=== PATIENT | male | born 1985 | race Caucasian/White ===

== ENCOUNTER → 2017-10-03 10:00 | Outpatient (REF) | payer MEDICAID, SELFPAY ==
[2017-10-03 13:22] LABS: Basophils # 0.1 K/mm3 (0-0.2); Eosinophils # 0.3 K/mm3 (0.0-0.4); Eosinophils % 2.6 % (0.1-12.0); Hematocrit 53.8 % (42.0-52.0); Hemoglobin 17.5 g/dL (14.1-18.0); Mean Corpuscular HGB Conc 32.5 g/dL (31.8-35.4); Mean Corpuscular Hemoglobin 29.4 pg (27.0-31.2); Mean Corpuscular Volume 90.4 fl (80-94); Mean Platelet Volume 7.8 fl (7.4-10.4); Monocytes # 0.8 K/mm3 (0.1-1.0); Monocytes % 6.5 % (1.7-9.3); Neutrophils # 7.6 K/mm3 (1.8-7.8); Platelet Count 309 K/mm3 (142-424); Red Blood Count 5.95 M/mm3 (4.60-6.20); Red Cell Distribution Width 12.7 % (11.5-17.5); White Blood Count 12.9 K/mm3 (4.8-10.8)
[2017-10-03 14:08] LABS: Alanine Aminotransferase 34 U/L (12-78); Albumin/Globulin Ratio 1.4 (1.1-1.8); Alkaline Phosphatase 115 U/L (46-116); Anion Gap 15.6 mEq/L (5-15); Aspartate Amino Transferase 19 U/L (15-37); Bilirubin,Total 0.8 mg/dL (0.2-1.0); Blood Urea Nitrogen 13 mg/dL (7-18); Carbon Dioxide 25 mmol/L (21.0-32.0); Chloride 101 mmol/L (98-107); Chol/HDL Ratio 4.4 (1-3.5); Cholesterol 129 mg/dL (140-200); Creatinine,Serum 0.75 mg/dL (0.70-1.30); Estimated Glomerular Filt Rate 121 ml/min (>60); Free T4 (Free Thyroxine) 1.36 ng/dl (0.76-1.46); GFR (African American) 146 ML/MIN (>60); Globulin 2.9 gm/dl (1.3-3.2); Glucose 292 mg/dL (74-106); HDL Cholesterol 29 mg/dL (27-67); LDL Cholesterol 73 mg/dL (0-130); Potassium 4.6 mmoL/L (3.5-5.1); Sodium 137 mmol/L (136-145); Thyroid Stimulating Hormone 6.02 uIU/ml (0.358-3.740); Total Protein,Serum 6.9 gm/dL (6.4-8.2); Triglycerides 135 mg/dL (30-200); VLDL Cholesterol 27 mg/dL (0-40)
[2017-10-04 13:38] LABS: Vitamin D 25 Hydroxy 29.9 ng/mL (30.0-100.0)
== END ==
LOC: LAB 10:00
PROVIDERS: Visit Provider Nurse Practitioner Family
DX: R53.83 Other fatigue (principal); E11.9 Type 2 diabetes mellitus without complications; R79.9 Abnormal finding of blood chemistry, unspecified
CPT/HCPCS: 80053; 80061; 82652; 83036; 84439; 84443; 85025

== ENCOUNTER → 2018-05-29 15:03 | Outpatient (CLI) | payer MEDICAID, SELFPAY ==
[2018-05-29 15:47] LABS: Basophils # 0.2 K/mm3 (0-0.2); Basophils % 1.5 % (0.1-2.0); Eosinophils # 0.3 K/mm3 (0.0-0.4); Eosinophils % 2.9 % (0.1-12.0); Hematocrit 48.5 % (42.0-52.0); Hemoglobin 16.3 g/dL (14.1-18.0); Lymphocytes # 4.3 K/mm3 (0.7-4.5); Lymphocytes % 40.4 % (10-50); Mean Corpuscular HGB Conc 33.6 g/dL (31.8-35.4); Mean Corpuscular Volume 89.2 fl (80-94); Mean Platelet Volume 7.6 fl (7.4-10.4); Monocytes # 0.7 K/mm3 (0.1-1.0); Monocytes % 6.3 % (1.7-9.3); Neutrophils # 5.2 K/mm3 (1.8-7.8); Neutrophils % 48.9 % (37.0-80.0); Platelet Count 353 K/mm3 (142-424); Red Blood Count 5.44 M/mm3 (4.60-6.20); Red Cell Distribution Width 13.4 % (11.5-17.5); White Blood Count 10.6 K/mm3 (4.8-10.8)
[2018-05-29 17:18] LABS: Free T4 (Free Thyroxine) 1.31 ng/dl (0.76-1.46)
[2018-05-29 17:20] LABS: Alanine Aminotransferase 59 U/L (12-78); Albumin Level 4.1 gm/dL (3.4-5.0); Albumin/Globulin Ratio 1.3 (1.1-1.8); Alkaline Phosphatase 127 U/L (46-116); Anion Gap 19.1 mEq/L (5-15); Aspartate Amino Transferase 15 U/L (15-37); Bilirubin,Total 0.9 mg/dL (0.2-1.0); Blood Urea Nitrogen 14 mg/dL (7-18); Carbon Dioxide 22 mmol/L (21.0-32.0); Chloride 96 mmol/L (98-107); Chol/HDL Ratio 5.2 (1-3.5); Cholesterol 188 mg/dL (140-200); Creatinine,Serum 0.81 mg/dL (0.70-1.30); Estimated Glomerular Filt Rate 110 ml/min (>60); GFR (African American) 133 ML/MIN (>60); Globulin 3.1 gm/dl (1.3-3.2); HDL Cholesterol 36 mg/dL (27-67); LDL Cholesterol 126 mg/dL (0-130); Potassium 4.1 mmoL/L (3.5-5.1); Sodium 133 mmol/L (136-145); T4 (Thyroxine) 10.9 ug/dl (4.7-13.3); Thyroid Stimulating Hormone 10.51 uIU/ml (0.358-3.740); Total Protein,Serum 7.2 gm/dL (6.4-8.2); Triglycerides 130 mg/dL (30-200); VLDL Cholesterol 26 mg/dL (0-40)
[2018-05-29 18:02] LABS: Glucose 446 mg/dL (74-106)
[2018-05-29 20:10] LABS: Hemoglobin A1C 10.7 % (0.0-7.0)
== END ==
PROVIDERS: Nurse Practitioner Family; Visit Provider Nurse Practitioner Family
DX: E11.9 Type 2 diabetes mellitus without complications (principal); R53.83 Other fatigue
CPT/HCPCS: 80053; 80061; 83036; 84436; 84439; 84443; 85025

== ENCOUNTER → 2019-05-14 08:56 | Outpatient (CLI) | payer MEDICAID, SELFPAY ==
[2019-05-14 09:20] LABS: Basophils # 0.1 K/mm3 (0-0.2); Eosinophils # 0.2 K/mm3 (0.0-0.4); Eosinophils % 2.4 % (0.1-12.0); Hematocrit 48.9 % (42.0-52.0); Hemoglobin 16.7 g/dL (14.1-18.0); Lymphocytes # 2.8 K/mm3 (0.7-4.5); Lymphocytes % 35.3 % (10-50); Mean Corpuscular HGB Conc 34.1 g/dL (31.8-35.4); Mean Corpuscular Hemoglobin 31.6 pg (27.0-31.2); Mean Corpuscular Volume 92.6 fl (80-94); Mean Platelet Volume 7.3 fl (7.4-10.4); Monocytes # 0.5 K/mm3 (0.1-1.0); Monocytes % 6.6 % (1.7-9.3); Neutrophils # 4.4 K/mm3 (1.8-7.8); Neutrophils % 54.6 % (37.0-80.0); Platelet Count 278 K/mm3 (142-424); Red Blood Count 5.29 M/mm3 (4.60-6.20); Red Cell Distribution Width 12.9 % (11.5-17.5)
[2019-05-14 10:10] LABS: Alanine Aminotransferase 51 U/L (12-78); Albumin Level 3.9 gm/dL (3.4-5.0); Albumin/Globulin Ratio 1.3 (1.1-1.8); Alkaline Phosphatase 107 U/L (46-116); Anion Gap 18.3 mEq/L (5-15); Aspartate Amino Transferase 20 U/L (15-37); Bilirubin,Total 1.2 mg/dL (0.2-1.0); Blood Urea Nitrogen 11 mg/dL (7-18); Calcium 8.8 mg/dL (8.5-10.1); Carbon Dioxide 23 mmol/L (21.0-32.0); Chloride 101 mmol/L (98-107); Creatinine,Serum 0.82 mg/dL (0.70-1.30); Estimated Glomerular Filt Rate 108 ml/min (>60); GFR (African American) 130 ML/MIN (>60); Globulin 2.9 gm/dl (1.3-3.2); Glucose 398 mg/dL (74-106); Potassium 4.3 mmoL/L (3.5-5.1); Sodium 138 mmol/L (136-145); Thyroid Stimulating Hormone 10.05 uIU/ml (0.358-3.740); Total Protein,Serum 6.8 gm/dL (6.4-8.2)
[2019-05-14 10:36] LABS: Hemoglobin A1C 11.2 % (0.0-7.0)
== END ==
PROVIDERS: Visit Provider Nurse Practitioner Psychiatric/Mental Health
DX: Z00.00 Encounter for general adult medical examination without abnormal findings (principal); Z79.899 Other long term (current) drug therapy
CPT/HCPCS: 36415; 80053; 83036; 84443; 85025

== ENCOUNTER → 2019-05-28 16:33 | Outpatient (CLI) | payer MEDICAID, SELFPAY ==
[2019-05-30 12:24] LABS: Creatinine, Urine 58.5 mg/dL (Not Estab.); Microalbumin, Urine 8.5 ug/mL (Not Estab.)
== END ==
PROVIDERS: Visit Provider Nurse Practitioner Family
DX: E11.9 Type 2 diabetes mellitus without complications (principal); Z79.84 Long term (current) use of oral hypoglycemic drugs
CPT/HCPCS: 82043; 82570

== ENCOUNTER → 2019-06-01 11:53 | Outpatient (CLI) | payer MEDICAID, SELFPAY ==
[2019-06-01 13:03] LABS: Basophils # 0.1 K/mm3 (0-0.2); Basophils % 0.9 % (0.1-2.0); Eosinophils # 0.1 K/mm3 (0.0-0.4); Eosinophils % 1.1 % (0.1-12.0); Hematocrit 48.1 % (42.0-52.0); Hemoglobin 16.3 g/dL (14.1-18.0); Lymphocytes # 3.3 K/mm3 (0.7-4.5); Lymphocytes % 31.9 % (10-50); Mean Corpuscular HGB Conc 33.9 g/dL (31.8-35.4); Mean Corpuscular Hemoglobin 30.7 pg (27.0-31.2); Mean Corpuscular Volume 90.5 fl (80-94); Mean Platelet Volume 7.6 fl (7.4-10.4); Monocytes # 0.6 K/mm3 (0.1-1.0); Monocytes % 5.6 % (1.7-9.3); Neutrophils # 6.3 K/mm3 (1.8-7.8); Neutrophils % 60.6 % (37.0-80.0); Platelet Count 284 K/mm3 (142-424); Red Blood Count 5.31 M/mm3 (4.60-6.20); Red Cell Distribution Width 12.9 % (11.5-17.5); White Blood Count 10.4 K/mm3 (4.8-10.8)
[2019-06-01 15:35] LABS: Anion Gap 17.6 mEq/L (5-15); Blood Urea Nitrogen 12 mg/dL (7-18); Calcium 9.1 mg/dL (8.5-10.1); Carbon Dioxide 24 mmol/L (21.0-32.0); Chloride 99 mmol/L (98-107); Chol/HDL Ratio 5.5 (1-3.5); Cholesterol 165 mg/dL (140-200); Creatinine,Serum 0.92 mg/dL (0.70-1.30); Estimated Glomerular Filt Rate 94 ml/min (>60); GFR (African American) 114 ML/MIN (>60); HDL Cholesterol 30 mg/dL (27-67); LDL Cholesterol 95 mg/dL (0-130); Potassium 4.6 mmoL/L (3.5-5.1); Sodium 136 mmol/L (137-145); Triglycerides 202 mg/dL (30-200); VLDL Cholesterol 40 mg/dL (0-40)
[2019-06-01 15:39] LABS: C-Reactive Protein < 0.2 mg/dL (0.0-0.9)
[2019-06-01 15:43] LABS: Glucose 472 mg/dL (74-106)
[2019-06-01 17:16] LABS: Hemoglobin A1C 10.6 % (0.0-7.0)
== END ==
PROVIDERS: Visit Provider Family Medicine Addiction Medicine
DX: G45.3 Amaurosis fugax (principal); E11.9 Type 2 diabetes mellitus without complications; Z79.4 Long term (current) use of insulin
CPT/HCPCS: 36415; 80048; 80061; 83036; 85025; 86140

== ENCOUNTER → 2019-08-20 13:33 | Outpatient (CLI) | payer MEDICAID, SELFPAY ==
[2019-08-20 14:04] LABS: Alanine Aminotransferase 41 U/L (12-78); Albumin Level 4.3 g/dl (3.5-5.0); Albumin/Globulin Ratio 1.7 (1.1-1.8); Alkaline Phosphatase 109 U/L (38-126); Anion Gap 15.3 mEq/L (5-15); Aspartate Amino Transferase 29 U/L (17-59); Blood Urea Nitrogen 12 mg/dl (9-20); Calcium 9.5 mg/dl (8.4-10.2); Carbon Dioxide 22 mmol/L (22.0-30.0); Chloride 100 mmol/L (98-107); Chol/HDL Ratio 4.3 (1-3.5); Cholesterol 173 mg/dl (140-200); Estimated Glomerular Filt Rate 154 ml/min (>60); GFR (African American) 187 ML/MIN (>60); Globulin 2.6 g/dL (1.3-3.2); Glucose 372 mg/dl (74-100); HDL Cholesterol 40 mg/dl (40-60); Potassium 4.3 mmoL/L (3.5-5.1); Sodium 133 mmol/L (136-145); Total Protein,Serum 6.9 g/dl (6.3-8.2); Triglycerides 99 mg/dl (30-150); VLDL Cholesterol 20 mg/dL (0-40)
[2019-08-20 14:15] LABS: Basophils # 0.1 K/mm3 (0-0.2); Basophils % 1.1 % (0.1-2.0); Direct LDL Cholesterol 139.35 mg/dL (100-129); Eosinophils # 0.4 K/mm3 (0.0-0.4); Hematocrit 49.3 % (42.0-52.0); Hemoglobin 17.1 g/dL (14.1-18.0); Lymphocytes % 30.3 % (10-50); Mean Corpuscular HGB Conc 34.8 g/dL (31.8-35.4); Mean Corpuscular Hemoglobin 30.6 pg (27.0-31.2); Mean Corpuscular Volume 88.1 fl (80-94); Mean Platelet Volume 8.6 fl (7.4-10.4); Monocytes # 0.5 K/mm3 (0.1-1.0); Monocytes % 5.5 % (1.7-9.3); Neutrophils # 5.8 K/mm3 (1.8-7.8); Neutrophils % 59.1 % (37.0-80.0); Platelet Count 297 K/mm3 (142-424); Red Cell Distribution Width 12.1 % (11.5-17.5); White Blood Count 9.8 K/mm3 (4.8-10.8)
[2019-08-20 14:21] LABS: Hemoglobin A1C 11.7 % (4.0-6.0)
[2019-08-20 14:35] LABS: Thyroid Stimulating Hormone 8.64 uIU/mL (0.465-4.68)
[2019-08-21 09:29] LABS: Creatinine, Urine 92.3 mg/dL (Not Estab.); Microalbumin, Urine 3.8 ug/mL (Not Estab.)
== END ==
PROVIDERS: Visit Provider Nurse Practitioner Family
DX: E11.9 Type 2 diabetes mellitus without complications (principal); E03.9 Hypothyroidism, unspecified; K59.00 Constipation, unspecified; Z79.4 Long term (current) use of insulin
CPT/HCPCS: 80053; 80061; 82043; 82570; 83036; 84439; 84443; 85025

== ENCOUNTER → 2019-11-04 14:05 | Outpatient (CLI) | payer MEDICAID, SELFPAY ==
[2019-11-04 14:20] LABS: Basophils # 0.1 K/mm3 (0-0.2); Basophils % 1.2 % (0.1-2.0); Eosinophils # 0.4 K/mm3 (0.0-0.4); Eosinophils % 3.7 % (0.1-12.0); Hematocrit 48.4 % (42.0-52.0); Hemoglobin 17.1 g/dL (14.1-18.0); Lymphocytes # 3.4 K/mm3 (0.7-4.5); Lymphocytes % 35.5 % (10-50); Mean Corpuscular HGB Conc 35.3 g/dL (31.8-35.4); Mean Corpuscular Hemoglobin 31.6 pg (27.0-31.2); Mean Corpuscular Volume 89.7 fl (80-94); Mean Platelet Volume 7.9 fl (7.4-10.4); Monocytes # 0.6 K/mm3 (0.1-1.0); Monocytes % 5.9 % (1.7-9.3); Neutrophils # 5.1 K/mm3 (1.8-7.8); Neutrophils % 53.8 % (37.0-80.0); Platelet Count 281 K/mm3 (142-424); Red Blood Count 5.39 M/mm3 (4.60-6.20); Red Cell Distribution Width 13.1 % (11.5-17.5); White Blood Count 9.6 K/mm3 (4.8-10.8)
[2019-11-04 14:47] LABS: Hemoglobin A1C 10.4 % (4.0-6.0)
[2019-11-04 14:54] LABS: Chloride 102 mmol/L (98-107); Potassium 4.2 mmoL/L (3.5-5.1); Sodium 139 mmol/L (136-145)
[2019-11-04 14:57] LABS: Alanine Aminotransferase 25 U/L (12-78); Albumin Level 4.4 g/dl (3.5-5.0); Albumin/Globulin Ratio 1.6 (1.1-1.8); Alkaline Phosphatase 88 U/L (38-126); Anion Gap 17.2 mEq/L (5-15); Aspartate Amino Transferase 19 U/L (17-59); Bilirubin,Total 1.9 mg/dl (0.2-1.3); Blood Urea Nitrogen 13 mg/dl (9-20); Calcium 9.1 mg/dl (8.4-10.2); Carbon Dioxide 24 mmol/L (22.0-30.0); Cholesterol 146 mg/dl (140-200); Estimated Glomerular Filt Rate 154 ml/min (>60); GFR (African American) 187 ML/MIN (>60); Globulin 2.7 g/dL (1.3-3.2); Glucose 237 mg/dl (74-100); Total Protein,Serum 7.1 g/dl (6.3-8.2); Triglycerides 71 mg/dl (30-150); VLDL Cholesterol 14 mg/dL (0-40)
[2019-11-04 14:58] LABS: Chol/HDL Ratio 4.4 (1-3.5); HDL Cholesterol 33 mg/dl (40-60)
[2019-11-04 15:08] LABS: Direct LDL Cholesterol 109.64 mg/dL (100-129)
[2019-11-04 15:13] LABS: T4 (Thyroxine) 10.7 ug/dl (5.53-11.0)
== END ==
PROVIDERS: Visit Provider Nurse Practitioner Family
DX: E11.9 Type 2 diabetes mellitus without complications (principal); R53.83 Other fatigue; Z79.4 Long term (current) use of insulin
CPT/HCPCS: 80053; 80061; 83036; 84436; 84443; 85025

== ENCOUNTER → 2019-12-03 16:04 | Outpatient (CLI) | payer MEDICAID, SELFPAY ==
[2019-12-03 17:36] LABS: Erythrocyte Sedimentation Rate 6 mm/hr (0-15)
[2019-12-03 18:33] LABS: Thyroid Stimulating Hormone 4.29 uIU/mL (0.465-4.68)
[2019-12-05 13:06] LABS: Vitamin B12 459 pg/mL (232-1245)
[2019-12-05 17:17] LABS: CK-MB 0 % (0-3); CK-MM 100 % (97-100); Creatine Kinase,Total,Serum 30 U/L (49-439); Macro Type 1 0 % (Not Observed); Macro Type 2 0 % (Not Observed)
[2019-12-05 17:42] LABS: CK-BB 0 % (0)
[2019-12-08 02:54] LABS: Aldolase 4.4 U/L (3.3-10.3)
[2019-12-10 14:28] LABS: AChR Binding Abs 0.03 nmol/L (0.00-0.24); AChR Blocking Abs 17 % (0-25); AChR Modulating Ab <12 % (0-20); Anti-Striation (muscle) Abs Negative (Neg:<1:40)
== END ==
PROVIDERS: Visit Provider Nurse Practitioner Family
DX: E03.9 Hypothyroidism, unspecified (principal); M62.81 Muscle weakness (generalized); R63.4 Abnormal weight loss; G89.29 Other chronic pain; M54.5 Low back pain; N52.9 Male erectile dysfunction, unspecified; R20.0 Anesthesia of skin; R20.2 Paresthesia of skin; R29.2 Abnormal reflex; E10.69 Type 1 diabetes mellitus with other specified complication; I10 Essential (primary) hypertension; R05 Cough; F41.9 Anxiety disorder, unspecified
CPT/HCPCS: 36415; 82085; 82550; 82552; 82607; 84238; 84443; 85651; 86255

== ENCOUNTER → 2019-12-15 14:10 | Outpatient (CLI) | payer MEDICAID, SELFPAY ==
--- NOTE | 2019-12-15 14:10 | MR_ITS ---
PROCEDURE: MR LUMBAR SPINE WO CON CLINICAL INDICATION: rule out radiculopathy, compression, impingement,myleopathy Pt. C/o left sided lbp s/p falling onto buttox. Pt states he has tingling down left leg. COMPARISON: No exams were available for comparison TECHNIQUE: Standard multiplanar multiecho sequences are performed without contrast. 3-D MIP and myelographic images are also rendered and reviewed FINDINGS: There is normal alignment. The spinal cord ends at T12 level. T12-L1: Unremarkable. L1-L2: Unremarkable. L2-L3: Unremarkable. L3-L4: Unremarkable. L4-5: The disc space is unremarkable. There is a small lobular cystic area posterior to the posterior aspect of the facet joint on the right at L4-5. This measures 17 by 12 mm consistent with a synovial cyst. There are mild hypertrophic changes of the facets with mild bilateral foraminal narrowing. L5-S1: Mild facet hypertrophic changes with moderate right-sided foraminal narrowing. No extruded herniated disc. IMPRESSION: 1. L4-5: The disc space is unremarkable. There is a small lobular cystic area posterior to the posterior aspect of the facet joint on the right at L4-5. This measures 17 by 12 mm consistent with a synovial cyst. There are mild hypertrophic changes of the facets with mild bilateral foraminal narrowing. 2. L5-S1: Mild facet hypertrophic changes with moderate right-sided foraminal narrowing. 3. No extruded herniated disc or canal stenosis. Dictated by: Sohan Bernal MD 12/16/2019 12:39 Sohan Bernal MD in [place] 12/16/2019 12:39
== END ==
PROVIDERS: PCP Nurse Practitioner Family; Visit Provider Specialist
DX: M54.5 Low back pain (principal); G89.29 Other chronic pain; M62.81 Muscle weakness (generalized); E03.9 Hypothyroidism, unspecified; E10.69 Type 1 diabetes mellitus with other specified complication; N52.9 Male erectile dysfunction, unspecified; R20.0 Anesthesia of skin; R20.2 Paresthesia of skin; R29.2 Abnormal reflex; R63.4 Abnormal weight loss
CPT/HCPCS: 72148; 76376

== ENCOUNTER → 2019-12-23 16:18 | Outpatient (CLI) | payer MEDICAID, SELFPAY ==
--- NOTE | 2019-12-23 16:25 | XR_ITS ---
PROCEDURE: XR LUMBAR SPINE 2-3V CLINICAL INDICATION: back pain with numbness, tingling, weakness, ED COMPARISON: No exams were available for comparison FINDINGS: No fracture or dislocation. No lytic or blastic change. There is normal mineralization. The joint spaces are well-preserved. No significant degenerative/arthritic changes. No erosive changes evident. Other findings:There is minimal thoracolumbar curvature convex right. IMPRESSION: Minimal thoracolumbar curvature convex right otherwise negative with no acute finding Dictated by: Sohan Bernal MD 12/23/2019 17:41 Sohan Bernal MD in [place] 12/23/2019 17:41
--- NOTE | 2019-12-23 16:25 | XR_ITS ---
PROCEDURE: XR CHEST 2V CLINICAL HISTORY: chronic cough, unintentional weight loss, tobacco COMPARISON: No exams were available for comparison FINDINGS: The cardiomediastinal silhouette and pulmonary vascularity are within normal limits. The lungs are clear without infiltrates, suspicious nodules, or pleural effusions. There is an old midshaft clavicular fracture on the right. No acute bony findings. IMPRESSION: No acute findings. Dictated by: Sohan Bernal MD 12/23/2019 17:44 Sohan Bernal MD in [place] 12/23/2019 17:44
== END ==
PROVIDERS: PCP Nurse Practitioner Family; Visit Provider Nurse Practitioner Family
DX: M54.5 Low back pain (principal); G89.29 Other chronic pain; M62.81 Muscle weakness (generalized); N52.9 Male erectile dysfunction, unspecified; R29.2 Abnormal reflex; R63.4 Abnormal weight loss; R05 Cough; Z72.0 Tobacco use
CPT/HCPCS: 71046; 72100

== ENCOUNTER → 2020-03-02 18:28 | Outpatient (CLI) | payer MEDICAID, SELFPAY ==
[2020-03-02 20:20] LABS: Alanine Aminotransferase 34 U/L (12-78); Albumin Level 4.3 g/dl (3.5-5.0); Albumin/Globulin Ratio 1.5 (1.1-1.8); Alkaline Phosphatase 97 U/L (38-126); Anion Gap 14.2 mEq/L (5-15); Aspartate Amino Transferase 34 U/L (17-59); Bilirubin,Total 1.7 mg/dl (0.2-1.3); Blood Urea Nitrogen 12 mg/dl (9-20); Calcium 9.6 mg/dl (8.4-10.2); Carbon Dioxide 25 mmol/L (22.0-30.0); Chloride 103 mmol/L (98-107); Cholesterol 140 mg/dl (140-200); Estimated Glomerular Filt Rate 153 ml/min (>60); GFR (African American) 186 ML/MIN (>60); Globulin 2.9 g/dL (1.3-3.2); Glucose 225 mg/dl (74-100); HDL Cholesterol 35 mg/dl (40-60); Potassium 4.2 mmoL/L (3.5-5.1); Sodium 138 mmol/L (136-145); Total Protein,Serum 7.2 g/dl (6.3-8.2); Triglycerides 71 mg/dl (30-150); VLDL Cholesterol 14 mg/dL (0-40)
[2020-03-02 20:36] LABS: 25-OH Vitamin D, Total 32.8 ng/mL (30-100)
[2020-03-02 20:37] LABS: T4 (Thyroxine) 10.7 ug/dl (5.53-11.0)
[2020-03-02 20:51] LABS: Thyroid Stimulating Hormone 8.09 uIU/mL (0.465-4.68)
[2020-03-02 22:27] LABS: Basophils # 0.1 K/mm3 (0-0.2); Basophils % 1.2 % (0.1-2.0); Eosinophils # 0.3 K/mm3 (0.0-0.4); Eosinophils % 2.4 % (0.1-12.0); Hematocrit 49.5 % (42.0-52.0); Hemoglobin 16.4 g/dL (14.1-18.0); Lymphocytes # 3.4 K/mm3 (0.7-4.5); Lymphocytes % 32.7 % (10-50); Mean Corpuscular HGB Conc 33.1 g/dL (31.8-35.4); Mean Corpuscular Hemoglobin 31.1 pg (27.0-31.2); Mean Platelet Volume 8.7 fl (7.4-10.4); Monocytes # 0.7 K/mm3 (0.1-1.0); Monocytes % 6.9 % (1.7-9.3); Neutrophils # 5.9 K/mm3 (1.8-7.8); Neutrophils % 56.8 % (37.0-80.0); Platelet Count 249 K/mm3 (142-424); Red Blood Count 5.27 M/mm3 (4.60-6.20); Red Cell Distribution Width 12.7 % (11.5-17.5); White Blood Count 10.4 K/mm3 (4.8-10.8)
[2020-03-02 23:13] LABS: Hemoglobin A1C 8.2 % (4.0-6.0)
== END ==
PROVIDERS: Visit Provider Nurse Practitioner Family
DX: E10.69 Type 1 diabetes mellitus with other specified complication (principal); Z79.4 Long term (current) use of insulin
CPT/HCPCS: 80053; 80061; 82306; 83036; 84436; 84443; 85025

== ENCOUNTER 2020-03-13 19:29 | Emergency (ER) | payer MEDICAID, SELFPAY ==
[2020-03-13 20:10] VITALS: BP 118/83; PULSE 78; RESP 20; TEMP 36.2; O2SAT 98; BMI 24.7
--- NOTE | 2020-03-13 20:23 | HMH.EDUTC ---
[facility] [place] Clinical Impression: Exposure to COVID-19 virus Disposition: Home, Self-Care Condition on Discharge: Good Instructions: Preventing the Spread of Coronavirus Discharge Instructions Additional Instructions: Drink plenty of fluids. Take tylenol for pain or fever. Return if you begin to have difficulty breathing. Follow up with your regular doctor. GO TO THE ER FOR ANY WORSENING SYMPTOMS Referrals: Shun Traylor APRN [Primary Care Provider] - Time of Disposition: 20:23 Medical Decision Making - Medical Records Medical records reviewed: No: I reviewed the patient's medical records. - Burton Inquiry Pt receiving controlled substance: No Vital Signs: 03/13/20 20:10 Temperature 97.2 F L Temperature Source Temporal Artery Scan Pulse Rate [Left Brachial] 78 Respiratory Rate 20 Blood Pressure [Left Arm] 118/83 Blood Pressure Mean [Left Arm] 94 Blood Pressure Source [Left Arm] Automatic Cuff Blood Pressure Position [Left Arm] Sitting 02 Sat by Pulse Oximetry 98 Oxygen Delivery Method Room Air Orders (Tests/Meds): ORDERS Category Date Time Status Covid-19 Nasal PCR Sendout [facility] Routine Lab 03/13/20 19:55 Ordered [facility] [place] HPI - General Stated complaint: COVID Exposure Time Seen by Provider: 03/13/20 20:23 - History of Present Illness Provider Complaint: He states he has been exposed to covid and needs a test. - Related Data Previous Rx's Medication Instructions Recorded pen needle, diabetic 31 gauge x See Rx Instructions .ROUTE 06/12/19 5/16 .MEDSUPPLY #100 each aripiprazole 5 mg tablet 5 mg PO QHS #30 tab 12/29/19 insulin NPH-regular 70-30 U-100 12 unit SQ BID #15 ml 01/08/20 insulin 100 unit/mL subcutaneous pen aspirin 81 mg tablet,delayed 81 mg PO DAILY #30 tab 03/02/20 release blood sugar diagnostic See Rx Instructions .ROUTE 03/02/20 .MEDSUPPLY #10 each blood-glucose meter,continuous See Rx Instructions .ROUTE 03/02/20 .MEDSUPPLY #1 each blood-glucose sensor See Rx Instructions .ROUTE 03/02/20 .MEDSUPPLY #3 each blood-glucose transmitter See Rx Instructions .ROUTE 03/02/20 .MEDSUPPLY #1 each lisinopril 2.5 mg tablet 2.5 mg PO DAILY 30 Days #30 tab 03/02/20 simvastatin 5 mg tablet 5 mg PO DAILY 30 Days #30 tab 03/02/20 levothyroxine 25 mcg tablet 25 mcg PO DAILY #30 tab 03/03/20 Allergies Allergy/AdvReac Type Severity Reaction Status Date / Time Penicillins [PENICILLINS] Allergy Unknown Verified 03/02/20 14:33 [facility] History - Hepatitis A Screen Attestation statement:: This patient has been screened for Hepatitis A risk factors. I have reviewed the patient's past medical history: Yes Medical History: Reports:: Anxiety, Diabetes Mellitus Type 2, Hyperlipidemia, Hypertension Other Medical History: Reports: Thyroid Disease Other Surgeries: Yes: No Previous Surgery Amputation: No Fractures: No - Social History Smoking Status: Current every day smoker Tobacco Type: cigarettes # Packs/Day (cigarettes): 1 Alcohol Intake: never Alcohol Intake Frequency:: other Substance Use Type: denies use Occupational Status: employed Housing: house Household Members: children, spouse Comment: -he used to smoke cannabis. -nothing current. -when [age] years old; dabbled in cocaine and methamphetamines - Psychiatric History Pschychiatric History:: Reports:: Anxiety Family Hx:: Diabetes, Hypertension ROS Obtained: Yes All systems reviewed & no additional complaints - Constitutional Constitutional: Reports system reviewed and no additional complaints, except as docu - Eyes Eyes: Reports system reviewed and no additional complaints, except as docu - ENT Ears, Nose, Mouth, and Throat: Reports system reviewed and no additional complaints, except as docu - Cardiovascular Cardiovascular: Reports system reviewed and no additional complaints, except as docu - Respiratory Respiratory: Yes system reviewed and no additional complaints, e
[2020-03-13 20:35] VITALS: BP 118/83; PULSE 78; RESP 20; TEMP 36.2; O2SAT 98
[2020-03-15 13:35] LABS: Covid-19 Nasal PCR Sendout Lex Not Detected
== END 2020-03-13 20:40 | disposition home or self-care (01) ==
PROVIDERS: Emergency Provider Nurse Practitioner Family; PCP Nurse Practitioner Family
DX: Z20.828 Contact with and (suspected) exposure to other viral communicable diseases (principal); E11.9 Type 2 diabetes mellitus without complications; E78.5 Hyperlipidemia, unspecified; I10 Essential (primary) hypertension; E03.9 Hypothyroidism, unspecified; Z79.899 Other long term (current) drug therapy; Z88.0 Allergy status to penicillin; F17.210 Nicotine dependence, cigarettes, uncomplicated
CPT/HCPCS: 99201; U0004

== ENCOUNTER 2020-04-30 01:01 | Emergency (ER) | payer MEDICAID, SELFPAY ==
[2020-04-30 01:12] VITALS: BP 165/106; PULSE 98; RESP 16; TEMP 36.8; O2SAT 98; BMI 26.2
[2020-04-30 01:22] VITALS: BMI 26.5
--- NOTE | 2020-04-30 01:29 | HMH.EDWEAK ---
ED Disposition Clinical Impression: Diabetes Qualifiers: Diabetes mellitus type: type 1 Diabetes mellitus complication status: with other specified complication Qualified Code(s): E10.69 - Type 1 diabetes mellitus with other specified complication Disposition: Home, Self-Care Condition on Discharge: Good Instructions: DI for Diabetic Neuropathy Additional Instructions: call pcp for follow up Referrals: Shun Traylor APRN [Primary Care Provider] - - Critical Care Critical Care Time: No Attestation: On 04/30/20, the high probability of a clinically significant, sudden or life threatening deterioration of the following system(s) required my full and direct attention, intervention and personal management. The time I documented below is in addition to time spent performing reported procedures but includes the following listed in this critical care notation. Medical Decision Making - Medical Records Medical records reviewed: Yes: I reviewed the patient's medical records. - Burton Inquiry Pt receiving controlled substance: No Vital Signs: 04/30/20 01:12 Temperature 98.3 F Temperature Source Oral Pulse Rate [Right Brachial] 98 H Respiratory Rate 16 Blood Pressure [Right Arm] 165/106 H Blood Pressure Mean [Right Arm] 125 Blood Pressure Source [Right Arm] Automatic Cuff Blood Pressure Position [Right Arm] Sitting 02 Sat by Pulse Oximetry 98 Oxygen Delivery Method Room Air - Lab Data Lab results reviewed: Yes: I reviewed the patient's lab results. Lab Results 04/30/20 01:18: POC Glucose 367 H* Orders (Tests/Meds): ED MEDICATIONS Discontinued Medications Generic Name Dose Route Start Last Admin Trade Name Freq PRN Reason Stop Dose Admin Insulin Lispro Protam/Lispro Human 12 unit 04/30/20 01:23 Humalog Mix 75/25 3ml Flexpen SQ 04/30/20 01:24 ONCE ONE Medical Decision Narrative: will use insulin at home and call pcp for follow up Weakness HPI - General Chief complaint: Weakness Stated complaint: Diabetic neuropathy Time Seen by Provider: 04/30/20 01:15 Mode of Arrival: Ambulatory Source of Information: Patient, Medical Record Limitations: No Limitations Description of Symptoms (Recalled from ER Triage Doc. by RN): lighthead, weakness. Forgot to take Insulin earlier today before going to work. - History of Present Illness HPI Narrative: pt with episode of weakness and lower ext pain - he reports this occurs with his diabetes - he had not taken evening dose as he was late at work- he feels better now - MD Complaint: generalized weakness Onset (ago): hour(s) Duration: now resolved Location: E Migration: none Severity: similar to previous episodes Associated symptoms: denies other symptoms - Related Data Previous Rx's Medication Instructions Recorded pen needle, diabetic 31 gauge x See Rx Instructions .ROUTE 06/12/19/ .MEDSUPPLY #100 each insulin NPH-regular 70-30 U-100 12 unit SQ BID #15 ml 01/08/20 insulin 100 unit/mL subcutaneous pen aspirin 81 mg tablet,delayed 81 mg PO DAILY #30 tab 03/02/20 release blood sugar diagnostic See Rx Instructions .ROUTE 03/02/20 .MEDSUPPLY #10 each blood-glucose meter,continuous See Rx Instructions .ROUTE 03/02/20 .MEDSUPPLY #1 each blood-glucose sensor See Rx Instructions .ROUTE 03/02/20 .MEDSUPPLY #3 each blood-glucose transmitter See Rx Instructions .ROUTE 03/02/20 .MEDSUPPLY #1 each lisinopril 2.5 mg tablet 2.5 mg PO DAILY 30 Days #30 tab 03/02/20 simvastatin 5 mg tablet 5 mg PO DAILY 30 Days #30 tab 03/02/20 levothyroxine 25 mcg tablet 25 mcg PO DAILY #30 tab 03/03/20 aripiprazole 5 mg tablet 5 mg PO QHS #30 tab 03/21/20 Allergies Allergy/AdvReac Type Severity Reaction Status Date / Time Penicillins [PENICILLINS] Allergy Unknown Verified 03/02/20 14:33 [facility] History - Hepatitis A Screen Drug use history?: No High risk sexual behaviors?: No History of sexually transmitted infection?
[2020-04-30 01:37] LABS: POC Glucose,Bedside 367 (70-110)
--- NOTE | 2020-04-30 01:38 | PC.NURSE ---
Pt states the dose of insulin he missed is 70/30 12 units, we have no 70/30 available in house, pt states he is fine and has his insulin at home and will go home and take it, he was only in the E.D. because his work made him come here. Pt wishes to just go home and take own insulin, Dr Silva notified.
[2020-04-30 02:07] VITALS: BP 165/106; PULSE 90; RESP 16; TEMP 36.8
== END 2020-04-30 02:13 | disposition home or self-care (01) ==
PROVIDERS: Emergency Provider Emergency Medicine; PCP Nurse Practitioner Family
DX: E10.40 Type 1 diabetes mellitus with diabetic neuropathy, unspecified (principal); E10.65 Type 1 diabetes mellitus with hyperglycemia; Z79.4 Long term (current) use of insulin; I10 Essential (primary) hypertension; F41.9 Anxiety disorder, unspecified; E05.90 Thyrotoxicosis, unspecified without thyrotoxic crisis or storm; F17.210 Nicotine dependence, cigarettes, uncomplicated; E78.5 Hyperlipidemia, unspecified; Z79.899 Other long term (current) drug therapy
CPT/HCPCS: 82962; 99281

== ENCOUNTER 2020-12-24 12:31 | Emergency (ER) | payer MEDICAID, SELFPAY ==
[2020-12-24 14:00] VITALS: BP 145/81; PULSE 68; RESP 19; TEMP 36.7; O2SAT 98; BMI 27.2
--- NOTE | 2020-12-24 14:23 | HMH.EDUTC ---
[facility] [place] Disposition Clinical Impression: Exposure to COVID-19 virus Disposition: Home, Self-Care Condition on Discharge: Good Instructions: DI for COVID-19 (Suspected or Confirmed ), Preventing the Spread of Coronavirus Discharge Instructions Additional Instructions: *Monitor Temp, Over the counter Motrin or Tylenol as directed/as needed Tylenol every 4 hours and Motrin every 6 hours (as long as your family doctor has told you that you can take it) for fever or pain. and straight to ER if unable to lower temp less than 101.0 after medication given Follow up IMMEDIATELY for new or worsening symptoms or no Noticeable improvement over the next 48-72 hours. 911 for difficulty breathing or swallowing You were tested for today for COVID19 your test result should be back in the next 24-48 hours, You was given written instructions for [facility] portal you can see your results there when they come back you may check it often to see if they are done You was given a handout with instructions for Self Quarantine and Self isolation for while you wait on test results and what to do if they are positive If you are positive the Health Dept will be contacting you also Make sure to take your Vitamins Vit. C Vit D and Zinc if you can take them Referrals: Shun Traylor APRN [Primary Care Provider] - As needed Forms: Work/School Release Time of Disposition: 14:25 Medical Decision Making - Burton Inquiry Pt receiving controlled substance: No Burton was queried for this patient: No Vital Signs: 12/24/20 14:00 Temperature 98.1 F Temperature Source Oral Pulse Rate [Right Brachial] 68 Respiratory Rate 19 Blood Pressure [Right Arm] 145/81 H Blood Pressure Mean [Right Arm] 102 Blood Pressure Source [Right Arm] Automatic Cuff Blood Pressure Position [Right Arm] Sitting 02 Sat by Pulse Oximetry 98 Oxygen Delivery Method Room Air Orders (Tests/Meds): ORDERS Category Date Time Status Covid-19 Nasal PCR ([facility]) Routine Lab 12/24/20 14:02 Received [facility] [place] HPI - General Stated complaint: covid test, exposue Time Seen by Provider: 12/24/20 14:23 Mode of Arrival: Ambulatory Source of Information: Patient Limitations: No Limitations Description of Symptoms (Recalled from Triage Doc. by RN): COVID TEST D/T EXPOSURE. DENIES SYMPTOMS HEENT Symptoms (Recalled from RN notes): No Resp Symptoms (Recalled from RN notes): No Skin Symptoms (Recalled from RN notes): No MS Symptoms (Recalled from RN notes): No Functional Status (Recalled from RN notes): WNL - History of Present Illness Provider Complaint: Patient states that he had two of his children test positive for COVID yesterday States that he has had a little achy headache but has a history of headaches today but it is gone now so he wanted to get tested due to being around his kids - Related Data Previous Rx's Medication Instructions Recorded pen needle, diabetic 31 gauge x See Rx Instructions .ROUTE 06/12/1909/04 .MEDSUPPLY #100 each insulin NPH-regular 70-30 U-100 12 unit SQ BID #15 ml 01/08/20 insulin 100 unit/mL subcutaneous pen aspirin 81 mg tablet,delayed 81 mg PO DAILY #30 tab 03/02/20 release blood sugar diagnostic See Rx Instructions .ROUTE 03/02/20 .MEDSUPPLY #10 each blood-glucose meter,continuous See Rx Instructions .ROUTE 03/02/20 .MEDSUPPLY #1 each blood-glucose sensor See Rx Instructions .ROUTE 03/02/20 .MEDSUPPLY #3 each blood-glucose transmitter See Rx Instructions .ROUTE 03/02/20 .MEDSUPPLY #1 each lisinopril 2.5 mg tablet 2.5 mg PO DAILY 30 Days #30 tab 03/02/20 simvastatin 5 mg tablet 5 mg PO DAILY 30 Days #30 tab 03/02/20 levothyroxine 25 mcg tablet 25 mcg PO DAILY #30 tab 03/03/20 aripiprazole 5 mg tablet 5 mg PO QHS #30 tab 03/21/20 Allergies Allergy/AdvReac Type Severity Reaction Status Date / Time Penicillins [PENICILLINS] Allergy Unknown Verified 03/02/20 14:33 - Worker's Comp Is this a Worker's Comp case?: No [facility]
[2020-12-24 14:25] VITALS: BP 145/81; PULSE 68; RESP 19; TEMP 36.7; O2SAT 98
== END 2020-12-24 14:30 | disposition home or self-care (01) ==
PROVIDERS: Emergency Provider Nurse Practitioner; PCP Nurse Practitioner Family
DX: Z20.822 Contact with and (suspected) exposure to COVID-19 (principal); R51.9 Headache, unspecified; E11.9 Type 2 diabetes mellitus without complications; I10 Essential (primary) hypertension; E78.5 Hyperlipidemia, unspecified; E03.9 Hypothyroidism, unspecified; F17.210 Nicotine dependence, cigarettes, uncomplicated
CPT/HCPCS: 99202; G0463; U0003

== ENCOUNTER → 2021-05-04 10:24 | Outpatient (CLI) | payer MEDICAID, SELFPAY | PROVIDERS: PCP Emergency Medicine; Visit Provider Nurse Practitioner | DX: Z20.822 Contact with and (suspected) exposure to COVID-19 (principal) | CPT/HCPCS: C9803; U0003; U0005 ==

== ENCOUNTER → 2021-09-19 14:21 | Outpatient (CLI) | payer MEDICAID, SELFPAY ==
[2021-09-19 14:03] LABS: Alanine Aminotransferase 21 U/L (12-78); Albumin Level 4.2 g/dl (3.5-5.0); Albumin/Globulin Ratio 1.6 (1.1-1.8); Alkaline Phosphatase 99 U/L (38-126); Anion Gap 13.3 mEq/L (5-15); Aspartate Amino Transferase 23 U/L (17-59); Bilirubin,Total 0.8 mg/dl (0.2-1.3); Blood Urea Nitrogen 9 mg/dl (9-20); Calcium 9.2 mg/dl (8.4-10.2); Carbon Dioxide 26 mmol/L (22.0-30.0); Chloride 102 mmol/L (98-107); Chol/HDL Ratio 4.5 (1-3.5); Cholesterol 130 mg/dl (140-200); Estimated Glomerular Filt Rate 152 ml/min (>60); GFR (African American) 184 ML/MIN (>60); Globulin 2.6 g/dL (1.3-3.2); Glucose 292 mg/dl (74-100); HDL Cholesterol 29 mg/dl (40-60); Potassium 4.3 mmoL/L (3.5-5.1); Sodium 137 mmol/L (136-145); Total Protein,Serum 6.8 g/dl (6.3-8.2); Triglycerides 38 mg/dl (30-150); VLDL Cholesterol 8 mg/dL (0-40)
[2021-09-19 14:09] LABS: Basophils # 0.2 K/mm3 (0-0.2); Basophils % 2.3 % (0.1-2.0); Eosinophils # 0.4 K/mm3 (0.0-0.4); Eosinophils % 4.9 % (0.1-12.0); Hematocrit 48.7 % (42.0-52.0); Hemoglobin 16.7 g/dL (14.1-18.0); Mean Corpuscular HGB Conc 34.3 g/dL (31.8-35.4); Mean Corpuscular Hemoglobin 32.1 pg (27.0-31.2); Mean Corpuscular Volume 93.6 fl (80-94); Mean Platelet Volume 8.9 fl (7.4-10.4); Monocytes # 0.7 K/mm3 (0.1-1.0); Monocytes % 8.1 % (1.7-9.3); Neutrophils # 4.6 K/mm3 (1.8-7.8); Neutrophils % 51.7 % (37.0-80.0); Platelet Count 323 K/mm3 (142-424); Red Blood Count 5.21 M/mm3 (4.60-6.20); Red Cell Distribution Width 13.2 % (11.5-17.5)
[2021-09-19 14:21] LABS: Direct LDL Cholesterol 84.77 mg/dL (100-129)
[2021-09-19 14:31] LABS: Free T4 (Free Thyroxine) 1.37 ng/dl (0.78-2.19)
[2021-09-19 14:43] LABS: Thyroid Stimulating Hormone 5.72 uIU/mL (0.465-4.68)
[2021-09-19 14:59] LABS: Hemoglobin A1C 9.6 % (4.0-6.0)
== END ==
PROVIDERS: PCP Nurse Practitioner Family; Visit Provider Nurse Practitioner Family
DX: E03.9 Hypothyroidism, unspecified (principal); E11.9 Type 2 diabetes mellitus without complications; F41.9 Anxiety disorder, unspecified
CPT/HCPCS: 80053; 80061; 82306; 83036; 84439; 84443; 85025

== ENCOUNTER → 2022-02-22 09:20 | Outpatient (CLI) | payer MEDICAID, SELFPAY ==
[2022-02-22 14:57] LABS: Basophils # 0.2 K/mm3 (0-0.2); Basophils % 1.7 % (0.1-2.0); Eosinophils # 0.3 K/mm3 (0.0-0.4); Eosinophils % 3.2 % (0.1-12.0); Hematocrit 49.5 % (42.0-52.0); Hemoglobin 16.7 g/dL (14.1-18.0); Lymphocytes # 2.7 K/mm3 (0.7-4.5); Lymphocytes % 28.8 % (10-50); Mean Corpuscular HGB Conc 33.8 g/dL (31.8-35.4); Mean Corpuscular Hemoglobin 32.1 pg (27.0-31.2); Mean Corpuscular Volume 94.9 fl (80-94); Mean Platelet Volume 8.4 fl (7.4-10.4); Monocytes # 0.7 K/mm3 (0.1-1.0); Monocytes % 7.1 % (1.7-9.3); Neutrophils # 5.5 K/mm3 (1.8-7.8); Neutrophils % 59.3 % (37.0-80.0); Platelet Count 320 K/mm3 (142-424); Red Blood Count 5.22 M/mm3 (4.60-6.20); Red Cell Distribution Width 13.1 % (11.5-17.5); White Blood Count 9.3 K/mm3 (4.8-10.8)
[2022-02-22 15:07] LABS: Alanine Aminotransferase 70 U/L (12-78); Albumin Level 4.6 g/dl (3.5-5.0); Albumin/Globulin Ratio 1.8 (1.1-1.8); Alkaline Phosphatase 136 U/L (38-126); Anion Gap 17.6 mEq/L (5-15); Aspartate Amino Transferase 42 U/L (17-59); Bilirubin,Total 1.4 mg/dl (0.2-1.3); Blood Urea Nitrogen 12 mg/dl (9-20); Calcium 9.6 mg/dl (8.4-10.2); Carbon Dioxide 26 mmol/L (22.0-30.0); Chloride 97 mmol/L (98-107); Chol/HDL Ratio 3.7 (1-3.5); Cholesterol 134 mg/dl (140-200); Estimated Glomerular Filt Rate 152 ml/min (>60); GFR (African American) 183 ML/MIN (>60); Globulin 2.6 g/dL (1.3-3.2); Glucose 342 mg/dl (74-100); HDL Cholesterol 36 mg/dl (40-60); Potassium 4.6 mmoL/L (3.5-5.1); Sodium 136 mmol/L (136-145); Total Protein,Serum 7.2 g/dl (6.3-8.2); Triglycerides 66 mg/dl (30-150); VLDL Cholesterol 13 mg/dL (0-40)
[2022-02-22 15:19] LABS: Direct LDL Cholesterol 85.67 mg/dL (100-129); Hemoglobin A1C 10.2 % (4.0-6.0)
[2022-02-22 15:26] LABS: 25-OH Vitamin D, Total 30.3 ng/mL (30-100)
[2022-02-22 15:39] LABS: Thyroid Stimulating Hormone 5.63 uIU/mL (0.465-4.68)
== END ==
PROVIDERS: PCP Student in an Organized Health Care Education/Training Program; Visit Provider Student in an Organized Health Care Education/Training Program
DX: R53.83 Other fatigue (principal); E11.9 Type 2 diabetes mellitus without complications; Z79.4 Long term (current) use of insulin
CPT/HCPCS: 80053; 80061; 82306; 83036; 84443; 85025

== ENCOUNTER 2022-05-07 23:03 | Inpatient (IN) | payer MEDICAID, SELFPAY ==
[2022-05-07 23:05] VITALS: BP 167/110; PULSE 114; RESP 18; TEMP 36.6; O2SAT 98; BMI 25.7
[2022-05-07 23:38] LABS: Basophils # 0.1 K/mm3 (0-0.2); Basophils % 0.4 % (0.1-2.0); Eosinophils # 0.1 K/mm3 (0.0-0.4); Eosinophils % 0.2 % (0.1-12.0); Hematocrit 48.3 % (42.0-52.0); Hemoglobin 17.1 g/dL (14.1-18.0); Lymphocytes # 1.6 K/mm3 (0.7-4.5); Lymphocytes % 5.9 % (10-50); Mean Corpuscular HGB Conc 35.3 g/dL (31.8-35.4); Mean Corpuscular Hemoglobin 31.8 pg (27.0-31.2); Mean Corpuscular Volume 89.9 fl (80-94); Mean Platelet Volume 7.8 fl (7.4-10.4); Monocytes # 0.9 K/mm3 (0.1-1.0); Monocytes % 3.4 % (1.7-9.3); Neutrophils # 23.9 K/mm3 (1.8-7.8); Neutrophils % 90.2 % (37.0-80.0); Platelet Count 340 K/mm3 (142-424); Red Blood Count 5.37 M/mm3 (4.60-6.20); White Blood Count 26.6 K/mm3 (4.8-10.8)
[2022-05-07 23:40] LABS: Chloride 96 mmol/L (98-107); Potassium 4.4 mmoL/L (3.5-5.1); Sodium 137 mmol/L (136-145)
[2022-05-07 23:42] LABS: MANUAL DIFFERENTIAL MANUAL DIFFERENTIAL (MANUAL DIFF)
[2022-05-07 23:43] LABS: Alanine Aminotransferase 63 U/L (12-78); Albumin/Globulin Ratio 1.6 (1.1-1.8); Alkaline Phosphatase 139 U/L (38-126); Anion Gap 27.4 mEq/L (5-15); Aspartate Amino Transferase 39 U/L (17-59); Blood Urea Nitrogen 22 mg/dl (9-20); Calcium 9.4 mg/dl (8.4-10.2); Carbon Dioxide 18 mmol/L (22.0-30.0); Creatinine Clearance Estimated 120 mL/min (50-200); Estimated Glomerular Filt Rate 84 ml/min (>60); GFR (African American) 102 ML/MIN (>60); Globulin 3.2 g/dL (1.3-3.2); Total Protein,Serum 8.2 g/dl (6.3-8.2)
[2022-05-07 23:54] LABS: Glucose 450 mg/dl (74-100)
[2022-05-07 23:55] LABS: Lymphocytes % 4 % (10-50); Neutrophils % 96 % (42-76); Total Cells Counted 100
[2022-05-07 23:56] LABS: Burr Cells 1+; Platelet Estimate Normal
--- NOTE | 2022-05-07 23:56 | HMH.EDGENADL ---
Discharge Plan Disposition Patient Disposition: Admitted As Inpatient Clinical Impressions Clinical Impression: DKA (diabetic ketoacidosis) Discharge ED Provider: Maria G Chan General Adult HPI General Chief complaint: Nausea/Vomiting/Diarrhea Stated complaint: V/D Time Seen by Provider: 05/07/22 23:50 Mode of Arrival: Wheelchair Source of Information: Patient Limitations: No Limitations Description of Symptoms (Recalled from ER Triage Doc. by RN): pt c/o n/v/d since 9am this morning History of Present Illness HPI narrative: 36-year-old male with PMH of ADHD and DM1 currently not on insulin who presents with 1 day of nausea, vomiting, diarrhea. He notes that his child was recently sick with gastroenteritis type symptoms. Patient estimates > 10 episodes of nonbloody emesis and 4-5 episodes of nonbloody diarrhea. Additionally, describes generalized abdominal cramping and chills. No fevers. Secondary to his vomiting, he has had decreased oral intake. Patient has tried Zofran and Pepto-Bismol without relief of symptoms. Of note, patient states he last took his insulin several months ago and does not actively monitor his glucose. No prior episodes of DKA that is aware of. Related Data Home Medications Medication Instructions Recorded Confirmed venlafaxine 37.5 mg 37.5 mg PO DAILY Depression 05/08/22 05/08/22 capsule,extended release 24 hr (Effexor XR) Allergies Allergy/AdvReac Type Severity Reaction Status Date / Time Penicillins [PENICILLINS] Allergy Unknown Verified 04/17/22 10:10 [facility] Disclaimer: The information contained in this section may have been updated after the patient was seen, as this information can be updated by other users. Medical History Diabetes Social History Smoking Status: Current every day smoker tobacco type: cigarettes packs per day: 2 alcohol intake: never substance use type: denies use current occupational status: employed Travel in the last 8 weeks: None household members: spouse and children housing: house number of children: 4 current occupation: [employer] current occupational exposures/hazards: No caffeine: Yes ROS Obtained: Yes All systems reviewed & no additional complaints except as documented Physical Exam General General appearance: alert Comment: ill appearing Head Head exam: atraumatic and normocephalic Eye Eye exam: Present normal appearance ENT ENT exam: Present mucous membranes dry Neck Neck exam: Present normal inspection, full ROM and trachea midline Chest Chest inspection: Present normal inspection and symmetric chest wall rise Respiratory Respiratory exam: Present normal lung sounds bilaterally; Absent respiratory distress Cardiovascular Cardiovascular exam: Present tachycardia and normal heart sounds Abdominal Exam Abdominal exam: Present soft; Absent tenderness, guarding or rebound Extremities Exam Extremities exam: Present normal inspection and full ROM; Absent edema Neurological Exam Neurological exam: Present alert and oriented X3 Psychiatric Psychiatric exam: Present normal affect and normal mood Skin Skin exam: Present warm and dry Medical Decision Making Burton Inquiry Pt receiving controlled substance: No Vital Signs: 05/07/22 23:05 05/08/22 02:00 05/08/22 02:28 Temperature 98 F 98 F Temperature Source Oral Pulse Rate 111 H 111 H Pulse Rate [Right] 114 H Respiratory Rate 18 18 Blood Pressure 154/96 H 154/96 H Blood Pressure [Right Arm] 167/110 H Blood Pressure Mean 111 Blood Pressure Mean [Right Arm] 129 02 Sat by Pulse Oximetry 98 98 Lab Data Lab Results 05/07/22 23:24: WBC 26.6 H*, RBC 5.37, Hgb 17.1, Hct 48.3, MCV 89.9, MCH 31.8 H, MCHC 35.3, RDW 13.0, Plt Count 340, MPV 7.8, Neut % (Auto) 90.2 H, Lymph % (Auto) 5.9 L, [place] % (Auto) 3.4, Eos % (Auto) 0.2, Baso % (Auto
[2022-05-07 23:59] LABS: Acetone, Serum (Rapid) None Detected (None Detect)
[2022-05-08] VITALS (16 sets, daily range): BP systolic 89–154; BP diastolic 56–96; PULSE 76–121; RESP 17–21; TEMP 36.6–37.3; O2SAT 95–99; BMI 25.2
[2022-05-08 00:04] LABS: Lipase 76 U/L (23-300); Magnesium 1.7 mg/dl (1.6-2.3); Phosphorous 4.1 mg/dl (2.5-4.5)
[2022-05-08 00:06] LABS: VBG HCO3 17.5 mmol/L (23-30); VBG Oxygen Saturation 71.9 % (50-70); VBG PCO2 27.4 mmol/L (35-51); VBG PH 7.42 mmol/L (7.31-7.41); VBG PO2 35.2 mmol/L (28-40); VBG Total CO2 18.3 mmol/L (23-27)
--- NOTE | 2022-05-08 00:09 | PC.NURSE ---
lopez villarreal notified of critical glucose 450
[2022-05-08 01:06] LABS: Microscopic, Urine URINE MICROSCOPIC (MICROSCOPIC)
[2022-05-08 01:07] LABS: Appearance,Urine CLEAR (Clear); Blood, Urine Negative (Negative); Color,Urine YELLOW (Yellow); Glucose,Urine (UA) 3+ (Negative); Ketones,Urine 3+ (Negative); Leukocyte Esterase,Urine Negative (Negative); Nitrate,Urine Negative (Negative); PH,Urine 5.5 (5.0-8.5); Protein,Urine Negative (Negative); Specific Gravity, Urine >= 1.030 (1.005-1.030); Urobilinogen,Urine 0.2 EU/dl (0.2)
[2022-05-08 01:15] LABS: Bilirubin,Urine Negative (Negative)
[2022-05-08 01:24] LABS: Coronavirus 19, PCR Not Detected (NotDetected); Influenza A, PCR Not Detected (NotDetected); Influenza B, PCR Not Detected (NotDetected)
[2022-05-08 01:27] LABS: Bacteria,Urine Trace /lpf; WBC,Urine Occasional #/hpf (0-3)
[2022-05-08 01:28] LABS: Hemoglobin A1C 12.9 % (4.0-6.0)
[2022-05-08 01:38] LABS: Lactic Acid 2.9 mmol/L (0.7-2.1)
--- NOTE | 2022-05-08 01:47 | ECG_ITS ---
APPROVED REPORT Exam: Resting ECG HR:112 bpm ECG Measurements Heart Rate 112 AXES KS 151 P 0 QRSd 94 QRS -42 QT 331 T 50 QTc 397 Conclusion SINUS TACHYCARDIA LEFT AXIS DEVIATION [QRS AXIS < -30] ABNORMAL ECG UNCONFIRMED REPORT Electronically signed by : John Gay MD 05/08/2022 19:12:13
--- NOTE | 2022-05-08 01:52 | PC.NURSE ---
At pt BS to obtain strep swab when pt sat up and began to clutch his chest when asked if pt was having chest pain pt shook his head yes. RN notified immediately and EKG obtained. Pt began to vomit. Pt provided with emesis bag and cool wash cloth.
--- NOTE | 2022-05-08 01:54 | PC.NURSE ---
Pt also provided with ice chips at this time.
--- NOTE | 2022-05-08 02:08 | EXP.HP ---
History of Present Illness *Admission Date: 05/08/22 *Reason for visit:: vomiting, throat pain , early DKA, uncontrolled DM *History of present illness: Child has been sick with vomiting. , Patient now kill vomiting , . he has insulin dependent DM. he does not take insulin, as prescribed, very seldom checks blood sugars [facility] [place] Disclaimer: The information contained in this section may have been updated after the patient was seen, as this information can be updated by other users. Medical History Diabetes Family History (Updated 05/08/22 @ 02:56 by Lili Lopze RN) Father Hypertension Hyperlipidemia Diabetes Social History (Updated 05/08/22 @ 02:59 by Lili Lopez RN) Smoking Status: Current every day smoker tobacco type: cigarettes packs per day: 2 alcohol intake: never substance use type: denies use current occupational status: employed and unemployed Travel in the last 8 weeks: None household members: spouse and children housing: house number of children: 4 current occupation: [employer] current occupational exposures/hazards: No caffeine: Yes Review of Systems Constitutional Constitutional: Reports anorexia Eyes Eyes: Reports system reviewed and no additional complaints, except as documented ENT Ears, Nose, Mouth, and Throat: Reports system reviewed and no additional complaints, except as documented, Reports dry mouth and Reports sore throat Comments: hurts to swallow *Cardiovascular Cardiovascular: Reports rapid heart rate *Respiratory Respiratory: Reports system reviewed and no additional complaints, except as documented *Gastrointestinal Gastrointestinal: Reports nausea and Reports vomiting *Genitourinary Genitourinary: Reports system reviewed and no additional complaints, except as documented *Musculoskeletal Musculoskeletal: Reports system reviewed and no additional complaints, except as documented Integumentary/Breasts Skin/Breast: Reports system reviewed and no additional complaints, except as documented *Neurologic Comments: decreased sensation to lower extremities chronic Psychiatric Psychiatric: Reports system reviewed and no additional complaints, except as documented and Reports anxiety (history of anxiety, and ADHD by history ) Endocrine Endocrine: Reports system reviewed and no additional complaints, except as documented Hematologic/Lymphatic Hematologic/Lymphatic: Reports system reviewed and no additional complaints, except as documented Allergic/Immunologic Allergic/Immunologic: Reports system reviewed and no additional complaints, except as documented Meds Home Medications and Allergies Home Medications Medication Instructions Recorded Confirmed Type venlafaxine 37.5 mg 37.5 mg PO DAILY Depression 05/08/22 05/08/22 History capsule,extended release 24 hr (Effexor XR) New Prescriptions to Start Prescriptions: Allergies Allergy/AdvReac Type Severity Reaction Status Date / Time Penicillins [PENICILLINS] Allergy Unknown Verified 04/17/22 10:10 Exam Data for Last 24 hours Vital signs and Labs for Last 24 Hours: Temp Pulse Resp BP Pulse Ox 98 F 114 H 18 167/110 H 98 05/07/22 23:05 05/07/22 23:05 05/07/22 23:05 05/07/22 23:05 05/07/22 23:05 Laboratory Results - last 24 hr 05/07/22 23:24: WBC 26.6 H*, RBC 5.37, Hgb 17.1, Hct 48.3, MCV 89.9, MCH 31.8 H, MCHC 35.3, RDW 13.0, Plt Count 340, MPV 7.8, Neut % (Auto) 90.2 H, Lymph % (Auto) 5.9 L, [place] % (Auto) 3.4, Eos % (Auto) 0.2, Baso % (Auto) 0.4, Neut # (Auto) 23.9 H, Lymph # (Auto) 1.6, [place] # (Auto) 0.9, Eos # (Auto) 0.1, Baso # (Auto) 0.1, Total Counted 100, Neutrophils % (Manual) 96 H, Lymphocytes % (Manual) 4 L, Platelet Estimate Normal, Maddy Cells 1+ 05/07/22 23:24: Sodium 137, Potassium 4.4, Chloride 96 L, Carbon Dioxide 18 L, Anion Gap 27.4 H, BUN 22 H, Creatinine 1.00, Estimated Creat Clear 120, Estimated GFR 84, Es
[2022-05-08 02:14] LABS: Strep Scrn Group A (Rapid) Negative (Negative)
--- NOTE | 2022-05-08 02:31 | PC.NURSE ---
FSBS 338
[2022-05-08 02:37] LABS: POC Glucose,Bedside 333 (70-110)
--- NOTE | 2022-05-08 02:40 | PC.NURSE ---
PT ARRIVED TO FLOOR AT THIS TIME
[2022-05-08 04:14] LABS: POC Glucose,Bedside 294 (70-110)
[2022-05-08 05:24] LABS: POC Glucose,Bedside 278 (70-110)
[2022-05-08 05:25] LABS: Reflex Lactic Add Lactic Reflex
[2022-05-08 05:45] LABS: Basophils # 0.1 K/mm3 (0-0.2); Basophils % 0.4 % (0.1-2.0); Eosinophils % 0.2 % (0.1-12.0); Hematocrit 43.4 % (42.0-52.0); Lymphocytes # 1.4 K/mm3 (0.7-4.5); Lymphocytes % 6.7 % (10-50); Mean Corpuscular HGB Conc 34.4 g/dL (31.8-35.4); Mean Corpuscular Volume 90.2 fl (80-94); Mean Platelet Volume 7.5 fl (7.4-10.4); Monocytes # 0.9 K/mm3 (0.1-1.0); Monocytes % 4.3 % (1.7-9.3); Neutrophils # 18.6 K/mm3 (1.8-7.8); Neutrophils % 88.4 % (37.0-80.0); Platelet Count 281 K/mm3 (142-424); Red Blood Count 4.81 M/mm3 (4.60-6.20); Red Cell Distribution Width 12.9 % (11.5-17.5); White Blood Count 21.1 K/mm3 (4.8-10.8)
[2022-05-08 05:53] LABS: Anion Gap 12.6 mEq/L (5-15); Blood Urea Nitrogen 20 mg/dl (9-20); Calcium 8.3 mg/dl (8.4-10.2); Carbon Dioxide 25 mmol/L (22.0-30.0); Chloride 103 mmol/L (98-107); Creatinine Clearance Estimated 146 mL/min (50-200); Estimated Glomerular Filt Rate 109 ml/min (>60); GFR (African American) 132 ML/MIN (>60); Glucose 300 mg/dl (74-100); Lactic Acid Follow Up (RFLX 1) 0.9 mmol/L (0.7-2.1); Potassium 3.6 mmoL/L (3.5-5.1); Sodium 137 mmol/L (136-145)
[2022-05-08 06:15] LABS: POC Glucose,Bedside 268 (70-110)
[2022-05-08 07:02] LABS: POC Glucose,Bedside 261 (70-110)
--- NOTE | 2022-05-08 07:02 | PC.NURSE ---
Pt resting in bed with no complaints at this time. Upon arrival to floor, pt c/o nausea and vomiting. Kwabena Cifuentes [employer]ARD[employer]IST notified. New orders received. Pt remains on Insulin gtt @ 4 units/hr. Awaiting AM labs. FSBS stable. VSS. Call light in place.
[2022-05-08 08:41] LABS: POC Glucose,Bedside 299 (70-110)
--- NOTE | 2022-05-08 08:57 | PC.NURSE ---
at start of shift pt insulin drip was infusing at 4units. drip increased to 6 units r/t fsbs 299. [id number]
[2022-05-08 09:40] LABS: POC Glucose,Bedside 266 (70-110)
--- NOTE | 2022-05-08 10:13 | HMH.PHAINT1 ---
Pharmacy Intervention Comments: Home medications verified via patient interview and external fill history. Patient stated that he only takes methylphenidate and does not take the venlafaxine that was recently prescribed. -Janae Craolina, PharmD Candidate 2022
[2022-05-08 10:21] LABS: Chloride 102 mmol/L (98-107); Potassium 3.6 mmoL/L (3.5-5.1); Sodium 136 mmol/L (136-145)
[2022-05-08 10:24] LABS: Anion Gap 12.6 mEq/L (5-15); Blood Urea Nitrogen 18 mg/dl (9-20); Carbon Dioxide 25 mmol/L (22.0-30.0); Creatinine Clearance Estimated 167 mL/min (50-200); Estimated Glomerular Filt Rate 127 ml/min (>60); GFR (African American) 154 ML/MIN (>60); Glucose 244 mg/dl (74-100)
--- NOTE | 2022-05-08 10:45 | PC.NURSE ---
verbal orders received from Dr avila at 0930. bmp stat, once pt has 2 normal anion gaps, dc insulin drip, ensure pt is eating, give 10 units glargine, and start on medium intensity sliding scale. anion gap wnl for the second time, notified narcisa Pedersen to proceed with orders.
[2022-05-08 10:50] LABS: POC Glucose,Bedside 224 (70-110)
[2022-05-08 11:23] LABS: POC Glucose,Bedside 173 (70-110)
--- NOTE | 2022-05-08 11:40 | PC.NURSE ---
[address] Paulson that pt is c/o headache he feels is related to his sugar being lower than he is used to. pt does not have pain medication ordered at this time. new order received for tylenol 650mg po q6h mild pain and fever.
[2022-05-08 12:32] LABS: POC Glucose,Bedside 189 (70-110)
--- NOTE | 2022-05-08 13:34 | PC.NURSE ---
Everardo Godwin RN spoke with Dr Paulson about taking pt out of stepdown. ok to take pt out of stepdown and transition to med surg at this time. Per Dr Paulson, pt needs to remain on tele monitor for 24 hrs [id number]
--- NOTE | 2022-05-08 16:04 | PC.NURSE ---
pt has tolerated being off of the insulin drip since 1100. lungs are clear throughout, bowel sounds are hypo active. pt denies nausea, vomiting or diarrhea. family has been at bedside since before lunch. nad noted. pt is alert and oriented and pleasant with staff.
[2022-05-08 17:15] LABS: POC Glucose,Bedside 240 (70-110)
[2022-05-08 20:38] LABS: POC Glucose,Bedside 208 (70-110)
--- NOTE | 2022-05-08 20:46 | EXP.PN ---
Subjective *Date: 05/08/22 *Time: 20:46 Interval history: Date of service May 08, 2022 The patient reports no further nausea and vomiting. He is inquiring about p.o. intake. I am accompanied by several members of the multidisciplinary rounds team. Nursing staff report that he remains afebrile with stable vital signs and saturating appropriately on room air. 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 He voices no acute overnight events. Exam Data for Last 24 hours Vital signs and Labs for Last 24 Hours: Temp Pulse Resp BP Pulse Ox 98.1 F 89 17 101/57 L 98 05/08/22 19:56 05/08/22 19:56 05/08/22 19:56 05/08/22 19:56 05/08/22 19:56 Laboratory Results - last 24 hr 05/07/22 23:24: WBC 26.6 H*, RBC 5.37, Hgb 17.1, Hct 48.3, MCV 89.9, MCH 31.8 H, MCHC 35.3, RDW 13.0, Plt Count 340, MPV 7.8, Neut % (Auto) 90.2 H, Lymph % (Auto) 5.9 L, [place] % (Auto) 3.4, Eos % (Auto) 0.2, Baso % (Auto) 0.4, Neut # (Auto) 23.9 H, Lymph # (Auto) 1.6, [place] # (Auto) 0.9, Eos # (Auto) 0.1, Baso # (Auto) 0.1, Total Counted 100, Neutrophils % (Manual) 96 H, Lymphocytes % (Manual) 4 L, Platelet Estimate Normal, [place] Cells 1+ 05/07/22 23:24: Sodium 137, Potassium 4.4, Chloride 96 L, Carbon Dioxide 18 L, Anion Gap 27.4 H, BUN 22 H, Creatinine 1.00, Estimated Creat Clear 120, Estimated GFR 84, Est GFR ( Amer) 102, Glucose 450 H*, Calcium 9.4, Total Bilirubin 3.0 H, AST 39, ALT 63, Alkaline Phosphatase 139 H, Total Protein 8.2, Albumin 5.0, Globulin 3.2, Albumin/Globulin Ratio 1.6 05/07/22 23:24: Phosphorus 4.1, Magnesium 1.7 05/07/22 23:24: Lipase 76, Acetone Level None detected 05/07/22 23:50: VBG pH 7.42 H, VBG pCO2 27.4 L, VBG pO2 35.2, VBG HCO3 17.5 L, VBG Total CO2 18.3 L, VBG O2 Saturation 71.9 H, VBG Base Excess -7.0 L 05/08/22 00:00: Hemoglobin A1c 12.9 H D 05/08/22 01:02: Urine Color Yellow, Urine Appearance Clear, Urine pH 5.5, Ur Specific [place] >= 1.030, Urine Protein Negative, Urine Glucose (UA) 3+, Urine Ketones 3+, Urine Blood Negative, Urine Nitrate Negative, Urine Bilirubin Negative, Urine Urobilinogen 0.2, Ur Leukocyte Esterase Negative, Urine WBC Occasional, Urine Bacteria Trace 05/08/22 01:20: Lactate 2.9 H 05/08/22 01:20: SARS-CoV-2 (PCR) Not detected, Influenza A Untype (PCR) Not detected, Influenza Type B (PCR) Not detected 05/08/22 01:43: Group A Strep Rapid Negative 05/08/22 02:30: POC Glucose 333 H* 05/08/22 04:05: POC Glucose 294 H 05/08/22 05:16: POC Glucose 278 H 05/08/22 05:37: WBC 21.1 H*, RBC 4.81, Hgb 15.0 D, Hct 43.4, MCV 90.2, MCH 31.0, MCHC 34.4, RDW 12.9, Plt Count 281, MPV 7.5, Neut % (Auto) 88.4 H, Lymph % (Auto) 6.7 L, [place] % (Auto) 4.3, Eos % (Auto) 0.2, Baso % (Auto) 0.4, Neut # (Auto) 18.6 H, Lymph # (Auto) 1.4, [place] # (Auto) 0.9, Eos # (Auto) 0.0, Baso # (Auto) 0.1 05/08/22 05:37: Sodium 137, Potassium 3.6, Chloride 103, Carbon Dioxide 25, Anion Gap 12.6, BUN 20, Creatinine 0.80, Estimated Creat Clear 146, Estimated GFR 109, Est GFR ( Amer) 132 D, Glucose 300 H D, Calcium 8.3 L 05/08/22 05:37: Lactate 0.9 05/08/22 06:04: POC Glucose 268 H 05/08/22 06:56: POC Glucose 261 H 05/08/22 08:32: POC Glucose 299 H 05/08/22 09:17: POC Glucose 266 H 05/08/22 10:02: Sodium 136, Potassium 3.6, Chloride 102, Carbon Dioxide 25, Anion Gap 12.6, BUN 18, Creatinine 0.70, Estimated Creat Clear 167, Estimated GFR 127, Est GFR ( Amer) 154, Glucose 244 H, Calcium 8.0 L 05/08/22 10:18: POC Glucose 224 H 05/08/22 11:12: POC Glucose 173 H 05/08/22 12:13: POC Glucose 189 H 05/08/22 17:06: POC Glucose 240 H 05/08/22 20:26: POC Glucose 208 H I & O for Last 24 hours: Intake & Output 05/05/22 05/06/22 05/07/22 05/08/22 23:59 23:59 23:59 23:59 Intake Total 2759 / 2759 Output Total 0 / 0 Balance 2759 / 2759 Weight 83.915 kg 81.8 kg Constitutional Constitutional: no acute distress an
[2022-05-09] VITALS: PULSE 80
[2022-05-09 01:33] VITALS: BP 101/60
--- NOTE | 2022-05-09 03:42 | PC.NURSE ---
No acute changes this shift. Pt denies any discomfort. No N/V. FSBS 208. % units of insulin administered. Pt has ambulated to BR without difficulty. No BM this shift. Has slept well t/o night. VSS at this time. Call light within reach.
[2022-05-09 04:00] VITALS: BP 117/63; PULSE 80; PULSE 82; RESP 18; TEMP 36.9; O2SAT 98; BMI 27.1
[2022-05-09 05:44] LABS: POC Glucose,Bedside 203 (70-110)
[2022-05-09 07:04] LABS: Basophils # 0.1 K/mm3 (0-0.2); Basophils % 0.7 % (0.1-2.0); Eosinophils # 0.2 K/mm3 (0.0-0.4); Eosinophils % 1.2 % (0.1-12.0); Hematocrit 37.3 % (42.0-52.0); Hemoglobin 12.6 g/dL (14.1-18.0); Lymphocytes # 3.2 K/mm3 (0.7-4.5); Lymphocytes % 22.5 % (10-50); Mean Corpuscular HGB Conc 33.7 g/dL (31.8-35.4); Mean Corpuscular Hemoglobin 31.3 pg (27.0-31.2); Mean Platelet Volume 7.6 fl (7.4-10.4); Monocytes % 6.6 % (1.7-9.3); Neutrophils # 9.9 K/mm3 (1.8-7.8); Platelet Count 238 K/mm3 (142-424); Red Blood Count 4.01 M/mm3 (4.60-6.20); Red Cell Distribution Width 12.9 % (11.5-17.5); White Blood Count 14.3 K/mm3 (4.8-10.8)
[2022-05-09 07:07] LABS: Anion Gap 6.9 mEq/L (5-15); Blood Urea Nitrogen 15 mg/dl (9-20); Calcium 7.8 mg/dl (8.4-10.2); Carbon Dioxide 26 mmol/L (22.0-30.0); Chloride 108 mmol/L (98-107); Creatinine Clearance Estimated 210 mL/min (50-200); Estimated Glomerular Filt Rate 152 ml/min (>60); GFR (African American) 183 ML/MIN (>60); Glucose 220 mg/dl (74-100); Potassium 3.9 mmoL/L (3.5-5.1); Sodium 137 mmol/L (136-145)
[2022-05-09 08:00] VITALS: BP 125/84; PULSE 80; PULSE 83; RESP 18; TEMP 36.6; O2SAT 99
[2022-05-09 08:15] VITALS: PULSE 83; O2SAT 96
--- NOTE | 2022-05-09 10:57 | EXP.DC.SUM ---
General Admission date:: 05/08/22 Discharge date: 05/09/22 HPI HPI HPI: This is a 36-year-old male that presents to [facility] emergency department with concerns of nausea vomiting and diarrhea. He reports sick contacts at home including one of his children. He describes noncompliance with his medical therapy for his diabetes. His past medical history is significant for diabetes, hypothyroidism, mood disorder and medical noncompliance. In the ED his CBC identified leukocytoses his blood sugar was over 350 with an elevated anion gap. He was started on IV insulin therapy with routine lab evaluation including electrolytes and inflammatory markers. He was provided IV fluid resuscitation, admitted to the medical floor with telemetry monitoring and routine potassium evaluations. Hospital Course Hospital Course Hospital Course: The patient was admitted to the medical floor with telemetry monitoring, IV fluid resuscitation, IV insulin and routine electrolyte and renal function evaluations. His anion gap identified correction on 2 separate samples 6 hours apart. He was transitioned to p.o. intake with basal and sliding scale insulin with improved symptomatology. He received IV Reglan with improved nausea and vomiting. He identified no further diarrhea with his azithromycin therapy. He tolerated p.o. intake well with effective elimination and ambulated in his room. He identified improvement and inquired about discharge home. We recommended compliance with his insulin therapy, routine blood sugar monitoring and 2 more days of azithromycin therapy. He will follow-up with his PCP in 1 week. We have recommended that he present a blood sugar diary to his PCP. He was provided with glucometer, strips and equipment for routine blood sugar evaluations on discharge. Exam Data for Last 24 hours Vital signs and Labs for Last 24 Hours: Temp Pulse Resp BP Pulse Ox 97.8 F 83 18 125/84 96 05/09/22 08:00 05/09/22 08:15 05/09/22 08:00 05/09/22 08:00 05/09/22 08:15 Laboratory Results - last 24 hr 05/08/22 11:12: POC Glucose 173 H 05/08/22 12:13: POC Glucose 189 H 05/08/22 17:06: POC Glucose 240 H 05/08/22 20:26: POC Glucose 208 H 05/09/22 05:34: POC Glucose 203 H 05/09/22 06:38: WBC 14.3 H D, RBC 4.01 L, Hgb 12.6 L, Hct 37.3 L, MCV 93.0, MCH 31.3 H, MCHC 33.7, RDW 12.9, Plt Count 238, MPV 7.6, Neut % (Auto) 69.0, Lymph % (Auto) 22.5, [place] % (Auto) 6.6, Eos % (Auto) 1.2, Baso % (Auto) 0.7, Neut # (Auto) 9.9 H, Lymph # (Auto) 3.2, [place] # (Auto) 1.0, Eos # (Auto) 0.2, Baso # (Auto) 0.1 05/09/22 06:38: Sodium 137, Potassium 3.9, Chloride 108 H, Carbon Dioxide 26, Anion Gap 6.9, BUN 15, Creatinine 0.60 L, Estimated Creat Clear 210, Estimated GFR 152, Est GFR ( Amer) 183, Glucose 220 H, Calcium 7.8 L I & O for Last 24 hours: Intake & Output 05/06/22 05/07/22 05/08/22 05/09/22 23:59 23:59 23:59 23:59 Intake Total 2759 / 2759 2686 / 2686 Output Total 0 / 0 0 / 0 Balance 2759 / 2759 2686 / 2686 Weight 83.915 kg 81.8 kg 87.9 kg Constitutional Constitutional: no acute distress and cooperative *Routine HEENT Exam Head: Present normocephalic Eye: Present EOMI and PERRL ENT: Present mucous membranes moist *Routine Neck Exam Neck: Present supple; Absent lymphadenopathy *Routine Respiratory Exam Respiratory: Present CTA bilaterally and normal respiratory effort *Routine Cardiovascular Exam Cardiovascular: Present RRR *Routine Abdominal Exam Abdominal: Present soft and normoactive bowel sounds; Absent tenderness *Routine Extremities Exam Extremities: Absent cyanosis, clubbing or edema *Routine Skin Exam Skin: Present warm; Absent rash *Routine Neurological Exam Neurological: Present alert, oriented X3, moving all extremities, normal tone, vision grossly intact, hearing grossly intact and normal speech Routine Psychiatric Exam Psychiatric: Present normal affect, normal thought process, cooperative, good insight an
--- NOTE | 2022-05-09 11:24 | PC.NURSE ---
Called and spoke with office staff of [facility]. pt needs script for needles and pen needles r/t having script for lantus pen and lispro vial.
[2022-05-09 11:31] VITALS: BP 130/84; PULSE 86; RESP 18; TEMP 36.5; O2SAT 98
--- NOTE | 2022-05-09 11:53 | PC.NURSE ---
1130 during dc teaching pt given hands on instruction on how to use insulin pen and also instructed on how to dose his sliding scale insulin. pt fsbs was 215, using scale provided by pharmacy staff he indicated from chart he was to administer 5 units of lispro insulin.
--- NOTE | 2022-05-09 12:06 | HMH.PHAINT1 ---
Pharmacy Intervention Comments: Met with patient at bedside to rehab/pre vocational counselor on discharge medications prior to discharge, with significant other and nurse present. Overviewed new and continued medications. Explained sliding scale insulin protocol; patient demonstrated good understanding when nurse performed fingerstick and read back the result. Patient had no further questions or concerns at this time. -Janae Carolina, PharmD Candidate 2022
[2022-05-09 12:10] LABS: POC Glucose,Bedside 215 (70-110)
--- NOTE | 2022-05-10 14:00 | CARE MANAGER ---
Spoke with patient related to hospital discharge. He states that he is doing so much better. 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 Denies questions or concerns. MACEY Mukherjee
== END 2022-05-09 11:50 | disposition home or self-care (01) | DRG 639 ==
LOC: ER 23:27 → 2ND 05-08 02:28
PROVIDERS: Nurse Practitioner Family; Admitting Provider Internal Medicine Adolescent Medicine; Emergency Provider Student in an Organized Health Care Education/Training Program; PCP Physician Assistant; Visit Provider Family Medicine
DX: E11.10 Type 2 diabetes mellitus with ketoacidosis without coma (principal); F17.210 Nicotine dependence, cigarettes, uncomplicated; E03.9 Hypothyroidism, unspecified; E86.0 Dehydration; E11.43 Type 2 diabetes mellitus with diabetic autonomic (poly)neuropathy; K31.84 Gastroparesis; Z79.4 Long term (current) use of insulin; Z91.128 Patient's intentional underdosing of medication regimen for other reason; K52.9 Noninfective gastroenteritis and colitis, unspecified
CPT/HCPCS: 36415; 80048; 80053; 81001; 82009; 82803; 82962; 83036; 83605; 83690; 83735; 84100; 85007; 85025; 87430; 93005; 99285; C9803; J2405; U0003; U0005

== ENCOUNTER 2022-05-13 11:43 | Emergency (ER) | payer MEDICAID, SELFPAY ==
[2022-05-13 12:40] VITALS: BP 128/77; PULSE 80; RESP 22; TEMP 36.8; O2SAT 98; BMI 22.9
[2022-05-13 13:10] LABS: UTC Strep Screen (Rapid) Negative (Negative)
--- NOTE | 2022-05-13 13:29 | EXP.UTC ---
Discharge Plan Disposition Patient Disposition: Home, Self-Care Condition: Good Prescriptions Prescriptions: No Action (DME) blood-glucose meter [Advanced Glucose Meter] Misc See Rx Instructions .Route Qty: 1 0RF Rx Instructions: Test sugar 3 times daily or As directed (DME) Advanced Gluc Meter Test Strip Strip See Rx Instructions .Route Qty: 100 2RF Rx Instructions: Test sugar 3 times daily or As directed (DME) lancets [Advanced Travel Lancets] 30 gauge misc See Rx Instructions .Route Qty: 100 2RF Rx Instructions: Test sugar three times daily or As directed (DME) insulin syringe-needle U-100 [BD Insulin Syringe Ultra-Fine] 1 mL 30 gauge x 1/2 syringe See Rx Instructions .Route Qty: 500 0RF Rx Instructions: As directed (DME) pen needle, diabetic [BD Ultra-Fine Short Pen Needle] 31 gauge x 5/16 needle See Rx Instructions .ROUTE .MEDSUPPLY Qty: 100 2RF Rx Instructions: As directed methylphenidate HCl 20 mg capsule,ER biphasic 50-50 20 mg PO DAILY Label Comments: TAKE 1 CAPSULE BY MOUTH ONCE DAILY azithromycin 250 mg Tablet 500 mg PO DAILY Qty: 2 0RF insulin lispro [Humalog U-100 Insulin] 100 unit/mL Solution 0 unit SQ ACHS Qty: 14 0RF insulin glargine [Lantus Solostar U-100 Insulin] 100 unit/mL (3 mL) Insulin Pen 20 unit SQ HS Qty: 1 0RF insulin lispro 100 unit/mL insulin pen 8 unit SQ TID Qty: 15 0RF Rx Instructions: Sliding scale insulin based on blood sugar reading and carb counting with diet Referrals Follow up/Referrals: Shun Traylor APRN [Primary Care Provider] - See instructions Activity Restrictions/Add. Instructions Additional Instructions/Restrictions: Make sure to keep appointment with your Primary Care Physician and discuss results of your strep culture *Monitor Temp, Over the counter Motrin or Tylenol as directed/as needed Tylenol every 4 hours and Motrin every 6 hours (as long as your family doctor has told you that you can take it) for fever or pain. and straight to ER if unable to lower temp less than 101.0 after medication given *Warm salt water gargles may help to soothe the throat *Throat Lozenges? *Warm fluids like tea with honey may help to soothe the throat? *Sleep elevated *Humidifier/Vaporizer Your throat swab was sent for culture. Those results are typically sent to your primary care. Be sure to follow up in 2-3 days with your family doctor/primary care physician if no improvement so they can review those result and treat if necessary. If you don?t have a primary care doctor, I recommend you get one but in the mean time, you will have to return to a walk in clinic Follow up IMMEDIATELY for new or worsening symptoms or no Noticeable improvement over the next 48-72 hours. 911 for difficulty breathing or swallowing Clinical Impressions Clinical Impression: Sore throat Instructions Patient Instructions: Sore Throat Discharge ED Provider: Charlene Cam [facility] [place] H[place] General Stated complaint: Sore throat fever Mode of Arrival: Ambulatory Source of Information: Patient Limitations: No Limitations Time Seen by Provider: 05/13/22 13:29 Description of Symptoms (Recalled from Triage Doc. by RN): PATIENT C/O SORE THROAT X 1 WEEK HEENT Symptoms (Recalled from RN notes): Yes Resp Symptoms (Recalled from RN notes): No Skin Symptoms (Recalled from RN notes): No MS Symptoms (Recalled from RN notes): No Functional Status (Recalled from RN notes): WNL History of Present Illness Provider Complaint: Patient states that he has been having sore throat for about a week that has continued to get worse States that he feels like he may have strep throat hurts when he swallows States that pain started after he had vomiting last week and throat feels sore and irritated Related Data Home Medications Medication Instructions Recorded Confirmed methylphenidate HCl 20 mg biphas
[2022-05-13 13:47] VITALS: BP 128/77; PULSE 80; RESP 22; TEMP 36.8; O2SAT 98
== END 2022-05-13 13:53 | disposition home or self-care (01) ==
PROVIDERS: Emergency Provider Nurse Practitioner; PCP Nurse Practitioner Family
DX: J02.9 Acute pharyngitis, unspecified (principal)
CPT/HCPCS: 87880; 99212; G0463

== ENCOUNTER → 2022-05-29 23:00 | Outpatient (CLI) | payer MEDICAID, SELFPAY ==
[2022-05-29 19:55] LABS: Alanine Aminotransferase 73 U/L (12-78); Albumin Level 4.6 g/dl (3.5-5.0); Albumin/Globulin Ratio 1.6 (1.1-1.8); Alkaline Phosphatase 119 U/L (38-126); Anion Gap 13.8 mEq/L (5-15); Aspartate Amino Transferase 56 U/L (17-59); Blood Urea Nitrogen 15 mg/dl (9-20); Calcium 9.1 mg/dl (8.4-10.2); Carbon Dioxide 25 mmol/L (22.0-30.0); Chloride 102 mmol/L (98-107); Chol/HDL Ratio 3.5 (1-3.5); Cholesterol 165 mg/dl (140-200); Estimated Glomerular Filt Rate 152 ml/min (>60); GFR (African American) 183 ML/MIN (>60); Globulin 2.9 g/dL (1.3-3.2); Glucose 387 mg/dl (74-100); HDL Cholesterol 47 mg/dl (40-60); Potassium 4.8 mmoL/L (3.5-5.1); Sodium 136 mmol/L (136-145); Total Protein,Serum 7.5 g/dl (6.3-8.2); Triglycerides 97 mg/dl (30-150); VLDL Cholesterol 19 mg/dL (0-40)
[2022-05-29 20:06] LABS: Direct LDL Cholesterol 110.04 mg/dL (100-129)
[2022-05-29 20:11] LABS: 25-OH Vitamin D, Total 22.3 ng/mL (30-100)
[2022-05-29 20:49] LABS: Vitamin B12 468 pg/mL (239-931)
[2022-05-29 20:53] LABS: Basophils # 0.2 K/mm3 (0-0.2); Basophils % 1.9 % (0.1-2.0); Eosinophils # 0.2 K/mm3 (0.0-0.4); Eosinophils % 2.7 % (0.1-12.0); Hematocrit 50.4 % (42.0-52.0); Hemoglobin 16.7 g/dL (14.1-18.0); Lymphocytes # 2.5 K/mm3 (0.7-4.5); Lymphocytes % 32.1 % (10-50); Mean Corpuscular HGB Conc 33.1 g/dL (31.8-35.4); Mean Corpuscular Hemoglobin 31.3 pg (27.0-31.2); Mean Corpuscular Volume 94.4 fl (80-94); Mean Platelet Volume 8.7 fl (7.4-10.4); Monocytes # 0.5 K/mm3 (0.1-1.0); Monocytes % 6.6 % (1.7-9.3); Neutrophils # 4.6 K/mm3 (1.8-7.8); Neutrophils % 58.5 % (37.0-80.0); Platelet Count 321 K/mm3 (142-424); Red Blood Count 5.34 M/mm3 (4.60-6.20); Red Cell Distribution Width 13.2 % (11.5-17.5); White Blood Count 7.9 K/mm3 (4.8-10.8)
[2022-05-29 21:06] LABS: Prostate Specific Ag Screen 0.8 ng/ml (0.0-4.0)
[2022-05-29 23:33] LABS: Creatinine,Urine Random 58 mg/dL (Not Estab.)
[2022-05-29 23:34] LABS: Microalbumin/Creatinine Ratio 13.1
[2022-05-31 12:15] LABS: C-Peptide 2.1 ng/mL (1.1-4.4); Insulin Level Total 5.6 uIU/mL (2.6-24.9); Testosterone,Total 319 ng/dL (264-916)
== END ==
PROVIDERS: PCP Physician Assistant; Visit Provider Physician Assistant
DX: E55.9 Vitamin D deficiency, unspecified; E10.69 Type 1 diabetes mellitus with other specified complication; E03.9 Hypothyroidism, unspecified; Z79.4 Long term (current) use of insulin; Z86.39 Personal history of other endocrine, nutritional and metabolic disease; Z12.5 Encounter for screening for malignant neoplasm of prostate
CPT/HCPCS: 80053; 80061; 82043; 82306; 82570; 82607; 83525; 84403; 84443; 84681; 85025; G0103

== ENCOUNTER → 2022-06-07 08:35 | Outpatient (CLI) | payer MEDICAID, SELFPAY ==
[2022-06-08 12:34] LABS: Testosterone,Total 295 ng/dL (264-916)
== END ==
PROVIDERS: PCP Physician Assistant; Visit Provider Physician Assistant
DX: E11.9 Type 2 diabetes mellitus without complications (principal); Z79.4 Long term (current) use of insulin
CPT/HCPCS: 36415; 84403

== ENCOUNTER 2022-07-30 14:48 | Emergency (ER) | payer MEDICAID, SELFPAY ==
[2022-07-30 14:48] VITALS: BP 128/82; PULSE 92; RESP 20; TEMP 36.4; O2SAT 99; BMI 27.1
--- NOTE | 2022-07-30 14:52 | HMH.EDGENADL ---
Discharge Plan Disposition Patient Disposition: Home, Self-Care Prescriptions Prescriptions: New ondansetron 4 mg tablet,disintegrating 4 mg PO Q6H PRN (Reason: nausea and vomiting) 5 Days Qty: 20 0RF No Action venlafaxine [Effexor XR] 37.5 mg capsule,extended release 24hr 37.5 mg PO DAILY (DME) blood-glucose meter [Advanced Glucose Meter] Misc See Rx Instructions .ROUTE Rx Instructions: Test sugar 3 times daily or As directed atorvastatin [Lipitor] 10 mg tablet 10 mg PO QHS glipizide 10 mg tablet extended release 24hr 10 mg PO DAILY (DME) Advanced Gluc Meter Test Strip Strip See Rx Instructions .ROUTE Rx Instructions: Test sugar 3 times daily or As directed aspirin 81 mg tablet,delayed release (DR/EC) 81 mg PO DAILY levothyroxine [Synthroid] 25 mcg tablet 25 mcg PO DAILY ergocalciferol (vitamin D2) 1,250 mcg (50,000 unit) capsule 1,250 mcg PO WEEKLY lisinopril 2.5 mg tablet 2.5 mg PO DAILY Januvia 100 mg tablet 100 mg PO QDAY cholecalciferol (vitamin D3) 50 mcg (2,000 unit) capsule 50 mcg PO DAILY (DME) Dexcom G7 Sensor Device See Rx Instructions .ROUTE Rx Instructions: change sensor every 3 months (DME) Dexcom G7 Ramp Attendant Misc See Rx Instructions .ROUTE Rx Instructions: As directed Referrals Follow up/Referrals: Carina Ruiz PA [Primary Care Provider] - See instructions Clinical Impressions Clinical Impression: Nausea & vomiting, Hyperglycemia Instructions Patient Instructions: DI for Diarrhea and Traveler's Diarrhea -- Adult, DI for Diarrhea and Traveler's Diarrhea -- Child, DI for Nausea -- Adult, DI for Nausea -- Child Discharge ED Provider: Jonathan Paulson General Adult HPI General Chief complaint: Nausea/Vomiting/Diarrhea Stated complaint: Vomiting Time Seen by Provider: 07/30/22 14:52 History of Present Illness HPI narrative: 36-year-old male presenting with nausea and vomiting recent history of admission with diabetic ketoacidosis per his significant other in the room present with similar presentation today. No diarrhea no significant abdominal pain no hematemesis melena or hematochezia. He is actively vomiting and history is further limited. Related Data Home Medications Medication Instructions Recorded Confirmed aspirin 81 mg tablet,delayed 81 mg PO DAILY [facility] 07/30/22 07/30/22 release atorvastatin 10 mg tablet (Lipitor) 10 mg PO QHS Cholesterol 07/30/22 07/30/22 blood sugar diagnostic (Advanced 07/30/22 07/30/22 Glucose Meter Test Strips) blood-glucose meter (Advanced 07/30/22 07/30/22 Glucose Meter) blood-glucose meter,continuous 07/30/22 07/30/22 (Dexcom G7 Ramp Attendant) blood-glucose sensor (Dexcom G7 07/30/22 07/30/22 Sensor device) cholecalciferol (vitamin D3) 50 50 mcg PO DAILY Supplement 07/30/22 07/30/22 mcg (2,000 unit) capsule ergocalciferol (vitamin D2) 1,250 1,250 mcg PO WEEKLY Supplement 07/30/22 07/30/22 mcg (50,000 unit) capsule glipizide 10 mg tablet, extended 10 mg PO DAILY Diabetes 07/30/22 07/30/22 release 24 hr levothyroxine 25 mcg tablet 25 mcg PO DAILY Hypothyroidism 07/30/22 07/30/22 (Synthroid) lisinopril 2.5 mg tablet 2.5 mg PO DAILY Kidney health 07/30/22 07/30/22 sitagliptin phosphate 100 mg 100 mg PO QDAY Diabetes 07/30/22 07/30/22 tablet (Januvia) venlafaxine 37.5 mg 37.5 mg PO DAILY Mood 07/30/22 07/30/22 capsule,extended release 24 hr (Effexor XR) Previous Rx's Medication Instructions Recorded ondansetron 4 mg disintegrating 4 mg PO Q6H PRN nausea and 07/30/22 tablet vomiting 5 days #20 tabs Allergies Allergy/AdvReac Type Severity Reaction Status Date / Time Penicillins [PENICILLINS] Allergy Unknown Verified 05/29/22 10:02 [facility] Disclaimer: The information contained in this section may have been updated after the patient was seen, as this informatio
[2022-07-30 15:00] VITALS: BMI 27.2
[2022-07-30 15:06] LABS: POC Glucose,Bedside 336 (70-110)
[2022-07-30 15:09] LABS: VBG Base Excess -2.8 mmol/L (-2.4-2.3); VBG HCO3 20.9 mmol/L (23-30); VBG Oxygen Saturation 99.2 % (50-70); VBG PCO2 29.7 mmol/L (35-51); VBG PH 7.47 mmol/L (7.31-7.41); VBG PO2 130.8 mmol/L (28-40); VBG Total CO2 21.8 mmol/L (23-27)
[2022-07-30 15:15] LABS: Basophils # 0.1 K/mm3 (0-0.2); Basophils % 0.6 % (0.1-2.0); Eosinophils # 0.1 K/mm3 (0.0-0.4); Eosinophils % 0.4 % (0.1-12.0); Hematocrit 48.6 % (42.0-52.0); Hemoglobin 16.7 g/dL (14.1-18.0); Lymphocytes # 1.9 K/mm3 (0.7-4.5); Lymphocytes % 10.3 % (10-50); Mean Corpuscular HGB Conc 34.4 g/dL (31.8-35.4); Mean Corpuscular Hemoglobin 30.8 pg (27.0-31.2); Mean Corpuscular Volume 89.8 fl (80-94); Mean Platelet Volume 7.2 fl (7.4-10.4); Monocytes # 0.7 K/mm3 (0.1-1.0); Monocytes % 3.9 % (1.7-9.3); Neutrophils # 15.3 K/mm3 (1.8-7.8); Neutrophils % 84.7 % (37.0-80.0); Platelet Count 351 K/mm3 (142-424); Red Blood Count 5.41 M/mm3 (4.60-6.20); Red Cell Distribution Width 12.9 % (11.5-17.5); White Blood Count 18.1 K/mm3 (4.8-10.8)
[2022-07-30 15:17] LABS: Chloride 102 mmol/L (98-107); Potassium 4.4 mmoL/L (3.5-5.1); Sodium 137 mmol/L (136-145)
[2022-07-30 15:19] LABS: Blood Urea Nitrogen 12 mg/dl (9-20); Creatinine Clearance Estimated 205 mL/min (50-200); Estimated Glomerular Filt Rate 152 ml/min (>60); GFR (African American) 183 ML/MIN (>60)
[2022-07-30 15:20] LABS: Alanine Aminotransferase 67 U/L (12-78); Albumin Level 4.7 g/dl (3.5-5.0); Albumin/Globulin Ratio 1.5 (1.1-1.8); Alkaline Phosphatase 124 U/L (38-126); Anion Gap 16.4 mEq/L (5-15); Aspartate Amino Transferase 36 U/L (17-59); Bilirubin,Total 2.5 mg/dl (0.2-1.3); Calcium 9.4 mg/dl (8.4-10.2); Carbon Dioxide 23 mmol/L (22.0-30.0); Globulin 3.2 g/dL (1.3-3.2); Glucose 356 mg/dl (74-100); Magnesium 1.9 mg/dl (1.6-2.3); Total Protein,Serum 7.9 g/dl (6.3-8.2)
[2022-07-30 15:25] LABS: MANUAL DIFFERENTIAL MANUAL DIFFERENTIAL (MANUAL DIFF)
[2022-07-30 15:30] VITALS: BP 120/58; PULSE 96; RESP 20; O2SAT 99
[2022-07-30 15:51] LABS: Lymphocytes % 9 % (10-50); Monocytes % 6 % (2-9); Neutrophils % 85 % (42-76); Total Cells Counted 100
[2022-07-30 15:52] LABS: Platelet Estimate Normal; RBC Morphology Normal
[2022-07-30 15:58] LABS: Microscopic, Urine URINE MICROSCOPIC (MICROSCOPIC)
[2022-07-30 16:14] LABS: Appearance,Urine CLEAR (Clear); Bilirubin,Urine Negative (Negative); Blood, Urine Negative (Negative); Color,Urine YELLOW (Yellow); Glucose,Urine (UA) 3+ (Negative); Ketones,Urine 1+ (Negative); Leukocyte Esterase,Urine Negative (Negative); Nitrate,Urine Negative (Negative); PH,Urine 6.5 (5.0-8.5); Protein,Urine Negative (Negative)
[2022-07-30 16:31] LABS: Squamous Epithelial Cell,Urine Occasional #/hpf (0-5); WBC,Urine Occasional #/hpf (0-3)
[2022-07-30 16:55] VITALS: BP 127/82; PULSE 80; RESP 17; TEMP 36.6; O2SAT 97
== END 2022-07-30 16:58 | disposition home or self-care (01) ==
PROVIDERS: Emergency Provider Student in an Organized Health Care Education/Training Program; PCP Physician Assistant
DX: R11.2 Nausea with vomiting, unspecified (principal); E11.65 Type 2 diabetes mellitus with hyperglycemia; D72.829 Elevated white blood cell count, unspecified; F17.210 Nicotine dependence, cigarettes, uncomplicated; Z79.84 Long term (current) use of oral hypoglycemic drugs
CPT/HCPCS: 80053; 81001; 82803; 82962; 83735; 85007; 85025; 96361; 96374; 99285; J2405

== ENCOUNTER → 2022-07-31 12:00 | Outpatient (CLI) | payer MEDICAID, SELFPAY ==
[2022-07-31 15:13] LABS: Hemoglobin A1C > 14.0 % (4.0-6.0)
== END ==
PROVIDERS: PCP Physician Assistant; Visit Provider Physician Assistant
DX: R73.9 Hyperglycemia, unspecified (principal)
CPT/HCPCS: 83036

== ENCOUNTER 2022-08-16 22:12 | Emergency (ER) | payer MEDICAID, SELFPAY ==
[2022-08-16 22:14] VITALS: BP 161/91; PULSE 91; RESP 17; TEMP 36.8; O2SAT 97; BMI 27.1
--- NOTE | 2022-08-16 22:22 | CT_ITS ---
PROCEDURE INFORMATION: Exam: CT Abdomen And Pelvis With Contrast Exam date and time: 08/16/2022 11:38 PM Age: 36 years old Clinical indication: Abdominal pain; Epigastric; Additional info: Epigastric pain TECHNIQUE: Imaging protocol: Computed tomography of the abdomen and pelvis with contrast. Radiation optimization: All CT scans at this facility use at least one of these dose optimization techniques: automated exposure control; mA and/or kV adjustment per patient size (includes targeted exams where dose is matched to clinical indication); or iterative reconstruction. Contrast material: ISOVUE; Contrast volume: 75 ml; Contrast route: IV; REPORTING DATA: Count of CT and Cardiac NM exams in prior 12 months: This patient has received 0 known CTs and 0 known cardiac nuclear medicine studies in the 12 months prior to the current study. COMPARISON: MR LUMBAR SPINE WO CON 12/15/2019 2:36 PM FINDINGS: Liver: Diffuse fatty liver infiltration. Liver measures 20 cm. Gallbladder and bile ducts: Normal. No calcified stones. No ductal dilation. Pancreas: Normal. No ductal dilation. Spleen: Normal. No splenomegaly. Adrenal glands: Normal. No mass. Kidneys and ureters: Normal. No hydronephrosis. Stomach and bowel: Unremarkable. No obstruction. No mucosal thickening. Appendix: No evidence of appendicitis. Intraperitoneal space: Unremarkable. No free air. No significant fluid collection. Vasculature: Unremarkable. No abdominal aortic aneurysm. Lymph nodes: Unremarkable. No enlarged lymph nodes. Urinary bladder: Unremarkable as visualized. Reproductive: Unremarkable as visualized. Bones/joints: Unremarkable. No acute fracture. Soft tissues: Unremarkable. IMPRESSION: Hepatomegaly with fatty liver infiltration.
--- NOTE | 2022-08-16 22:22 | XR_ITS ---
PROCEDURE INFORMATION: Exam: XR Chest Exam date and time: 08/16/2022 11:18 PM Age: 36 years old Clinical indication: Other: Epigastric pain TECHNIQUE: Imaging protocol: Radiologic exam of the chest. Views: 1 view. COMPARISON: CR XR CHEST 2V 12/23/2019 4:27 PM FINDINGS: Lungs: Unremarkable. No consolidation. Pleural spaces: Unremarkable. No pleural effusion. No pneumothorax. Heart/Mediastinum: Unremarkable. No cardiomegaly. Bones/joints: Unremarkable. IMPRESSION: No acute findings.
--- NOTE | 2022-08-16 22:29 | HMH.EDABDPAI ---
Discharge Plan Disposition Patient Disposition: Home, Self-Care Condition: Good Prescriptions Prescriptions: New promethazine 25 mg tablet 25 mg PO Q6H PRN (Reason: nausea and vomiting) Qty: 20 0RF ondansetron HCl 4 mg tablet 4 mg PO Q6H PRN (Reason: nausea and vomiting) Qty: 20 0RF No Action Trulance 3 mg tablet 3 mg PO DAILY Qty: 30 2RF venlafaxine [Effexor XR] 37.5 mg capsule,extended release 24hr 37.5 mg PO DAILY (DME) blood-glucose meter [Advanced Glucose Meter] Misc See Rx Instructions .Route Rx Instructions: Test sugar 3 times daily or As directed atorvastatin [Lipitor] 10 mg tablet 10 mg PO QHS glipizide 10 mg tablet extended release 24hr 10 mg PO DAILY (DME) Advanced Gluc Meter Test Strip Strip See Rx Instructions .Route Rx Instructions: Test sugar 3 times daily or As directed aspirin 81 mg tablet,delayed release (DR/EC) 81 mg PO DAILY levothyroxine [Synthroid] 25 mcg tablet 25 mcg PO DAILY ergocalciferol (vitamin D2) 1,250 mcg (50,000 unit) capsule 1,250 mcg PO WEEKLY lisinopril 2.5 mg tablet 2.5 mg PO DAILY Januvia 100 mg tablet 100 mg PO QDAY cholecalciferol (vitamin D3) 50 mcg (2,000 unit) capsule 50 mcg PO DAILY (DME) Dexcom G7 Sensor Device See Rx Instructions .Route Rx Instructions: change sensor every 3 months (DME) Dexcom G7 Engrosser Misc See Rx Instructions .Route Rx Instructions: As directed ondansetron 4 mg tablet,disintegrating 4 mg PO Q6H PRN (Reason: nausea and vomiting) 5 Days Qty: 20 0RF Referrals Follow up/Referrals: Carina Ruiz PA [Primary Care Provider] - See instructions Activity Restrictions/Add. Instructions Additional Instructions/Restrictions: Patient's being discharged home on Phenergan and Zofran. Your nausea vomiting can be from your gastroparesis. Or it also be a gastroenteritis. You are not in DKA you are not having a heart attack I feel comfortable sending you home to follow-up as an outpatient with general surgery because your bilirubin is up at two-point no. And also follow-up with your primary care doctor for GI physician referral. Clinical Impressions Clinical Impression: Diabetic gastroparesis, Nausea & vomiting, Dehydration, Hyperbilirubinemia Instructions Patient Instructions: DI for Diarrhea and Traveler's Diarrhea -- Adult, DI for Diarrhea and Traveler's Diarrhea -- Child, DI for Nausea -- Adult, DI for Nausea -- Child, Nausea and Vomiting-Adult Discharge ED Provider: Mireille Terrell Abdominal Pain HPI General Chief Complaint: Nausea/Vomiting/Diarrhea Stated Complaint: vomiting sweats Time Seen by Provider: 08/16/22 22:22 Mode of Arrival: Ambulatory Source of Information: Patient Limitations: No Limitations History of Present Illness HPI narrative: Patient is a 36-year-old male who is here secondary to severe intractable nausea vomiting with abdominal pain and diarrhea. Patient is a diabetic has not been checking his blood sugar. Patient's been complaining about vomiting orange emesis now coffee-ground emesis. Patient also been having diarrhea which has been green in yellow. His complaint severe epigastric periumbilical pain. He has not had his appendectomy and gallbladder removal. No abdominal surgery. He has had intractable nausea vomiting like this when he was in DKA as well as when he had gastroenteritis. MD complaint: abdominal pain Onset (ago): hour(s) Consistency: constant Location: periumbilical Severity: severe Severity scale (1-10): 10 Quality: aching and dull Migration to: epigastric Relieving factors: nothing Exacerbating factors: nothing Associated symptoms: nausea, vomiting and diarrhea Related Data Home Medications Medication Instructions Recorded Confirmed aspirin 81 mg tablet,delayed 81 mg PO DAILY Heart health 07/30/22 07/31/22 release atorvastatin 10 mg
[2022-08-16 22:31] LABS: POC Glucose,Bedside 308 (70-110)
[2022-08-16 22:50] LABS: Basophils # 0.1 K/mm3 (0-0.2); Basophils % 1.1 % (0.1-2.0); Eosinophils # 0.3 K/mm3 (0.0-0.4); Eosinophils % 2.6 % (0.1-12.0); Hematocrit 50.2 % (42.0-52.0); Hemoglobin 17.4 g/dL (14.1-18.0); Lymphocytes # 3.4 K/mm3 (0.7-4.5); Lymphocytes % 27.4 % (10-50); Mean Corpuscular HGB Conc 34.7 g/dL (31.8-35.4); Mean Corpuscular Hemoglobin 31.1 pg (27.0-31.2); Mean Corpuscular Volume 89.7 fl (80-94); Mean Platelet Volume 7.8 fl (7.4-10.4); Monocytes # 0.9 K/mm3 (0.1-1.0); Monocytes % 7.1 % (1.7-9.3); Neutrophils # 7.7 K/mm3 (1.8-7.8); Neutrophils % 61.7 % (37.0-80.0); Platelet Count 316 K/mm3 (142-424); Red Cell Distribution Width 13.1 % (11.5-17.5); White Blood Count 12.4 K/mm3 (4.8-10.8)
[2022-08-16 22:56] LABS: Chloride 100 mmol/L (98-107); Sodium 137 mmol/L (136-145)
[2022-08-16 22:57] LABS: Potassium 3.9 mmoL/L (3.5-5.1)
[2022-08-16 22:59] LABS: Alanine Aminotransferase 77 U/L (12-78); Amylase 89 U/L (30-110); Anion Gap 18.9 mEq/L (5-15); Aspartate Amino Transferase 43 U/L (17-59); Blood Urea Nitrogen 13 mg/dl (9-20); Carbon Dioxide 22 mmol/L (22.0-30.0); Estimated Glomerular Filt Rate 109 ml/min (>60); GFR (African American) 132 ML/MIN (>60); Lipase 145 U/L (23-300)
[2022-08-16 23:00] LABS: Albumin Level 4.9 g/dl (3.5-5.0); Albumin/Globulin Ratio 1.6 (1.1-1.8); Alkaline Phosphatase 124 U/L (38-126); Bilirubin,Total 2.9 mg/dl (0.2-1.3); Calcium 9.5 mg/dl (8.4-10.2); Globulin 3.1 g/dL (1.3-3.2); Glucose 284 mg/dl (74-100)
[2022-08-16 23:02] LABS: VBG Base Excess -1.9 mmol/L (-2.4-2.3); VBG HCO3 22.5 mmol/L (23-30); VBG Oxygen Saturation 88.3 % (50-70); VBG PCO2 35.3 mmol/L (35-51); VBG PH 7.42 mmol/L (7.31-7.41); VBG PO2 51.3 mmol/L (28-40); VBG Total CO2 23.6 mmol/L (23-27)
[2022-08-16 23:11] LABS: Troponin I < 0.01 ng/ml (0.00-0.034)
[2022-08-16 23:16] LABS: Activated Partial Thrombo Time 22.7 seconds (22.8-30.6); INR 0.94 (0.9-1.1); Prothrombin Time 10.2 seconds (10.1-12.5)
[2022-08-16 23:37] LABS: Lactic Acid 1.9 mmol/L (0.7-2.1)
--- NOTE | 2022-08-16 23:48 | ECG_ITS ---
APPROVED REPORT Exam: Resting ECG HR:92 bpm ECG Measurements Heart Rate 92 AXES FL 165 P 0 QRSd 84 QRS 1 QT 331 T 44 QTc 381 Conclusion SINUS RHYTHM Poor r wave progression ABNORMAL ECG UNCONFIRMED REPORT Electronically signed by : John Gay MD 08/17/2022 09:03:58
[2022-08-17 00:51] VITALS: BP 160/90; PULSE 88; RESP 16; TEMP 36.6; O2SAT 98
[2022-08-17 00:58] LABS: POC Glucose,Bedside 261 (70-110)
== END 2022-08-17 01:00 | disposition home or self-care (01) ==
PROVIDERS: Emergency Provider Emergency Medicine; PCP Physician Assistant
DX: E11.43 Type 2 diabetes mellitus with diabetic autonomic (poly)neuropathy (principal); K31.84 Gastroparesis; E86.0 Dehydration; F17.210 Nicotine dependence, cigarettes, uncomplicated
CPT/HCPCS: 71045; 74177; 80053; 82150; 82803; 82962; 83605; 83690; 84484; 85025; 85610; 85730; 87040; 93005; 96361; 96374; 96375; 99285; J2405; Q9967

== ENCOUNTER 2022-08-17 07:39 | Inpatient (IN) | payer MEDICAID, SELFPAY ==
[2022-08-17] VITALS (11 sets, daily range): BP systolic 108–164; BP diastolic 56–113; PULSE 82–99; RESP 16–18; TEMP 36.6–37; O2SAT 98–100; BMI 29.0; BMI 27.4
--- NOTE | 2022-08-17 07:51 | PC.NURSE ---
Warm blanket provided
--- NOTE | 2022-08-17 08:02 | HMH.EDGENADL ---
Discharge Plan Disposition Patient Disposition: Admitted As Inpatient Chief Complaint: Nausea/Vomiting/Diarrhea Prescriptions Prescriptions: No Action Trulance 3 mg tablet 3 mg PO DAILY Qty: 30 2RF venlafaxine [Effexor XR] 37.5 mg capsule,extended release 24hr 37.5 mg PO DAILY (DME) blood-glucose meter [Advanced Glucose Meter] Misc See Rx Instructions .Route Rx Instructions: Test sugar 3 times daily or As directed atorvastatin [Lipitor] 10 mg tablet 10 mg PO QHS glipizide 10 mg tablet extended release 24hr 10 mg PO DAILY (DME) Advanced Gluc Meter Test Strip Strip See Rx Instructions .Route Rx Instructions: Test sugar 3 times daily or As directed aspirin 81 mg tablet,delayed release (DR/EC) 81 mg PO DAILY levothyroxine [Synthroid] 25 mcg tablet 25 mcg PO DAILY ergocalciferol (vitamin D2) 1,250 mcg (50,000 unit) capsule 1,250 mcg PO WEEKLY lisinopril 2.5 mg tablet 2.5 mg PO DAILY Januvia 100 mg tablet 100 mg PO QDAY cholecalciferol (vitamin D3) 50 mcg (2,000 unit) capsule 50 mcg PO DAILY (DME) Dexcom G7 Sensor Device See Rx Instructions .Route Rx Instructions: change sensor every 3 months (DME) Dexcom G7 Senior Contracts Administrator Misc See Rx Instructions .Route Rx Instructions: As directed ondansetron 4 mg tablet,disintegrating 4 mg PO Q6H PRN (Reason: nausea and vomiting) 5 Days Qty: 20 0RF promethazine 25 mg tablet 25 mg PO Q6H PRN (Reason: nausea and vomiting) Qty: 20 0RF ondansetron HCl 4 mg tablet 4 mg PO Q6H PRN (Reason: nausea and vomiting) Qty: 20 0RF Referrals Follow up/Referrals: Carina Ruiz PA [Primary Care Provider] - See instructions Clinical Impressions Clinical Impression: Vomiting, Diarrhea Discharge ED Provider: Prateek Cowan General Adult HPI General Chief complaint: Nausea/Vomiting/Diarrhea Stated complaint: vomiting, stomach pain Time Seen by Provider: 08/17/22 08:02 Mode of Arrival: Ambulatory Source of Information: Patient Limitations: No Limitations Description of Symptoms (Recalled from ER Triage Doc. by RN): Presents via POV d/t the return of n/v/chills. Pt states he was seen last night and left prior to discharge due to improving, however once he got home the symptoms returned. Intermittent abd cramping. History of Present Illness HPI narrative: Patient is a 36-year-old male with past medical history of bal-qpnivkd-lmadqbtwu diabetes who presents emergency department for evaluation of vomiting. Onset was acute, over the last 48 to 72 hours, associated right upper quadrant abdominal pain and diarrhea. Patient denies dysuria, headache, chest pain, cough. Per chart review patient was recently here yesterday evening for similar symptoms where work-up was nonactionable and he was subsequently discharged home. Related Data Home Medications Medication Instructions Recorded Confirmed aspirin 81 mg tablet,delayed 81 mg PO DAILY Heart health 07/30/22 07/31/22 release atorvastatin 10 mg tablet (Lipitor) 10 mg PO QHS Cholesterol 07/30/22 07/31/22 blood sugar diagnostic (Advanced 07/30/22 07/31/22 Glucose Meter Test Strips) blood-glucose meter (Advanced 07/30/22 07/31/22 Glucose Meter) blood-glucose meter,continuous 07/30/22 07/31/22 (Dexcom G7 Senior Contracts Administrator) blood-glucose sensor (Dexcom G7 07/30/22 07/31/22 Sensor device) cholecalciferol (vitamin D3) 50 50 mcg PO DAILY Supplement 07/30/22 07/31/22 mcg (2,000 unit) capsule ergocalciferol (vitamin D2) 1,250 1,250 mcg PO WEEKLY Supplement 07/30/22 07/31/22 mcg (50,000 unit) capsule glipizide 10 mg tablet, extended 10 mg PO DAILY Diabetes 07/30/22 07/31/22 release 24 hr levothyroxine 25 mcg tablet 25 mcg PO DAILY Hypothyroidism 07/30/22 07/31/22 (Synthroid) lisinopril 2.5 mg tablet 2.5 mg PO DAILY Kidney health 07/30/22 07/31/22 sitagliptin phosphate 100 mg 100 mg PO QDAY Diabe
--- NOTE | 2022-08-17 08:08 | US_ITS ---
FINAL REPORT CLINICAL HISTORY: RUQ pain, vomiting FINDINGS: Sonographic images of the right upper quadrant were obtained. The pancreas is partially obscured. There is increased echogenicity in the liver consistent with fatty infiltration. The gallbladder appears normal without evidence of gallstones.There is no evidence of biliary ductal dilatation.The common duct measures 3 mm. Limited images of the right kidney are unremarkable. IMPRESSION: Fatty liver. Reviewed, Interpreted and Dictated by Simon June III, MD Transcribed by Arina Addison Authenticated and [facility]
[2022-08-17 08:10] LABS: POC Glucose,Bedside 333 (70-110)
[2022-08-17 08:20] LABS: Basophils # 0.1 K/mm3 (0-0.2); Basophils % 0.3 % (0.1-2.0); Hematocrit 46.8 % (42.0-52.0); Lymphocytes # 1.2 K/mm3 (0.7-4.5); Mean Corpuscular HGB Conc 34.2 g/dL (31.8-35.4); Mean Corpuscular Hemoglobin 31.1 pg (27.0-31.2); Mean Corpuscular Volume 91.2 fl (80-94); Mean Platelet Volume 7.4 fl (7.4-10.4); Monocytes # 0.7 K/mm3 (0.1-1.0); Monocytes % 3.9 % (1.7-9.3); Neutrophils # 15.7 K/mm3 (1.8-7.8); Neutrophils % 88.8 % (37.0-80.0); Platelet Count 303 K/mm3 (142-424); Red Blood Count 5.13 M/mm3 (4.60-6.20); VBG Base Excess -6.2 mmol/L (-2.4-2.3); VBG HCO3 18.4 mmol/L (23-30); VBG Oxygen Saturation 98.5 % (50-70); VBG PCO2 29.8 mmol/L (35-51); VBG PH 7.41 mmol/L (7.31-7.41); VBG PO2 114.9 mmol/L (28-40); VBG Total CO2 19.3 mmol/L (23-27); White Blood Count 17.6 K/mm3 (4.8-10.8)
[2022-08-17 08:21] LABS: Chloride 101 mmol/L (98-107)
[2022-08-17 08:22] LABS: Potassium 4.1 mmoL/L (3.5-5.1); Sodium 136 mmol/L (136-145)
[2022-08-17 08:24] LABS: Alanine Aminotransferase 66 U/L (12-78); Albumin Level 4.6 g/dl (3.5-5.0); Albumin/Globulin Ratio 1.5 (1.1-1.8); Alkaline Phosphatase 102 U/L (38-126); Anion Gap 19.1 mEq/L (5-15); Aspartate Amino Transferase 38 U/L (17-59); Bilirubin,Total 3.3 mg/dl (0.2-1.3); Blood Urea Nitrogen 13 mg/dl (9-20); Calcium 8.8 mg/dl (8.4-10.2); Carbon Dioxide 20 mmol/L (22.0-30.0); Creatinine Clearance Estimated 187 mL/min (50-200); Estimated Glomerular Filt Rate 127 ml/min (>60); GFR (African American) 154 ML/MIN (>60); Glucose 350 mg/dl (74-100); Lipase 39 U/L (23-300); MANUAL DIFFERENTIAL MANUAL DIFFERENTIAL (MANUAL DIFF); Total Protein,Serum 7.6 g/dl (6.3-8.2)
[2022-08-17 08:30] LABS: Lactic Acid 2.6 mmol/L (0.7-2.1)
[2022-08-17 08:37] LABS: Lymphocytes % 6 % (10-50); Monocytes % 4 % (2-9); Neutrophils % 90 % (42-76); Total Cells Counted 100
[2022-08-17 08:38] LABS: Platelet Estimate Normal; RBC Morphology Normal
--- NOTE | 2022-08-17 08:43 | PC.NURSE ---
pt to us
--- NOTE | 2022-08-17 09:07 | PC.NURSE ---
PT RETURNED FROM [facility]
--- NOTE | 2022-08-17 09:20 | PC.NURSE ---
sent covid swab to lab
--- NOTE | 2022-08-17 09:23 | PC.NURSE ---
rounded on pt gave him a diet starry lemon [place] soda, tanya @ [facility]
[2022-08-17 09:24] LABS: Coronavirus 19, PCR Not Detected (NotDetected); Influenza A, PCR Not Detected (NotDetected); Influenza B, PCR Not Detected (NotDetected)
--- NOTE | 2022-08-17 09:39 | PC.NURSE ---
er speaking to hospitalist for admission
--- NOTE | 2022-08-17 09:42 | PC.NURSE ---
Case Management notified of admission. Dx intractable n/v/d. Admitting, Dr. Saez.
--- NOTE | 2022-08-17 09:46 | EXP.HP ---
History of Present Illness *Admission Date: 08/17/22 *Reason for visit:: nausea and vomiting *History of present illness: 36-year-old male with history of diabetes and hypothyroidism who presents with intractable nausea and vomiting. Presented to the ER yesterday with similar symptoms, responded well to IV fluids and was sent home. Unfortunately woke up this morning and has continued to have retching and bilious emesis. Denies any adonis diarrhea, usually goes 2 to 3 days between bowel movements. Afebrile. Work-up in the ER showing elevated anion gap, hyperglycemia, leukocytosis (likely reactive), and normal pH on blood gas with decreased CO2 (compensatory). Given inability to tolerate oral intake, intractable vomiting, metabolic disturbances, ER consulted medicine for admission. On arrival to the floor, patient is still having nausea but stating he is feeling little bit better and would like to try some p.o. fluids. Discussion about symptoms, he states they have been progressive for months. He stopped insulin for his diabetes at least 6 months ago. Wakes up most mornings nausea's. Smokes cannabinoid products to help with his nausea and stomach. Smokes regularly and daily for significant period of time. Feels improvement in his nausea with a warm shower temporarily. No known sick contacts. Has been taking his glipizide and Januvia as prescribed. Reports he was told when they stopped his insulin that he had transition from a type I to a type II. Family at bedside includes son and father. Patient alert and oriented. [facility] Disclaimer: The information contained in this section may have been updated after the patient was seen, as this information can be updated by other users. Medical History Diabetes Low testosterone level in male Family History Diabetes Father Hyperlipidemia Father Hypertension Father Social History Smoking Status: Current every day smoker tobacco type: cigarettes packs per day: 2 alcohol intake: never substance use type: denies use current occupational status: employed and unemployed Travel in the last 8 weeks: None household members: spouse and children housing: house marital status: single number of children: 4 current occupation: [employer] current occupational exposures/hazards: No caffeine: Yes Review of Systems Review of Systems Review of systems (narrative): 14 point review of systems performed, pertinent positives and negatives as per [facility] Meds Home Medications and Allergies Home Medications Medication Instructions Recorded Confirmed Type aspirin 81 mg tablet,delayed 81 mg PO DAILY Heart health 07/30/22 08/17/22 History release atorvastatin 10 mg tablet (Lipitor) 10 mg PO HS Cholesterol 07/30/22 08/17/22 History blood sugar diagnostic (Advanced 07/30/22 07/31/22 History Glucose Meter Test Strips) blood-glucose meter (Advanced 07/30/22 07/31/22 History Glucose Meter) blood-glucose meter,continuous 07/30/22 07/31/22 History (Dexcom G7 Mine Car Mechanic) blood-glucose sensor (Dexcom G7 07/30/22 07/31/22 History Sensor device) cholecalciferol (vitamin D3) 50 50 mcg PO DAILY Supplement 07/30/22 08/17/22 History mcg (2,000 unit) capsule ergocalciferol (vitamin D2) 1,250 1,250 mcg PO WEEKLY Supplement 07/30/22 08/17/22 History mcg (50,000 unit) capsule glipizide 10 mg tablet, extended 10 mg PO DAILY Diabetes 07/30/22 08/17/22 History release 24 hr levothyroxine 25 mcg tablet 25 mcg PO DAILY Hypothyroidism 07/30/22 08/17/22 History (Synthroid) lisinopril 2.5 mg tablet 2.5 mg PO DAILY Hypertension 07/30/22 08/17/22 History sitagliptin phosphate 100 mg 100 mg PO DAILY Diabetes 07/30/22 08/17/22 History tablet (Januvia) venlafaxine 37.5 mg 37.5 mg PO DAILY Mood 07/30/22 08/17/22 History capsule,
--- NOTE | 2022-08-17 09:52 | HMH.PHAINT1 ---
Pharmacy Intervention Comments: MEDICATION RECONCILIATION COMPLETED ON PATIENT USING EXTERNAL FILL HISTORY FROM PHARMACY AND DISCHARGE MEDICATIONS FROM ED. -WANDER WOLF, LOKID
[2022-08-17 09:55] LABS: Acetone, Serum (Rapid) Small (None Detect)
[2022-08-17 10:00] LABS: Phosphorous 3.6 mg/dl (2.5-4.5)
--- NOTE | 2022-08-17 10:10 | PC.NURSE ---
Attempted report x 1.
--- NOTE | 2022-08-17 10:31 | PC.NURSE ---
Report given to Charlene Donohue RN
--- NOTE | 2022-08-17 10:57 | PC.NURSE ---
arrived by w/c to floor from ED
[2022-08-17 11:18] LABS: POC Glucose,Bedside 387 (70-110)
[2022-08-17 11:48] LABS: Hemoglobin A1C 10.2 % (4.0-6.0)
[2022-08-17 12:16] LABS: Reflex Lactic Add Lactic Reflex
[2022-08-17 12:46] LABS: Lactic Acid Follow Up (RFLX 1) 3.3 mmol/L (0.7-2.1)
[2022-08-17 13:30] LABS: Thyroid Stimulating Hormone 7.89 uIU/mL (0.465-4.68)
[2022-08-17 13:36] LABS: POC Glucose,Bedside 255 (70-110)
--- NOTE | 2022-08-17 13:38 | DIET.NUTRFU ---
RD consulted to educate patient on diabetic diet. Patient was here Apr 2022, with A1c 12.9% and was educated at that time. Handouts were provided. Upon visit this admit, family present during visit. His A1c this admit is >14%, reviewed this with patient. He seemed surprised that is was worse this admit. He reports he has been consuming less candy since last admit, but still not eating routine meals. He typically skips breakfast eats multiple simple carbs for lunch- sandwich and chips and then tries to eats all other calories for dinner and over does on carb intake. Like oranges eats often. Drink Diet sodas. He has kids in multiple after school activities and does not eat routine meals. He is convinced it is impossible. RD tried to suggest meals to pack to take to games and activities instead of picking up fast food or eating a large portion of pizza rolls late at night. He agreed to try to eat breakfast-protein and carb to start day and then count carb at meals throughout day. Encouraged him to check all labels and portion sizes to determine carb count. He has been checking his BS more often. Provided handouts and contact information if further follow-up is needed. Did recommend outpatient referral to see RD if cannot change habits. Reviewed risks to further health decline if does change his dietary habits related to DM.
[2022-08-17 14:29] LABS: Reflex Lactic (2 hrs) Add Lactic Reflex
[2022-08-17 14:53] LABS: Lactic Acid Follow up (RFLX 2) 1.1 mmol/L (0.7-2.1)
[2022-08-17 15:52] LABS: POC Glucose,Bedside 212 (70-110)
[2022-08-17 16:37] LABS: Chloride 101 mmol/L (98-107); Sodium 135 mmol/L (136-145)
[2022-08-17 16:38] LABS: Potassium 3.7 mmoL/L (3.5-5.1)
[2022-08-17 16:40] LABS: Blood Urea Nitrogen 12 mg/dl (9-20); Creatinine Clearance Estimated 178 mL/min (50-200); Estimated Glomerular Filt Rate 127 ml/min (>60); GFR (African American) 154 ML/MIN (>60)
[2022-08-17 16:41] LABS: Anion Gap 12.7 mEq/L (5-15); Calcium 8.4 mg/dl (8.4-10.2); Carbon Dioxide 25 mmol/L (22.0-30.0); Glucose 210 mg/dl (74-100)
--- NOTE | 2022-08-17 17:24 | PC.NURSE ---
PT IS RESTING IN BED. ALERT AND ORIENTED X4. PT'S LAST GLUCOSE CHECK WAS 212. PT STATED THAT IS THE LOWEST HIS GLUCOSE HAS BEEN IN A LONG TIME. PT HAS BEEN SLEEPING OFF AND ON T/O THE SHIFT. TOLERATED TAKING A SHOWER THIS AFTERNOON. PT HAS NOT BEEN EATING WELL BUT HAS TOLERATED LIQUIDS. LUNG SOUNDS CLEAR. ABDOMEN SOFT/TENDERNESS NOTED (RUQ). WILL CONTINUE TO MONITOR.
[2022-08-17 20:11] LABS: POC Glucose,Bedside 215 (70-110)
[2022-08-18 04:00] VITALS: BP 126/64; PULSE 80; RESP 16; TEMP 36.8; O2SAT 97; BMI 27.4
--- NOTE | 2022-08-18 04:14 | PC.NURSE ---
NO ACUTE CHANGES THIS SHIFT. PT HAS RESTED WELL AMBULATING INDEPENDENTLY. NO C/O NAUSEA OR VOMITING THIS SHIFT. VSS.
[2022-08-18 06:44] LABS: POC Glucose,Bedside 157 (70-110)
[2022-08-18 07:43] VITALS: BP 142/86; PULSE 87; RESP 18; TEMP 36.6; O2SAT 99
--- NOTE | 2022-08-18 08:32 | EXP.ACUTE.PN ---
Subjective *Date: 08/18/22 *Time: 09:57 Interval history: Did well overnight. States it was not until he woke up that he had nausea, had some retching and dry heaves. Has been tolerating good p.o. fluid intake. Still having some abdominal pain, mainly after retching. Afebrile. Stable on room air. Hemodynamically stable. Medical Exam Vital signs and Labs for Last 24 Hours: Vital Signs Temp Pulse Pulse Resp BP BP Pulse Ox 08/18/22 07:43 97.8 F 87 18 142/86 H 99 08/18/22 04:00 98.3 F 80 16 126/64 97 08/17/22 20:00 98.2 F 99 H 16 119/57 L 98 08/17/22 16:00 98.6 F 89 18 110/56 L 100 08/17/22 11:10 98.4 F 99 H 18 110/64 99 08/17/22 10:59 98 F 87 16 108/58 L 08/17/22 10:30 97 H 108/58 L 100 08/17/22 10:00 97 H 112/63 100 08/17/22 09:30 84 114/74 100 Intake and Output 08/17/22 08/18/22 08/18/22 23:59 07:59 15:59 Output Total 600 / 1200 800 / 800 Balance -600 / 332 -800 / -800 Output: Output, Urine Amount 600 / 1200 800 / 800 Other: Number of Unmeasured Voids 1 1 Weight 86.93 kg Patient Weight 08/18/22 23:59 Weight 86.93 kg Laboratory Results - last 24 hr 08/17/22 08:05: Total Counted 100, Neutrophils % (Manual) 90 H, Lymphocytes % (Manual) 6 L, Monocytes % (Manual) 4, Platelet Estimate Normal, RBC Morphology Normal 08/17/22 08:05: Phosphorus 3.6 08/17/22 08:05: Acetone Level Small 08/17/22 08:05: Hemoglobin A1c 10.2 H D 08/17/22 09:18: SARS-CoV-2 (PCR) Not detected, Influenza A Untype (PCR) Not detected, Influenza Type B (PCR) Not detected 08/17/22 11:05: POC Glucose 387 H* 08/17/22 12:29: Lactate 3.3 H 08/17/22 12:29: TSH 7.89 H 08/17/22 13:29: POC Glucose 255 H 08/17/22 14:38: Lactate 1.1 08/17/22 15:41: POC Glucose 212 H 08/17/22 16:00: Sodium 135 L, Potassium 3.7, Chloride 101, Carbon Dioxide 25, Anion Gap 12.7, BUN 12, Creatinine 0.70, Estimated Creat Clear 178, Estimated GFR 127, Est GFR ( Amer) 154, Glucose 210 H D, Calcium 8.4 08/17/22 20:05: POC Glucose 215 H 08/18/22 04:46: POC Glucose 157 H I & O for Labs for Last 24 Hours: Intake & Output 08/15/22 08/16/22 08/17/22 08/18/22 23:59 23:59 23:59 23:59 Intake Total 1532 / 1532 Output Total 1000 / 1200 800 / 800 Balance 532 / 332 -800 / -800 Weight 86.89 kg 86.93 kg Constitutional: Present no acute distress and average body habitus Head: Present atraumatic and normocephalic ENT: Present normal exam Respiratory: Present CTA bilaterally and normal respiratory effort; Absent rhonchi, wheezes or crackles Cardiac: Present Reg Rate and Rhythm GI: Present soft, tenderness (Diffuse but worse in the epigastric region) and normal bowel sounds; Absent distention Extremities: Present normal inspection and full ROM Skin: Present intact; Absent erythema Neuro: Present Grossly Intact, alert, awake, oriented x 3 and moves all extremities Assessment and Plan *Assessment and plan (1) Nausea & vomiting: Status: Acute Category: Medical Code(s): R11.2 - Nausea with vomiting, unspecified (2) Hyperglycemia: Status: Acute Category: Medical Code(s): R73.9 - Hyperglycemia, unspecified (3) Diarrhea: Status: Acute Category: Medical Code(s): R19.7 - Diarrhea, unspecified (4) Type 2 diabetes mellitus: Status: Acute Category: Medical Code(s): E11.9 - Type 2 diabetes mellitus without complications (5) Hypothyroid: Status: Chronic Qualifiers: Hypothyroidism type: unspecified Qualified Code(s): E03.9 - Hypothyroidism, unspecified Category: Medical Code(s): E03.9 - Hypothyroidism, unspecified (6) Metabolic acidosis with respiratory alkalosis: Status: Resolved Category: Medical Code(s): E87.20 - Acidosis, unspecified; E87.3 - Alkalosis Plan 36-year-old male with history of diabetes. Presents with intractable nausea and vomiting. Sympto
[2022-08-18 10:22] LABS: POC Glucose,Bedside 173 (70-110)
[2022-08-18 15:23] VITALS: BP 126/89; PULSE 88; RESP 18; TEMP 36.8; O2SAT 100
[2022-08-18 16:10] LABS: POC Glucose,Bedside 186 (70-110)
--- NOTE | 2022-08-18 17:09 | PC.NURSE ---
courtesy tech note: pt is lying in bed and voiced no requests at this time. call light is within reach
--- NOTE | 2022-08-18 17:29 | PC.NURSE ---
PT IS RESTING IN BED WITH FAMILY AT BEDSIDE. PT WAS VERY UPSET EARLIER B/C HE STATED HE DID NOT UNDERSTAND WHY HE WAS STILL HAVING NAUSEA/VOMITING AND WAS VERY FRUSTRATED B/C HE WAS UNABLE TO EAT ANY BREAKFAST EVEN AFTER BEING MEDICATED WITH ZOFRAN AND PHENERGAN. NOTIFIED . COMPAZINE ORDERED. PT WAS ABLE TO REST FOR A COUPLE OF HOURS AND TOLERATED EATING SOME LUNCH AND DINNER SINCE BEING MEDICATED WITH COMPAZINE. LUNG SOUNDS CLEAR. ABDOMEN SOFT WITH RUQ TENDERNESS NOTED. NO SWELLING NOTED TO BLE. WILL CONTINUE TO MONITOR.
[2022-08-18 20:00] VITALS: BP 140/82; PULSE 84; RESP 16; TEMP 36.6; O2SAT 99
[2022-08-18 20:58] LABS: POC Glucose,Bedside 165 (70-110)
[2022-08-18 23:26] LABS: POC Glucose,Bedside 125 (70-110)
--- NOTE | 2022-08-19 00:14 | PC.NURSE ---
AT 2353 PATIENT RECEIVED COMPAZINE 2.5 MG IVP FOR C/O NAUSEA. A FEW MINS LATER PATIENT THOUGHT HE MAY NEED SOMETHING TO SNACK ON HE FELT ALITTLE SHAKY. PATIENT RECEIVED SHERBIT ICE CREAM AND 222 ML OF REGULAR PEPSI.
[2022-08-19 04:00] VITALS: BP 138/73; PULSE 91; RESP 16; TEMP 36.7; O2SAT 98; BMI 27.8
[2022-08-19 05:23] LABS: POC Glucose,Bedside 223 (70-110)
--- NOTE | 2022-08-19 07:19 | EXP.DC.SUM ---
General Admission date:: 08/17/22 Discharge date: 08/19/22 HPI HPI HPI: 36-year-old male with history of diabetes and hypothyroidism who presents with intractable nausea and vomiting. Presented to the ER yesterday with similar symptoms, responded well to IV fluids and was sent home. Unfortunately woke up this morning and has continued to have retching and bilious emesis. Denies any adonis diarrhea, usually goes 2 to 3 days between bowel movements. Afebrile. Work-up in the ER showing elevated anion gap, hyperglycemia, leukocytosis (likely reactive), and normal pH on blood gas with decreased CO2 (compensatory). Given inability to tolerate oral intake, intractable vomiting, metabolic disturbances, ER consulted medicine for admission. On arrival to the floor, patient is still having nausea but stating he is feeling little bit better and would like to try some p.o. fluids. Discussion about symptoms, he states they have been progressive for months. He stopped insulin for his diabetes at least 6 months ago. Wakes up most mornings nausea's. Smokes cannabinoid products to help with his nausea and stomach. Smokes regularly and daily for significant period of time. Feels improvement in his nausea with a warm shower temporarily. No known sick contacts. Has been taking his glipizide and Januvia as prescribed. Reports he was told when they stopped his insulin that he had transition from a type I to a type II. Family at bedside includes son and father. Patient alert and oriented. Hospital Course Hospital Course Hospital Course: 36-year-old male with history of diabetes.? Presents with intractable nausea and vomiting.? Symptoms worse over the past 2 to 3 days but states they have been progressively getting worse over the past 6+ months.? Given lab abnormalities of elevated anion gap, low bicarb, low CO2 on blood gas, and normal pH, concern for metabolic acidosis with respiratory compensation.? Seen improvement with treatment after initiating insulin.? Nausea improving with treatment. Responded best to Compazine. Able to tolerate 50 to 75% of his trays over the last 24 hours. Meeting criteria for discharge home. Problems addressed as follows: Hyperglycemia Diabetic ketoacidosis compensated with respiratory alkalosis. -Initially had an elevated anion gap. Improved with initiation of treatment. Gap closed during admission. Initiated on Lantus, increased to 25 units by day of discharge. Plan to continue nightly 25 units Lantus. Discontinue glipizide. Continue Januvia. Close follow-up with PCP for further adjustment. Patient's A1c 10.2 on admission. Diabetes appears uncontrolled. This likely underlies his nausea and vomiting. Nutrition consulted during admission to assist with diabetic counseling. Intractable nausea and vomiting, improved -Multiple differentials including diabetic ketoacidosis as above versus cyclical vomiting syndrome versus cannabis hyperemesis syndrome (reports daily use for extended period). Improved with warm showers at home temporarily. Saw gradual improvement during hospitalization with treatment including Zofran, Phenergan, Compazine. Responded best to Compazine. Additionally initiated sucralfate and Protonix given abdominal discomfort and epigastric pain. Improved to the point of being able to discharge home. Tolerating good p.o. intake. Continue Protonix for 1 month. Discharged with 10 days of sucralfate. Follow-up with PCP for further management. Would potentially benefit from referral for EGD if has continued epigastric pain or recurring vomiting. Lastly counseled on cannabis/cannabinoid cessation out of concern that his symptoms are related to cannabis hyperemesis syndrome. Patient stated understanding Hyperlipidemia: Continue statin per home regimen Hypertension: Resumed lisinopril once it was appropriate. Continue home dose of lisinopril 2.5 mg daily Depression: Continue Effexor Hypothyroid: Continue levothyrox
[2022-08-19 08:00] VITALS: BP 137/66; PULSE 79; RESP 18; TEMP 36.4; O2SAT 97
--- NOTE | 2022-08-20 14:30 | CARE MANAGER ---
Contacted patient related to hospital discharge. He states he is feeling better and he was able to get all of his prescriptions. Made him aware of follow up appointment. He denies any questions or concerns at this time. MACEY Mukherjee
== END 2022-08-19 11:18 | disposition home or self-care (01) | DRG 638 ==
LOC: ER 09:42 → 2ND 10:52
PROVIDERS: Admitting Provider Internal Medicine Adolescent Medicine; Emergency Provider Emergency Medicine; PCP Physician Assistant; Visit Provider Internal Medicine Adolescent Medicine
DX: E87.3 Alkalosis (principal); R11.2 Nausea with vomiting, unspecified; F17.210 Nicotine dependence, cigarettes, uncomplicated; E11.10 Type 2 diabetes mellitus with ketoacidosis without coma; E03.9 Hypothyroidism, unspecified; Z79.84 Long term (current) use of oral hypoglycemic drugs; Z79.899 Other long term (current) drug therapy
CPT/HCPCS: 36415; 71045; 74177; 76705; 80048; 80053; 82009; 82150; 82803; 82962; 83036; 83605; 83690; 84100; 84443; 84484; 85007; 85025; 85610; 85730; 87040; 93005; 96361; 96374; 96375; 99285; C9803; J2405; Q9967; U0003; U0005

== ENCOUNTER 2022-12-07 12:00 | Observation (INO) | payer MEDICAID, SELFPAY ==
[2022-12-07] VITALS (9 sets, daily range): BP systolic 99–160; BP diastolic 55–88; PULSE 70–91; RESP 17–21; TEMP 36.3–37.1; O2SAT 97–100; BMI 25.8; BMI 26.4
--- NOTE | 2022-12-07 12:10 | PC.NURSE ---
DR DE LA TORRE AT BEDSIDE
[2022-12-07 12:15] LABS: POC Glucose,Bedside 360 (70-110)
--- NOTE | 2022-12-07 12:36 | HMH.EDGENADL ---
Discharge Plan Disposition Patient Disposition: Admitted Prescriptions Prescriptions: No Action venlafaxine [Effexor XR] 37.5 mg capsule,extended release 24hr 37.5 mg PO DAILY (DME) blood-glucose meter [Advanced Glucose Meter] Misc See Rx Instructions .Route Rx Instructions: Test sugar 3 times daily or As directed atorvastatin [Lipitor] 10 mg tablet 10 mg PO HS (DME) Advanced Gluc Meter Test Strip Strip See Rx Instructions .Route Rx Instructions: Test sugar 3 times daily or As directed aspirin 81 mg tablet,delayed release (DR/EC) 81 mg PO DAILY ergocalciferol (vitamin D2) 1,250 mcg (50,000 unit) capsule 1,250 mcg PO WEEKLY lisinopril 2.5 mg tablet 2.5 mg PO DAILY Januvia 100 mg tablet 100 mg PO DAILY cholecalciferol (vitamin D3) 50 mcg (2,000 unit) capsule 50 mcg PO DAILY (DME) Dexcom G7 Sensor Device See Rx Instructions .Route Rx Instructions: change sensor every 3 months (DME) Dexcom G7 Muck Operator Misc See Rx Instructions .Route Rx Instructions: As directed ondansetron HCl 4 mg tablet 4 mg PO Q6HP PRN (Reason: nausea and vomiting) promethazine 25 mg tablet 25 mg PO Q6HP PRN (Reason: nausea and vomiting) levothyroxine [Synthroid] 50 mcg Tablet 50 mcg PO DAILYDM 30 Days Qty: 30 0RF insulin glargine [Lantus Solostar U-100 Insulin] 100 unit/mL (3 mL) Insulin Pen 25 unit SQ HS 30 Days Qty: 7.5 0RF pantoprazole 40 mg tablet,delayed release (DR/EC) 40 mg PO DAILY 30 Days Qty: 30 0RF sucralfate 100 mg/mL Suspension 1 g PO ACHS 10 Days Qty: 400 0RF prochlorperazine maleate 5 mg tablet 5 mg PO BID PRN (Reason: nausea and vomiting) 5 Days Qty: 10 0RF (DME) pen needle, diabetic [BD Martina 2nd Gen Pen Needle] 32 gauge x 5/32 needle See Rx Instructions .Route Qty: 50 0RF Rx Instructions: As directed Referrals Follow up/Referrals: Carina Ruiz PA [Primary Care Provider] - See instructions Clinical Impressions Clinical Impression: Intractable nausea and vomiting Instructions Patient Instructions: DI for Diarrhea and Traveler's Diarrhea -- Adult, DI for Diarrhea and Traveler's Diarrhea -- Child, DI for Nausea -- Adult, DI for Nausea -- Child Discharge ED Provider: Jonathan Paulson General Adult HPI General Chief complaint: Nausea/Vomiting/Diarrhea Stated complaint: vomiting,body pain,chills Time Seen by Provider: 12/07/22 12:08 Mode of Arrival: Ambulatory Source of Information: Patient Limitations: No Limitations Description of Symptoms (Recalled from ER Triage Doc. by RN): c/o vomiting and diarrhea since this am around 0630. Pt states that his belly is hurting due to the dry heeves. Unsure if his vomiting is blood or just dark liquid. Pt thinks he is in DKA, mother states that he has prior dx of DKA 3 times History of Present Illness HPI narrative: Patient is a 37-year-old male with a history of poorly controlled diabetes, medication noncompliance, cannabinol hyperemesis, who has had multiple admissions for intractable nausea and vomiting and questionable DKA presents today with similar symptoms. States has had nausea and vomiting over the last 24 hours nonbloody nonbilious emesis and no melena or hematochezia no significant abdominal pain no changes in mental status. Mother tells me that he is very noncompliant and he refuses to take his insulin or any of his other medications. He is never seen an mri assistant before for this. He has been diagnosed with gastroparesis however no history of a gastric emptying study from historical standpoint. Related Data Home Medications Medication Instructions Recorded Confirmed aspirin 81 mg tablet,delayed 81 mg PO DAILY Heart health 07/30/22 08/17/22 release atorvastatin 10 mg tablet (Lipitor) 10 mg PO HS Cholesterol 07/30/22 08/17/22 blood sugar diagnostic (Advanced 07/30/22 08/17/22 Glucose Meter Test Strip
--- NOTE | 2022-12-07 12:48 | PC.NURSE ---
was unable to get blood so lab called for draw
--- NOTE | 2022-12-07 13:05 | PC.NURSE ---
pt sleeping no vomiting family at BS
[2022-12-07 13:16] LABS: Basophils # 0.1 K/mm3 (0-0.2); Basophils % 0.7 % (0.1-2.0); Eosinophils # 0.2 K/mm3 (0.0-0.4); Eosinophils % 1.3 % (0.1-12.0); Hematocrit 50.6 % (42.0-52.0); Hemoglobin 16.6 g/dL (14.1-18.0); Lymphocytes # 1.5 K/mm3 (0.7-4.5); Lymphocytes % 9.8 % (10-50); Mean Corpuscular HGB Conc 32.8 g/dL (31.8-35.4); Mean Corpuscular Hemoglobin 30.1 pg (27.0-31.2); Mean Corpuscular Volume 91.8 fl (80-94); Mean Platelet Volume 7.5 fl (7.4-10.4); Monocytes # 0.7 K/mm3 (0.1-1.0); Monocytes % 4.5 % (1.7-9.3); Neutrophils # 12.6 K/mm3 (1.8-7.8); Neutrophils % 83.7 % (37.0-80.0); Platelet Count 285 K/mm3 (142-424); Red Blood Count 5.52 M/mm3 (4.60-6.20); Red Cell Distribution Width 12.7 % (11.5-17.5); White Blood Count 15.1 K/mm3 (4.8-10.8)
[2022-12-07 13:17] LABS: MANUAL DIFFERENTIAL MANUAL DIFFERENTIAL (MANUAL DIFF)
--- NOTE | 2022-12-07 13:25 | ECG_ITS ---
APPROVED REPORT Exam: Resting ECG HR:86 bpm ECG Measurements Heart Rate 86 AXES ME 189 P -27 QRSd 83 QRS -10 QT 348 T 61 QTc 391 Conclusion SINUS RHYTHM SEPTAL MYOCARDIAL INFARCTION , OF INDETERMINATE AGE [40+ ms Q WAVE IN V1/V2] ABNORMAL ECG UNCONFIRMED REPORT Electronically signed by : John Gay MD 12/08/2022 21:02:15
[2022-12-07 13:28] LABS: Alanine Aminotransferase 54 U/L (12-78); Albumin Level 4.5 g/dl (3.5-5.0); Albumin/Globulin Ratio 1.5 (1.1-1.8); Alkaline Phosphatase 121 U/L (38-126); Aspartate Amino Transferase 42 U/L (17-59); Blood Urea Nitrogen 13 mg/dl (9-20); Carbon Dioxide 26 mmol/L (22.0-30.0); Creatinine Clearance Estimated 193 mL/min (50-200); Estimated Glomerular Filt Rate 151 ml/min (>60); GFR (African American) 182 ML/MIN (>60); Globulin 3.1 g/dL (1.3-3.2); Glucose 383 mg/dl (74-100); Lipase 246 U/L (23-300); Magnesium 1.7 mg/dl (1.6-2.3); Phosphorous 2.5 mg/dl (2.5-4.5); Potassium 4.1 mmoL/L (3.5-5.1); Sodium 138 mmol/L (136-145); Total Protein,Serum 7.6 g/dl (6.3-8.2)
[2022-12-07 13:30] LABS: Anion Gap 14.1 mEq/L (5-15); Chloride 102 mmol/L (98-107)
[2022-12-07 13:32] LABS: Eosinophils % 1 % (0-3); Lymphocytes % 14 % (10-50); Monocytes % 5 % (2-9); Neutrophils % 80 % (42-76); Platelet Estimate Normal; RBC Morphology Normal; Total Cells Counted 100
--- NOTE | 2022-12-07 13:48 | PC.NURSE ---
@1314 Pt continuing to vomit and dry heaving. has ordered droperidol. Staff moved pt to cardiac monitoring room in preparation to give droperidol. Baseline EKG obtained per protocol. Educated on medication use, side effects, and would need to be monitored for 2 hrs. Stated his understanding. Family at bedside.
--- NOTE | 2022-12-07 13:56 | PC.NURSE ---
@ 7170 MD at bedside reviewing labs and POC. Will continue to monitor VS and pt's need for any repeat doses of droperidol.
[2022-12-07 13:58] LABS: VBG Base Excess -1.4 mmol/L (-2.4-2.3); VBG HCO3 23.3 mmol/L (23-30); VBG Oxygen Saturation 98.2 % (50-70); VBG PH 7.41 mmol/L (7.31-7.41); VBG PO2 100.5 mmol/L (28-40); VBG Total CO2 24.4 mmol/L (23-27)
--- NOTE | 2022-12-07 14:50 | PC.NURSE ---
speaking with hospitalist for possible admission
[2022-12-07 14:53] LABS: Microscopic, Urine URINE MICROSCOPIC (MICROSCOPIC)
--- NOTE | 2022-12-07 14:53 | PC.NURSE ---
CM aware of admission.
--- NOTE | 2022-12-07 15:15 | EXP.HP ---
History of Present Illness *Admission Date: 12/07/22 *Reason for visit:: intractable nausea and vomiting *History of present illness: Mr. Rogers is a 37 year old male with a past medical history of t2dm who presents with intractable nausea and vomiting since this morning. The patient has been hospitalized 2 or 3 times within the past year for this same reason. He has been told in the past that it was due to gastroparesis but he has never had a gastric emptying study. He is supposed to be taking 25 units of long acting insulin daily along with Januvia but usually doesn't take his medications. He smokes marijuana daily and has been smoking since age 13. Hot showers do not seem to provide significant relief. No history of other illicit drugs or alcoholism. He does smoke 1-2 cigarettes daily. He denies fever, chills, diarrhea, dysuria, shortness of breath and chest pain. [facility] Disclaimer: The information contained in this section may have been updated after the patient was seen, as this information can be updated by other users. Medical History Diabetes Low testosterone level in male Family History Diabetes Father Hyperlipidemia Father Hypertension Father Social History Smoking Status: Never smoker alcohol intake: never substance use type: denies use current occupational status: employed and unemployed Travel in the last 8 weeks: None household members: spouse and children housing: house marital status: single number of children: 4 current occupation: [employer] current occupational exposures/hazards: No caffeine: Yes Review of Systems Review of Systems Review of systems:: pertinent systems reviewed and negative unless documented below *Gastrointestinal Gastrointestinal: Reports abdominal pain, Reports nausea and Reports vomiting Meds Home Medications and Allergies Home Medications Medication Instructions Recorded Confirmed Type blood sugar diagnostic (Advanced 07/30/22 08/17/22 History Glucose Meter Test Strips) blood-glucose meter (Advanced 07/30/22 08/17/22 History Glucose Meter) blood-glucose meter,continuous 07/30/22 08/17/22 History (Dexcom G7 Industrial Sewer) blood-glucose sensor (Dexcom G7 07/30/22 08/17/22 History Sensor device) sitagliptin phosphate 100 mg 100 mg PO DAILY Diabetes 07/30/22 08/17/22 History tablet (Januvia) insulin glargine 100 unit/mL (3 25 unit (0.25 mL) SQ HS 30 days 08/19/22 Rx mL) subcutaneous pen (Lantus #7.5 mL Solostar U-100 Insulin) pen needle, diabetic 32 gauge x #50 ea 08/19/22 Rx / (BD Martina 2nd Gen Pen Needle) New Prescriptions to Start Prescriptions: Allergies Allergy/AdvReac Type Severity Reaction Status Date / Time Penicillins [PENICILLINS] Allergy Unknown Verified 07/31/22 11:26 Exam Data for Last 24 hours Vital signs and Labs for Last 24 Hours: Temp Pulse Resp BP Pulse Ox O2 Del Method 97.4 F L 70 20 160/88 H 100 Room Air 12/07/22 12:02 12/07/22 12:09 12/07/22 12:02 12/07/22 12:02 12/07/22 12:09 12/07/22 12:02 Laboratory Results - last 24 hr 12/07/22 12:08: POC Glucose 360 H* 12/07/22 12:19: VBG pH 7.41, VBG pCO2 38.0, VBG pO2 100.5 H, VBG HCO3 23.3, VBG Total CO2 24.4, VBG O2 Saturation 98.2 H, VBG Base Excess -1.4 12/07/22 13:01: WBC 15.1 H, RBC 5.52, Hgb 16.6, Hct 50.6, MCV 91.8, MCH 30.1, MCHC 32.8, RDW 12.7, Plt Count 285, MPV 7.5, Neut % (Auto) 83.7 H, Lymph % (Auto) 9.8 L, [place] % (Auto) 4.5, Eos % (Auto) 1.3, Baso % (Auto) 0.7, Neut # (Auto) 12.6 H, Lymph # (Auto) 1.5, [place] # (Auto) 0.7, Eos # (Auto) 0.2, Baso # (Auto) 0.1, Total Counted 100, Neutrophils % (Manual) 80 H, Lymphocytes % (Manual) 14, Monocytes % (Manual) 5, Eosinophils % (Manual) 1, Platelet Estimate Normal, RBC Morphology Normal, Sodium 138, Potassium 4.1, Chloride 102,
[2022-12-07 15:30] LABS: Appearance,Urine CLEAR (Clear); Bilirubin,Urine Negative (Negative); Blood, Urine Negative (Negative); Color,Urine YELLOW (Yellow); Glucose,Urine (UA) 3+ (Negative); Ketones,Urine 2+ (Negative); Leukocyte Esterase,Urine Negative (Negative); Nitrate,Urine Negative (Negative); PH,Urine 7.5 (5.0-8.5); Protein,Urine Negative (Negative); Specific Gravity, Urine 1.015 (1.005-1.030); Urobilinogen,Urine 0.2 EU/dl (0.2)
[2022-12-07 16:12] LABS: RBC,Urine Occasional #/hpf (0-3)
--- NOTE | 2022-12-07 17:02 | PC.NURSE ---
A&OX4. TOLERATING RA WELL. HAS BEEN IN BED SLEEPING SINCE ARRIVAL TO FLOOR. FLUIDS BEING ADMINISTERED. NO NEEDS OR C/O NOTED AT THIS TIME, FAMILY AT BEDSIDE. VSS.
[2022-12-07 19:49] LABS: POC Glucose,Bedside 278 (70-110)
[2022-12-08] VITALS: BP 100/52; PULSE 69; RESP 16; TEMP 37.1; O2SAT 94
[2022-12-08 04:00] VITALS: BP 106/47; PULSE 81; RESP 16; TEMP 36.9; O2SAT 96; BMI 26.9
--- NOTE | 2022-12-08 05:04 | PC.NURSE ---
NO ACUTE CHANGES THIS SHIFT. PT HAS SLEPT WELL THIS SHIFT. TREATED X1 FOR NAUSEA/VOMITING. NO OTHER COMPLAINTS VOICED. VSS.
[2022-12-08 06:58] LABS: POC Glucose,Bedside 134 (70-110)
[2022-12-08 07:34] LABS: Chloride 102 mmol/L (98-107); Potassium 3.4 mmoL/L (3.5-5.1); Sodium 139 mmol/L (136-145)
[2022-12-08 07:37] LABS: Alanine Aminotransferase 39 U/L (12-78); Albumin Level 3.6 g/dl (3.5-5.0); Albumin/Globulin Ratio 1.4 (1.1-1.8); Alkaline Phosphatase 94 U/L (38-126); Anion Gap 12.4 mEq/L (5-15); Aspartate Amino Transferase 25 U/L (17-59); Bilirubin,Total 2.2 mg/dl (0.2-1.3); Blood Urea Nitrogen 12 mg/dl (9-20); Carbon Dioxide 28 mmol/L (22.0-30.0); Creatinine Clearance Estimated 176 mL/min (50-200); Estimated Glomerular Filt Rate 126 ml/min (>60); GFR (African American) 153 ML/MIN (>60); Globulin 2.6 g/dL (1.3-3.2); Total Protein,Serum 6.2 g/dl (6.3-8.2)
[2022-12-08 07:38] LABS: Glucose 150 mg/dl (74-100)
[2022-12-08 08:00] VITALS: BP 133/67; PULSE 90; RESP 17; TEMP 36.3; O2SAT 99
[2022-12-08 08:06] LABS: Thyroid Stimulating Hormone 4.98 uIU/mL (0.465-4.68)
--- NOTE | 2022-12-08 08:57 | EXP.DC.SUM ---
General Admission date:: 12/07/22 HPI HPI HPI: Mr. Rogers is a 37 year old male with a past medical history of t2dm who presents with intractable nausea and vomiting since this morning. The patient has been hospitalized 2 or 3 times within the past year for this same reason. He has been told in the past that it was due to gastroparesis but he has never had a gastric emptying study. He is supposed to be taking 25 units of long acting insulin daily along with Januvia but usually doesn't take his medications. He smokes marijuana daily and has been smoking since age 13. Hot showers do not seem to provide significant relief. No history of other illicit drugs or alcoholism. He does smoke 1-2 cigarettes daily. He denies fever, chills, diarrhea, dysuria, shortness of breath and chest pain. Hospital Course Hospital Course Hospital Course: The patient's blood sugars normalized after resumption of his home regimen of insulin. His nausea and vomiting and resolved by the following morning. I believe the patient's intractable nausea and vomiting is possibly due to cannabinoid hyperemesis or diabetic gastroparesis. I counseled the patient on the importance of taking his medications and quitting marijuana and other substances with THC. I think he should be evaluated for gastroparesis with a gastric emptying study in the outpatient setting. He will need to follow up with his PCP in one week. No changes were made to his home medications. Exam Data for Last 24 hours Vital signs and Labs for Last 24 Hours: Temp Pulse Resp BP Pulse Ox O2 Del Method 97.4 F L 90 17 133/67 99 Room Air 12/08/22 08:00 12/08/22 08:00 12/08/22 08:00 12/08/22 08:00 12/08/22 08:00 12/08/22 08:00 Laboratory Results - last 24 hr 12/07/22 12:08: POC Glucose 360 H* 12/07/22 12:19: VBG pH 7.41, VBG pCO2 38.0, VBG pO2 100.5 H, VBG HCO3 23.3, VBG Total CO2 24.4, VBG O2 Saturation 98.2 H, VBG Base Excess -1.4 12/07/22 13:01: WBC 15.1 H, RBC 5.52, Hgb 16.6, Hct 50.6, MCV 91.8, MCH 30.1, MCHC 32.8, RDW 12.7, Plt Count 285, MPV 7.5, Neut % (Auto) 83.7 H, Lymph % (Auto) 9.8 L, [place] % (Auto) 4.5, Eos % (Auto) 1.3, Baso % (Auto) 0.7, Neut # (Auto) 12.6 H, Lymph # (Auto) 1.5, [place] # (Auto) 0.7, Eos # (Auto) 0.2, Baso # (Auto) 0.1, Total Counted 100, Neutrophils % (Manual) 80 H, Lymphocytes % (Manual) 14, Monocytes % (Manual) 5, Eosinophils % (Manual) 1, Platelet Estimate Normal, RBC Morphology Normal, Sodium 138, Potassium 4.1, Chloride 102, Carbon Dioxide 26, Anion Gap 14.1, BUN 13, Creatinine 0.60 L, Estimated Creat Clear 193, Estimated GFR 151, Est GFR ( Amer) 182, Glucose 383 H, Calcium 9.0, Phosphorus 2.5, Magnesium 1.7, Total Bilirubin 2.0 H, AST 42, ALT 54, Alkaline Phosphatase 121, Total Protein 7.6, Albumin 4.5, Globulin 3.1, Albumin/Globulin Ratio 1.5, Lipase 246 12/07/22 14:45: Urine Color Yellow, Urine Appearance Clear, Urine pH 7.5, Ur Specific [place] 1.015, Urine Protein Negative, Urine Glucose (UA) 3+, Urine Ketones 2+, Urine Blood Negative, Urine Nitrate Negative, Urine Bilirubin Negative, Urine Urobilinogen 0.2, Ur Leukocyte Esterase Negative, Urine RBC Occasional, Urine WBC None, Urine Bacteria None 12/07/22 19:39: POC Glucose 278 H 12/08/22 06:33: Sodium 139, Potassium 3.4 L, Chloride 102, Carbon Dioxide 28, Anion Gap 12.4, BUN 12, Creatinine 0.70, Estimated Creat Clear 176, Estimated GFR 126, Est GFR ( Amer) 153, Glucose 150 H D, Calcium 9.0, Total Bilirubin 2.2 H, AST 25 D, ALT 39 D, Alkaline Phosphatase 94, Total Protein 6.2 L, Albumin 3.6 D, Globulin 2.6, Albumin/Globulin Ratio 1.4, TSH 4.98 H 12/08/22 06:50: POC Glucose 134 H I & O for Last 24 hours: Intake & Output 12/05/22 12/06/22 12/07/22 12/08/22 23:59 23:59 23:59 23:59 Intake Total 2240 / 2300 Output Total 250 / 250 Balance 1989 60 / 60 Weight 85.757 kg 87.044 kg Constitutional Constitutional: no acute distress *Routine HEENT Exam Head: Present normocephalic E
[2022-12-08 09:47] LABS: Hemoglobin A1C 9.8 % (4.0-6.0)
--- NOTE | 2022-12-10 15:33 | CARE MANAGER ---
Attempted post-discharge phone interview, left message.
== END 2022-12-08 09:22 | disposition home or self-care (01) ==
LOC: ER 14:52 → 2ND 16:50
PROVIDERS: Admitting Provider Internal Medicine; Emergency Provider Student in an Organized Health Care Education/Training Program; PCP Physician Assistant; Visit Provider Internal Medicine
DX: E11.65 Type 2 diabetes mellitus with hyperglycemia (principal); R11.2 Nausea with vomiting, unspecified; Z79.4 Long term (current) use of insulin; Z79.899 Other long term (current) drug therapy
CPT/HCPCS: 36415; 80053; 81001; 82803; 82962; 83036; 83690; 83735; 84100; 84443; 85007; 85025; 93005; 99285; G0378; J1790; J2405

== ENCOUNTER 2023-01-01 11:06 | Emergency (ER) | payer MEDICAID, SELFPAY ==
[2023-01-01] VITALS (10 sets, daily range): BP systolic 105–158; BP diastolic 56–94; PULSE 71–87; RESP 18–20; TEMP 36.6; O2SAT 96–99; BMI 25.8
--- NOTE | 2023-01-01 11:12 | PC.NURSE ---
Dr. Cowan at BS for pt eval
--- NOTE | 2023-01-01 11:15 | CT_ITS ---
FINAL REPORT TECHNIQUE: After the administration of oral and intravenous contrast, axial images were obtained through the abdomen and pelvis by computed tomography. The study was performed with techniques to keep radiation dose as low as reasonably achievable, (ALARA). Individual dose reduction techniques using automated exposure control or adjustment of mA and/or kV according to the patient's size were employed. CLINICAL HISTORY: periumbilical and RUQ pain severe COMPARISON: 08/16/2022 FINDINGS: Abdomen: There is a stable 11 mm nodule in the medial left lower lobe. The liver is normal in size and attenuation. The spleen is unremarkable. The adrenals are normal. The pancreas is unremarkable. The kidneys enhance appropriately. The aorta is normal in caliber. There is no free fluid or adenopathy. Pelvis: The appendix is normal. There is mild wall thickening of the small bowel and colon which is nonspecific, may represent enteritis. The urinary bladder is unremarkable. There is no free fluid or adenopathy. There are bilateral L5 pars defects. IMPRESSION: Findings may represent enteritis. Reviewed, Interpreted and Dictated by Simon June III, MD Transcribed by Quynh Dowd Authenticated and [facility]
--- NOTE | 2023-01-01 11:17 | HMH.EDGENADL ---
Discharge Plan Disposition Patient Disposition: Home, Self-Care Prescriptions Prescriptions: New promethazine 25 mg tablet 25 mg PO Q6H PRN (Reason: sedation) Qty: 14 0RF No Action aspirin 81 mg tablet,delayed release (DR/EC) 81 mg PO DAILY Qty: 90 1RF atorvastatin [Lipitor] 10 mg tablet 10 mg PO HS Qty: 90 1RF cholecalciferol (vitamin D3) 50 mcg (2,000 unit) capsule 50 mcg PO DAILY Qty: 90 1RF ergocalciferol (vitamin D2) 1,250 mcg (50,000 unit) capsule 1,250 mcg PO WEEKLY Qty: 14 1RF lisinopril 2.5 mg tablet 2.5 mg PO DAILY Qty: 90 1RF Vraylar 1.5 mg capsule 1.5 mg PO DAILY Qty: 90 1RF ondansetron 8 mg tablet,disintegrating 8 mg PO Q8H PRN (Reason: nausea and vomiting) 5 Days Qty: 30 0RF insulin glargine [Lantus Solostar U-100 Insulin] 100 unit/mL (3 mL) insulin pen 25 unit SQ HS 30 Days Qty: 7.5 5RF Januvia 100 mg tablet 100 mg PO DAILY Qty: 90 1RF (DME) blood-glucose meter [Advanced Glucose Meter] Misc See Rx Instructions .Route Rx Instructions: Test sugar 3 times daily or As directed (DME) Advanced Gluc Meter Test Strip Strip See Rx Instructions .Route Rx Instructions: Test sugar 3 times daily or As directed (DME) Dexcom G7 Sensor Device See Rx Instructions .Route Rx Instructions: change sensor every 3 months (DME) Dexcom G7 Powertrain Calibration Engineer Misc See Rx Instructions .Route Rx Instructions: As directed ondansetron 4 mg tablet,disintegrating 4 mg PO Q8H PRN (Reason: nausea and vomiting) Qty: 30 1RF (DME) pen needle, diabetic [BD Martina 2nd Gen Pen Needle] 32 gauge x 5/32 needle See Rx Instructions .Route Qty: 50 0RF Rx Instructions: As directed Referrals Follow up/Referrals: Carina Ruiz PA [Primary Care Provider] - See instructions Activity Restrictions/Add. Instructions Additional Instructions/Restrictions: At this time it was felt you are safe to be discharged home. If new or worsening symptoms please do not hesitate to return the emergency department. Please take your medication as prescribed. Your bilirubin level was incidentally found to be high today. Please follow-up with your family doctor in the coming weeks for repeat testing. Clinical Impressions Clinical Impression: Vomiting, Alkalosis, metabolic, Elevated bilirubin Discharge ED Provider: Prateek Cowan General Adult HPI General Chief complaint: Nausea/Vomiting/Diarrhea Stated complaint: vomiting Time Seen by Provider: 01/01/23 11:10 History of Present Illness HPI narrative: Patient is a 37-year-old male with past medical history of insulin-dependent diabetes that is poorly controlled who presents emergency department for evaluation of intractable vomiting and abdominal pain. Onset was acute, since Saturday. Patient has had intractable retching, inability to tolerate p.o., periumbilical abdominal pain and right upper quadrant abdominal pain. Patient's administered bolus insulin 5 units this morning prior to arrival. Per chart review patient has been hospitalized 2-3 times in the last year for this reason, he is also a chronic marijuana user and poorly compliant with his medications at home. Related Data Home Medications Medication Instructions Recorded Confirmed blood sugar diagnostic (Advanced 07/30/22 08/17/22 Glucose Meter Test Strips) blood-glucose meter (Advanced 07/30/22 08/17/22 Glucose Meter) blood-glucose meter,continuous 07/30/22 08/17/22 (Dexcom G7 Powertrain Calibration Engineer) blood-glucose sensor (Dexcom G7 07/30/22 08/17/22 Sensor device) Previous Rx's Medication Instructions Recorded pen needle, diabetic 32 gauge x #50 ea 08/19/22 5/32 (BD Martina 2nd Gen Pen Needle) ondansetron 4 mg disintegrating 4 mg PO Q8H PRN nausea and 12/08/22 tablet vomiting #30 tabs aspirin 81 mg tablet,delayed 81 mg PO DAILY Heart health #90 12/31/22 release tabs atorvastatin 10 mg tablet (Lipi
[2023-01-01 11:22] LABS: POC Glucose,Bedside 308 (70-110)
--- NOTE | 2023-01-01 11:29 | PC.NURSE ---
PT MEDICATED PER EMAR. WARM BLANKETS AND PILLOW PROVIDED. S.O AT BEDSIDE. NO NEEDS AT THIS TIME. CALL LIGHT WITHIN REACH
[2023-01-01 11:33] LABS: Basophils # 0.1 K/mm3 (0-0.2); Basophils % 1.1 % (0.1-2.0); Eosinophils # 0.2 K/mm3 (0.0-0.4); Hematocrit 49.3 % (42.0-52.0); Hemoglobin 16.5 g/dL (14.1-18.0); Lymphocytes # 2.3 K/mm3 (0.7-4.5); Lymphocytes % 23.7 % (10-50); Mean Corpuscular HGB Conc 33.5 g/dL (31.8-35.4); Mean Corpuscular Hemoglobin 30.3 pg (27.0-31.2); Mean Corpuscular Volume 90.5 fl (80-94); Mean Platelet Volume 7.7 fl (7.4-10.4); Monocytes # 0.8 K/mm3 (0.1-1.0); Monocytes % 7.8 % (1.7-9.3); Neutrophils # 6.3 K/mm3 (1.8-7.8); Neutrophils % 65.4 % (37.0-80.0); Platelet Count 275 K/mm3 (142-424); Red Blood Count 5.44 M/mm3 (4.60-6.20); Red Cell Distribution Width 13.1 % (11.5-17.5); White Blood Count 9.6 K/mm3 (4.8-10.8)
[2023-01-01 11:41] LABS: Chloride 102 mmol/L (98-107); Potassium 3.7 mmoL/L (3.5-5.1); Sodium 139 mmol/L (136-145)
[2023-01-01 11:43] LABS: Blood Urea Nitrogen 19 mg/dl (9-20); Estimated Glomerular Filt Rate 126 ml/min (>60); GFR (African American) 153 ML/MIN (>60)
--- NOTE | 2023-01-01 11:43 | PC.NURSE ---
RESPIRATORY NOTIFIED OF [facility]
[2023-01-01 11:44] LABS: Alanine Aminotransferase 52 U/L (12-78); Albumin Level 4.5 g/dl (3.5-5.0); Albumin/Globulin Ratio 1.4 (1.1-1.8); Alkaline Phosphatase 111 U/L (38-126); Anion Gap 17.7 mEq/L (5-15); Aspartate Amino Transferase 39 U/L (17-59); Bilirubin,Total 4.6 mg/dl (0.2-1.3); Calcium 9.1 mg/dl (8.4-10.2); Carbon Dioxide 23 mmol/L (22.0-30.0); Globulin 3.2 g/dL (1.3-3.2); Glucose 315 mg/dl (74-100); Lipase 118 U/L (23-300); Total Protein,Serum 7.7 g/dl (6.3-8.2)
[2023-01-01 11:47] LABS: Lactic Acid 2.3 mmol/L (0.7-2.1)
--- NOTE | 2023-01-01 11:47 | PC.NURSE ---
PT RESTING WITH EYES CLOSED. FAMILY AT BEDSIDE
[2023-01-01 11:51] LABS: VBG Base Excess -2.3 mmol/L (-2.4-2.3); VBG HCO3 20.4 mmol/L (23-30); VBG Oxygen Saturation 96.9 % (50-70); VBG PH 7.53 mmol/L (7.31-7.41); VBG PO2 73.2 mmol/L (28-40); VBG Total CO2 21.1 mmol/L (23-27)
[2023-01-01 11:53] LABS: VBG PCO2 24.8 mmol/L (35-51)
--- NOTE | 2023-01-01 11:56 | PC.NURSE ---
rounded on pt he is snoozing in bed,family at bs
[2023-01-01 12:01] LABS: Acetone, Serum (Rapid) None Detected (None Detect)
[2023-01-01 12:08] LABS: Bilirubin,Direct 0.2 mg/dl (0.0-0.4)
--- NOTE | 2023-01-01 12:13 | PC.NURSE ---
PT TO CT
--- NOTE | 2023-01-01 12:24 | PC.NURSE ---
PT RETURNED FROM CT
[2023-01-01 13:21] LABS: Hemoglobin A1C 9.8 % (4.0-6.0)
--- NOTE | 2023-01-01 13:35 | PC.NURSE ---
PT RESTING ON LEFT SIDE, FAMILY AT BEDSIDE. NO NEEDS AT THIS TIME. CALL LIGHT WITHIN REACH
--- NOTE | 2023-01-01 13:41 | PC.NURSE ---
pt states unable to provide urine specimen at this time pt given bottle of water for PO challenge at this time per ER MD Cowan request
--- NOTE | 2023-01-01 14:07 | PC.NURSE ---
UA sent to lab
[2023-01-01 14:12] LABS: Microscopic, Urine URINE MICROSCOPIC (MICROSCOPIC)
[2023-01-01 14:25] LABS: Appearance,Urine CLEAR (Clear); Bilirubin,Urine Negative (Negative); Blood, Urine Negative (Negative); Color,Urine YELLOW (Yellow); Glucose,Urine (UA) 2+ (Negative); Ketones,Urine 2+ (Negative); Leukocyte Esterase,Urine Negative (Negative); Nitrate,Urine Negative (Negative); PH,Urine 6.5 (5.0-8.5); Protein,Urine Negative (Negative)
--- NOTE | 2023-01-01 14:37 | PC.NURSE ---
pt resting in bed no needs at this time, visitor at bs
[2023-01-01 14:38] LABS: Squamous Epithelial Cell,Urine Occasional #/hpf (0-5); WBC,Urine Occasional #/hpf (0-3)
[2023-01-01 15:26] LABS: Reflex Lactic Add Lactic Reflex
== END 2023-01-01 15:00 | disposition home or self-care (01) ==
PROVIDERS: Emergency Provider Emergency Medicine; PCP Physician Assistant
DX: E87.3 Alkalosis (principal); R11.10 Vomiting, unspecified; E80.7 Disorder of bilirubin metabolism, unspecified; E11.65 Type 2 diabetes mellitus with hyperglycemia; R10.33 Periumbilical pain; F17.210 Nicotine dependence, cigarettes, uncomplicated
CPT/HCPCS: 74177; 80053; 81001; 82009; 82248; 82803; 82962; 83036; 83605; 83690; 85025; 96361; 96374; 96375; 99285; J0131; J2405; Q9967

== ENCOUNTER 2023-01-08 12:26 | Emergency (ER) | payer MEDICAID, SELFPAY ==
[2023-01-08 12:27] VITALS: BP 124/89; PULSE 89; RESP 18; TEMP 36.6; O2SAT 100; BMI 26.2
[2023-01-08 12:45] LABS: POC Glucose,Bedside 230 (70-110)
[2023-01-08 12:59] LABS: Basophils # 0.1 K/mm3 (0-0.2); Basophils % 0.9 % (0.1-2.0); Eosinophils # 0.2 K/mm3 (0.0-0.4); Eosinophils % 1.2 % (0.1-12.0); Hematocrit 51.4 % (42.0-52.0); Hemoglobin 17.1 g/dL (14.1-18.0); Lymphocytes # 2.7 K/mm3 (0.7-4.5); Lymphocytes % 21.3 % (10-50); Mean Corpuscular HGB Conc 33.3 g/dL (31.8-35.4); Mean Corpuscular Hemoglobin 30.1 pg (27.0-31.2); Mean Corpuscular Volume 90.6 fl (80-94); Mean Platelet Volume 7.8 fl (7.4-10.4); Monocytes # 0.7 K/mm3 (0.1-1.0); Monocytes % 5.5 % (1.7-9.3); Neutrophils # 8.9 K/mm3 (1.8-7.8); Platelet Count 331 K/mm3 (142-424); Red Blood Count 5.67 M/mm3 (4.60-6.20); Red Cell Distribution Width 13.1 % (11.5-17.5); White Blood Count 12.6 K/mm3 (4.8-10.8)
--- NOTE | 2023-01-08 13:01 | HMH.EDGENADL ---
Discharge Plan Disposition Patient Disposition: Home, Self-Care Prescriptions Prescriptions: New promethazine 25 mg tablet 25 mg PO TID PRN (Reason: nausea and vomiting) 5 Days Qty: 20 0RF No Action aspirin 81 mg tablet,delayed release (DR/EC) 81 mg PO DAILY Qty: 90 1RF atorvastatin [Lipitor] 10 mg tablet 10 mg PO HS Qty: 90 1RF cholecalciferol (vitamin D3) 50 mcg (2,000 unit) capsule 50 mcg PO DAILY Qty: 90 1RF ergocalciferol (vitamin D2) 1,250 mcg (50,000 unit) capsule 1,250 mcg PO WEEKLY Qty: 14 1RF lisinopril 2.5 mg tablet 2.5 mg PO DAILY Qty: 90 1RF Vraylar 1.5 mg capsule 1.5 mg PO DAILY Qty: 90 1RF ondansetron 8 mg tablet,disintegrating 8 mg PO Q8H PRN (Reason: nausea and vomiting) 5 Days Qty: 30 0RF insulin glargine [Lantus Solostar U-100 Insulin] 100 unit/mL (3 mL) insulin pen 25 unit SQ HS 30 Days Qty: 7.5 5RF Januvia 100 mg tablet 100 mg PO DAILY Qty: 90 1RF (DME) blood-glucose meter [Advanced Glucose Meter] Misc See Rx Instructions .Route Rx Instructions: Test sugar 3 times daily or As directed (DME) Advanced Gluc Meter Test Strip Strip See Rx Instructions .Route Rx Instructions: Test sugar 3 times daily or As directed (DME) Dexcom G7 Sensor Device See Rx Instructions .Route Rx Instructions: change sensor every 3 months (DME) Dexcom G7 Molded Goods Operator Misc See Rx Instructions .Route Rx Instructions: As directed ondansetron 4 mg tablet,disintegrating 4 mg PO Q8H PRN (Reason: nausea and vomiting) Qty: 30 1RF promethazine 25 mg tablet 25 mg PO Q6H PRN (Reason: sedation) Qty: 14 0RF (DME) pen needle, diabetic [BD Martina 2nd Gen Pen Needle] 32 gauge x 5/32 needle See Rx Instructions .Route Qty: 50 0RF Rx Instructions: As directed Referrals Follow up/Referrals: Carina Ruiz PA [Primary Care Provider] - See instructions Activity Restrictions/Add. Instructions Additional Instructions/Restrictions: Turn with any inability to tolerate fluids by mouth. Stop smoking marijuana chronically. Clinical Impressions Clinical Impression: Cannabinoid hyperemesis syndrome Instructions Patient Instructions: DI for Acute Abdominal Pain Discharge ED Provider: Jonathan Paulson General Adult HPI General Chief complaint: Abdominal Pain Stated complaint: abd pain, vomiting Time Seen by Provider: 01/08/23 12:52 Mode of Arrival: Ambulatory Source of Information: Patient Limitations: No Limitations Description of Symptoms (Recalled from ER Triage Doc. by RN): c/o epigastric pain that started this morning with nausea and one epsidoe of vomiting earlier. Glucose reading 230. No BM in 7 days History of Present Illness HPI narrative: Patient is a 37-year-old male with a history of type 2 diabetes but insulin-dependent also chronic marijuana use since he was 13 years old presenting today with episodes of cyclical vomiting. States has been having nausea and vomiting at least weekly for the last year. Has had to come to the emergency department for IV fluids and antiemetics. He also states he has had decreased bowel movements no significant abdominal pain no history of any abdominal surgeries or bowel obstructions in the past. No fevers or chills no blood in the stool or vomit no history. He does state that he gets better from a symptomatic standpoint with warm showers. Related Data Home Medications Medication Instructions Recorded Confirmed blood sugar diagnostic (Advanced 07/30/22 08/17/22 Glucose Meter Test Strips) blood-glucose meter (Advanced 07/30/22 08/17/22 Glucose Meter) blood-glucose meter,continuous 07/30/22 08/17/22 (Dexcom G7 Molded Goods Operator) blood-glucose sensor (Dexcom G7 07/30/22 08/17/22 Sensor device) Previous Rx's Medication Instructions Recorded pen needle, diabetic 32 gauge x #50 ea 08/19/22 (BD Martina 2nd Gen Pen Needle) ondansetron 4 m
[2023-01-08 13:04] LABS: Chloride 102 mmol/L (98-107); Potassium 4.6 mmoL/L (3.5-5.1); Sodium 139 mmol/L (136-145)
[2023-01-08 13:06] LABS: Amylase 89 U/L (30-110); Blood Urea Nitrogen 13 mg/dl (9-20); Creatinine Clearance Estimated 196 mL/min (50-200); Estimated Glomerular Filt Rate 151 ml/min (>60); GFR (African American) 182 ML/MIN (>60)
[2023-01-08 13:07] LABS: Alanine Aminotransferase 38 U/L (12-78); Albumin Level 4.6 g/dl (3.5-5.0); Albumin/Globulin Ratio 1.4 (1.1-1.8); Alkaline Phosphatase 101 U/L (38-126); Anion Gap 16.6 mEq/L (5-15); Aspartate Amino Transferase 30 U/L (17-59); Bilirubin,Total 2.1 mg/dl (0.2-1.3); Calcium 9.2 mg/dl (8.4-10.2); Carbon Dioxide 25 mmol/L (22.0-30.0); Globulin 3.3 g/dL (1.3-3.2); Glucose 256 mg/dl (74-100); Lipase 241 U/L (23-300); Total Protein,Serum 7.9 g/dl (6.3-8.2)
[2023-01-08 13:30] VITALS: BP 131/92; PULSE 81; O2SAT 99
--- NOTE | 2023-01-08 13:37 | PC.NURSE ---
pt ambulatory to restroom without complications
--- NOTE | 2023-01-08 13:39 | PC.NURSE ---
UA sent to lab
[2023-01-08 13:43] LABS: Microscopic, Urine URINE MICROSCOPIC (MICROSCOPIC)
[2023-01-08 13:46] LABS: Appearance,Urine CLEAR (Clear); Bilirubin,Urine Negative (Negative); Blood, Urine Negative (Negative); Color,Urine YELLOW (Yellow); Glucose,Urine (UA) 2+ (Negative); Ketones,Urine 2+ (Negative); Leukocyte Esterase,Urine Negative (Negative); Nitrate,Urine Negative (Negative); PH,Urine 7.5 (5.0-8.5); Protein,Urine Negative (Negative)
[2023-01-08 14:00] LABS: Mucus,Urine 2+ /lpf; Squamous Epithelial Cell,Urine Occasional #/hpf (0-5); WBC,Urine Occasional #/hpf (0-3)
[2023-01-08 14:01] LABS: Yeast,Urine Occasional /lpf
[2023-01-08 14:35] VITALS: BP 124/85; PULSE 80; RESP 16; TEMP 36.6; O2SAT 100
== END 2023-01-08 14:36 | disposition home or self-care (01) ==
PROVIDERS: Emergency Provider Student in an Organized Health Care Education/Training Program; PCP Physician Assistant
DX: F12.188 Cannabis abuse with other cannabis-induced disorder (principal); R10.13 Epigastric pain; R11.2 Nausea with vomiting, unspecified; E11.9 Type 2 diabetes mellitus without complications; Z87.891 Personal history of nicotine dependence
CPT/HCPCS: 80053; 81001; 82150; 82962; 83690; 85025; 96361; 96374; 96375; 99285; J2405

== ENCOUNTER 2023-01-10 10:11 | Emergency (ER) | payer MEDICAID, SELFPAY ==
[2023-01-10] VITALS (8 sets, daily range): BP systolic 135–154; BP diastolic 87–100; PULSE 85–106; RESP 17–18; TEMP 36.3–36.4; O2SAT 95–100; BMI 26.4
--- NOTE | 2023-01-10 10:26 | PC.NURSE ---
DR TUCKER AT BEDSIDE
[2023-01-10 10:27] LABS: POC Glucose,Bedside 281 (70-110)
--- NOTE | 2023-01-10 10:27 | ECG_ITS ---
APPROVED REPORT Exam: Resting ECG HR:97 bpm ECG Measurements Heart Rate 97 AXES MO 148 P -58 QRSd 89 QRS 13 QT 341 T 66 QTc 396 Conclusion Wandering atrial pacer Old poor r wave progression ABNORMAL RHYTHM ECG UNCONFIRMED REPORT Electronically signed by : John Gay MD 01/11/2023 09:55:31
--- NOTE | 2023-01-10 10:29 | CT_ITS ---
FINAL REPORT TECHNIQUE: After the administration of oral and intravenous contrast, axial images were obtained through the abdomen and pelvis by computed tomography. The study was performed with techniques to keep radiation dose as low as reasonably achievable, (ALARA). Individual dose reduction techniques using automated exposure control or adjustment of mA and/or kV according to the patient's size were employed. CLINICAL HISTORY: epigastric pain, intractable n/v, no BMx9 days FINDINGS: Abdomen: The lung bases are clear. There is mild fatty infiltration of the liver. The gallbladder is present. The spleen, pancreas, adrenals and kidneys appear unremarkable. The aorta is normal in caliber. There is no free fluid or adenopathy. Pelvis: The appendix is unremarkable. The urinary bladder is unremarkable. There is no free fluid or adenopathy. IMPRESSION: Fatty liver. Reviewed, Interpreted and Dictated by Kamran Barnett MD Transcribed by Nasrin Morales Authenticated and [facility]
--- NOTE | 2023-01-10 10:30 | PC.NURSE ---
respiratory called for VBG in ED
--- NOTE | 2023-01-10 10:30 | HMH.EDGENADL ---
Discharge Plan Disposition Patient Disposition: Home, Self-Care Condition: Good Prescriptions Prescriptions: New metoclopramide HCl [Reglan] 10 mg tablet 10 mg PO Q6H PRN (Reason: nausea and vomiting) Qty: 14 0RF No Action aspirin 81 mg tablet,delayed release (DR/EC) 81 mg PO DAILY Qty: 90 1RF atorvastatin [Lipitor] 10 mg tablet 10 mg PO HS Qty: 90 1RF cholecalciferol (vitamin D3) 50 mcg (2,000 unit) capsule 50 mcg PO DAILY Qty: 90 1RF ergocalciferol (vitamin D2) 1,250 mcg (50,000 unit) capsule 1,250 mcg PO WEEKLY Qty: 14 1RF lisinopril 2.5 mg tablet 2.5 mg PO DAILY Qty: 90 1RF Vraylar 1.5 mg capsule 1.5 mg PO DAILY Qty: 90 1RF ondansetron 8 mg tablet,disintegrating 8 mg PO Q8H PRN (Reason: nausea and vomiting) 5 Days Qty: 30 0RF insulin glargine [Lantus Solostar U-100 Insulin] 100 unit/mL (3 mL) insulin pen 25 unit SQ HS 30 Days Qty: 7.5 5RF Januvia 100 mg tablet 100 mg PO DAILY Qty: 90 1RF metoclopramide HCl [Reglan] 5 mg tablet 5 mg PO QAC Qty: 90 0RF Rx Instructions: administer 30 minutes before meals magnesium citrate Solution 150 ml PO DAILY PRN (Reason: constipation) Qty: 296 0RF (DME) blood-glucose meter [Advanced Glucose Meter] Misc See Rx Instructions .Route Rx Instructions: Test sugar 3 times daily or As directed (DME) Advanced Gluc Meter Test Strip Strip See Rx Instructions .Route Rx Instructions: Test sugar 3 times daily or As directed (DME) Dexcom G7 Sensor Device See Rx Instructions .Route Rx Instructions: change sensor every 3 months (DME) Dexcom G7 Polisher And Sander Misc See Rx Instructions .Route Rx Instructions: As directed ondansetron 4 mg tablet,disintegrating 4 mg PO Q8H PRN (Reason: nausea and vomiting) Qty: 30 1RF promethazine 25 mg tablet 25 mg PO Q6H PRN (Reason: sedation) Qty: 14 0RF promethazine 25 mg tablet 25 mg PO TID PRN (Reason: nausea and vomiting) 5 Days Qty: 20 0RF (DME) pen needle, diabetic [BD Martina 2nd Gen Pen Needle] 32 gauge x 5/32 needle See Rx Instructions .Route Qty: 50 0RF Rx Instructions: As directed Referrals Follow up/Referrals: Carina Ruiz PA [Primary Care Provider] - See instructions Activity Restrictions/Add. Instructions Additional Instructions/Restrictions: You were evaluated in the emergency department today. Please follow-up closely with your primary care provider. I also recommend close follow-up with endocrinology as well as gastroenterology. Avoid smoking marijuana. 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 You may take this, Zofran, or Phenergan as needed for nausea and vomiting. Return to the emergency department for any new or worsening symptoms. Clinical Impressions Clinical Impression: Cyclical vomiting Instructions Patient Instructions: DI for Nausea -- Adult, DI for Vomiting -- Adult Discharge ED Provider: Lisbet Mead General Adult HPI General Chief complaint: Nausea/Vomiting/Diarrhea Stated complaint: vomiting, in ER 01/08 ab pulsing Time Seen by Provider: 01/10/23 10:24 Mode of Arrival: Wheelchair Limitations: No Limitations Description of Symptoms (Recalled from ER Triage Doc. by RN): PT WITH C/O ABDOMINAL PAIN AND VOMITING THAT HAS BEEN ONGOING. TREATED ON 01/08, SIMILAR EPISODE. BEGAN VOMITING AGAIN YESTERDAY. DENIES FEVER. NO BLOOD IN EMESIS. REPORTS ONLY 1 BM IN 2 WEEKS History of Present Illness HPI narrative: This patient is a 37-year-old male with a history of poorly controlled insulin-dependent diabetes, recurrent abdominal pain, nausea, and vomiting, hypothyroidism, and cannabis use presenting to the emergency department for evaluation with concern for abdominal pain, nausea, and vomiting. His pain is in the epigastric region primarily and is nonradiating. He is vomiting up clear/yellow liquids. Patient reports that since evaluation here on 01/01/2023, he has
[2023-01-10 10:32] LABS: Basophils # 0.1 K/mm3 (0-0.2); Basophils % 1.2 % (0.1-2.0); Eosinophils # 0.1 K/mm3 (0.0-0.4); Eosinophils % 0.8 % (0.1-12.0); Hematocrit 49.4 % (42.0-52.0); Hemoglobin 16.5 g/dL (14.1-18.0); Lymphocytes # 3.5 K/mm3 (0.7-4.5); Lymphocytes % 34.6 % (10-50); Mean Corpuscular HGB Conc 33.3 g/dL (31.8-35.4); Mean Corpuscular Hemoglobin 30.1 pg (27.0-31.2); Mean Corpuscular Volume 90.3 fl (80-94); Mean Platelet Volume 7.6 fl (7.4-10.4); Monocytes # 0.8 K/mm3 (0.1-1.0); Monocytes % 7.9 % (1.7-9.3); Neutrophils # 5.6 K/mm3 (1.8-7.8); Neutrophils % 55.6 % (37.0-80.0); Platelet Count 336 K/mm3 (142-424); Red Blood Count 5.47 M/mm3 (4.60-6.20); Red Cell Distribution Width 13.1 % (11.5-17.5); White Blood Count 10.1 K/mm3 (4.8-10.8)
[2023-01-10 10:38] LABS: Acetone, Serum (Rapid) None Detected (None Detect)
[2023-01-10 10:40] LABS: VBG Base Excess -0.6 mmol/L (-2.4-2.3); VBG HCO3 22.4 mmol/L (23-30); VBG Oxygen Saturation 72.9 % (50-70); VBG PCO2 28.6 mmol/L (35-51); VBG PH 7.51 mmol/L (7.31-7.41); VBG PO2 30.9 mmol/L (28-40); VBG Total CO2 23.3 mmol/L (23-27)
[2023-01-10 10:40] LABS: Chloride 100 mmol/L (98-107); Sodium 139 mmol/L (136-145)
--- NOTE | 2023-01-10 10:40 | PC.NURSE ---
Pt gone to RAD via wheelchair
[2023-01-10 10:42] LABS: Alanine Aminotransferase 35 U/L (12-78); Aspartate Amino Transferase 27 U/L (17-59); Blood Urea Nitrogen 12 mg/dl (9-20); Creatinine Clearance Estimated 148 mL/min (50-200); Estimated Glomerular Filt Rate 108 ml/min (>60); GFR (African American) 131 ML/MIN (>60)
[2023-01-10 10:43] LABS: Albumin Level 4.6 g/dl (3.5-5.0); Albumin/Globulin Ratio 1.6 (1.1-1.8); Alkaline Phosphatase 90 U/L (38-126); Calcium 9.4 mg/dl (8.4-10.2); Carbon Dioxide 24 mmol/L (22.0-30.0); Globulin 2.9 g/dL (1.3-3.2); Glucose 270 mg/dl (74-100); Lipase 43 U/L (23-300); Total Protein,Serum 7.5 g/dl (6.3-8.2)
--- NOTE | 2023-01-10 10:53 | PC.NURSE ---
PT RETURNED FROM CT
--- NOTE | 2023-01-10 11:01 | PC.NURSE ---
Pt given urinal and made aware we need to obtain a urine sample
[2023-01-10 11:06] LABS: Microscopic, Urine URINE MICROSCOPIC (MICROSCOPIC)
[2023-01-10 11:07] LABS: Appearance,Urine CLEAR (Clear); Blood, Urine Negative (Negative); Color,Urine YELLOW (Yellow); Glucose,Urine (UA) 2+ (Negative); Ketones,Urine 3+ (Negative); Leukocyte Esterase,Urine Negative (Negative); Nitrate,Urine Negative (Negative); Protein,Urine Negative (Negative)
[2023-01-10 11:13] LABS: Bilirubin,Urine 1+ (Negative)
[2023-01-10 11:21] LABS: Bacteria,Urine Trace /lpf; Squamous Epithelial Cell,Urine Occasional #/hpf (0-5); WBC,Urine Occasional #/hpf (0-3)
--- NOTE | 2023-01-10 11:35 | PC.NURSE ---
ROUNDED ON PT, NO NEEDS AT THIS TIME
--- NOTE | 2023-01-10 12:27 | PC.NURSE ---
ROUNDED ON PT, RESTING COMFORTABLY. AT BEDSIDE. UPDATED ON POC. NO NEEDS AT THIS TIME. CALL LIGHT WITHIN REACH
--- NOTE | 2023-01-10 12:44 | PC.NURSE ---
PT PROVIDED WATER
--- NOTE | 2023-01-10 12:57 | PC.NURSE ---
PT HAS TOLERATED WATER WITHOUT EMESIS
== END 2023-01-10 13:14 | disposition home or self-care (01) ==
PROVIDERS: Emergency Provider Emergency Medicine; PCP Physician Assistant
DX: R10.13 Epigastric pain (principal); R11.2 Nausea with vomiting, unspecified; E11.9 Type 2 diabetes mellitus without complications; E03.9 Hypothyroidism, unspecified; F17.210 Nicotine dependence, cigarettes, uncomplicated
CPT/HCPCS: 74177; 80053; 81001; 82009; 82803; 82962; 83690; 85025; 93005; 96361; 96374; 96375; 99285; J0131; J2405; Q9967

== ENCOUNTER 2023-01-11 12:43 | Emergency (ER) | payer MEDICAID, SELFPAY ==
[2023-01-11 12:44] VITALS: BP 153/91; PULSE 94; RESP 19; TEMP 36.5; O2SAT 98; BMI 25.1
--- NOTE | 2023-01-11 13:58 | HMH.EDGENADL ---
Discharge Plan Disposition Patient Disposition: Home, Self-Care Prescriptions Prescriptions: No Action aspirin 81 mg tablet,delayed release (DR/EC) 81 mg PO DAILY Qty: 90 1RF atorvastatin [Lipitor] 10 mg tablet 10 mg PO HS Qty: 90 1RF cholecalciferol (vitamin D3) 50 mcg (2,000 unit) capsule 50 mcg PO DAILY Qty: 90 1RF ergocalciferol (vitamin D2) 1,250 mcg (50,000 unit) capsule 1,250 mcg PO WEEKLY Qty: 14 1RF lisinopril 2.5 mg tablet 2.5 mg PO DAILY Qty: 90 1RF ondansetron 8 mg tablet,disintegrating 8 mg PO Q8H PRN (Reason: nausea and vomiting) 5 Days Qty: 30 0RF Januvia 100 mg tablet 100 mg PO DAILY Qty: 90 1RF magnesium citrate Solution 150 ml PO DAILY PRN (Reason: constipation) Qty: 296 0RF (DME) blood-glucose meter [Advanced Glucose Meter] Misc See Rx Instructions .Route Rx Instructions: Test sugar 3 times daily or As directed (DME) Advanced Gluc Meter Test Strip Strip See Rx Instructions .Route Rx Instructions: Test sugar 3 times daily or As directed (DME) Dexcom G7 Sensor Device See Rx Instructions .Route Rx Instructions: change sensor every 3 months (DME) Dexcom G7 Dielectric Machine Operator Misc See Rx Instructions .Route Rx Instructions: As directed promethazine 25 mg tablet 25 mg PO Q6H PRN (Reason: sedation) Qty: 14 0RF metoclopramide HCl [Reglan] 10 mg tablet 10 mg PO Q6H PRN (Reason: nausea and vomiting) Qty: 14 0RF metoclopramide HCl [Reglan] 5 mg tablet 5 mg PO QAC Rx Instructions: administer 30 minutes before meals insulin glargine [Lantus Solostar U-100 Insulin] 100 unit/mL (3 mL) insulin pen 25 unit SQ HS Vraylar 1.5 mg capsule 1.5 mg PO DAILY (DME) pen needle, diabetic [BD Martina 2nd Gen Pen Needle] 32 gauge x 5/32 needle See Rx Instructions .Route Qty: 50 0RF Rx Instructions: As directed Referrals Follow up/Referrals: Simon Benavides MD [Staff Physician] - See instructions (for evaluation of outpatient EGD ) Carina Ruiz PA [Primary Care Provider] - See instructions Clinical Impressions Clinical Impression: Cannabinoid hyperemesis syndrome, Cyclical vomiting Instructions Patient Instructions: DI for Diarrhea and Traveler's Diarrhea -- Adult, DI for Diarrhea and Traveler's Diarrhea -- Child, DI for Nausea -- Adult, DI for Nausea -- Child Discharge ED Provider: Jonathan Paulson General Adult HPI General Chief complaint: Nausea/Vomiting/Diarrhea Stated complaint: vomiting, pulsating abd Time Seen by Provider: 01/11/23 13:33 Mode of Arrival: Family Vehicle Source of Information: Patient and Relative Limitations: No Limitations Description of Symptoms (Recalled from ER Triage Doc. by RN): Pt c/o continued nausea & vomiting with weakness. He was seen 01/01, 01/08, 01/10, and today for the same reason. He last smoked marijuana 3 days ago. He has been taking zofran and phenergan but is throwing it up . He reports to be feeling pulsating in my stomach . Family is concerned he has an ulcer. Pt has not seen GI or general surgery. He was supposed to follow up at PCP office today, but registration stated I looked to weak and they told me to come to the ER to get checked out . History of Present Illness HPI narrative: Is a 37-year-old male well-known to the emergency department here with cannabinol hyperemesis and cyclical vomiting returning with similar symptoms. He had Zofran and Phenergan at home without any significant improvement in his symptoms. Again his symptoms are nausea and vomiting that have brought him to the emergency department weekly over this last year and he has symptoms that get better with warm showers and he smokes marijuana chronically. He does state that he is now 3 days clean from marijuana. Denies any significant abdominal pain or other changing symptoms. Related Data Home Medications Medication Instructions Recorded Confirmed blo
[2023-01-11 14:01] LABS: Chloride 101 mmol/L (98-107); Potassium 3.8 mmoL/L (3.5-5.1); Sodium 139 mmol/L (136-145)
[2023-01-11 14:03] LABS: Alanine Aminotransferase 33 U/L (12-78); Alkaline Phosphatase 89 U/L (38-126); Aspartate Amino Transferase 33 U/L (17-59); Bilirubin,Total 3.8 mg/dl (0.2-1.3); Blood Urea Nitrogen 13 mg/dl (9-20); Creatinine Clearance Estimated 165 mL/min (50-200); Estimated Glomerular Filt Rate 126 ml/min (>60); GFR (African American) 153 ML/MIN (>60)
[2023-01-11 14:04] LABS: Albumin Level 4.3 g/dl (3.5-5.0); Albumin/Globulin Ratio 1.4 (1.1-1.8); Anion Gap 18.8 mEq/L (5-15); Calcium 8.9 mg/dl (8.4-10.2); Carbon Dioxide 23 mmol/L (22.0-30.0); Glucose 286 mg/dl (74-100); Lipase 128 U/L (23-300); Total Protein,Serum 7.3 g/dl (6.3-8.2)
[2023-01-11 14:14] LABS: Basophils # 0.1 K/mm3 (0-0.2); Basophils % 0.4 % (0.1-2.0); Eosinophils % 0.1 % (0.1-12.0); Hematocrit 47.5 % (42.0-52.0); Hemoglobin 16.1 g/dL (14.1-18.0); Lymphocytes # 1.4 K/mm3 (0.7-4.5); Lymphocytes % 11.4 % (10-50); Mean Corpuscular HGB Conc 33.9 g/dL (31.8-35.4); Mean Corpuscular Hemoglobin 30.3 pg (27.0-31.2); Mean Corpuscular Volume 89.6 fl (80-94); Mean Platelet Volume 8.1 fl (7.4-10.4); Monocytes # 0.5 K/mm3 (0.1-1.0); Monocytes % 4.3 % (1.7-9.3); Neutrophils # 10.3 K/mm3 (1.8-7.8); Neutrophils % 83.6 % (37.0-80.0); Platelet Count 323 K/mm3 (142-424); White Blood Count 12.3 K/mm3 (4.8-10.8)
--- NOTE | 2023-01-11 14:40 | PC.NURSE ---
Rounded on pt. No needs voiced at this time.
[2023-01-11 15:12] VITALS: BP 112/58; PULSE 86; RESP 16; TEMP 36.5; O2SAT 98
== END 2023-01-11 15:13 | disposition home or self-care (01) ==
PROVIDERS: Emergency Provider Student in an Organized Health Care Education/Training Program; PCP Physician Assistant
DX: F12.188 Cannabis abuse with other cannabis-induced disorder (principal); R11.2 Nausea with vomiting, unspecified; R53.1 Weakness
CPT/HCPCS: 80053; 83690; 85025; 96361; 96374; 99284; J2405

== ENCOUNTER 2023-01-11 18:49 | Emergency (ER) | payer MEDICAID, SELFPAY ==
[2023-01-11 18:49] VITALS: BP 142/85; PULSE 98; RESP 19; TEMP 37; O2SAT 100; BMI 25.1
[2023-01-11 19:25] LABS: Occult Blood,Gastric Fluid Positive (Negative)
--- NOTE | 2023-01-11 19:49 | PC.NURSE ---
in room talking with patient at this time.
[2023-01-11 19:51] LABS: Basophils # 0.1 K/mm3 (0-0.2); Basophils % 0.5 % (0.1-2.0); Eosinophils % 0.1 % (0.1-12.0); Hematocrit 47.3 % (42.0-52.0); Hemoglobin 15.9 g/dL (14.1-18.0); Lymphocytes # 2.7 K/mm3 (0.7-4.5); Lymphocytes % 18.8 % (10-50); Mean Corpuscular HGB Conc 33.6 g/dL (31.8-35.4); Mean Corpuscular Volume 89.3 fl (80-94); Mean Platelet Volume 7.4 fl (7.4-10.4); Monocytes # 0.9 K/mm3 (0.1-1.0); Monocytes % 6.3 % (1.7-9.3); Neutrophils # 10.6 K/mm3 (1.8-7.8); Neutrophils % 74.3 % (37.0-80.0); Platelet Count 330 K/mm3 (142-424); White Blood Count 14.3 K/mm3 (4.8-10.8)
--- NOTE | 2023-01-11 19:51 | CT_ITS ---
PROCEDURE INFORMATION: Exam: CT Chest With Contrast; Diagnostic Exam date and time: 01/11/2023 8:13 PM Age: 37 years old Clinical indication: Other: Vomiting; Additional info: Ugib S/P vomiting TECHNIQUE: Imaging protocol: Diagnostic computed tomography of the chest with contrast. Radiation optimization: All CT scans at this facility use at least one of these dose optimization techniques: automated exposure control; mA and/or kV adjustment per patient size (includes targeted exams where dose is matched to clinical indication); or iterative reconstruction. Contrast material: ISOVUE; Contrast volume: 75 ml; Contrast route: IV; REPORTING DATA: Count of CT and Cardiac NM exams in prior 12 months: This patient has received 3 known CTs and 0 known cardiac nuclear medicine studies in the 12 months prior to the current study. COMPARISON: CR XR CHEST PORTABLE 16/08/2022 23:18 FINDINGS: Lungs: There is a 1 cm left lower lobe pulmonary nodule image 62 series 3. Pleural spaces: Unremarkable. No pneumothorax. No pleural effusion. Heart: Unremarkable. No cardiomegaly. No pericardial effusion. Lymph nodes: Unremarkable. No enlarged lymph nodes. Vasculature: Unremarkable. No aortic aneurysm. 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 Soft tissues: Unremarkable. Other findings: Please see separate report for abdomen/pelvis. IMPRESSION: 1. No acute findings. 2. There is a 1 cm left lower lobe pulmonary nodule image 62 series 3. While this could represent a primary granulomatous infection, such as histoplasmosis, malignancy can produce this appearance as well. For both low risk and high risk patients, consider CT Chest at 3 months, PET/CT, or biopsy. (Reference: Estela) REFERENCES: Estela Bond et al. Guidelines for Management of Incidental Pulmonary Nodules Detected on CT Images: From the Fleischner Society 2017. Radiology. 2017;284(1):228-243.
--- NOTE | 2023-01-11 19:51 | CT_ITS ---
PROCEDURE INFORMATION: Exam: CT Abdomen And Pelvis With Contrast Exam date and time: 01/11/2023 8:13 PM Age: 37 years old Clinical indication: Vomiting; Additional info: Intractible vomiting, idffuse pain TECHNIQUE: Imaging protocol: Computed tomography of the abdomen and pelvis with contrast. Radiation optimization: All CT scans at this facility use at least one of these dose optimization techniques: automated exposure control; mA and/or kV adjustment per patient size (includes targeted exams where dose is matched to clinical indication); or iterative reconstruction. Contrast material: ISOVUE; Contrast volume: 75 ml; Contrast route: IV; REPORTING DATA: Count of CT and Cardiac NM exams in prior 12 months: This patient has received 3 known CTs and 0 known cardiac nuclear medicine studies in the 12 months prior to the current study. COMPARISON: CT ABDOMEN PELVIS W CON 10/01/2023 10:49 FINDINGS: Liver: Normal. No mass. Gallbladder and bile ducts: Normal. No calcified stones. No ductal dilation. Pancreas: Normal. No ductal dilation. Spleen: Normal. No splenomegaly. Adrenal glands: Normal. No mass. Kidneys and ureters: Low attenuation renal lesions measuring up to 8 mm in diameter are incompletely characterized, but are likely cysts. No followup imaging is warranted. Stomach and bowel: Nonspecific small bowel wall thickening. Appendix: Unremarkable appendix. Intraperitoneal space: Unremarkable. No free air. No significant fluid collection. Vasculature: The arteries demonstrate mild atherosclerotic disease. Lymph nodes: Unremarkable. No enlarged lymph nodes. Urinary bladder: Unremarkable as visualized. Reproductive: Unremarkable as visualized. Bones/joints: Chronic pars defects of L5. Soft tissues: Unremarkable. Other findings: Please see separate report for CT chest. IMPRESSION: Nonspecific small bowel wall thickening. Please exclude enteritis. COMMENTS: Consistent with the [employer]'s Incidental Findings Committee white paper (J Am Louise Radiol 2018): Any incidental renal lesion less than 1 cm or classified as too small to characterize, or any incidental cystic renal lesion characterized as simple-appearing, is likely benign. No follow-up imaging is recommended for these lesions per consensus recommendations based on imaging criteria.
[2023-01-11 19:52] LABS: Chloride 100 mmol/L (98-107); Potassium 3.7 mmoL/L (3.5-5.1); Sodium 139 mmol/L (136-145)
--- NOTE | 2023-01-11 19:53 | HMH.EDGENADL ---
Discharge Plan Disposition Patient Disposition: Home, Self-Care Prescriptions Prescriptions: No Action aspirin 81 mg tablet,delayed release (DR/EC) 81 mg PO DAILY Qty: 90 1RF atorvastatin [Lipitor] 10 mg tablet 10 mg PO HS Qty: 90 1RF cholecalciferol (vitamin D3) 50 mcg (2,000 unit) capsule 50 mcg PO DAILY Qty: 90 1RF ergocalciferol (vitamin D2) 1,250 mcg (50,000 unit) capsule 1,250 mcg PO WEEKLY Qty: 14 1RF lisinopril 2.5 mg tablet 2.5 mg PO DAILY Qty: 90 1RF ondansetron 8 mg tablet,disintegrating 8 mg PO Q8H PRN (Reason: nausea and vomiting) 5 Days Qty: 30 0RF Januvia 100 mg tablet 100 mg PO DAILY Qty: 90 1RF magnesium citrate Solution 150 ml PO DAILY PRN (Reason: constipation) Qty: 296 0RF (DME) blood-glucose meter [Advanced Glucose Meter] Misc See Rx Instructions .Route Rx Instructions: Test sugar 3 times daily or As directed (DME) Advanced Gluc Meter Test Strip Strip See Rx Instructions .Route Rx Instructions: Test sugar 3 times daily or As directed (DME) Dexcom G7 Sensor Device See Rx Instructions .Route Rx Instructions: change sensor every 3 months (DME) Dexcom G7 Industrial Accountant Misc See Rx Instructions .Route Rx Instructions: As directed promethazine 25 mg tablet 25 mg PO Q6H PRN (Reason: sedation) Qty: 14 0RF metoclopramide HCl [Reglan] 10 mg tablet 10 mg PO Q6H PRN (Reason: nausea and vomiting) Qty: 14 0RF metoclopramide HCl [Reglan] 5 mg tablet 5 mg PO QAC Rx Instructions: administer 30 minutes before meals insulin glargine [Lantus Solostar U-100 Insulin] 100 unit/mL (3 mL) insulin pen 25 unit SQ HS Vraylar 1.5 mg capsule 1.5 mg PO DAILY (DME) pen needle, diabetic [BD Martina 2nd Gen Pen Needle] 32 gauge x 5/32 needle See Rx Instructions .Route Qty: 50 0RF Rx Instructions: As directed Referrals Follow up/Referrals: Carina Ruiz PA [Primary Care Provider] - See instructions Clinical Impressions Clinical Impression: Incidental pulmonary nodule, Cannabinoid hyperemesis syndrome, Xena-Johnston tear Discharge ED Provider: Prateek Cowan General Adult HPI General Chief complaint: Nausea/Vomiting/Diarrhea Stated complaint: Vomiting abd pain Time Seen by Provider: 01/11/23 19:10 Mode of Arrival: Family Vehicle Source of Information: Patient Limitations: No Limitations Description of Symptoms (Recalled from ER Triage Doc. by RN): Pt c/o continued nausea and vomiting after d/c from ER @1458. He last had a dose of zofran IVP and 1L LR during this Er visit. Pt c/o also reports an episode of light red emesis that happened about 1830 while at work. He reports to have a ripping feel inside . No red colored drinks or food today. He denies any alcoholic drinks. He also c/o body aches and chills. History of Present Illness HPI narrative: Patient is a 37-year-old male well-known to this emergency department who presents emergency department for evaluation of vomiting. Patient has a history of cannabinoid hyperemesis syndrome, last used 3 days ago. Patient has had intractable vomiting. Today he was seen earlier in the emergency department where his symptoms were controlled he was subsequently discharged. Since then patient felt a ripping pain in his stomach and lower chest after retching with associated pink and red vomitus. Due to persistent vomiting he presents here for continued evaluation. Related Data Home Medications Medication Instructions Recorded Confirmed blood sugar diagnostic (Advanced 07/30/22 08/17/22 Glucose Meter Test Strips) blood-glucose meter (Advanced 07/30/22 08/17/22 Glucose Meter) blood-glucose meter,continuous 07/30/22 08/17/22 (Dexcom G7 Industrial Accountant) blood-glucose sensor (Dexcom G7 07/30/22 08/17/22 Sensor device) cariprazine 1.5 mg capsule 1.5 mg PO DAILY bipolar 01/11/23 01/11/23 (Vraylar) insulin glargine
[2023-01-11 19:55] LABS: Alanine Aminotransferase 35 U/L (12-78); Albumin Level 4.6 g/dl (3.5-5.0); Albumin/Globulin Ratio 1.5 (1.1-1.8); Alkaline Phosphatase 84 U/L (38-126); Anion Gap 20.7 mEq/L (5-15); Aspartate Amino Transferase 34 U/L (17-59); Bilirubin,Total 4.2 mg/dl (0.2-1.3); Blood Urea Nitrogen 12 mg/dl (9-20); Calcium 9.2 mg/dl (8.4-10.2); Carbon Dioxide 22 mmol/L (22.0-30.0); Creatinine Clearance Estimated 145 mL/min (50-200); Estimated Glomerular Filt Rate 108 ml/min (>60); GFR (African American) 131 ML/MIN (>60); Glucose 205 mg/dl (74-100); Lipase 67 U/L (23-300); Total Protein,Serum 7.6 g/dl (6.3-8.2)
--- NOTE | 2023-01-11 19:57 | ECG_ITS ---
APPROVED REPORT Exam: Resting ECG HR:92 bpm ECG Measurements Heart Rate [address] 158 P -34 QRSd 87 QRS 7 QT 347 T 19 QTc 397 Conclusion SINUS RHYTHM Late r Wave progression ABNORMAL ECG UNCONFIRMED REPORT Electronically signed by : John Gay MD 01/13/2023 07:36:22
--- NOTE | 2023-01-11 20:08 | PC.NURSE ---
Patient gone to CT at this time.
--- NOTE | 2023-01-11 20:20 | PC.NURSE ---
patient back in room at this time.
--- NOTE | 2023-01-11 20:20 | PC.NURSE ---
patient given droperidol without any S.E'S noted. Cardiac monitoring in place, VSS at this time.
[2023-01-11 21:19] LABS: VBG HCO3 24.2 mmol/L (23-30); VBG Oxygen Saturation 74.5 % (50-70); VBG PO2 33.6 mmol/L (28-40); VBG Total CO2 25.2 mmol/L (23-27)
--- NOTE | 2023-01-11 22:01 | PC.NURSE ---
Rounded on patient , no needs voiced at this time.
[2023-01-11 22:18] VITALS: BP 123/76; PULSE 62; RESP 16; TEMP 36.7; O2SAT 98
== END 2023-01-11 22:30 | disposition home or self-care (01) ==
PROVIDERS: Emergency Provider Emergency Medicine; PCP Physician Assistant
DX: K22.6 Gastro-esophageal laceration-hemorrhage syndrome (principal); F12.188 Cannabis abuse with other cannabis-induced disorder; R11.2 Nausea with vomiting, unspecified; R91.1 Solitary pulmonary nodule; E11.65 Type 2 diabetes mellitus with hyperglycemia; F17.210 Nicotine dependence, cigarettes, uncomplicated; Z79.4 Long term (current) use of insulin
CPT/HCPCS: 71260; 74177; 80053; 82272; 82803; 83690; 85025; 93005; 96361; 96374; 99285; G0328; J1790; Q9967

== ENCOUNTER → 2023-01-28 09:47 | Outpatient (CLI) | payer MEDICAID, SELFPAY ==
--- NOTE | 2023-01-28 09:47 | NM_ITS ---
FINAL REPORT TECHNIQUE: Sequential anterior images were obtained after the ingestion of 2 whole eggs, 1 piece of white toast with butter, and 6 oz of water radiolabeled with 0.55 mCi technetium 99M sulfur colloid. CLINICAL HISTORY: nausea 10:10 am 0.55 [facility]ci tc sulfur colloid injected into 2 whole eggs 1 white toast with butter 6 oz cup of water COMPARISON: None FINDINGS: GASTRIC EMPTYING SCAN Static images show normal emptying of the stomach into the small bowel. Based on the time activity curve, the estimated half-emptying time is 78 minutes which is within normal limits. IMPRESSION: Normal gastric emptying study. Reviewed, Interpreted and Dictated by Simon June III, MD Transcribed by Nasrin Morales Authenticated and [facility]
== END ==
PROVIDERS: PCP Physician Assistant; Visit Provider Surgery
DX: R11.0 Nausea (principal)
CPT/HCPCS: 78264; A9541

== ENCOUNTER → 2023-02-06 08:40 | Outpatient (CLI) | payer MEDICAID, SELFPAY ==
--- NOTE | 2023-02-06 08:40 | FL_ITS ---
FINAL REPORT CLINICAL HISTORY: nausea, decreased bowel movements ft 4:06 + 1:15 dap 3843.13 + 1307.37 FINDINGS: AIR CONTRAST UPPER GI AND SMALL BOWEL FOLLOW THROUGH HISTORY: Nausea and vomiting. TECHNIQUE: Patient ingested thick and thin barium contrast. Effervescent crystals were also administered. Spot and overhead films were performed. Additional barium was administered for small bowel follow through. A total of 55 images were saved. FINDINGS: UGI: The esophagus demonstrates no morphologic abnormalities. No mucosal defects are seen and motility appears normal. The stomach is of normal size, shape and position. The stomach is delayed in emptying, with no emptying from the stomach seen for greater than 10 minutes. No gastric filling defects are seen. The duodenal bulb and sweep appear unremarkable. No episodes of gastroesophageal reflux observed. 13 mm barium tablet passes easily through the esophagus and into the stomach. SBFT: The room attendant film is unremarkable. The transit time to the colon is normal with contrast in the colon in less than 2 hours. The mucosal fold pattern is normal. Spot images of the terminal ileum are unremarkable . Linear and curvilinear filling defects are noted in distal small bowel loops. Favor ingested material, but intestinal parasites could have a similar appearance. Recommend clinical correlation. Radiation exposure in Total DAP: 5,150.5 uGym2 Fluoroscopy time: 5 minutes, 21 seconds Total images: 55 IMPRESSION: Delayed emptying of the stomach. Linear and curvilinear filling defects in distal small bowel loops. This is favored to be ingested material, but intestinal parasites could have a similar appearance. Recommend clinical correlation. Otherwise, unremarkable upper GI and small bowel follow through. Reviewed, Interpreted and Dictated by Simon June III, MD Transcribed by Luba Mckeon PA-C Authenticated and [facility]
== END ==
PROVIDERS: PCP Physician Assistant; Visit Provider Surgery
DX: R11.0 Nausea (principal)
CPT/HCPCS: 74246; 74248

== ENCOUNTER 2023-03-31 16:39 | Emergency (ER) | payer MEDICAID, SELFPAY ==
[2023-03-31 16:40] VITALS: BP 143/89; PULSE 75; RESP 18; TEMP 36.4; O2SAT 98; BMI 27.2
--- NOTE | 2023-03-31 16:44 | HMH.EDGENADL ---
Discharge Plan Disposition Patient Disposition: Home, Self-Care Prescriptions Prescriptions: New ondansetron HCl 4 mg tablet 4 mg PO Q8H PRN (Reason: nausea and vomiting) 5 Days Qty: 30 0RF No Action aspirin 81 mg tablet,delayed release (DR/EC) 81 mg PO DAILY Qty: 90 1RF atorvastatin [Lipitor] 10 mg tablet 10 mg PO HS Qty: 90 1RF cholecalciferol (vitamin D3) 50 mcg (2,000 unit) capsule 50 mcg PO DAILY Qty: 90 1RF ergocalciferol (vitamin D2) 1,250 mcg (50,000 unit) capsule 1,250 mcg PO WEEKLY Qty: 14 1RF lisinopril 2.5 mg tablet 2.5 mg PO DAILY Qty: 90 1RF ondansetron 8 mg tablet,disintegrating 8 mg PO Q8H PRN (Reason: nausea and vomiting) 5 Days Qty: 30 0RF Januvia 100 mg tablet 100 mg PO DAILY Qty: 90 1RF magnesium citrate Solution 150 ml PO DAILY PRN (Reason: constipation) Qty: 296 0RF (DME) blood-glucose meter [Advanced Glucose Meter] Misc See Rx Instructions .Route Rx Instructions: Test sugar 3 times daily or As directed (DME) Advanced Gluc Meter Test Strip Strip See Rx Instructions .Route Rx Instructions: Test sugar 3 times daily or As directed (DME) Dexcom G7 Sensor Device See Rx Instructions .Route Rx Instructions: change sensor every 3 months (DME) Dexcom G7 Statistics Intern Misc See Rx Instructions .Route Rx Instructions: As directed promethazine 25 mg tablet 25 mg PO Q6H PRN (Reason: sedation) Qty: 14 0RF metoclopramide HCl [Reglan] 10 mg tablet 10 mg PO Q6H PRN (Reason: nausea and vomiting) Qty: 14 0RF metoclopramide HCl [Reglan] 5 mg tablet 5 mg PO QAC Rx Instructions: administer 30 minutes before meals insulin glargine [Lantus Solostar U-100 Insulin] 100 unit/mL (3 mL) insulin pen 25 unit SQ HS Vraylar 1.5 mg capsule 1.5 mg PO DAILY (DME) pen needle, diabetic [BD Martina 2nd Gen Pen Needle] 32 gauge x 5/32 needle See Rx Instructions .Route Qty: 50 0RF Rx Instructions: As directed Referrals Follow up/Referrals: Carina Ruiz PA [Primary Care Provider] - See instructions Activity Restrictions/Add. Instructions Additional Instructions/Restrictions: Please follow-up with your primary care provider. Please return to the emergency department if you develop any new or worsening symptoms or become concerned for your health. Please take Zofran as needed for nausea and vomiting. Clinical Impressions Clinical Impression: Leukocytosis, Nausea & vomiting, Cannabis use disorder Instructions Patient Instructions: DI for Diarrhea and Traveler's Diarrhea -- Adult, DI for Diarrhea and Traveler's Diarrhea -- Child, DI for Nausea -- Adult, DI for Nausea -- Child Discharge ED Provider: Dmitry Jovel General Adult HPI General Chief complaint: Nausea/Vomiting/Diarrhea Stated complaint: vomitting, weakness Time Seen by Provider: 03/31/23 16:43 History of Present Illness HPI narrative: 37-year-old male, history of untreated insulin-dependent diabetes, untreated bipolar depression, history of cannabis hyperemesis syndrome, presents with severe nausea and vomiting since yesterday morning. Was mild yesterday, today has been persistent. Patient reports daily marijuana usage. He reports that he does not have any insurance and he has not been following up with any doctors. He reports that he was previously diagnosed with type 2 diabetes and is supposed be on insulin but he does not take his medications for anything. He denies any chest pain. Reports abdominal pain with vomiting. Denies any recent fever or illness. Related Data Home Medications Medication Instructions Recorded Confirmed blood sugar diagnostic (Advanced 07/30/22 01/22/23 Glucose Meter Test Strips) blood-glucose meter (Advanced 07/30/22 01/22/23 Glucose Meter) blood-glucose meter,continuous 07/30/22 01/22/23 (Dexcom G7 Statistics Intern) blood-glucose sensor (Dexcom G7 07/30/22
[2023-03-31 17:00] VITALS: BP 129/79; PULSE 77; RESP 15; O2SAT 100
--- NOTE | 2023-03-31 17:02 | ECG_ITS ---
APPROVED REPORT Exam: Resting ECG HR:70 bpm ECG Measurements Heart Rate 70 AXES SD 160 P -21 QRSd 110 QRS -9 QT 400 T 45 QTc 420 Conclusion SINUS RHYTHM SEPTAL MYOCARDIAL INFARCTION , OF INDETERMINATE AGE [40+ ms Q WAVE IN V1/V2] ABNORMAL ECG UNCONFIRMED REPORT Electronically signed by : John Gay MD 04/01/2023 19:19:09
[2023-03-31 17:03] LABS: Basophils # 0.1 K/mm3 (0-0.2); Basophils % 0.4 % (0.1-2.0); Eosinophils % 0.1 % (0.1-12.0); Hematocrit 50.2 % (42.0-52.0); Hemoglobin 17.3 g/dL (14.1-18.0); Lymphocytes # 1.2 K/mm3 (0.7-4.5); Lymphocytes % 5.1 % (10-50); Mean Corpuscular HGB Conc 34.5 g/dL (31.8-35.4); Mean Corpuscular Hemoglobin 31.1 pg (27.0-31.2); Mean Corpuscular Volume 90.2 fl (80-94); Mean Platelet Volume 7.9 fl (7.4-10.4); Monocytes # 1.1 K/mm3 (0.1-1.0); Monocytes % 4.7 % (1.7-9.3); Neutrophils # 21.2 K/mm3 (1.8-7.8); Neutrophils % 89.8 % (37.0-80.0); Platelet Count 268 K/mm3 (142-424); Red Blood Count 5.57 M/mm3 (4.60-6.20); White Blood Count 23.7 K/mm3 (4.8-10.8)
[2023-03-31 17:05] LABS: MANUAL DIFFERENTIAL MANUAL DIFFERENTIAL (MANUAL DIFF)
[2023-03-31 17:07] LABS: Chloride 102 mmol/L (98-107); Sodium 138 mmol/L (136-145)
[2023-03-31 17:08] LABS: Acetone, Serum (Rapid) None Detected (None Detect); Potassium 4.1 mmoL/L (3.5-5.1)
[2023-03-31 17:10] LABS: Alanine Aminotransferase 51 U/L (12-78); Albumin Level 5.1 g/dl (3.5-5.0); Albumin/Globulin Ratio 1.6 (1.1-1.8); Alkaline Phosphatase 110 U/L (38-126); Anion Gap 16.1 mEq/L (5-15); Aspartate Amino Transferase 40 U/L (17-59); Bilirubin,Total 2.5 mg/dl (0.2-1.3); Blood Urea Nitrogen 18 mg/dl (9-20); Carbon Dioxide 24 mmol/L (22.0-30.0); Creatinine Clearance Estimated 153 mL/min (50-200); Estimated Glomerular Filt Rate 108 ml/min (>60); GFR (African American) 131 ML/MIN (>60); Globulin 3.2 g/dL (1.3-3.2); Total Protein,Serum 8.3 g/dl (6.3-8.2)
[2023-03-31 17:11] LABS: Calcium 9.2 mg/dl (8.4-10.2); Glucose 370 mg/dl (74-100); Lipase 91 U/L (23-300); Magnesium 1.7 mg/dl (1.6-2.3)
--- NOTE | 2023-03-31 17:25 | PC.NURSE ---
Patient called out requesting a warm blanket; warm blanket provided call light within reach of patient
[2023-03-31 17:31] VITALS: BP 130/81; PULSE 84; RESP 16; O2SAT 97
--- NOTE | 2023-03-31 17:31 | PC.NURSE ---
Provided patient with a urinal and informed patient we needed a UA. Patient acknowledge and stated he would try. Call light within reach
[2023-03-31 17:34] LABS: Lactic Acid 2.1 mmol/L (0.7-2.1)
[2023-03-31 17:36] LABS: VBG Base Excess -4.7 mmol/L (-2.4-2.3); VBG HCO3 20.5 mmol/L (23-30); VBG Oxygen Saturation 80.1 % (50-70); VBG PCO2 35.8 mmol/L (35-51); VBG PH 7.38 mmol/L (7.31-7.41); VBG PO2 42.4 mmol/L (28-40); VBG Total CO2 21.6 mmol/L (23-27)
[2023-03-31 18:00] VITALS: BP 133/78; PULSE 97; RESP 16; O2SAT 97
[2023-03-31 18:22] LABS: Hypochromasia 1+; Lymphocytes % 11 % (10-50); Monocytes % 3 % (2-9); Neutrophils % 86 % (42-76); Platelet Estimate Normal; Total Cells Counted 100
--- NOTE | 2023-03-31 18:26 | PC.NURSE ---
Rounded on patient; patient still unable to leave UA. Informed patient we still need a UA obtained. Call light within reach of patient
[2023-03-31 18:30] VITALS: BP 158/78; PULSE 100; RESP 18; O2SAT 98
[2023-03-31 18:35] LABS: Appearance,Urine CLEAR (Clear); Bilirubin,Urine Negative (Negative); Blood, Urine Negative (Negative); Color,Urine YELLOW (Yellow); Glucose,Urine (UA) 3+ (Negative); Ketones,Urine 2+ (Negative); Leukocyte Esterase,Urine Negative (Negative); Microscopic, Urine URINE MICROSCOPIC (MICROSCOPIC); Nitrate,Urine Negative (Negative); Protein,Urine Negative (Negative); Specific Gravity, Urine 1.025 (1.005-1.030); Urobilinogen,Urine 0.2 EU/dl (0.2)
[2023-03-31 18:53] VITALS: BP 158/78; PULSE 85; RESP 18; TEMP 36.4; O2SAT 98
[2023-03-31 21:21] LABS: Reflex Lactic Add Lactic Reflex
== END 2023-03-31 18:56 | disposition home or self-care (01) ==
PROVIDERS: Emergency Provider Emergency Medicine; PCP Physician Assistant
DX: R11.2 Nausea with vomiting, unspecified (principal); D72.829 Elevated white blood cell count, unspecified; F12.90 Cannabis use, unspecified, uncomplicated; E11.9 Type 2 diabetes mellitus without complications; F17.210 Nicotine dependence, cigarettes, uncomplicated
CPT/HCPCS: 36415; 80053; 81001; 82009; 82803; 83605; 83690; 83735; 85007; 85025; 87040; 93005; 96361; 96374; 99285; J1790

== ENCOUNTER 2023-04-02 11:32 | Emergency (ER) | payer MEDICAID, SELFPAY ==
[2023-04-02 11:33] VITALS: BP 147/92; PULSE 86; RESP 24; TEMP 36.7; O2SAT 100; BMI 25.7
[2023-04-02 11:38] VITALS: BP 147/92; PULSE 86; O2SAT 97
--- NOTE | 2023-04-02 11:38 | ECG_ITS ---
APPROVED REPORT Exam: Resting ECG HR:94 bpm ECG Measurements Heart Rate 94 AXES QRSd 82 QRS -41 QT 333 T 39 QTc 384 Conclusion ATRIAL FIBRILLATION LEFT AXIS DEVIATION [QRS AXIS < -30] SEPTAL MYOCARDIAL INFARCTION , OLD [40+ ms Q WAVE IN V1/V2] ABNORMAL ECG UNCONFIRMED REPORT Electronically signed by : John Gay MD 04/02/2023 16:51:11
--- NOTE | 2023-04-02 11:40 | PC.NURSE ---
DR PERERA AT BEDSIDE
--- NOTE | 2023-04-02 11:42 | HMH.EDGENADL ---
Discharge Plan Disposition Patient Disposition: Home, Self-Care Condition: Fair Chief Complaint: Abdominal Pain Prescriptions Prescriptions: No Action aspirin 81 mg tablet,delayed release (DR/EC) 81 mg PO DAILY Qty: 90 1RF atorvastatin [Lipitor] 10 mg tablet 10 mg PO HS Qty: 90 1RF cholecalciferol (vitamin D3) 50 mcg (2,000 unit) capsule 50 mcg PO DAILY Qty: 90 1RF ergocalciferol (vitamin D2) 1,250 mcg (50,000 unit) capsule 1,250 mcg PO WEEKLY Qty: 14 1RF lisinopril 2.5 mg tablet 2.5 mg PO DAILY Qty: 90 1RF ondansetron 8 mg tablet,disintegrating 8 mg PO Q8H PRN (Reason: nausea and vomiting) 5 Days Qty: 30 0RF Januvia 100 mg tablet 100 mg PO DAILY Qty: 90 1RF magnesium citrate Solution 150 ml PO DAILY PRN (Reason: constipation) Qty: 296 0RF (DME) blood-glucose meter [Advanced Glucose Meter] Misc See Rx Instructions .Route Rx Instructions: Test sugar 3 times daily or As directed (DME) Advanced Gluc Meter Test Strip Strip See Rx Instructions .Route Rx Instructions: Test sugar 3 times daily or As directed (DME) Dexcom G7 Sensor Device See Rx Instructions .Route Rx Instructions: change sensor every 3 months (DME) Dexcom G7 Medical Coding Auditor Misc See Rx Instructions .Route Rx Instructions: As directed promethazine 25 mg tablet 25 mg PO Q6H PRN (Reason: sedation) Qty: 14 0RF metoclopramide HCl [Reglan] 10 mg tablet 10 mg PO Q6H PRN (Reason: nausea and vomiting) Qty: 14 0RF metoclopramide HCl [Reglan] 5 mg tablet 5 mg PO QAC Rx Instructions: administer 30 minutes before meals insulin glargine [Lantus Solostar U-100 Insulin] 100 unit/mL (3 mL) insulin pen 25 unit SQ HS Vraylar 1.5 mg capsule 1.5 mg PO DAILY (DME) pen needle, diabetic [BD Martina 2nd Gen Pen Needle] 32 gauge x needle See Rx Instructions .Route Qty: 50 0RF Rx Instructions: As directed ondansetron HCl 4 mg tablet 4 mg PO Q8H PRN (Reason: nausea and vomiting) 5 Days Qty: 30 0RF Referrals Follow up/Referrals: Carina Ruiz PA [Primary Care Provider] - See instructions Clinical Impressions Clinical Impression: Cannabinoid hyperemesis syndrome Instructions Patient Instructions: DI for Acute Abdominal Pain, Cannabinoid Hyperemesis Syndrome Discharge ED Provider: Aashish Mcqueen General Adult HPI General Chief complaint: Abdominal Pain Stated complaint: vomiting X 2 days Time Seen by Provider: 04/02/23 11:37 History of Present Illness HPI narrative: 37-year-old male, history of untreated insulin-dependent diabetes, untreated bipolar depression, history of cannabis hyperemesis syndrome, presents with severe nausea and vomiting since yesterday morning. Was mild yesterday, today has been persistent. Patient reports daily marijuana usage. He reports that he does not have any insurance and he has not been following up with any doctors. He reports that he was previously diagnosed with type 2 diabetes and is supposed be on insulin but he does not take his medications for anything. He denies any chest pain. Reports abdominal pain with vomiting. Denies any recent fever or illness. Patient is violent on arrival to the ED. Related Data Home Medications Medication Instructions Recorded Confirmed blood sugar diagnostic (Advanced 07/30/22 01/22/23 Glucose Meter Test Strips) blood-glucose meter (Advanced 07/30/22 01/22/23 Glucose Meter) blood-glucose meter,continuous 07/30/22 01/22/23 (Dexcom G7 Medical Coding Auditor) blood-glucose sensor (Dexcom G7 07/30/22 01/22/23 Sensor device) cariprazine 1.5 mg capsule 1.5 mg PO DAILY bipolar 01/11/23 01/22/23 (Vraylar) insulin glargine 100 unit/mL (3 25 unit SQ HS Diabetes 01/11/23 01/22/23 mL) subcutaneous pen (Lantus Solostar U-100 Insulin) metoclopramide HCl 5 mg tablet 5 mg PO QAC gerd 01/11/23 01/22/23 (Reglan) Previous Rx's
[2023-04-02 11:54] LABS: Basophils # 0.1 K/mm3 (0-0.2); Basophils % 0.5 % (0.1-2.0); Eosinophils % 0.3 % (0.1-12.0); Hematocrit 45.5 % (42.0-52.0); Hemoglobin 16.7 g/dL (14.1-18.0); Lymphocytes # 1.7 K/mm3 (0.7-4.5); Lymphocytes % 12.9 % (10-50); Mean Corpuscular HGB Conc 36.8 g/dL (31.8-35.4); Mean Corpuscular Hemoglobin 32.2 pg (27.0-31.2); Mean Corpuscular Volume 87.6 fl (80-94); Mean Platelet Volume 7.6 fl (7.4-10.4); Monocytes # 0.7 K/mm3 (0.1-1.0); Neutrophils # 10.9 K/mm3 (1.8-7.8); Neutrophils % 81.3 % (37.0-80.0); Platelet Count 240 K/mm3 (142-424); Red Blood Count 5.19 M/mm3 (4.60-6.20); Red Cell Distribution Width 12.7 % (11.5-17.5); White Blood Count 13.4 K/mm3 (4.8-10.8)
[2023-04-02 11:59] LABS: Chloride 101 mmol/L (98-107); Potassium 3.7 mmoL/L (3.5-5.1); Sodium 137 mmol/L (136-145)
[2023-04-02 12:01] LABS: Blood Urea Nitrogen 14 mg/dl (9-20); Creatinine Clearance Estimated 170 mL/min (50-200); Estimated Glomerular Filt Rate 126 ml/min (>60); GFR (African American) 153 ML/MIN (>60)
[2023-04-02 12:02] LABS: Alanine Aminotransferase 40 U/L (12-78); Albumin Level 4.8 g/dl (3.5-5.0); Albumin/Globulin Ratio 1.6 (1.1-1.8); Alkaline Phosphatase 99 U/L (38-126); Anion Gap 15.7 mEq/L (5-15); Aspartate Amino Transferase 36 U/L (17-59); Bilirubin,Total 3.2 mg/dl (0.2-1.3); Calcium 8.9 mg/dl (8.4-10.2); Carbon Dioxide 24 mmol/L (22.0-30.0); Glucose 341 mg/dl (74-100); Lipase 216 U/L (23-300); Magnesium 1.8 mg/dl (1.6-2.3); Total Protein,Serum 7.8 g/dl (6.3-8.2)
[2023-04-02 12:09] LABS: Lactic Acid 2.2 mmol/L (0.7-2.1)
[2023-04-02 12:10] LABS: VBG Base Excess -2.4 mmol/L (-2.4-2.3); VBG HCO3 21.4 mmol/L (23-30); VBG Oxygen Saturation 79.8 % (50-70); VBG PCO2 30.9 mmol/L (35-51); VBG PH 7.46 mmol/L (7.31-7.41); VBG PO2 37.7 mmol/L (28-40); VBG Total CO2 22.4 mmol/L (23-27)
[2023-04-02 12:13] LABS: Acetone, Serum (Rapid) None Detected (None Detect)
[2023-04-02 13:33] VITALS: BP 106/54; PULSE 82; O2SAT 96
--- NOTE | 2023-04-02 13:44 | PC.NURSE ---
ROUNDED ON PT, SLEEPING SOUNDLY. UNABLE TO PROVIDE UA. DR PERERA NOTIFIED. UA NOT NEEDED
[2023-04-02 13:45] VITALS: BP 106/54; PULSE 80; RESP 16; O2SAT 98
[2023-04-02 15:07] VITALS: BP 140/88; PULSE 79; RESP 20; TEMP 37.1; O2SAT 95
[2023-04-02 15:50] LABS: Reflex Lactic Add Lactic Reflex
== END 2023-04-02 15:09 | disposition home or self-care (01) ==
PROVIDERS: Emergency Provider Emergency Medicine; PCP Physician Assistant
DX: R11.2 Nausea with vomiting, unspecified (principal); F12.988 Cannabis use, unspecified with other cannabis-induced disorder; E11.9 Type 2 diabetes mellitus without complications; F31.89 Other bipolar disorder; F17.210 Nicotine dependence, cigarettes, uncomplicated
CPT/HCPCS: 80053; 82009; 82803; 83605; 83690; 83735; 85025; 93005; 96361; 96374; 96375; 99285; J1790

== ENCOUNTER 2023-04-03 21:11 | Emergency (ER) | payer MEDICAID, SELFPAY ==
[2023-04-03 21:12] VITALS: BP 142/100; PULSE 110; RESP 16; TEMP 36.9; O2SAT 98; BMI 25.1
--- NOTE | 2023-04-03 21:26 | ECG_ITS ---
APPROVED REPORT Exam: Resting ECG HR:107 bpm ECG Measurements Heart Rate 107 AXES NJ 153 P 83 QRSd 88 QRS -61 QT 331 T 67 QTc 394 Conclusion SINUS TACHYCARDIA LEFT ANTERIOR FASCICULAR BLOCK [QRS AXIS <= -45, QR IN I, RS IN II] POSSIBLE ANTERIOR MYOCARDIAL INFARCTION , OF INDETERMINATE AGE [30 ms Q WAVE IN V3/V4, OR R < 0.2 mV IN V4] INFERIOR MYOCARDIAL INFARCTION , OF INDETERMINATE AGE [40+ ms Q WAVE AND/OR ST/T ABNORMALITY IN II/aVF] ABNORMAL ECG UNCONFIRMED REPORT Electronically signed by : John Gay MD 04/04/2023 14:48:13
[2023-04-03 21:30] VITALS: BP 142/102; PULSE 102; O2SAT 99
--- NOTE | 2023-04-03 21:51 | HMH.EDGENADL ---
Discharge Plan Disposition Patient Disposition: Home, Self-Care Chief Complaint: Nausea/Vomiting/Diarrhea Prescriptions Prescriptions: No Action aspirin 81 mg tablet,delayed release (DR/EC) 81 mg PO DAILY Qty: 90 1RF atorvastatin [Lipitor] 10 mg tablet 10 mg PO HS Qty: 90 1RF cholecalciferol (vitamin D3) 50 mcg (2,000 unit) capsule 50 mcg PO DAILY Qty: 90 1RF ergocalciferol (vitamin D2) 1,250 mcg (50,000 unit) capsule 1,250 mcg PO WEEKLY Qty: 14 1RF lisinopril 2.5 mg tablet 2.5 mg PO DAILY Qty: 90 1RF ondansetron 8 mg tablet,disintegrating 8 mg PO Q8H PRN (Reason: nausea and vomiting) 5 Days Qty: 30 0RF Januvia 100 mg tablet 100 mg PO DAILY Qty: 90 1RF magnesium citrate Solution 150 ml PO DAILY PRN (Reason: constipation) Qty: 296 0RF (DME) blood-glucose meter [Advanced Glucose Meter] Misc See Rx Instructions .Route Rx Instructions: Test sugar 3 times daily or As directed (DME) Advanced Gluc Meter Test Strip Strip See Rx Instructions .Route Rx Instructions: Test sugar 3 times daily or As directed (DME) Dexcom G7 Sensor Device See Rx Instructions .Route Rx Instructions: change sensor every 3 months (DME) Dexcom G7 Batterboard Setter Misc See Rx Instructions .Route Rx Instructions: As directed promethazine 25 mg tablet 25 mg PO Q6H PRN (Reason: sedation) Qty: 14 0RF metoclopramide HCl [Reglan] 10 mg tablet 10 mg PO Q6H PRN (Reason: nausea and vomiting) Qty: 14 0RF metoclopramide HCl [Reglan] 5 mg tablet 5 mg PO QAC Rx Instructions: administer 30 minutes before meals insulin glargine [Lantus Solostar U-100 Insulin] 100 unit/mL (3 mL) insulin pen 25 unit SQ HS Vraylar 1.5 mg capsule 1.5 mg PO DAILY (DME) pen needle, diabetic [BD Martina 2nd Gen Pen Needle] 32 gauge x needle See Rx Instructions .Route Qty: 50 0RF Rx Instructions: As directed ondansetron HCl 4 mg tablet 4 mg PO Q8H PRN (Reason: nausea and vomiting) 5 Days Qty: 30 0RF Referrals Follow up/Referrals: Carina Ruiz PA [Primary Care Provider] - See instructions Activity Restrictions/Add. Instructions Additional Instructions/Restrictions: At this time it was felt you are safe to be discharged home. If new or worsening symptoms please do not hesitate to return the emergency department. Please call and schedule an appointment with gastroenterology and hepatology of the [facility]. You can contact them at [phone] and schedule an appointment for Dr. Mcgill. Clinical Impressions Clinical Impression: Alkalosis, metabolic, Vomiting, Elevated bilirubin Discharge ED Provider: Prateek Cowan General Adult HPI General Chief complaint: Nausea/Vomiting/Diarrhea Stated complaint: vomiting, abd pain Time Seen by Provider: 04/03/23 21:30 Mode of Arrival: Wheelchair Source of Information: Patient Limitations: No Limitations Description of Symptoms (Recalled from ER Triage Doc. by RN): pt c/o upper gastric pain with n/v. pt has been seen in er for same problem on 03/31 ans 04/02 and diagnosed with cannabinoid hyperemesis syndrome. History of Present Illness HPI narrative: Patient is a 37-year-old male with past medical history of suspected cannabinol hyperemesis syndrome who presents emergency department for evaluation of epigastric pain, nausea, vomiting. Since patient was last discharged he has had inability to tolerate p.o. since the next morning. No other acute complaints at this time. Of note, patient has been evaluated by multiple providers in the emergency department clued myself. He has had CT imaging with no acute pathology to explain his prolonged symptoms. Patient's last marijuana use was approximately 1 week ago. Related Data Home Medications Medication Instructions Recorded Confirmed blood sugar diagnostic (Advanced 07/30/22 01/22/23 Glucose Meter Test Strips) blood-glucose m
[2023-04-03 22:00] VITALS: BP 123/77; PULSE 95; RESP 23; O2SAT 97
[2023-04-03 22:03] LABS: Basophils # 0.1 K/mm3 (0-0.2); Basophils % 0.5 % (0.1-2.0); Eosinophils % 0.1 % (0.1-12.0); Hematocrit 46.8 % (42.0-52.0); Hemoglobin 16.7 g/dL (14.1-18.0); Lymphocytes # 3.1 K/mm3 (0.7-4.5); Lymphocytes % 20.4 % (10-50); Mean Corpuscular HGB Conc 35.7 g/dL (31.8-35.4); Mean Corpuscular Hemoglobin 31.1 pg (27.0-31.2); Mean Corpuscular Volume 87.1 fl (80-94); Mean Platelet Volume 7.9 fl (7.4-10.4); Monocytes # 1.1 K/mm3 (0.1-1.0); Neutrophils # 11.1 K/mm3 (1.8-7.8); Platelet Count 288 K/mm3 (142-424); Red Blood Count 5.37 M/mm3 (4.60-6.20); Red Cell Distribution Width 12.6 % (11.5-17.5); White Blood Count 15.4 K/mm3 (4.8-10.8)
[2023-04-03 22:05] LABS: MANUAL DIFFERENTIAL MANUAL DIFFERENTIAL (MANUAL DIFF)
[2023-04-03 22:07] LABS: Alanine Aminotransferase 36 U/L (12-78); Albumin Level 4.9 g/dl (3.5-5.0); Albumin/Globulin Ratio 1.4 (1.1-1.8); Alkaline Phosphatase 94 U/L (38-126); Anion Gap 18.6 mEq/L (5-15); Aspartate Amino Transferase 37 U/L (17-59); Blood Urea Nitrogen 13 mg/dl (9-20); Calcium 8.9 mg/dl (8.4-10.2); Carbon Dioxide 23 mmol/L (22.0-30.0); Chloride 96 mmol/L (98-107); Creatinine Clearance Estimated 165 mL/min (50-200); Estimated Glomerular Filt Rate 126 ml/min (>60); GFR (African American) 153 ML/MIN (>60); Globulin 3.4 g/dL (1.3-3.2); Glucose 251 mg/dl (74-100); Lactic Acid 2.5 mmol/L (0.7-2.1); Potassium 3.6 mmoL/L (3.5-5.1); Sodium 134 mmol/L (136-145); Total Protein,Serum 8.3 g/dl (6.3-8.2)
[2023-04-03 22:16] LABS: VBG Base Excess -0.8 mmol/L (-2.4-2.3); VBG HCO3 22.5 mmol/L (23-30); VBG Oxygen Saturation 94.1 % (50-70); VBG PCO2 30.1 mmol/L (35-51); VBG PH 7.49 mmol/L (7.31-7.41); VBG PO2 59.3 mmol/L (28-40); VBG Total CO2 23.5 mmol/L (23-27)
--- NOTE | 2023-04-03 22:16 | PC.NURSE ---
notifed that pt meets sever sepsis with organ dysfunction
--- NOTE | 2023-04-03 22:26 | PC.NURSE ---
Pt laying in bed. Pt denies any nausea at this time. No needs at this time.
[2023-04-03 22:33] LABS: Eosinophils % 1 % (0-3); Lymphocytes % 21 % (10-50); Neutrophils % 78 % (42-76); Platelet Estimate Normal; RBC Morphology Normal; Total Cells Counted 100
[2023-04-03 22:57] VITALS: BP 113/72; PULSE 85; RESP 18; O2SAT 97
--- NOTE | 2023-04-03 22:58 | PC.NURSE ---
Pt laying in bed, family at bedside. Pt denies nausea at this time. No needs voiced.
[2023-04-03 23:21] LABS: Lipase 35 U/L (23-300)
[2023-04-03 23:30] VITALS: BP 119/66; PULSE 86; RESP 21; O2SAT 97
--- NOTE | 2023-04-03 23:45 | PC.NURSE ---
Pt laying in bed. Denies nausea at this time. No needs voiced.
--- NOTE | 2023-04-03 23:51 | CT_ITS ---
PROCEDURE INFORMATION: Exam: CT Abdomen And Pelvis With Contrast Exam date and time: 04/03/2023 11:58 PM Age: 37 years old Clinical indication: Abdominal pain; Epigastric; Additional info: Epigastric abd pain, nausea/vomiting elevated bili TECHNIQUE: Imaging protocol: Computed tomography of the abdomen and pelvis with contrast. Radiation optimization: All CT scans at this facility use at least one of these dose optimization techniques: automated exposure control; mA and/or kV adjustment per patient size (includes targeted exams where dose is matched to clinical indication); or iterative reconstruction. Contrast material: ISOVUE; Contrast volume: 75 ml; Contrast route: IV; REPORTING DATA: Count of CT and Cardiac NM exams in prior 12 months: This patient has received 5 known CTs and 0 known cardiac nuclear medicine studies in the 12 months prior to the current study. COMPARISON: CT ABDOMEN PELVIS W CON 01/11/2023 8:13 PM FINDINGS: Liver: Fatty liver infiltration. Liver measures 18 cm. Gallbladder and bile ducts: Normal. No calcified stones. No ductal dilation. Pancreas: Normal. No ductal dilation. Spleen: Normal. No splenomegaly. Adrenal glands: Normal. No mass. Kidneys and ureters: Normal. No hydronephrosis. Stomach and bowel: Unremarkable. No obstruction. No mucosal thickening. Appendix: No evidence of appendicitis. Intraperitoneal space: Unremarkable. No free air. No significant fluid collection. Vasculature: Unremarkable. No abdominal aortic aneurysm. Lymph nodes: Unremarkable. No enlarged lymph nodes. Urinary bladder: Unremarkable as visualized. Reproductive: Unremarkable as visualized. Bones/joints: Unremarkable. No acute fracture. Soft tissues: Unremarkable. IMPRESSION: 1. No acute findings. 2. Mild hepatomegaly with fatty liver infiltration.
[2023-04-04 00:50] VITALS: BP 119/66; PULSE 73; RESP 16; TEMP 36.9; O2SAT 98
== END 2023-04-04 00:57 | disposition home or self-care (01) ==
PROVIDERS: Emergency Provider Emergency Medicine; PCP Physician Assistant
DX: E87.3 Alkalosis (principal); R10.13 Epigastric pain; R11.2 Nausea with vomiting, unspecified; E80.7 Disorder of bilirubin metabolism, unspecified; E11.9 Type 2 diabetes mellitus without complications; F17.210 Nicotine dependence, cigarettes, uncomplicated; R00.0 Tachycardia, unspecified
CPT/HCPCS: 74177; 80053; 82803; 83605; 83690; 85007; 85025; 93005; 96361; 96374; 99285; J1790; Q9967

== ENCOUNTER 2023-04-04 14:31 | Emergency (ER) | payer MEDICAID, SELFPAY ==
[2023-04-04] VITALS (8 sets, daily range): BP systolic 129–162; BP diastolic 74–112; PULSE 80–101; RESP 18–20; TEMP 36.4–36.6; O2SAT 96–100; BMI 28.3
--- NOTE | 2023-04-04 14:29 | ECG_ITS ---
APPROVED REPORT Exam: Resting ECG HR:107 bpm ECG Measurements Heart Rate 107 AXES TX 158 P 84 QRSd 90 QRS 28 QT 326 T 38 QTc 388 Conclusion SINUS TACHYCARDIA Left atrial abnormality ABNORMAL RHYTHM ECG UNCONFIRMED REPORT Electronically signed by : John Gay MD 04/05/2023 14:47:01
--- NOTE | 2023-04-04 14:34 | XR_ITS ---
PROCEDURE INFORMATION: Exam: XR Chest Exam date and time: 04/04/2023 4:11 PM Age: 37 years old Clinical indication: Pain; Chest pressure; Additional info: Chest pain after vomiting TECHNIQUE: Imaging protocol: Radiologic exam of the chest. Views: 1 view. COMPARISON: CT CHEST W CON 01/11/2023 8:13 PM FINDINGS: Lungs: Unremarkable. No consolidation. Pleural spaces: Unremarkable. No pleural effusion. No pneumothorax. Heart/Mediastinum: Unremarkable. No cardiomegaly. Bones/joints: Unremarkable. IMPRESSION: No acute findings.
[2023-04-04 14:46] LABS: Basophils # 0.1 K/mm3 (0-0.2); Basophils % 0.6 % (0.1-2.0); Eosinophils % 0.1 % (0.1-12.0); Hematocrit 44.9 % (42.0-52.0); Hemoglobin 16.5 g/dL (14.1-18.0); Lymphocytes % 25.9 % (10-50); Mean Corpuscular HGB Conc 36.8 g/dL (31.8-35.4); Mean Corpuscular Hemoglobin 31.8 pg (27.0-31.2); Mean Corpuscular Volume 86.5 fl (80-94); Mean Platelet Volume 7.4 fl (7.4-10.4); Monocytes # 0.8 K/mm3 (0.1-1.0); Neutrophils # 7.6 K/mm3 (1.8-7.8); Neutrophils % 66.4 % (37.0-80.0); Platelet Count 284 K/mm3 (142-424); Red Cell Distribution Width 12.6 % (11.5-17.5); White Blood Count 11.4 K/mm3 (4.8-10.8)
[2023-04-04 14:49] LABS: Alanine Aminotransferase 29 U/L (12-78); Albumin Level 4.7 g/dl (3.5-5.0); Albumin/Globulin Ratio 1.5 (1.1-1.8); Alkaline Phosphatase 96 U/L (38-126); Anion Gap 16.2 mEq/L (5-15); Aspartate Amino Transferase 29 U/L (17-59); Bilirubin,Total 4.2 mg/dl (0.2-1.3); Blood Urea Nitrogen 10 mg/dl (9-20); Calcium 8.9 mg/dl (8.4-10.2); Carbon Dioxide 24 mmol/L (22.0-30.0); Chloride 95 mmol/L (98-107); Estimated Glomerular Filt Rate 108 ml/min (>60); GFR (African American) 131 ML/MIN (>60); Globulin 3.2 g/dL (1.3-3.2); Glucose 260 mg/dl (74-100); Lipase 61 U/L (23-300); Potassium 3.2 mmoL/L (3.5-5.1); Sodium 132 mmol/L (136-145); Total Protein,Serum 7.9 g/dl (6.3-8.2)
--- NOTE | 2023-04-04 14:54 | HMH.EDGENADL ---
Discharge Plan Disposition Patient Disposition: Home, Self-Care Prescriptions Prescriptions: New capsaicin 0.1 % cream 1 applic topical DAILY Qty: 60 0RF Rx Instructions: do not wash area for at least 30 min after application prochlorperazine maleate [Compazine] 10 mg tablet 10 mg PO Q6H PRN (Reason: nausea and vomiting) 1 Days Qty: 20 0RF No Action aspirin 81 mg tablet,delayed release (DR/EC) 81 mg PO DAILY Qty: 90 1RF atorvastatin [Lipitor] 10 mg tablet 10 mg PO HS Qty: 90 1RF cholecalciferol (vitamin D3) 50 mcg (2,000 unit) capsule 50 mcg PO DAILY Qty: 90 1RF ergocalciferol (vitamin D2) 1,250 mcg (50,000 unit) capsule 1,250 mcg PO WEEKLY Qty: 14 1RF lisinopril 2.5 mg tablet 2.5 mg PO DAILY Qty: 90 1RF ondansetron 8 mg tablet,disintegrating 8 mg PO Q8H PRN (Reason: nausea and vomiting) 5 Days Qty: 30 0RF Januvia 100 mg tablet 100 mg PO DAILY Qty: 90 1RF magnesium citrate Solution 150 ml PO DAILY PRN (Reason: constipation) Qty: 296 0RF (DME) blood-glucose meter [Advanced Glucose Meter] Misc See Rx Instructions .Route Rx Instructions: Test sugar 3 times daily or As directed (DME) Advanced Gluc Meter Test Strip Strip See Rx Instructions .Route Rx Instructions: Test sugar 3 times daily or As directed (DME) Dexcom G7 Sensor Device See Rx Instructions .Route Rx Instructions: change sensor every 3 months (DME) Dexcom G7 Sand Filler Misc See Rx Instructions .Route Rx Instructions: As directed promethazine 25 mg tablet 25 mg PO Q6H PRN (Reason: sedation) Qty: 14 0RF metoclopramide HCl [Reglan] 10 mg tablet 10 mg PO Q6H PRN (Reason: nausea and vomiting) Qty: 14 0RF metoclopramide HCl [Reglan] 5 mg tablet 5 mg PO QAC Rx Instructions: administer 30 minutes before meals insulin glargine [Lantus Solostar U-100 Insulin] 100 unit/mL (3 mL) insulin pen 25 unit SQ HS Vraylar 1.5 mg capsule 1.5 mg PO DAILY promethazine 25 mg tablet 25 mg PO Q6H PRN (Reason: nausea and vomiting) Qty: 20 0RF (DME) pen needle, diabetic [BD Martina 2nd Gen Pen Needle] 32 gauge x 5/32 needle See Rx Instructions .Route Qty: 50 0RF Rx Instructions: As directed ondansetron HCl 4 mg tablet 4 mg PO Q8H PRN (Reason: nausea and vomiting) 5 Days Qty: 30 0RF Activity Restrictions/Add. Instructions Additional Instructions/Restrictions: Call your family doctor to establish care for this visit to the emergency department and schedule follow-up within 48 hours to ensure improvement. If you have any worsening of your condition or any other concerning signs or symptoms, return to the emergency department or your primary care doctor for further evaluation. Be sure to be careful when using capsaicin cream. Compazine as prescribed. Do not mix this with other antinausea and vomiting drugs. [id number] Maalox can help coat stomach and esophagus and prevent some pain. Clinical Impressions Clinical Impression: Cyclic vomiting syndrome, Hypokalemia Discharge ED Provider: Osito Mills General Adult HPI <Lisbet Mead DO - Last Filed: 04/04/23 14:59> General Chief complaint: PAIN Stated complaint: Chest Pain Time Seen by Provider: 04/04/23 14:33 History of Present Illness HPI narrative: This patient is a 37-year-old male with a history of diabetes and hypothyroidism presenting to the emergency department with continued nausea and vomiting after recent evaluation here less than 24 hours ago. Patient reports that since going home, he has had continued nausea and vomiting despite taking Zofran and Phenergan at home. He notes that it is gotten to the point where he is seeing blood streaks in his vomit and is having mild chest discomfort which he describes as acid reflux from hell . On medical record review, he has been seen here 3 times over the last 4 days for intractable nausea and
--- NOTE | 2023-04-04 17:05 | PC.NURSE ---
rounded on pt no needs at this time,call light at bs
== END 2023-04-04 18:20 | disposition home or self-care (01) ==
PROVIDERS: Emergency Medicine; Emergency Provider Emergency Medicine
DX: R07.89 Other chest pain (principal); R00.0 Tachycardia, unspecified; R11.2 Nausea with vomiting, unspecified; E87.6 Hypokalemia; E11.9 Type 2 diabetes mellitus without complications; E03.9 Hypothyroidism, unspecified
CPT/HCPCS: 71045; 80053; 83690; 85025; 93005; 96361; 96365; 96366; 96372; 96375; 99285; J2405

== ENCOUNTER 2023-04-05 00:43 | Emergency (ER) | payer MEDICAID, SELFPAY ==
[2023-04-05 00:44] VITALS: BP 156/94; PULSE 98; RESP 20; TEMP 36.8; O2SAT 96; BMI 25.1
--- NOTE | 2023-04-05 00:50 | HMH.EDGENADL ---
Discharge Plan Disposition Patient Disposition: Home, Self-Care Condition: Good Chief Complaint: Nausea/Vomiting/Diarrhea Prescriptions Prescriptions: No Action aspirin 81 mg tablet,delayed release (DR/EC) 81 mg PO DAILY Qty: 90 1RF atorvastatin [Lipitor] 10 mg tablet 10 mg PO HS Qty: 90 1RF cholecalciferol (vitamin D3) 50 mcg (2,000 unit) capsule 50 mcg PO DAILY Qty: 90 1RF ergocalciferol (vitamin D2) 1,250 mcg (50,000 unit) capsule 1,250 mcg PO WEEKLY Qty: 14 1RF lisinopril 2.5 mg tablet 2.5 mg PO DAILY Qty: 90 1RF ondansetron 8 mg tablet,disintegrating 8 mg PO Q8H PRN (Reason: nausea and vomiting) 5 Days Qty: 30 0RF Januvia 100 mg tablet 100 mg PO DAILY Qty: 90 1RF magnesium citrate Solution 150 ml PO DAILY PRN (Reason: constipation) Qty: 296 0RF (DME) blood-glucose meter [Advanced Glucose Meter] Misc See Rx Instructions .Route Rx Instructions: Test sugar 3 times daily or As directed (DME) Advanced Gluc Meter Test Strip Strip See Rx Instructions .Route Rx Instructions: Test sugar 3 times daily or As directed (DME) Dexcom G7 Sensor Device See Rx Instructions .Route Rx Instructions: change sensor every 3 months (DME) Dexcom G7 Church Communications Administrator Misc See Rx Instructions .Route Rx Instructions: As directed promethazine 25 mg tablet 25 mg PO Q6H PRN (Reason: sedation) Qty: 14 0RF metoclopramide HCl [Reglan] 10 mg tablet 10 mg PO Q6H PRN (Reason: nausea and vomiting) Qty: 14 0RF metoclopramide HCl [Reglan] 5 mg tablet 5 mg PO QAC Rx Instructions: administer 30 minutes before meals insulin glargine [Lantus Solostar U-100 Insulin] 100 unit/mL (3 mL) insulin pen 25 unit SQ HS Vraylar 1.5 mg capsule 1.5 mg PO DAILY promethazine 25 mg tablet 25 mg PO Q6H PRN (Reason: nausea and vomiting) Qty: 20 0RF capsaicin 0.1 % cream 1 applic topical DAILY Qty: 60 0RF Rx Instructions: do not wash area for at least 30 min after application prochlorperazine maleate [Compazine] 10 mg tablet 10 mg PO Q6H PRN (Reason: nausea and vomiting) 1 Days Qty: 20 0RF (DME) pen needle, diabetic [BD Martina 2nd Gen Pen Needle] 32 gauge x 5/32 needle See Rx Instructions .Route Qty: 50 0RF Rx Instructions: As directed ondansetron HCl 4 mg tablet 4 mg PO Q8H PRN (Reason: nausea and vomiting) 5 Days Qty: 30 0RF Referrals Follow up/Referrals: Carina Ruiz PA [Primary Care Provider] - See instructions Clinical Impressions Clinical Impression: Cyclical vomiting Instructions Patient Instructions: Nausea and Vomiting-Adult Discharge ED Provider: Aashish Mcqueen General Adult HPI General Chief complaint: Nausea/Vomiting/Diarrhea Stated complaint: nausea, vomiting, anxiety Time Seen by Provider: 04/05/23 00:47 History of Present Illness HPI narrative: This patient is a 37-year-old male with a history of diabetes and hypothyroidism presenting to the emergency department with continued nausea and vomiting after recent evaluation here less than 12 hours ago. Patient is well known to the department, long history of hyperemesis cannabinoid syndrome. Patient reports that since going home, he has had continued nausea and vomiting despite taking Zofran and Phenergan at home. He notes that it is gotten to the point where he is seeing blood streaks in his vomit and is having mild chest discomfort which he describes as acid reflux from hell . On medical record review, he has been seen here 4 times over the last 5 days for intractable nausea and vomiting in the setting of marijuana use. He was diagnosed with cannabis hyperemesis syndrome and was ultimately discharged home after reassuring CT scan and workup. He did receive droperidol and 1 visit with good improvement. Related Data Home Medications Medication Instructions Recorded Confirmed blood sugar diagnostic (Advance
--- NOTE | 2023-04-05 01:04 | ECG_ITS ---
APPROVED REPORT Exam: Resting ECG HR:86 bpm ECG Measurements Heart Rate 86 AXES CA 139 P -21 QRSd 103 QRS 7 QT 355 T 17 QTc 399 Conclusion SINUS RHYTHM NORMAL ECG UNCONFIRMED REPORT Electronically signed by : John Gay MD 04/05/2023 14:43:34
[2023-04-05 01:11] VITALS: BP 173/96; PULSE 83; RESP 12; O2SAT 96
[2023-04-05 01:30] VITALS: BP 148/93; PULSE 75; RESP 18; O2SAT 94
[2023-04-05 02:00] VITALS: BP 151/85; PULSE 81; RESP 19; O2SAT 95
[2023-04-05 02:59] VITALS: BP 123/79; PULSE 77; RESP 16; TEMP 36.8; O2SAT 99
== END 2023-04-05 03:01 | disposition home or self-care (01) ==
PROVIDERS: Emergency Provider Emergency Medicine; PCP Physician Assistant
DX: R11.2 Nausea with vomiting, unspecified (principal); K92.0 Hematemesis; E11.9 Type 2 diabetes mellitus without complications; E03.9 Hypothyroidism, unspecified; F17.210 Nicotine dependence, cigarettes, uncomplicated
CPT/HCPCS: 93005; 96372; 99283; J1790

== ENCOUNTER 2023-04-13 22:43 | Emergency (ER) | payer MEDICAID, SELFPAY ==
[2023-04-13 22:44] VITALS: BP 153/95; PULSE 103; RESP 18; TEMP 36.7; O2SAT 99; BMI 25.8
[2023-04-13 22:48] VITALS: BP 153/99; PULSE 103; O2SAT 99
--- NOTE | 2023-04-13 23:12 | ECG_ITS ---
APPROVED REPORT Exam: Resting ECG HR:93 bpm ECG Measurements Heart Rate 93 AXES MT 143 P -7 QRSd 96 QRS 0 QT 342 T 57 QTc 393 Conclusion SINUS RHYTHM NORMAL ECG UNCONFIRMED REPORT Electronically signed by : John Gay MD 04/17/2023 09:07:48
[2023-04-13 23:20] LABS: Basophils # 0.1 K/mm3 (0-0.2); Basophils % 0.8 % (0.1-2.0); Eosinophils # 0.1 K/mm3 (0.0-0.4); Eosinophils % 0.8 % (0.1-12.0); Hematocrit 47.9 % (42.0-52.0); Hemoglobin 16.7 g/dL (14.1-18.0); Lymphocytes # 1.7 K/mm3 (0.7-4.5); Lymphocytes % 15.7 % (10-50); Mean Corpuscular HGB Conc 34.8 g/dL (31.8-35.4); Mean Corpuscular Hemoglobin 31.4 pg (27.0-31.2); Mean Corpuscular Volume 90.1 fl (80-94); Mean Platelet Volume 7.4 fl (7.4-10.4); Monocytes # 0.6 K/mm3 (0.1-1.0); Monocytes % 5.3 % (1.7-9.3); Neutrophils # 8.4 K/mm3 (1.8-7.8); Neutrophils % 77.4 % (37.0-80.0); Platelet Count 298 K/mm3 (142-424); Red Blood Count 5.32 M/mm3 (4.60-6.20); Red Cell Distribution Width 13.3 % (11.5-17.5); White Blood Count 10.9 K/mm3 (4.8-10.8)
[2023-04-13 23:26] LABS: Alanine Aminotransferase 30 U/L (12-78); Albumin Level 4.7 g/dl (3.5-5.0); Albumin/Globulin Ratio 1.5 (1.1-1.8); Alkaline Phosphatase 81 U/L (38-126); Anion Gap 14.1 mEq/L (5-15); Aspartate Amino Transferase 31 U/L (17-59); Bilirubin,Total 2.7 mg/dl (0.2-1.3); Blood Urea Nitrogen 13 mg/dl (9-20); Calcium 9.1 mg/dl (8.4-10.2); Carbon Dioxide 26 mmol/L (22.0-30.0); Chloride 96 mmol/L (98-107); Creatinine Clearance Estimated 193 mL/min (50-200); Estimated Glomerular Filt Rate 151 ml/min (>60); GFR (African American) 182 ML/MIN (>60); Globulin 3.2 g/dL (1.3-3.2); Glucose 282 mg/dl (74-100); Magnesium 1.7 mg/dl (1.6-2.3); Potassium 4.1 mmoL/L (3.5-5.1); Sodium 132 mmol/L (136-145); Total Protein,Serum 7.9 g/dl (6.3-8.2)
--- NOTE | 2023-04-13 23:27 | HMH.EDGENADL ---
Discharge Plan Disposition Patient Disposition: Home, Self-Care Prescriptions Prescriptions: No Action promethazine 25 mg tablet 25 mg PO Q6H PRN (Reason: sedation) Qty: 14 0RF scopolamine base 1 mg over 3 days patch 3 day 1 patch transdermal Q3D PRN (Reason: nausea and vomiting) Qty: 10 0RF Gimoti 15 mg/spray spray with pump 1 spray intranasal QID Qty: 9.8 0RF Rx Instructions: administer into ONE nostril 30 minutes before each meal and at bedtime aspirin 81 mg tablet,delayed release (DR/EC) 81 mg PO DAILY Qty: 90 1RF atorvastatin [Lipitor] 10 mg tablet 10 mg PO HS Qty: 90 1RF cholecalciferol (vitamin D3) 50 mcg (2,000 unit) capsule 50 mcg PO DAILY Qty: 90 1RF ergocalciferol (vitamin D2) 1,250 mcg (50,000 unit) capsule 1,250 mcg PO WEEKLY Qty: 14 1RF lisinopril 2.5 mg tablet 2.5 mg PO DAILY Qty: 90 1RF Januvia 100 mg tablet 100 mg PO DAILY Qty: 90 1RF magnesium citrate Solution 150 ml PO DAILY PRN (Reason: constipation) Qty: 296 0RF (DME) blood-glucose meter [Advanced Glucose Meter] Misc See Rx Instructions .Route Rx Instructions: Test sugar 3 times daily or As directed (DME) Advanced Gluc Meter Test Strip Strip See Rx Instructions .Route Rx Instructions: Test sugar 3 times daily or As directed (DME) Dexcom G7 Sensor Device See Rx Instructions .Route Rx Instructions: change sensor every 3 months (DME) Dexcom G7 Ecological Economist Misc See Rx Instructions .Route Rx Instructions: As directed metoclopramide HCl [Reglan] 10 mg tablet 10 mg PO Q6H PRN (Reason: nausea and vomiting) Qty: 14 0RF metoclopramide HCl [Reglan] 5 mg tablet 5 mg PO QAC Rx Instructions: administer 30 minutes before meals insulin glargine [Lantus Solostar U-100 Insulin] 100 unit/mL (3 mL) insulin pen 25 unit SQ HS Vraylar 1.5 mg capsule 1.5 mg PO DAILY promethazine 25 mg tablet 25 mg PO Q6H PRN (Reason: nausea and vomiting) Qty: 20 0RF capsaicin 0.1 % cream 1 applic topical DAILY Qty: 60 0RF Rx Instructions: do not wash area for at least 30 min after application prochlorperazine maleate [Compazine] 10 mg tablet 10 mg PO Q6H PRN (Reason: nausea and vomiting) 1 Days Qty: 20 0RF (DME) pen needle, diabetic [BD Martina 2nd Gen Pen Needle] 32 gauge x 5/32 needle See Rx Instructions .Route Qty: 50 0RF Rx Instructions: As directed Referrals Follow up/Referrals: John Gay MD [Primary Care Provider] - See instructions Activity Restrictions/Add. Instructions Additional Instructions/Restrictions: Please follow-up with your primary care provider and with your specialists. Please return to the emergency department if you develop any new or worsening symptoms or become concerned for your health. Clinical Impressions Clinical Impression: Cyclic vomiting syndrome Instructions Patient Instructions: DI for Diarrhea and Traveler's Diarrhea -- Adult, DI for Diarrhea and Traveler's Diarrhea -- Child, DI for Nausea -- Adult, DI for Nausea -- Child Discharge ED Provider: Dmitry Jovel Adult HPI General Chief complaint: Nausea/Vomiting/Diarrhea Stated complaint: vomitting Time Seen by Provider: 04/13/23 22:55 Mode of Arrival: Wheelchair Source of Information: Patient Limitations: No Limitations Description of Symptoms (Recalled from ER Triage Doc. by RN): Presents to ED with c/o inability to tolerate PO since yesterdat morning. PAtient reports taking Phenergan yesterday and using a Scopolamine patch with no relief. Reports last smoking marijuana 2 weeks ago. 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 He has been seen 6 times this month in this ER and has been seen at recently as well. He is being worked up outpatient for this. He has begun taking new medicatio
[2023-04-13 23:29] VITALS: BP 125/81; PULSE 106; RESP 12; O2SAT 98
--- NOTE | 2023-04-13 23:29 | PC.NURSE ---
Rounded on patient; call light within reach of patient
[2023-04-13 23:30] VITALS: BP 127/86; PULSE 100; RESP 15; O2SAT 97
[2023-04-14] VITALS: BP 119/75; PULSE 101; RESP 17; O2SAT 96
--- NOTE | 2023-04-14 | PC.NURSE ---
Warm blankets provided to patient; call light within reach of patient
[2023-04-14 00:30] VITALS: BP 112/75; PULSE 101; RESP 20; O2SAT 96
--- NOTE | 2023-04-14 00:59 | PC.NURSE ---
Handed off report to Shivani CHOUDHURY
[2023-04-14 01:00] VITALS: BP 106/68; PULSE 91; RESP 19; O2SAT 96
[2023-04-14 01:57] VITALS: BP 110/78; PULSE 87; RESP 16; TEMP 36.7; O2SAT 97
== END 2023-04-14 01:58 | disposition home or self-care (01) ==
PROVIDERS: Emergency Provider Emergency Medicine; PCP Internal Medicine Adolescent Medicine
DX: E87.1 Hypo-osmolality and hyponatremia (principal); R11.15 Cyclical vomiting syndrome unrelated to migraine; K21.9 Gastro-esophageal reflux disease without esophagitis; F17.210 Nicotine dependence, cigarettes, uncomplicated; E11.65 Type 2 diabetes mellitus with hyperglycemia; Z79.4 Long term (current) use of insulin; Z79.84 Long term (current) use of oral hypoglycemic drugs
CPT/HCPCS: 80053; 83735; 85025; 93005; 96361; 96374; 96375; 99284; J1790

== ENCOUNTER 2023-04-15 12:38 | Emergency (ER) | payer MEDICAID, SELFPAY ==
[2023-04-15 12:39] VITALS: BP 152/101; PULSE 94; RESP 18; TEMP 36.8; O2SAT 100; BMI 25.1
[2023-04-15 13:02] VITALS: BMI 25.1
[2023-04-15 13:12] LABS: Basophils % 0.4 % (0.1-2.0); Eosinophils % 0.2 % (0.1-12.0); Hematocrit 47.3 % (42.0-52.0); Hemoglobin 17.2 g/dL (14.1-18.0); Lymphocytes # 1.4 K/mm3 (0.7-4.5); Lymphocytes % 12.5 % (10-50); Mean Corpuscular HGB Conc 36.3 g/dL (31.8-35.4); Mean Corpuscular Hemoglobin 31.8 pg (27.0-31.2); Mean Corpuscular Volume 87.5 fl (80-94); Mean Platelet Volume 7.5 fl (7.4-10.4); Monocytes # 0.7 K/mm3 (0.1-1.0); Monocytes % 6.4 % (1.7-9.3); Neutrophils # 9.1 K/mm3 (1.8-7.8); Neutrophils % 80.5 % (37.0-80.0); Platelet Count 301 K/mm3 (142-424); Red Cell Distribution Width 13.1 % (11.5-17.5); White Blood Count 11.3 K/mm3 (4.8-10.8)
--- NOTE | 2023-04-15 13:24 | PC.NURSE ---
DR MORRIS AT BEDSIDE
[2023-04-15 13:25] LABS: Alanine Aminotransferase 30 U/L (12-78); Albumin Level 4.7 g/dl (3.5-5.0); Albumin/Globulin Ratio 1.4 (1.1-1.8); Alkaline Phosphatase 83 U/L (38-126); Anion Gap 14.2 mEq/L (5-15); Aspartate Amino Transferase 28 U/L (17-59); Bilirubin,Total 3.4 mg/dl (0.2-1.3); Blood Urea Nitrogen 10 mg/dl (9-20); Calcium 9.1 mg/dl (8.4-10.2); Carbon Dioxide 28 mmol/L (22.0-30.0); Chloride 96 mmol/L (98-107); Creatinine Clearance Estimated 165 mL/min (50-200); Estimated Glomerular Filt Rate 126 ml/min (>60); GFR (African American) 153 ML/MIN (>60); Globulin 3.3 g/dL (1.3-3.2); Glucose 282 mg/dl (74-100); Potassium 4.2 mmoL/L (3.5-5.1); Sodium 134 mmol/L (136-145)
--- NOTE | 2023-04-15 13:30 | HMH.EDGENADL ---
Discharge Plan Disposition Patient Disposition: Home, Self-Care Condition: Good Prescriptions Prescriptions: No Action promethazine 25 mg tablet 25 mg PO Q6H PRN (Reason: sedation) Qty: 14 0RF scopolamine base 1 mg over 3 days patch 3 day 1 patch transdermal Q3D PRN (Reason: nausea and vomiting) Qty: 10 0RF Gimoti 15 mg/spray spray with pump 1 spray intranasal QID Qty: 9.8 0RF Rx Instructions: administer into ONE nostril 30 minutes before each meal and at bedtime aspirin 81 mg tablet,delayed release (DR/EC) 81 mg PO DAILY Qty: 90 1RF atorvastatin [Lipitor] 10 mg tablet 10 mg PO HS Qty: 90 1RF cholecalciferol (vitamin D3) 50 mcg (2,000 unit) capsule 50 mcg PO DAILY Qty: 90 1RF ergocalciferol (vitamin D2) 1,250 mcg (50,000 unit) capsule 1,250 mcg PO WEEKLY Qty: 14 1RF lisinopril 2.5 mg tablet 2.5 mg PO DAILY Qty: 90 1RF Januvia 100 mg tablet 100 mg PO DAILY Qty: 90 1RF magnesium citrate Solution 150 ml PO DAILY PRN (Reason: constipation) Qty: 296 0RF (DME) blood-glucose meter [Advanced Glucose Meter] Misc See Rx Instructions .Route Rx Instructions: Test sugar 3 times daily or As directed (DME) Advanced Gluc Meter Test Strip Strip See Rx Instructions .Route Rx Instructions: Test sugar 3 times daily or As directed (DME) Dexcom G7 Sensor Device See Rx Instructions .Route Rx Instructions: change sensor every 3 months (DME) Dexcom G7 Dragline Mechanic Misc See Rx Instructions .Route Rx Instructions: As directed metoclopramide HCl [Reglan] 10 mg tablet 10 mg PO Q6H PRN (Reason: nausea and vomiting) Qty: 14 0RF metoclopramide HCl [Reglan] 5 mg tablet 5 mg PO QAC Rx Instructions: administer 30 minutes before meals insulin glargine [Lantus Solostar U-100 Insulin] 100 unit/mL (3 mL) insulin pen 25 unit SQ HS Vraylar 1.5 mg capsule 1.5 mg PO DAILY promethazine 25 mg tablet 25 mg PO Q6H PRN (Reason: nausea and vomiting) Qty: 20 0RF capsaicin 0.1 % cream 1 applic topical DAILY Qty: 60 0RF Rx Instructions: do not wash area for at least 30 min after application prochlorperazine maleate [Compazine] 10 mg tablet 10 mg PO Q6H PRN (Reason: nausea and vomiting) 1 Days Qty: 20 0RF (DME) pen needle, diabetic [BD Martina 2nd Gen Pen Needle] 32 gauge x 5/32 needle See Rx Instructions .Route Qty: 50 0RF Rx Instructions: As directed Referrals Follow up/Referrals: Carina Ruiz PA [Primary Care Provider] - See instructions Activity Restrictions/Add. Instructions Additional Instructions/Restrictions: You were evaluated in the ER today for emesis and pain. You are safe for discharge at this time. As discussed, continue with a bland diet and be very careful as you start taking and new foods understanding that if you advance her diet too quickly it may cause emesis. Call your GI doctor and see if you can be scheduled for follow-up sooner given your recent multiple visits to the ER. Make an appointment with your primary care physician for reevaluation in 2 to 3 days. Return to the ER with new, worsening, or otherwise concerning symptoms. Instructions Patient Instructions: DI for Diarrhea and Traveler's Diarrhea -- Adult, DI for Diarrhea and Traveler's Diarrhea -- Child, DI for Nausea -- Adult, DI for Nausea -- Child Discharge ED Provider: Duane Rdz Adult HPI General Chief complaint: Nausea/Vomiting/Diarrhea Stated complaint: vomitting, acid reflux Time Seen by Provider: 04/15/23 13:20 Mode of Arrival: Wheelchair Source of Information: Patient Limitations: No Limitations Description of Symptoms (Recalled from ER Triage Doc. by RN): PT C/O UPPER EPIGASTRIC PAIN WITH VOMITING THAT STARTED THIS AM. History of Present Illness HPI narrative: This 37-year-old male with history of type 1 diabetes, cyclic vomiting syndrome, new diagnosis of gastropa
[2023-04-15 14:10] VITALS: BP 127/80; PULSE 103; RESP 18; TEMP 36.8; O2SAT 97
== END 2023-04-15 14:10 | disposition home or self-care (01) ==
PROVIDERS: Emergency Provider Emergency Medicine; PCP Physician Assistant
DX: R10.13 Epigastric pain (principal); R11.10 Vomiting, unspecified; E10.43 Type 1 diabetes mellitus with diabetic autonomic (poly)neuropathy; K31.84 Gastroparesis; F17.210 Nicotine dependence, cigarettes, uncomplicated
CPT/HCPCS: 80053; 85025; 99283

== ENCOUNTER 2023-04-23 20:49 | Emergency (ER) | payer MEDICAID, SELFPAY ==
--- NOTE | 2023-04-23 20:50 | ECG_ITS ---
APPROVED REPORT Exam: Resting ECG HR:111 bpm ECG Measurements Heart Rate 111 AXES SC 136 P 74 QRSd 88 QRS -66 QT 314 T 48 QTc 379 Conclusion SINUS TACHYCARDIA PATTERN CONSISTENT WITH PULMONARY DISEASE LEFT ANTERIOR FASCICULAR BLOCK [QRS AXIS <= -45, QR IN I, RS IN II] SEPTAL MYOCARDIAL INFARCTION , PROBABLY OLD [40+ ms Q WAVE IN V1/V2] ABNORMAL ECG UNCONFIRMED REPORT Electronically signed by : John Gay MD 04/25/2023 20:35:48
[2023-04-23 20:55] VITALS: BP 146/103; PULSE 110; RESP 19; TEMP 37.2; O2SAT 99; BMI 23.3
[2023-04-23 21:00] VITALS: BP 147/104; PULSE 113; RESP 28; O2SAT 98
[2023-04-23] MEDS: LACTATED RINGERS 1000ML 1,000 ML 999 ML IV (21:21)
[2023-04-23] MEDS: droPERidol 5MG/2ML VIAL 2.5 MG IV (21:21)
[2023-04-23 21:30] VITALS: BP 153/102; RESP 22; O2SAT 98
[2023-04-23 21:30] LABS: Basophils # 0.1 K/mm3 (0-0.2); Chloride 98 mmol/L (98-107); Eosinophils # 0.1 K/mm3 (0.0-0.4); Eosinophils % 0.8 % (0.1-12.0); Hematocrit 50.5 % (42.0-52.0); Hemoglobin 17.5 g/dL (14.1-18.0); Lymphocytes # 3.7 K/mm3 (0.7-4.5); Lymphocytes % 36.6 % (10-50); Mean Corpuscular HGB Conc 34.6 g/dL (31.8-35.4); Mean Corpuscular Hemoglobin 31.5 pg (27.0-31.2); Mean Corpuscular Volume 91.2 fl (80-94); Mean Platelet Volume 7.7 fl (7.4-10.4); Monocytes # 0.8 K/mm3 (0.1-1.0); Monocytes % 8.1 % (1.7-9.3); Neutrophils # 5.4 K/mm3 (1.8-7.8); Neutrophils % 53.4 % (37.0-80.0); Platelet Count 284 K/mm3 (142-424); Potassium 4.4 mmoL/L (3.5-5.1); Red Blood Count 5.53 M/mm3 (4.60-6.20); Red Cell Distribution Width 13.4 % (11.5-17.5); Sodium 138 mmol/L (136-145)
[2023-04-23 21:33] LABS: Alanine Aminotransferase 42 U/L (12-78); Albumin Level 4.7 g/dl (3.5-5.0); Albumin/Globulin Ratio 1.5 (1.1-1.8); Alkaline Phosphatase 86 U/L (38-126); Anion Gap 16.4 mEq/L (5-15); Aspartate Amino Transferase 30 U/L (17-59); Bilirubin,Total 2.4 mg/dl (0.2-1.3); Blood Urea Nitrogen 9 mg/dl (9-20); Carbon Dioxide 28 mmol/L (22.0-30.0); Creatinine Clearance Estimated 154 mL/min (50-200); Estimated Glomerular Filt Rate 126 ml/min (>60); GFR (African American) 153 ML/MIN (>60); Globulin 3.1 g/dL (1.3-3.2); Total Protein,Serum 7.8 g/dl (6.3-8.2)
[2023-04-23 21:34] LABS: Calcium 9.5 mg/dl (8.4-10.2); Glucose 285 mg/dl (74-100)
--- NOTE | 2023-04-23 21:46 | ED_ITS ---
Discharge Plan Disposition Patient Disposition: Home, Self-Care Prescriptions Prescriptions: No Action scopolamine base 1 mg over 3 days patch 3 day 1 patch transdermal Q3D PRN (Reason: nausea and vomiting) Qty: 10 0RF Gimoti 15 mg/spray spray with pump 1 spray intranasal QID Qty: 9.8 0RF Rx Instructions: administer into ONE nostril 30 minutes before each meal and at bedtime aspirin 81 mg tablet,delayed release (DR/EC) 81 mg PO DAILY Qty: 90 1RF atorvastatin [Lipitor] 10 mg tablet 10 mg PO HS Qty: 90 1RF cholecalciferol (vitamin D3) 50 mcg (2,000 unit) capsule 50 mcg PO DAILY Qty: 90 1RF ergocalciferol (vitamin D2) 1,250 mcg (50,000 unit) capsule 1,250 mcg PO WEEKLY Qty: 14 1RF lisinopril 2.5 mg tablet 2.5 mg PO DAILY Qty: 90 1RF Januvia 100 mg tablet 100 mg PO DAILY Qty: 90 1RF magnesium citrate Solution 150 ml PO DAILY PRN (Reason: constipation) Qty: 296 0RF (DME) blood-glucose meter [Advanced Glucose Meter] Misc See Rx Instructions .Route Rx Instructions: Test sugar 3 times daily or As directed (DME) Advanced Gluc Meter Test Strip Strip See Rx Instructions .Route Rx Instructions: Test sugar 3 times daily or As directed (DME) Dexcom G7 Sensor Device See Rx Instructions .Route Rx Instructions: change sensor every 3 months (DME) Dexcom G7 Host Coordinator Misc See Rx Instructions .Route Rx Instructions: As directed metoclopramide HCl [Reglan] 10 mg tablet 10 mg PO Q6H PRN (Reason: nausea and vomiting) Qty: 14 0RF insulin glargine [Lantus Solostar U-100 Insulin] 100 unit/mL (3 mL) insulin pen 25 unit SQ HS Vraylar 1.5 mg capsule 1.5 mg PO DAILY promethazine 25 mg tablet 25 mg PO Q6H PRN (Reason: nausea and vomiting) Qty: 20 0RF capsaicin 0.1 % cream 1 applic topical DAILY Qty: 60 0RF Rx Instructions: do not wash area for at least 30 min after application prochlorperazine maleate [Compazine] 10 mg tablet 10 mg PO Q6H PRN (Reason: nausea and vomiting) 1 Days Qty: 20 0RF (DME) pen needle, diabetic [BD Martina 2nd Gen Pen Needle] 32 gauge x 5/32 needle See Rx Instructions .Route Qty: 50 0RF Rx Instructions: As directed Referrals Follow up/Referrals: Carina Ruiz PA [Primary Care Provider] - See instructions Clinical Impressions Clinical Impression: Cannabinoid hyperemesis syndrome, Cyclical vomiting Instructions Patient Instructions: DI for Diarrhea and Traveler's Diarrhea -- Adult, DI for Diarrhea and Traveler's Diarrhea -- Child, DI for Nausea -- Adult, DI for Nausea -- Child Discharge ED Provider: Jonathan Paulson General Adult HPI General Chief complaint: Nausea/Vomiting/Diarrhea Stated complaint: Chest pain Time Seen by Provider: 04/23/23 21:46 Mode of Arrival: Family Vehicle Source of Information: Patient and Parent(s) Limitations: No Limitations Description of Symptoms (Recalled from ER Triage Doc. by RN): 37 yo male presents with recurrent cyclic vomiting as he has had multiple times and been seen in this ER for as well. Patient states I had a good week, and then today it started again . PMH: includes hyperemesis r/t cannabis use, however patient denies it currently. Patient denies sick contact, feels like this is the same as he always has . Denies pain excepted the heartburn he associates with the vomiting. Patient is alert, oriented, interactive; able to stand and change position independently. Afebrile. History of Present Illness HPI narrative: Patient is a 37-year-old well-known to our emergency department here with rec urrent cyclical vomiting episodes associated with cannabinol hyperemesis typically improved significantly after he gets droperidol presents today with the same symptoms he has presented with numerous times. Nothing out of the ordinary. Related Data Home Medications Medication Instructions Recorded Confirmed blood sugar diagnostic (Advanced 07/30/22 04/17/23 Glucose Meter Test Strips) blood-glucose meter (Advanced 07/30/22 04/17/23 Glucose Meter) blood-glucose meter,continuous 07/30/22 04/17/23 (Dexcom G7 Host Coordinator) blood-glucose sensor (Dexcom G7 07/30/22 04/17/23 Sensor device) cariprazine 1.5 mg capsule 1.5 mg PO DAILY bipolar 01/11/23 04/17/23 (Vraylar) insulin glargine 100 unit/mL (3 25 unit SQ HS Diabetes 01/11/23 04/17/23 mL) subcutaneous pen (Lantus Solostar U-100 Insulin) Previous Rx's Medication Instructions Recorded pen needle, diabetic 32 gauge x #50 ea 08/19/22 (BD Martina 2nd Gen Pen Needle) aspirin 81 mg tablet,delayed 81 mg PO DAILY Heart health #90 12/31/22 release tabs atorvastatin 10 mg tablet (Lipitor) 10 mg PO HS Cholesterol #90 tabs 12/31/22 cholecalciferol (vitamin D3) 50 50 mcg PO DAILY Supplement #90 caps 12/31/22 mcg (2,000 unit) capsule ergocalciferol (vitamin D2) 1,250 1,250 mcg PO WEEKLY Supplement #14 12/31/22 mcg (50,000 unit) capsule caps lisinopril 2.5 mg tablet 2.5 mg PO DAILY Hypertension #90 12/31/22 tabs sitagliptin phosphate 100 mg 100 mg PO DAILY Diabetes #90 tabs 12/31/22 tablet (Januvia) magnesium citrate 150 ml PO DAILY PRN constipation 01/09/23 #296 mL metoclopramide HCl 10 mg tablet 10 mg PO Q6H PRN nausea and 01/10/23 (Reglan) vomiting #14 tabs capsaicin 0.1 % topical cream 1 applic topical DAILY #60 grams 04/04/23 prochlorperazine maleate 10 mg 10 mg PO Q6H PRN nausea and 04/04/23 tablet (Compazine) vomiting 24 hours #20 tabs promethazine 25 mg tablet 25 mg PO Q6H PRN nausea and 04/04/23 vomiting #20 tabs metoclopramide HCl 15 mg/spray 1 spray intranasal QID #9.8 mL 04/05/23 nasal spray with pump (Gimoti) scopolamine base 1 mg over 3 days 1 patch transdermal Q3D PRN nausea 04/05/23 transdermal patch and vomiting #10 ea Allergies Allergy/AdvReac Type Severity Reaction Status Date / Time Penicillins [PENICILLINS] Allergy Unknown Verified 04/23/23 12:28 [facility] Disclaimer: The information contained in this section may have been updated after the patient was seen, as this information can be updated by other users. Medical History (Updated 04/23/23 @ 21:47 by Jonathan Paulson MD) Diabetes History of diabetic ketoacidosis Low testosterone level in male Nausea Surgical History (Updated 04/23/23 @ 12:27 by Jolanta Yang RN) No significant past surgical history Family History Father Hypertension Hyperlipidemia Diabetes Social History (Updated 04/23/23 @ 12:28 by Jolanta Yang RN) Smoking Status: Unknown if ever smoked alcohol intake: never substance use type: denies use current occupational status: unemployed Travel in the last 8 weeks: None household members: children housing: house marital status: single number of children: 4 current occupation: [employer] current occupational exposures/hazards: No caffeine: Yes ROS Obtained: Yes All systems reviewed & no additional complaints except as documented Physical Exam General General appearance: alert Respiratory Respiratory exam: Present normal lung sounds bilaterally Cardiovascular Cardiovascular exam: Present regular rate; Absent tachycardia Abdominal Exam Abdominal exam: Present soft and other (Actively retching); Absent distention or tenderness Neurological Exam Neurological exam: Present alert and oriented X3 Medical Decision Making Burton Inquiry Pt receiving controlled substance: No Vital Signs: 04/23/23 20:55 04/23/23 21:00 04/23/23 21:30 Temperature 99 F Temperature Source Oral Pulse Rate 113 H Pulse Rate [Right Brachial] 110 H Respiratory Rate 19 28 H 22 Blood Pressure 147/104 H 153/102 H Blood Pressure [Right Arm] 146/103 H Blood Pressure Mean [Right Arm] 117 Blood Pressure Source [Right Arm] Automatic Cuff Blood Pressure Position [Right Arm] Sitting 02 Sat by Pulse Oximetry 99 98 98 Oxygen Delivery Method Room Air Room Air Room Air 04/23/23 22:00 04/23/23 22:30 Temperature Temperature Source Pulse Rate Pulse Rate [Right Brachial] Respiratory Rate 19 19 Blood Pressure 118/76 128/86 Blood Pressure [Right Arm] Blood Pressure Mean [Right Arm] Blood Pressure Source [Right Arm] Blood Pressure Position [Right Arm] 02 Sat by Pulse Oximetry 98 Oxygen Delivery Method Room Air Lab Data Lab results reviewed: Yes I reviewed the patient's lab results. Lab Results 04/23/23 20:58: WBC 10.0, RBC 5.53, Hgb 17.5, Hct 50.5, MCV 91.2, MCH 31.5 H, MCHC 34.6, RDW 13.4, Plt Count 284, MPV 7.7, Neut % (Auto) 53.4, Lymph % (Auto) 36.6, Routt % (Auto) 8.1, Eos % (Auto) 0.8, Baso % (Auto) 1.0, Neut # (Auto) 5.4, Lymph # (Auto) 3.7, Routt # (Auto) 0.8, Eos # (Auto) 0.1, Baso # (Auto) 0.1, Sodium 138, Potassium 4.4, Chloride 98, Carbon Dioxide 28, Anion Gap 16.4 H, BUN 9, Creatinine 0.70, Estimated Creat Clear 154, Estimated GFR 126, Est GFR ( Amer) 153, Glucose 285 H, Calcium 9.5, Total Bilirubin 2.4 H, AST 30, ALT 42, Alkaline Phosphatase 86, Total Protein 7.8, Albumin 4.7, Globulin 3.1, Albumin/Globulin Ratio 1.5, Lipase 32 04/23/23 20:58 04/23/23 20:58 Orders (Tests/Meds): ED MEDICATIONS Discontinued Medications Generic Name Dose Route Start Last Admin Trade Name Freq PRN Reason Stop Dose Admin Droperidol 2.5 mg 04/23/23 21:06 04/23/23 21:21 Droperidol 5mg/2ml Vial IV 04/23/23 21:07 2.5 mg ONCE ONE Administration Lactated Ringer's 1,000 mls @ 999 mls/hr 04/23/23 21:17 04/23/23 21:21 Lactated Ringer's 1000 Ml Bag IV 04/23/23 22:17 999 mls/hr .Q1H1M ONE Administration ORDERS Category Date Time Status CMP [Comprehensive Metabolic Panel] Stat Lab 04/23/23 20:58 Completed Complete Blood Count Auto Diff Stat Lab 04/23/23 20:58 Completed Lipase Stat Lab 04/23/23 20:58 Completed ECG initial Bess[place] Routine Y 04/23/23 20:50 Completed Medical Decision Narrative: 37-year-old male with cyclical vomiting associated with cannabinol hyperemesis presenting with a similar presentation. Benign abdominal exam will give droperidol and reassess. Of note the patient has had a normal CT scan ultrasound gastric emptying study all within this year. Reassessment 11 PM patient feeling much better tolerating p.o. ready to go home he has follow-up with gastroenterology on the 10th of this month. Of note patient's bilirubin is mildly elevated but it has been chronically elevated and its actually better than it has been in the past patient was discharged in stable condition. Critical Care Critical Care Time Critical Care Time: No
[2023-04-23 22:00] VITALS: BP 118/76; RESP 19; O2SAT 98
[2023-04-23 22:00] LABS: Lipase 32 U/L (23-300)
[2023-04-23 22:30] VITALS: BP 128/86; RESP 19
[2023-04-23 23:01] VITALS: BP 127/84; PULSE 98; RESP 16; TEMP 36.8; O2SAT 98
== END 2023-04-23 23:06 | disposition home or self-care (01) ==
PROVIDERS: Emergency Provider Student in an Organized Health Care Education/Training Program; PCP Physician Assistant
DX: R11.10 Vomiting, unspecified (principal); F12.188 Cannabis abuse with other cannabis-induced disorder
CPT/HCPCS: 80053; 83690; 85025; 93005; 96361; 96374; 99285; J1790

== ENCOUNTER 2023-04-27 11:48 | Emergency (ER) | payer MEDICAID, SELFPAY ==
[2023-04-27] VITALS (10 sets, daily range): BP systolic 110–155; BP diastolic 77–103; PULSE 86–112; RESP 16–20; TEMP 36.6–36.7; O2SAT 95–99; BMI 23.3
--- NOTE | 2023-04-27 11:58 | CT_ITS ---
PROCEDURE INFORMATION: Exam: CT Abdomen And Pelvis With Contrast Exam date and time: 04/27/2023 12:17 PM Age: 37 years old Clinical indication: Abdominal pain; Generalized; Additional info: Abdominal pain, nonlocalized TECHNIQUE: Imaging protocol: Computed tomography of the abdomen and pelvis with contrast. Radiation optimization: All CT scans at this facility use at least one of these dose optimization techniques: automated exposure control; mA and/or kV adjustment per patient size (includes targeted exams where dose is matched to clinical indication); or iterative reconstruction. Contrast material: ISOVUE; Contrast volume: 75 ml; Contrast route: IV; COMPARISON: CT ABDOMEN PELVIS W CON 04/03/2023 11:58 PM FINDINGS: Liver: Unremarkable. Gallbladder and bile ducts: Unremarkable. Pancreas: Unremarkable. Spleen: Unremarkable. Adrenal glands: Unremarkable. Kidneys and ureters: See Urinary bladder finding. Stomach and bowel: Unremarkable. Appendix: Appendix is visualized and is normal. Intraperitoneal space: No free fluid. No pneumoperitoneum. Vasculature: Unremarkable. Lymph nodes: Unremarkable. Urinary bladder: Moderately distended urinary bladder concerning for urinary retention vs bladder outlet obstruction. Reproductive: Prostate is enlarged, measuring approximately 5.5 cm in transverse axis. Bones/joints: Bilateral L5 pars defects. No spondylolisthesis. No evidence of acute osseous abnormality. Soft tissues: Unremarkable. IMPRESSION: 1. No acute findings in the abdomen or pelvis. 2. Enlarged prostate. 3. Moderately distended urinary bladder concerning for urinary retention vs bladder outlet obstruction. 4. Bilateral L5 pars defects. No spondylolisthesis.
--- NOTE | 2023-04-27 12:05 | [facility].EDGENADL ---
Discharge Plan Disposition Patient Disposition: Home, Self-Care Condition: Good Prescriptions Prescriptions: New ondansetron 8 mg tablet,disintegrating 8 mg PO Q6 PRN (Reason: nausea and vomiting) 4 Days Qty: 16 0RF No Action Gimoti 15 mg/spray spray with pump 1 spray intranasal QID Qty: 9.8 0RF Rx Instructions: administer into ONE nostril 30 minutes before each meal and at bedtime aspirin 81 mg tablet,delayed release (DR/EC) 81 mg PO DAILY Qty: 90 1RF atorvastatin [Lipitor] 10 mg tablet 10 mg PO HS Qty: 90 1RF cholecalciferol (vitamin D3) 50 mcg (2,000 unit) capsule 50 mcg PO DAILY Qty: 90 1RF ergocalciferol (vitamin D2) 1,250 mcg (50,000 unit) capsule 1,250 mcg PO WEEKLY Qty: 14 1RF lisinopril 2.5 mg tablet 2.5 mg PO DAILY Qty: 90 1RF Januvia 100 mg tablet 100 mg PO DAILY Qty: 90 1RF magnesium citrate Solution 150 ml PO DAILY PRN (Reason: constipation) Qty: 296 0RF scopolamine base 1 mg over 3 days patch 3 day See Rx Instructions .ROUTE .COMPLEX Qty: 10 0RF Dose Instruction: APPLY 1 PATCH TOPICALLY EVERY 72 HOURS NEEDED FOR NAUSEA AND VOMITING Rx Instructions: APPLY 1 PATCH TOPICALLY EVERY 72 HOURS NEEDED FOR NAUSEA AND VOMITING (DME) blood-glucose meter [Advanced Glucose Meter] Misc See Rx Instructions .Route Rx Instructions: Test sugar 3 times daily or As directed (DME) Advanced Gluc Meter Test Strip Strip See Rx Instructions .Route Rx Instructions: Test sugar 3 times daily or As directed (DME) Dexcom G7 Sensor Device See Rx Instructions .Route Rx Instructions: change sensor every 3 months (DME) Dexcom G7 Snack Bar Attendant Misc See Rx Instructions .Route Rx Instructions: As directed metoclopramide HCl [Reglan] 10 mg tablet 10 mg PO Q6H PRN (Reason: nausea and vomiting) Qty: 14 0RF insulin glargine [Lantus Solostar U-100 Insulin] 100 unit/mL (3 mL) insulin pen 25 unit SQ HS Vraylar 1.5 mg capsule 1.5 mg PO DAILY promethazine 25 mg tablet 25 mg PO Q6H PRN (Reason: nausea and vomiting) Qty: 20 0RF capsaicin 0.1 % cream 1 applic topical DAILY Qty: 60 0RF Rx Instructions: do not wash area for at least 30 min after application prochlorperazine maleate [Compazine] 10 mg tablet 10 mg PO Q6H PRN (Reason: nausea and vomiting) 1 Days Qty: 20 0RF (DME) pen needle, diabetic [BD Martina 2nd Gen Pen Needle] 32 gauge x 5/32 needle See Rx Instructions .Route Qty: 50 0RF Rx Instructions: As directed Referrals Follow up/Referrals: Carina Ruiz PA [Primary Care Provider] - See instructions Activity Restrictions/Add. Instructions Additional Instructions/Restrictions: You have been evaluated in the ED for your complaints. You may follow-up with your PCP in the next 3 to 5 days. Please return to ED for any new or worsening symptoms. As discussed, please continue taking your Phenergan that you have at home to assist. I have written for 8 mg Zofran as well to use if needed. Please keep your upcoming GI appointment. Clinical Impressions Clinical Impression: Abdominal pain, Nausea & vomiting Instructions Patient Instructions: DI for Diarrhea and Traveler's Diarrhea -- Adult, DI for Diarrhea and Traveler's Diarrhea -- Child, DI for Nausea -- Adult, DI for Nausea -- Child Discharge ED Provider: Brannon Noel Adult HPI General Chief complaint: Nausea/Vomiting/Diarrhea Stated complaint: vomiting, fever Time Seen by Provider: 04/27/23 11:57 History of Present Illness HPI narrative: 37-year-old male with past medical history significant for type 2 diabetes, history of DKA, bipolar depression, cyclical vomiting syndrome, currently being worked up for gastroparesis, presents today for evaluation concerning nausea, vomiting and abdominal pain which he states has been present and worsening over the past 3 weeks. Reports that he has been unable to tolerate solids however has been taking in some liquids. Reports subjective fevers stating that his temperature was no higher than 99.7. Denies having any diarrhea but states that he has had constipation this week however has still been passing gas. Denies any dysuria, hematuria, cough, congestion, rhinorrhea or any other associated symptoms. Denies any cannabis use over the past month. Related Data Home Medications Medication Instructions Recorded Confirmed blood sugar diagnostic (Advanced 07/30/22 04/17/23 Glucose Meter Test Strips) blood-glucose meter (Advanced 07/30/22 04/17/23 Glucose Meter) blood-glucose meter,continuous 07/30/22 04/17/23 (Dexcom G7 Snack Bar Attendant) blood-glucose sensor (Dexcom G7 07/30/22 04/17/23 Sensor device) cariprazine 1.5 mg capsule 1.5 mg PO DAILY bipolar 01/11/23 04/17/23 (Vraylar) insulin glargine 100 unit/mL (3 25 unit SQ HS Diabetes 01/11/23 04/17/23 mL) subcutaneous pen (Lantus Solostar U-100 Insulin) Previous Rx's Medication Instructions Recorded pen needle, diabetic 32 gauge x #50 ea 08/19/22 (BD Martina 2nd Gen Pen Needle) aspirin 81 mg tablet,delayed 81 mg PO DAILY Heart health #90 12/31/22 release tabs atorvastatin 10 mg tablet (Lipitor) 10 mg PO HS Cholesterol #90 tabs 12/31/22 cholecalciferol (vitamin D3) 50 50 mcg PO DAILY Supplement #90 caps 12/31/22 mcg (2,000 unit) capsule ergocalciferol (vitamin D2) 1,250 1,250 mcg PO WEEKLY Supplement #14 12/31/22 mcg (50,000 unit) capsule caps lisinopril 2.5 mg tablet 2.5 mg PO DAILY Hypertension #90 12/31/22 tabs sitagliptin phosphate 100 mg 100 mg PO DAILY Diabetes #90 tabs 12/31/22 tablet (Januvia) magnesium citrate 150 ml PO DAILY PRN constipation 01/09/23 #296 mL metoclopramide HCl 10 mg tablet 10 mg PO Q6H PRN nausea and 01/10/23 (Reglan) vomiting #14 tabs capsaicin 0.1 % topical cream 1 applic topical DAILY #60 grams 04/04/23 prochlorperazine maleate 10 mg 10 mg PO Q6H PRN nausea and 04/04/23 tablet (Compazine) vomiting 24 hours #20 tabs promethazine 25 mg tablet 25 mg PO Q6H PRN nausea and 04/04/23 vomiting #20 tabs metoclopramide HCl 15 mg/spray 1 spray intranasal QID #9.8 mL 04/05/23 nasal spray with pump (Gimoti) scopolamine base 1 mg over 3 days See Rx Instructions .Route 04/26/23 transdermal patch .COMPLEX #10 patches ondansetron 8 mg disintegrating 8 mg PO Q6 PRN nausea and vomiting 04/27/23 tablet 4 days #16 tabs Allergies Allergy/AdvReac Type Severity Reaction Status Date / Time Penicillins [PENICILLINS] Allergy Unknown Verified 04/27/23 12:23 [facility] Disclaimer: The information contained in this section may have been updated after the patient was seen, as this information can be updated by other users. Medical History (Updated 04/27/23 @ 13:42 by Brannon Noel DO) Diabetes History of diabetic ketoacidosis Low testosterone level in male Nausea Surgical History (Updated 04/23/23 @ 12:27 by Jolanta Yang RN) No significant past surgical history Family History Father Hypertension Hyperlipidemia Diabetes Social History (Updated 04/23/23 @ 12:28 by Jolanta Yang RN) Smoking Status: Current every day smoker tobacco type: cigarettes packs per day: 2 alcohol intake: never substance use type: denies use current occupational status: unemployed Travel in the last 8 weeks: None household members: children housing: house marital status: single number of children: 4 current occupation: [employer] current occupational exposures/hazards: No caffeine: Yes ROS Obtained: Yes All systems reviewed & no additional complaints except as documented Physical Exam General General appearance: alert and in no apparent distress Head Head exam: atraumatic and normocephalic Eye Eye exam: Present normal appearance, PERRL and EOMI ENT ENT exam: Present normal oropharynx and mucous membranes moist Neck Neck exam: Present full ROM; Absent meningismus Respiratory Respiratory exam: Absent respiratory distress, wheezes, stridor or accessory muscle use Cardiovascular Cardiovascular exam: Present normal rhythm and tachycardia Abdominal Exam Abdominal exam: Present soft and tenderness; Absent distention, guarding, rebound or rigidity Abdominal tenderness: Present diffuse and moderate Neurological Exam Neurological exam: Present alert, oriented X3 and CN II-XII intact; Absent motor sensory deficit Psychiatric Psychiatric exam: Present normal affect and normal mood Skin Skin exam: Present warm and dry Medical Decision Making Medical Records Medical records reviewed: Yes I reviewed the patient's medical records. [place] Inquiry Pt receiving controlled substance: No [place] was queried for this patient: No Vital Signs: 04/27/23 11:49 04/27/23 11:51 04/27/23 12:00 Temperature 97.8 F Temperature Source Oral Pulse Rate 108 H 106 H Pulse Rate [Left Radial] 112 H Respiratory Rate 20 18 16 Blood Pressure 155/95 H 146/103 H Blood Pressure [Right Arm] 155/95 H Blood Pressure Mean 106 109 Blood Pressure Mean [Right Arm] 115 Blood Pressure Source [Right Arm] Automatic Cuff Blood Pressure Position [Right Arm] Sitting 02 Sat by Pulse Oximetry 99 99 98 Oxygen Delivery Method Room Air 04/27/23 12:30 04/27/23 13:00 04/27/23 13:30 Temperature Temperature Source Pulse Rate 94 H 88 86 Pulse Rate [Left Radial] Respiratory Rate 18 18 18 Blood Pressure 128/86 120/79 126/85 Blood Pressure [Right Arm] Blood Pressure Mean 100 92 94 Blood Pressure Mean [Right Arm] Blood Pressure Source [Right Arm] Blood Pressure Position [Right Arm] 02 Sat by Pulse Oximetry 99 95 96 Oxygen Delivery Method 04/27/23 13:38 04/27/23 14:30 Temperature Temperature Source Pulse Rate 99 H 97 H Pulse Rate [Left Radial] Respiratory Rate Blood Pressure 149/94 H 110/78 Blood Pressure [Right Arm] Blood Pressure Mean 88 Blood Pressure Mean [Right Arm] Blood Pressure Source [Right Arm] Blood Pressure Position [Right Arm] 02 Sat by Pulse Oximetry 97 98 Oxygen Delivery Method Room Air Room Air Lab Data Lab Results 04/27/23 11:58: VBG pH 7.57 H, VBG pCO2 22.4 L, VBG pO2 127.4 H, VBG HCO3 20.2 L, VBG Total CO2 20.9 L, VBG O2 Saturation 99.0 H, VBG Base Excess -1.7 04/27/23 12:04: WBC 7.9, RBC 5.38, Hgb 17.1, Hct 46.7, MCV 86.8, MCH 31.8 H, MCHC 36.7 H, RDW 12.9, Plt Count 226, MPV 6.6 L, Neut % (Auto) 61.2, Lymph % (Auto) 30.8, [place] % (Auto) 6.3, Eos % (Auto) 0.8, Baso % (Auto) 0.8, Neut # (Auto) 4.8, Lymph # (Auto) 2.4, [place] # (Auto) 0.5, Eos # (Auto) 0.1, Baso # (Auto) 0.1, Sodium 134 L, Potassium 4.0, Chloride 94 L, Carbon Dioxide 26, Anion Gap 18.0 H, BUN 13, Creatinine 0.70, Estimated Creat Clear 153, Estimated GFR 126, Est GFR ( Amer) 153, Glucose 348 H, Lactate 1.6, Calcium 9.3, Total Bilirubin 2.3 H, AST 26, ALT 33, Alkaline Phosphatase 87, Total Protein 7.7, Albumin 4.6, Globulin 3.1, Albumin/Globulin Ratio 1.5, Lipase 37 04/27/23 12:11: SARS-CoV-2 (PCR) Not detected, Influenza A Untype (PCR) Not detected, Influenza Type B (PCR) Not detected 04/27/23 12:04 04/27/23 12:04 Orders (Tests/Meds): ED MEDICATIONS Generic Name Dose Route Start Last Admin Trade Name Freq PRN Reason Stop Dose Admin Sodium Chloride 10 ml 04/27/23 12:18 04/27/23 12:20 Sodium Chloride 0.9% 10ml Syr (Rad Only) IV 05/27/23 12:17 10 ml NEEDED PRN Administration Maintain IV Site Discontinued Medications Generic Name Dose Route Start Last Admin Trade Name Freq PRN Reason Stop Dose Admin Lactated Ringer's 500 mls @ 999 mls/hr 04/27/23 11:58 04/27/23 12:09 Lactated Ringer's 1000 Ml Bag IV 04/27/23 12:28 999 mls/hr .Q31M ONE Administration Iopamidol 75 ml 04/27/23 12:18 04/27/23 12:20 Iopamidol-370 (76%);100ml Bottle IV 04/27/23 12:19 75 ml ONCE ONE Administration Morphine Sulfate 4 mg 04/27/23 11:58 04/27/23 12:09 Morphine 4mg/Ml Syringe IV 04/27/23 11:59 4 mg ONCE ONE Administration Ondansetron HCl 4 mg 04/27/23 11:58 04/27/23 12:09 Ondansetron 4mg/2ml Vial IV 04/27/23 11:59 4 mg ONCE ONE Administration Promethazine HCl 25 mg 04/27/23 13:44 04/27/23 13:47 Promethazine Hcl 25mg/Ml 1ml Vial IV 04/27/23 13:45 25 mg ONCE ONE Administration Sodium Chloride 25 ml 04/27/23 13:44 04/27/23 13:47 Sodium Chloride 0.9% 25ml Bag IV 04/27/23 13:45 25 ml ONCE ONE Administration ORDERS Category Date Time Status CT abdomen pelvis w con Stat Cat Scan 04/27/23 11:58 Completed Complete Blood Count Auto Diff Stat Lab 04/27/23 12:04 Completed Comprehensive Metabolic Panel Stat Lab 04/27/23 12:04 Completed Lactic Acid Stat Lab 04/27/23 12:04 Completed Lipase Stat Lab 04/27/23 12:04 Completed Rapid PCR Covid and Flu A/B Stat Lab 04/27/23 12:11 Completed Venous Blood Gas Stat RT 04/27/23 11:58 Completed Medical Decision Narrative: 37-year-old male with past medical history significant for type 2 diabetes, history of DKA, bipolar depression, cyclical vomiting syndrome, currently being worked up for gastroparesis, presents today for evaluation concerning nausea, vomiting and abdominal pain which he states has been present and worsening over the past 3 weeks. Reports that he has been unable to tolerate solids however has been taking in some liquids. Also stated that he has not had a bowel movement in over a week. Still passing gas. On assessment, the patient was hemodynamically stable and in some distress secondary to his pain. His abdomen was soft and nondistended however was moderately tender to palpation generally. Mild tachycardia on assessment. Moist mucous membranes. Other exam findings unremarkable. Differential diagnoses include but not limited to gastritis, gastroenteritis, gastroparesis, DKA, viral syndrome, pancreatitis, cholecystitis, appendicitis, colitis, constipation, obstruction, among others. Patient was given IV morphine and IV Zofran to assist with his symptoms. He was also given a fluid bolus of LR. No elevation in WBC on CBC to suggest infection. Sodium level was 134. Anion gap of 18, likely from patient's vomiting. Glucose level of 348. Total bilirubin of 2.3. Lactate within range at 1.6. Lipase within range. Negative swabs. I did reassess patient and he stated his pain and nausea are resolved at this time. CT imaging of the abdomen pelvis without any acute intra-abdominal processes. It was noted on CT read that he does have an enlarged prostate and moderately distended urinary bladder. I discussed CT imaging results with patient and current plan to discharge home. He has prescriptions for Zofran and Phenergan to assist however I will write another prescription for 8 mg Zofran. He also has an appointment with his site monitor in May which he will keep. Patient verbalized understanding and agreed with my plan. Provided with strict return precautions. He was subsequent discharged home in medically stable and in no acute distress. Note: Before discharge patient did become nauseated after his p.o. trial and I did give him another dose of antiemetics, IV Phenergan. He was allowed to rest in another p.o. challenge was attempted and he tolerated it without difficulty. I did monitor patient to make sure that he would not have another episode of emesis and he remained stable. Will continue with plan to discharge at this time. Critical Care Critical Care Time Critical Care Time: No
[2023-04-27] MEDS: LACTATED RINGERS 1000ML 500 ML 999 ML IV (12:09)
[2023-04-27] MEDS: ONDANSETRON 4MG/2ML VIAL 4 MG IV (12:09)
[2023-04-27] MEDS: MORPHINE 4MG/ML SYRINGE 4 MG IV (12:09)
--- NOTE | 2023-04-27 12:14 | PC.NURSE ---
covid/flu swab sent
--- NOTE | 2023-04-27 12:16 | PC.NURSE ---
pt at ct
[2023-04-27 12:18] LABS: Coronavirus 19, PCR Not Detected (NotDetected); Influenza A, PCR Not Detected (NotDetected); Influenza B, PCR Not Detected (NotDetected)
[2023-04-27 12:19] LABS: VBG Base Excess -1.7 mmol/L (-2.4-2.3); VBG HCO3 20.2 mmol/L (23-30); VBG PO2 127.4 mmol/L (28-40); VBG Total CO2 20.9 mmol/L (23-27)
[2023-04-27] MEDS: IOPAMIDOL-370 (76%);100ML BOTTLE 75 ML IV (12:20)
[2023-04-27] MEDS: SODIUM CHLORIDE 0.9% 10ML SYR (RAD ONLY) 10 ML IV (12:20)
[2023-04-27 12:22] LABS: VBG PCO2 22.4 mmol/L (35-51); VBG PH 7.57 mmol/L (7.31-7.41)
--- NOTE | 2023-04-27 12:22 | PC.NURSE ---
VBG results called, aware
[2023-04-27 12:29] LABS: Chloride 94 mmol/L (98-107)
[2023-04-27 12:30] LABS: Basophils # 0.1 K/mm3 (0-0.2); Basophils % 0.8 % (0.1-2.0); Eosinophils # 0.1 K/mm3 (0.0-0.4); Eosinophils % 0.8 % (0.1-12.0); Hematocrit 46.7 % (42.0-52.0); Hemoglobin 17.1 g/dL (14.1-18.0); Lymphocytes # 2.4 K/mm3 (0.7-4.5); Lymphocytes % 30.8 % (10-50); Mean Corpuscular HGB Conc 36.7 g/dL (31.8-35.4); Mean Corpuscular Hemoglobin 31.8 pg (27.0-31.2); Mean Corpuscular Volume 86.8 fl (80-94); Mean Platelet Volume 6.6 fl (7.4-10.4); Monocytes # 0.5 K/mm3 (0.1-1.0); Monocytes % 6.3 % (1.7-9.3); Neutrophils # 4.8 K/mm3 (1.8-7.8); Neutrophils % 61.2 % (37.0-80.0); Platelet Count 226 K/mm3 (142-424); Red Blood Count 5.38 M/mm3 (4.60-6.20); Red Cell Distribution Width 12.9 % (11.5-17.5); Sodium 134 mmol/L (136-145); White Blood Count 7.9 K/mm3 (4.8-10.8)
[2023-04-27 12:32] LABS: Alanine Aminotransferase 33 U/L (12-78); Aspartate Amino Transferase 26 U/L (17-59); Blood Urea Nitrogen 13 mg/dl (9-20); Creatinine Clearance Estimated 153 mL/min (50-200); Estimated Glomerular Filt Rate 126 ml/min (>60); GFR (African American) 153 ML/MIN (>60); Lactic Acid 1.6 mmol/L (0.7-2.1)
--- NOTE | 2023-04-27 12:32 | PC.NURSE ---
provided pt with a warm blanket.
[2023-04-27 12:33] LABS: Albumin Level 4.6 g/dl (3.5-5.0); Albumin/Globulin Ratio 1.5 (1.1-1.8); Alkaline Phosphatase 87 U/L (38-126); Bilirubin,Total 2.3 mg/dl (0.2-1.3); Calcium 9.3 mg/dl (8.4-10.2); Carbon Dioxide 26 mmol/L (22.0-30.0); Globulin 3.1 g/dL (1.3-3.2); Glucose 348 mg/dl (74-100); Lipase 37 U/L (23-300); Total Protein,Serum 7.7 g/dl (6.3-8.2)
--- NOTE | 2023-04-27 13:26 | PC.NURSE ---
er updating pt
--- NOTE | 2023-04-27 13:44 | PC.NURSE ---
attempted po challenge, pt became nauseous and started vomiting shortly after drinking. er md aware.
[2023-04-27] MEDS: SODIUM CHLORIDE 0.9% 25ML BAG 25 ML IV (13:47)
[2023-04-27] MEDS: PROMETHAZINE HCL 25MG/ML 1ML VIAL 25 MG IV (13:47)
--- NOTE | 2023-04-27 13:52 | PC.NURSE ---
provided pt with 2 warm blankets and a urinal to void in.
--- NOTE | 2023-04-27 14:40 | PC.NURSE ---
pt was given cracker and water to see if he could hold anything down
--- NOTE | 2023-04-27 14:53 | PC.NURSE ---
pt was able to keep crackers and water down and states he feels ok. er aware.
== END 2023-04-27 15:16 | disposition home or self-care (01) ==
PROVIDERS: Emergency Provider Emergency Medicine; PCP Physician Assistant
DX: R10.9 Unspecified abdominal pain (principal); R11.2 Nausea with vomiting, unspecified; E11.9 Type 2 diabetes mellitus without complications; F17.210 Nicotine dependence, cigarettes, uncomplicated; R00.0 Tachycardia, unspecified
CPT/HCPCS: 74177; 80053; 82803; 83605; 83690; 85025; 87636; 96374; 96375; 99285; J2405; Q9967

== ENCOUNTER 2023-04-28 11:45 | Emergency (ER) | payer MEDICAID, SELFPAY ==
[2023-04-28 11:46] VITALS: BP 118/85; PULSE 103; RESP 16; TEMP 37; O2SAT 98; BMI 26.6
[2023-04-28 12:00] VITALS: BP 118/85; PULSE 95; O2SAT 96
[2023-04-28 12:10] VITALS: BMI 26.6
[2023-04-28] MEDS: BELLADONNA ALKALOIDS 60 ML ML PO (12:11)
--- NOTE | 2023-04-28 12:11 | PC.NURSE ---
attempted to obtain IV access, unsuccessful at this time, blood was able to get drawn and sent to lab, pt states he would like to try a GI cocktail first and then go from there due to the cocktail has helped in the past so much for him.
--- NOTE | 2023-04-28 12:25 | HMH.EDGENADL ---
Discharge Plan Disposition Patient Disposition: Home, Self-Care Chief Complaint: Nausea/Vomiting/Diarrhea Prescriptions Prescriptions: No Action Gimoti 15 mg/spray spray with pump 1 spray intranasal QID Qty: 9.8 0RF Rx Instructions: administer into ONE nostril 30 minutes before each meal and at bedtime aspirin 81 mg tablet,delayed release (DR/EC) 81 mg PO DAILY Qty: 90 1RF atorvastatin [Lipitor] 10 mg tablet 10 mg PO HS Qty: 90 1RF cholecalciferol (vitamin D3) 50 mcg (2,000 unit) capsule 50 mcg PO DAILY Qty: 90 1RF ergocalciferol (vitamin D2) 1,250 mcg (50,000 unit) capsule 1,250 mcg PO WEEKLY Qty: 14 1RF lisinopril 2.5 mg tablet 2.5 mg PO DAILY Qty: 90 1RF Januvia 100 mg tablet 100 mg PO DAILY Qty: 90 1RF magnesium citrate Solution 150 ml PO DAILY PRN (Reason: constipation) Qty: 296 0RF scopolamine base 1 mg over 3 days patch 3 day See Rx Instructions .ROUTE .COMPLEX Qty: 10 0RF Dose Instruction: APPLY 1 PATCH TOPICALLY EVERY 72 HOURS NEEDED FOR NAUSEA AND VOMITING Rx Instructions: APPLY 1 PATCH TOPICALLY EVERY 72 HOURS NEEDED FOR NAUSEA AND VOMITING (DME) blood-glucose meter [Advanced Glucose Meter] [facility] [place] See Rx Instructions .Route Rx Instructions: Test sugar 3 times daily or As directed (DME) Advanced Gluc Meter Test Strip Strip See Rx Instructions .Route Rx Instructions: Test sugar 3 times daily or As directed (DME) Dexcom G7 Sensor Device See Rx Instructions .Route Rx Instructions: change sensor every 3 months (DME) Dexcom G7 Chief Relay Tester [facility] See Rx Instructions .Route Rx Instructions: As directed metoclopramide HCl [Reglan] 10 mg tablet 10 mg PO Q6H PRN (Reason: nausea and vomiting) Qty: 14 0RF insulin glargine [Lantus Solostar U-100 Insulin] 100 unit/mL (3 mL) insulin pen 25 unit SQ HS Vraylar 1.5 mg capsule 1.5 mg PO DAILY promethazine 25 mg tablet 25 mg PO Q6H PRN (Reason: nausea and vomiting) Qty: 20 0RF capsaicin 0.1 % cream 1 applic topical DAILY Qty: 60 0RF Rx Instructions: do not wash area for at least 30 min after application prochlorperazine maleate [Compazine] 10 mg tablet 10 mg PO Q6H PRN (Reason: nausea and vomiting) 1 Days Qty: 20 0RF ondansetron 8 mg tablet,disintegrating 8 mg PO Q6 PRN (Reason: nausea and vomiting) 4 Days Qty: 16 0RF (DME) pen needle, diabetic [BD Martina 2nd Gen Pen Needle] 32 gauge x 5/32 needle See Rx Instructions .Route Qty: 50 0RF Rx Instructions: As directed Referrals Follow up/Referrals: Carina Ruiz PA [Primary Care Provider] - See instructions Activity Restrictions/Add. Instructions Additional Instructions/Restrictions: At this time it was felt you are safe to be discharged home. If new or worsening symptoms please do not hesitate to return the emergency department. Please continue to follow-up for your endoscopy as discussed. Clinical Impressions Clinical Impression: Hyperemesis Instructions Patient Instructions: DI for Diarrhea and Traveler's Diarrhea -- Adult, DI for Diarrhea and Traveler's Diarrhea -- Child, DI for Nausea -- Adult, DI for Nausea -- Child Discharge ED Provider: Prateek Cowan General Adult HPI General Chief complaint: Nausea/Vomiting/Diarrhea Stated complaint: vomiting Time Seen by Provider: 04/28/23 11:49 Mode of Arrival: Wheelchair Source of Information: Patient Limitations: No Limitations Description of Symptoms (Recalled from ER Triage Doc. by RN): pt presents to ED with c/o acid reflux, vomitting. pt reports last night when he laid down in bed he began to feel acid indigestion. History of Present Illness HPI narrative: Patient is a 37-year-old male with past medical history of insulin-dependent diabetes, hyperemesis that is suspected to be secondary to chronic marijuana use but is currently under investigation who presents emergency department for evaluation of vomiting. Patient was seen in the emergency department yesterday and was subsequently discharged home. He has been taking all his medicines as prescribed and has not smoked marijuana in the last 4 weeks. He has endoscopy planned for Saturday. Due to persistent symptoms he presents here for continued evaluation. Related Data Home Medications Medication Instructions Recorded Confirmed blood sugar diagnostic (Advanced 07/30/22 04/17/23 Glucose Meter Test Strips) blood-glucose meter (Advanced 07/30/22 04/17/23 Glucose Meter) blood-glucose meter,continuous 07/30/22 04/17/23 (Dexcom G7 Chief Relay Tester) blood-glucose sensor (Dexcom G7 07/30/22 04/17/23 Sensor device) cariprazine 1.5 mg capsule 1.5 mg PO DAILY bipolar 01/11/23 04/17/23 (Vraylar) insulin glargine 100 unit/mL (3 25 unit SQ HS Diabetes 01/11/23 04/17/23 mL) subcutaneous pen (Lantus Solostar U-100 Insulin) Previous Rx's Medication Instructions Recorded pen needle, diabetic 32 gauge x #50 ea 08/19/22 (BD Martina 2nd Gen Pen Needle) aspirin 81 mg tablet,delayed 81 mg PO DAILY Heart health #90 12/31/22 release tabs atorvastatin 10 mg tablet (Lipitor) 10 mg PO HS Cholesterol #90 tabs 12/31/22 cholecalciferol (vitamin D3) 50 50 mcg PO DAILY Supplement #90 caps 12/31/22 mcg (2,000 unit) capsule ergocalciferol (vitamin D2) 1,250 1,250 mcg PO WEEKLY Supplement #14 12/31/22 mcg (50,000 unit) capsule caps lisinopril 2.5 mg tablet 2.5 mg PO DAILY Hypertension #90 12/31/22 tabs sitagliptin phosphate 100 mg 100 mg PO DAILY Diabetes #90 tabs 12/31/22 tablet (Januvia) magnesium citrate 150 ml PO DAILY PRN constipation 01/09/23 #296 mL metoclopramide HCl 10 mg tablet 10 mg PO Q6H PRN nausea and 01/10/23 (Reglan) vomiting #14 tabs capsaicin 0.1 % topical cream 1 applic topical DAILY #60 grams 04/04/23 prochlorperazine maleate 10 mg 10 mg PO Q6H PRN nausea and 04/04/23 tablet (Compazine) vomiting 24 hours #20 tabs promethazine 25 mg tablet 25 mg PO Q6H PRN nausea and 04/04/23 vomiting #20 tabs metoclopramide HCl 15 mg/spray 1 spray intranasal QID #9.8 mL 04/05/23 nasal spray with pump (Gimoti) scopolamine base 1 mg over 3 days See Rx Instructions .Route 04/26/23 transdermal patch .COMPLEX #10 patches ondansetron 8 mg disintegrating 8 mg PO Q6 PRN nausea and vomiting 04/27/23 tablet 4 days #16 tabs Allergies Allergy/AdvReac Type Severity Reaction Status Date / Time Penicillins [PENICILLINS] Allergy Unknown Verified 04/28/23 12:15 [facility] Disclaimer: The information contained in this section may have been updated after the patient was seen, as this information can be updated by other users. Medical History (Updated 04/28/23 @ 13:06 by Prateek Cowan MD) Diabetes History of diabetic ketoacidosis Low testosterone level in male Nausea Surgical History (Updated 04/23/23 @ 12:27 by Jolanta Yang, MACEY) No significant past surgical history Family History Father Hypertension Hyperlipidemia Diabetes Social History Smoking Status: Current every day smoker tobacco type: cigarettes packs per day: 2 alcohol intake: never substance use type: denies use current occupational status: unemployed Travel in the last 8 weeks: None household members: children housing: house marital status: single number of children: 4 current occupation: [employer] current occupational exposures/hazards: No caffeine: Yes ROS Obtained: Yes Systems reviewed as appropriate & no additional complaints except as documented Physical Exam General General appearance: alert and in no apparent distress Head Head exam: atraumatic and normocephalic Eye Eye exam: Present PERRL and EOMI ENT ENT exam: Present mucous membranes moist Neck Neck exam: Present normal inspection Chest Chest inspection: Present normal inspection and symmetric chest wall rise Respiratory Respiratory exam: Present normal lung sounds bilaterally; Absent respiratory distress Cardiovascular Cardiovascular exam: Present normal rhythm and tachycardia Abdominal Exam Abdominal exam: Present soft; Absent tenderness Extremities Exam Extremities exam: Present normal inspection Neurological Exam Neurological exam: Present alert Psychiatric Psychiatric exam: Present normal affect Skin Skin exam: Present warm and dry Medical Decision Making Burton Inquiry Pt receiving controlled substance: No Vital Signs: 04/28/23 11:46 04/28/23 12:00 04/28/23 12:30 Temperature 98.6 F Temperature Source Oral Pulse Rate 95 H 96 H Pulse Rate [Left Radial] 103 H Respiratory Rate 16 Blood Pressure 118/85 120/84 Blood Pressure [Right Arm] 118/85 Blood Pressure Mean [Right Arm] 96 02 Sat by Pulse Oximetry 98 96 97 Oxygen Delivery Method Room Air Orders (Tests/Meds): ED MEDICATIONS Discontinued Medications Generic Name Dose Route Start Last Admin Trade Name Ramos PRN Reason Stop Dose Admin Belladonna Alkaloids 60 ml 04/28/23 12:10 04/28/23 12:11 Belladonna Alkaloids 60 Ml Ml PO 04/28/23 12:11 60 ml ONCE ONE Administration Medical Decision Narrative: In summary patient is a 37-year-old male with past medical history described above who presents emergency department for evaluation of vomiting in the setting of known hyperemesis. Patient is hemodynamically stable nontoxic-appearing upon arrival, afebrile. Fingerstick blood glucose just above 250. At this level I do not suspect DKA and patient is compliant with his medications. Last marijuana use 4 weeks ago. Patient is requesting GI cocktail. This will be administered and p.o. trial will be attempted. Workup with labs and imaging was considered however given that they have been conducted in the last 24 hours and are largely nonactionable will not be repeated at this time. Patient has further investigation planned for Saturday. Patient with p.o. trial was successful. Given this patient is appropriate for discharge at this time. Patient was given return precautions. Critical Care Critical Care Time Critical Care Time: No
[2023-04-28 12:30] VITALS: BP 120/84; PULSE 96; O2SAT 97
[2023-04-28 13:11] VITALS: BP 113/78; PULSE 96; RESP 16; TEMP 37; O2SAT 97
== END 2023-04-28 13:12 | disposition home or self-care (01) ==
PROVIDERS: Emergency Provider Emergency Medicine; PCP Physician Assistant
DX: R11.10 Vomiting, unspecified (principal); E11.9 Type 2 diabetes mellitus without complications; F17.210 Nicotine dependence, cigarettes, uncomplicated
CPT/HCPCS: 99283

== ENCOUNTER 2023-05-01 09:39 | Day surgery (SDC) | payer MEDICAID, SELFPAY ==
[2023-04-23 12:33] VITALS: BMI 25.1
[2023-05-01 09:57] VITALS: BP 159/93; PULSE 116; RESP 16; TEMP 36.5; O2SAT 98
[2023-05-01] MEDS: LACTATED RINGERS 1000ML 1,000 ML 25 ML IV (10:02)
[2023-05-01 10:09] LABS: POC Glucose,Bedside 229 (70-110)
--- NOTE | 2023-05-01 11:04 | P.PNANES_ITS ---
[facility] Disclaimer: The information contained in this section may have been updated after the patient was seen, as this information can be updated by other users. Medical History Diabetes History of diabetic ketoacidosis Low testosterone level in male Nausea Surgical History No significant past surgical history Family History Father Hypertension Hyperlipidemia Diabetes Social History (Updated 05/01/23 @ 09:54 by Kei Urbina) Smoking Status: Current every day smoker tobacco type: cigarettes packs per day: 2 alcohol intake: never substance use type: denies use current occupational status: unemployed Travel in the last 8 weeks: None household members: children housing: house marital status: single number of children: 4 current occupation: [employer] current occupational exposures/hazards: No caffeine: Yes [facility] Anesthesia Checklist Patient Identification Patient Identification: Arm Band and Verbal (Name & ) Structural Data Admitted From: Home Planned Operative Procedure/s: Colonoscopy Consent for Planned Operative Procedure(s) Verified: Yes Verified Documents: Surgical Consent and History and Physical NPO Status Verified Time NPO: 23:00 Chart Verification Results Verified: CBC, BMP, ECG and Chest Xray Additional verifications Fingerstick Blood Glucose: 229 Patient : No Anesthesia Reactions: No (N/A - no H/O anesthesia) Cardiovascular Assessment Heart Sounds: S1 & S2 Pulse Rhythm: Irregular Peripheral Edema: No Airway Assessment Mallampati Score:: Class I C-Spine Mobility Assessed: Yes (FROM) TMJ Mobility Assessed: Yes Dentition: Poor Dentition (Most teeth missing. Nothing loose per pt.) Neurological Assessment Level of Consciousness: Awake, Alert, Appropriate and Follows Commands Hx Seizures: No Numbness or tingling in extremities: No Anesthesia Plan Anesthesia Risk discussed: Yes Anesthesia Plan: Verified ASA Class: III Anesthesia Type: MAC
[2023-05-01 11:09] VITALS: O2SAT 98
--- NOTE | 2023-05-01 11:20 | HMH.SCOPE ---
Procedure: Date: 05/01/23 Patient Date of :: 1985 Procedure Performed:: EGD Indications:: The patient is a 37 year old who presents for EGD evaluation of nausea, vomiting, and abdominal pain. The symptoms have been present for 1 years or more. The patient has a history of daily marijuana use and reports having stopped marijuana without improvement of symptoms. Performing Provider:: Gt Meza MD Referring Provider:: Carina Ruiz APRN Sedation:: See RN records Procedure:: The gastroscope was gently passed through the incisoral orifice into the oral cavity and under direct visualization the esophagus was intubated. The endoscope was passed down the esophagus, through the stomach, and into the duodenum. Color, texture, mucosa, and anatomy of the esophagus, stomach, and duodenum were carefully examined with the scope. Findings:: Oropharynx: normal Esophagus: LA Class B esophagitis. Biopsies obtained from distal and mid esophagus EG Junction: measured at 41 cm Cardia: normal Fundus: normal Body: Gastritis. Biopsy obtained Antrum: Gastritis. Biopsy obtained Duodenal bulb: normal. Biopsy obtained Duodenum (second and third portion): . normal. Biopsies obtained Impression: Erosive eophagitis Gastritis Recommendations:: Await pathology results Antireflux measures Omeprazole 40 mg once daily x 8 weeks, then take as needed Complications:: None Estimated blood obtained (mL): 0 Colonoscopy Component Colonoscopy Component Was a colonoscopy performed during today's procedure?: No
[2023-05-01 11:23] VITALS: BP 100/66; PULSE 90; RESP 14; TEMP 36.3; O2SAT 97
[2023-05-01 11:33] VITALS: BP 95/68; PULSE 90; RESP 17; O2SAT 97
[2023-05-01 11:43] VITALS: BP 97/67; PULSE 91; RESP 16; O2SAT 98
[2023-05-01 11:50] VITALS: BP 114/73; PULSE 92; RESP 17; O2SAT 98
== END 2023-05-01 11:53 | disposition home or self-care (01) ==
PROVIDERS: PCP Physician Assistant; Visit Provider Internal Medicine
PROC: 0DJ08ZZ Inspection of Upper Intestinal Tract, Via Natural or Artificial Opening Endoscopic (ICD-10-PCS; CPT 43235; principal; 2023-05-01 11:00)
DX: K29.50 Unspecified chronic gastritis without bleeding (principal); R10.9 Unspecified abdominal pain; R11.2 Nausea with vomiting, unspecified; K20.80 Other esophagitis without bleeding; E11.9 Type 2 diabetes mellitus without complications
CPT/HCPCS: 43239; 82962

== ENCOUNTER 2023-08-23 08:09 | Emergency (ER) | payer MEDICAID, SELFPAY ==
[2023-08-23] VITALS (9 sets, daily range): BP systolic 113–151; BP diastolic 73–103; PULSE 79–86; RESP 14–20; TEMP 36.6–36.7; O2SAT 95–98; BMI 25.8
--- NOTE | 2023-08-23 08:51 | ED_ITS ---
Discharge Plan Disposition Patient Disposition: Still a Patient Prescriptions Prescriptions: No Action aspirin 81 mg tablet,delayed release (DR/EC) 81 mg PO DAILY Qty: 90 1RF atorvastatin [Lipitor] 10 mg tablet 10 mg PO HS Qty: 90 1RF cholecalciferol (vitamin D3) 50 mcg (2,000 unit) capsule 50 mcg PO DAILY Qty: 90 1RF ergocalciferol (vitamin D2) 1,250 mcg (50,000 unit) capsule 1,250 mcg PO WEEKLY Qty: 14 1RF lisinopril 2.5 mg tablet 2.5 mg PO DAILY Qty: 90 1RF Januvia 100 mg tablet 100 mg PO DAILY Qty: 90 1RF magnesium citrate Solution 150 ml PO DAILY PRN (Reason: constipation) Qty: 296 0RF scopolamine base 1 mg over 3 days patch 3 day See Rx Instructions .ROUTE .COMPLEX Qty: 10 0RF Dose Instruction: APPLY 1 PATCH TOPICALLY EVERY 72 HOURS NEEDED FOR NAUSEA AND VOMITING Rx Instructions: APPLY 1 PATCH TOPICALLY EVERY 72 HOURS NEEDED FOR NAUSEA AND VOMITING (DME) blood-glucose meter [Advanced Glucose Meter] [facility] Instructions .Route Rx Instructions: Test sugar 3 times daily or As directed (DME) Advanced Gluc Meter Test Strip Strip See Rx Instructions .Route Rx Instructions: Test sugar 3 times daily or As directed (DME) Dexcom G7 Sensor Device See Rx Instructions .Route Rx Instructions: change sensor every 3 months (DME) Dexcom G7 Wave Solder Offbearer [facility] [place] Rx Instructions .Route Rx Instructions: As directed insulin glargine [Lantus Solostar U-100 Insulin] 100 unit/mL (3 mL) insulin pen 25 unit SQ HS Vraylar 1.5 mg capsule 1.5 mg PO DAILY capsaicin 0.1 % cream 1 applic topical DAILY Qty: 60 0RF Rx Instructions: do not wash area for at least 30 min after application ondansetron 8 mg tablet,disintegrating 8 mg PO Q6 PRN (Reason: nausea and vomiting) 4 Days Qty: 16 0RF (DME) pen needle, diabetic [BD Martina 2nd Gen Pen Needle] 32 gauge x 5/32 needle See Rx Instructions .Route Qty: 50 0RF Rx Instructions: As directed Referrals Follow up/Referrals: Carina Ruiz PA [Primary Care Provider] - See instructions Discharge ED Provider: Joaquin Escobedo [facility] HPI General Stated complaint: pressure behind left eye, pain Mode of Arrival: Ambulatory Source of Information: Patient Limitations: No Limitations Time Seen by Provider: 08/23/23 08:51 Description of Symptoms (Recalled from Triage Doc. by RN): PATIENT C/O PRESSURE AND PAIN BEHIND LEFT EYE X 4 DAYS HEENT Symptoms (Recalled from RN notes): Yes Resp Symptoms (Recalled from RN notes): No Skin Symptoms (Recalled from RN notes): No MS Symptoms (Recalled from RN notes): No Functional Status (Recalled from RN notes): WNL History of Present Illness Provider Complaint: Patient states that for the last four days he has been having pain and pressure in his eyebrow area and lutheran and feels like there is severe pressure behind his eye that has continued to get worse States initially he thought it may have been a migraine coming on but this is worse States he feels severe pressure behind his eye and makes it hard to even open his eyes Denies FB, denies getting hit in the eye, denies scratching eye but eye does water some and he has to keep it closed Related Data Home Medications Medication Instructions Recorded Confirmed blood sugar diagnostic (Advanced 07/30/22 05/30/23 Glucose Meter Test Strips) blood-glucose meter (Advanced 07/30/22 05/30/23 Glucose Meter) blood-glucose meter,continuous 07/30/22 05/30/23 (Dexcom G7 Wave Solder Offbearer) blood-glucose sensor (Dexcom G7 07/30/22 05/30/23 Sensor device) cariprazine 1.5 mg capsule 1.5 mg PO DAILY bipolar 01/11/23 05/30/23 (Vraylar) insulin glargine 100 unit/mL (3 25 unit SQ HS Diabetes 01/11/23 05/30/23 mL) subcutaneous pen (Lantus Solostar U-100 Insulin) Previous Rx's Medication Instructions Recorded pen needle, diabetic 32 gauge x #50 ea 08/19/22 (BD Martina 2nd Gen Pen Needle) aspirin 81 mg tablet,delayed 81 mg PO DAILY Heart health #90 12/31/22 release tabs atorvastatin 10 mg tablet (Lipitor) 10 mg PO HS Cholesterol #90 tabs 12/31/22 cholecalciferol (vitamin D3) 50 50 mcg PO DAILY Supplement #90 caps 12/31/22 mcg (2,000 unit) capsule ergocalciferol (vitamin D2) 1,250 1,250 mcg PO WEEKLY Supplement #14 12/31/22 mcg (50,000 unit) capsule caps lisinopril 2.5 mg tablet 2.5 mg PO DAILY Hypertension #90 12/31/22 tabs sitagliptin phosphate 100 mg 100 mg PO DAILY Diabetes #90 tabs 12/31/22 tablet (Januvia) magnesium citrate 150 ml PO DAILY PRN constipation 01/09/23 #296 mL capsaicin 0.1 % topical cream 1 applic topical DAILY #60 grams 04/04/23 scopolamine base 1 mg over 3 days See Rx Instructions .Route 04/26/23 transdermal patch .COMPLEX #10 patches ondansetron 8 mg disintegrating 8 mg PO Q6 PRN nausea and vomiting 04/27/23 tablet 4 days #16 tabs Allergies Allergy/AdvReac Type Severity Reaction Status Date / Time Penicillins [PENICILLINS] Allergy Unknown Verified 05/30/23 13:49 Worker's Comp Is this a Worker's Comp case?: No [facility] Disclaimer: The information contained in this section may have been updated after the patient was seen, as this information can be updated by other users. Medical History (Updated 08/23/23 @ 08:43 by Ghislaine Best RN) Depression Anxiety Nausea Low testosterone level in male History of diabetic ketoacidosis Diabetes Surgical History No significant past surgical history Family History Father Hypertension Hyperlipidemia Diabetes Social History Smoking Status: Current every day smoker tobacco type: cigarettes packs per day: 2 alcohol intake: never substance use type: denies use current occupational status: unemployed Travel in the last 8 weeks: None household members: children housing: house marital status: single number of children: 4 current occupation: [employer] current occupational exposures/hazards: No caffeine: Yes ROS Obtained: Yes All systems reviewed & no additional complaints except as documented and Yes Systems reviewed as appropriate & no additional complaints except as documented Constitutional Constitutional: Reports system reviewed and no additional complaints, except as documented and Reports as per HPI Eyes Eyes: Reports system reviewed and no additional complaints, except as documented, Reports as per HPI, Denies loss of vision and Reports eye pain ENT Ears, Nose, Mouth, and Throat: Reports system reviewed and no additional complaints, except as documented, Reports as per HPI, Denies disequilibrium and Denies dizziness Cardiovascular Cardiovascular: Reports system reviewed and no additional complaints, except as documented and Reports as per HPI Respiratory Respiratory: Reports system reviewed and no additional complaints, except as documented and Reports as per HPI Gastrointestinal Gastrointestingal: Reports system reviewed and no additional complaints, except as documented and as per HPI Neurologic Neurologic: Reports system reviewed and no additional complaints, except as documented, Reports as per HPI, Denies confusion, Denies convulsions, Denies disequilibrium, Denies dizziness, Denies loss of vision and Reports other Comments: pain in left lutheran area and feeling of pressure behind his left eye that he describes as severe Physical Exam General General appearance: alert and in no apparent distress Eye Eye exam: Present discharge (clear watery discharge noted) and other (reports pain/pressure in lutheran area and behind the eye) Respiratory Respiratory exam: Present normal lung sounds bilaterally; Absent respiratory distress or wheezes Cardiovascular Cardiovascular exam: Present regular rate and normal rhythm Neurological Exam Neurological exam: Present alert and oriented X3 Medical Decision Making Burton Inquiry Pt receiving controlled substance: No Burton was queried for this patient: No Vital Signs: 08/23/23 08:20 Temperature 97.8 F Temperature Source Oral Pulse Rate [Left Brachial] 84 Respiratory Rate 20 Blood Pressure [Left Arm] 126/84 Blood Pressure Mean [Left Arm] 98 Blood Pressure Source [Left Arm] Automatic Cuff Blood Pressure Position [Left Arm] Sitting 02 Sat by Pulse Oximetry 98 Oxygen Delivery Method Room Air Medical Decision Narrative: Patient states that he cannot open his eye for exam reports having severe pain/pressure in his behind left eye and in lutheran/eyebrow area and states that the pressure behind the eye is severe Denies known injury, Denies scratching the eye states pressure has progressively got worse and today feels like he cannot open his eye Discussed with patient and recommended transfer to the ED for further work up and evaluation and he agreed Called ED and patient was moved to the ED for further exam and evaluation
--- NOTE | 2023-08-23 09:39 | CT_ITS ---
FINAL REPORT TECHNIQUE: After the administration of IV contrast, axial images through the orbits were obtained by computed tomography. This study was performed with techniques to keep radiation doses as low as reasonably achievable (ALARA). Individualized dose reduction techniques using automated exposure control or adjustment of mA and/or kV according to the patient's size were employed. CLINICAL HISTORY: left eye pressure, pain with EOM FINDINGS: No orbital mass is identified. The optic nerve sheaths are normal. The extraocular muscles are normal. Superior ophthalmic veins are patent. There is minimal right ethmoid sinusitis. The paranasal sinuses are otherwise clear. IMPRESSION: Unremarkable appearance of the orbits. Reviewed, Interpreted and Dictated by Baldemar Owens MD Transcribed by Quynh Dowd Authenticated and . [facility]
--- NOTE | 2023-08-23 09:40 | HMH.EDGENADL ---
Discharge Plan Disposition Patient Disposition: Home, Self-Care Condition: Good Prescriptions Prescriptions: New erythromycin 5 mg/gram (0.5 %) ointment 1 applic ophthalmic (eye) QID Qty: 3.5 0RF No Action aspirin 81 mg tablet,delayed release (DR/EC) 81 mg PO DAILY Qty: 90 1RF atorvastatin [Lipitor] 10 mg tablet 10 mg PO HS Qty: 90 1RF cholecalciferol (vitamin D3) 50 mcg (2,000 unit) capsule 50 mcg PO DAILY Qty: 90 1RF ergocalciferol (vitamin D2) 1,250 mcg (50,000 unit) capsule 1,250 mcg PO WEEKLY Qty: 14 1RF lisinopril 2.5 mg tablet 2.5 mg PO DAILY Qty: 90 1RF Januvia 100 mg tablet 100 mg PO DAILY Qty: 90 1RF magnesium citrate Solution 150 ml PO DAILY PRN (Reason: constipation) Qty: 296 0RF scopolamine base 1 mg over 3 days patch 3 day See Rx Instructions .ROUTE .COMPLEX Qty: 10 0RF Dose Instruction: APPLY 1 PATCH TOPICALLY EVERY 72 HOURS NEEDED FOR NAUSEA AND VOMITING Rx Instructions: APPLY 1 PATCH TOPICALLY EVERY 72 HOURS NEEDED FOR NAUSEA AND VOMITING (DME) blood-glucose meter [Advanced Glucose Meter] Misc See Rx Instructions .Route Rx Instructions: Test sugar 3 times daily or As directed (DME) Advanced Gluc Meter Test Strip Strip See Rx Instructions .Route Rx Instructions: Test sugar 3 times daily or As directed (DME) Dexcom G7 Sensor Device See Rx Instructions .Route Rx Instructions: change sensor every 3 months (DME) Dexcom G7 Apparel Sales Associate Misc See Rx Instructions .Route Rx Instructions: As directed insulin glargine [Lantus Solostar U-100 Insulin] 100 unit/mL (3 mL) insulin pen 25 unit SQ HS Vraylar 1.5 mg capsule 1.5 mg PO DAILY capsaicin 0.1 % cream 1 applic topical DAILY Qty: 60 0RF Rx Instructions: do not wash area for at least 30 min after application ondansetron 8 mg tablet,disintegrating 8 mg PO Q6 PRN (Reason: nausea and vomiting) 4 Days Qty: 16 0RF (DME) pen needle, diabetic [BD Martina 2nd Gen Pen Needle] 32 gauge x 5/32 needle See Rx Instructions .Route Qty: 50 0RF Rx Instructions: As directed Referrals Follow up/Referrals: Carina Ruiz PA [Primary Care Provider] - See instructions Activity Restrictions/Add. Instructions Additional Instructions/Restrictions: You were seen in the ED today due to pain. You most likely have a conjunctivitis. Please use the prescribed eye ointment 4 times daily for 1 week. Follow-up with ophthalmology. Call Dr. Fernandez office at . Return to the ED if symptoms worsen or if new concerning symptoms arise. Thank you. Clinical Impressions Clinical Impression: Conjunctivitis Qualifiers: Conjunctivitis type: acute Acute conjunctivitis type: unspecified Laterality: left Qualified Code(s): H10.32 - Unspecified acute conjunctivitis, left eye Instructions Patient Instructions: DI for Conjunctivitis Discharge ED Provider: Joaquin Escobedo General Adult HPI General Chief complaint: Eye Problems Stated complaint: pressure behind left eye, pain Time Seen by Provider: 08/23/23 08:51 Mode of Arrival: Ambulatory Source of Information: Patient Limitations: No Limitations Description of Symptoms (Recalled from ER Triage Doc. by RN): pt presents from [facility] for further workup. pt reports for past four days he has been having pressure behind his left eye. pt reports last night he began to have pain and sensitive to light. History of Present Illness HPI narrative: Patient is a 37-year-old male with history of diabetes who presents due to eye pain. Patient's father is present to help provide history. Patient reports for the past 3 to 4 days he has had worsening pain in his left eye. Yesterday he began to feel intense pressure behind the left eye and began to have blurry vision. He states the pain radiates toward his right eye as well. States he has had watery discharge from the eyes, left greater than right. Denies any preceding trauma or injury. Denies any foreign body sensation. Denies any significant headache. Denies any fever., nausea/vomiting. Related Data Home Medications Medication Instructions Recorded Confirmed blood sugar diagnostic (Advanced 07/30/22 05/30/23 Glucose Meter Test Strips) blood-glucose meter (Advanced 07/30/22 05/30/23 Glucose Meter) blood-glucose meter,continuous 07/30/22 05/30/23 (Dexcom G7 Apparel Sales Associate) blood-glucose sensor (Dexcom G7 07/30/22 05/30/23 Sensor device) cariprazine 1.5 mg capsule 1.5 mg PO DAILY bipolar 01/11/23 05/30/23 (Vraylar) insulin glargine 100 unit/mL (3 25 unit SQ HS Diabetes 01/11/23 05/30/23 mL) subcutaneous pen (Lantus Solostar U-100 Insulin) Previous Rx's Medication Instructions Recorded pen needle, diabetic 32 gauge x #50 ea 08/19/22 (BD Martina 2nd Gen Pen Needle) aspirin 81 mg tablet,delayed 81 mg PO DAILY Heart health #90 12/31/22 release tabs atorvastatin 10 mg tablet (Lipitor) 10 mg PO HS Cholesterol #90 tabs 12/31/22 cholecalciferol (vitamin D3) 50 50 mcg PO DAILY Supplement #90 caps 12/31/22 mcg (2,000 unit) capsule ergocalciferol (vitamin D2) 1,250 1,250 mcg PO WEEKLY Supplement #14 12/31/22 mcg (50,000 unit) capsule caps lisinopril 2.5 mg tablet 2.5 mg PO DAILY Hypertension #90 12/31/22 tabs sitagliptin phosphate 100 mg 100 mg PO DAILY Diabetes #90 tabs 12/31/22 tablet (Januvia) magnesium citrate 150 ml PO DAILY PRN constipation 01/09/23 #296 mL capsaicin 0.1 % topical cream 1 applic topical DAILY #60 grams 04/04/23 scopolamine base 1 mg over 3 days See Rx Instructions .Route 04/26/23 transdermal patch .COMPLEX #10 patches ondansetron 8 mg disintegrating 8 mg PO Q6 PRN nausea and vomiting 04/27/23 tablet 4 days #16 tabs erythromycin 5 mg/gram (0.5 %) eye 1 applic ophthalmic (eye) QID #3.5 08/23/23 ointment grams Allergies Allergy/AdvReac Type Severity Reaction Status Date / Time Penicillins [PENICILLINS] Allergy Unknown Verified 05/30/23 13:49 [facility] Disclaimer: The information contained in this section may have been updated after the patient was seen, as this information can be updated by other users. Medical History (Updated 08/23/23 @ 12:29 by Joaquin Escobedo MD) Depression Anxiety Nausea Low testosterone level in male History of diabetic ketoacidosis Diabetes Surgical History No significant past surgical history Family History Father Hypertension Hyperlipidemia Diabetes Social History Smoking Status: Current every day smoker tobacco type: cigarettes packs per day: 2 alcohol intake: never substance use type: denies use current occupational status: unemployed Travel in the last 8 weeks: None household members: children housing: house marital status: single number of children: 4 current occupation: [employer] current occupational exposures/hazards: No caffeine: Yes ROS Obtained: Yes All systems reviewed & no additional complaints except as documented Physical Exam General General appearance: alert and in no apparent distress Head Head exam: atraumatic, normocephalic and normal inspection Eye Eye exam: Present normal appearance, PERRL, EOMI, conjunctival redness, conjunctival injection, discharge and other (Left eye conjunctival injection, reported pain with abduction but extraocular movements intact. Watery discharge present. No abrasions seen under Tse lamp examination. Left eye intraocular pressure 16, right eye intraocular pressure 21. Photophobia.) ENT ENT exam: Present normal exam, normal oropharynx, mucous membranes moist, TM's normal bilaterally and normal external ear exam Neck Neck exam: Present normal inspection, full ROM and trachea midline; Absent meningismus or lymphadenopathy Chest Chest inspection: Present normal inspection and symmetric chest wall rise; Absent tenderness Respiratory Respiratory exam: Present normal lung sounds bilaterally; Absent respiratory distress Cardiovascular Cardiovascular exam: Present regular rate and normal rhythm; Absent JVD Abdominal Exam Abdominal exam: Present soft and normal bowel sounds; Absent distention, tenderness or guarding Extremities Exam Extremities exam: Present normal inspection, full ROM and normal capillary refill; Absent calf tenderness Back Exam Back exam: Present normal inspection; Absent tenderness Neurological Exam Neurological exam: Present alert and oriented X3 Psychiatric Psychiatric exam: Present normal affect and normal mood Skin Skin exam: Present warm, dry, intact and normal color Lymphatic Lymphatic Findings: no adenopathy Medical Decision Making [place] Inquiry Pt receiving controlled substance: No Vital Signs: 08/23/23 08:20 08/23/23 09:10 08/23/23 09:30 Temperature 97.8 F 98.0 F Temperature Source Oral Oral Pulse Rate 82 Pulse Rate [Left Brachial] 84 86 Respiratory Rate 20 14 Blood Pressure 122/85 Blood Pressure [Left Arm] 126/84 151/103 H Blood Pressure Mean Blood Pressure Mean [Left Arm] 98 119 Blood Pressure Source [Left Arm] Automatic Cuff Blood Pressure Position [Left Arm] Sitting 02 Sat by Pulse Oximetry 98 98 95 Oxygen Delivery Method Room Air Room Air Room Air 08/23/23 10:00 08/23/23 10:30 08/23/23 11:01 Temperature Temperature Source Pulse Rate 79 81 84 Pulse Rate [Left Brachial] Respiratory Rate Blood Pressure 128/86 121/85 127/86 Blood Pressure [Left Arm] Blood Pressure Mean Blood Pressure Mean [Left Arm] Blood Pressure Source [Left Arm] Blood Pressure Position [Left Arm] 02 Sat by Pulse Oximetry 97 97 96 Oxygen Delivery Method Room Air Room Air Room Air 08/23/23 11:30 08/23/23 12:00 Temperature Temperature Source Pulse Rate 85 81 Pulse Rate [Left Brachial] Respiratory Rate Blood Pressure 124/90 113/73 Blood Pressure [Left Arm] Blood Pressure Mean 98 Blood Pressure Mean [Left Arm] Blood Pressure Source [Left Arm] Blood Pressure Position [Left Arm] 02 Sat by Pulse Oximetry 98 97 Oxygen Delivery Method Room Air Lab Data Lab Results 08/23/23 10:01: WBC 9.8, RBC 5.19, Hgb 16.4, Hct 48.4, MCV 93.2, MCH 31.6 H, MCHC 33.9, RDW 13.3, Plt Count 212, MPV 7.5, Neut % (Auto) 73.4, Lymph % (Auto) 18.0, [place] % (Auto) 5.6, Eos % (Auto) 1.8, Baso % (Auto) 1.2, Neut # (Auto) 7.2, Lymph # (Auto) 1.8, [place] # (Auto) 0.6, Eos # (Auto) 0.2, Baso # (Auto) 0.1, ESR 2, Sodium 136, Potassium 4.6, Chloride 102, Carbon Dioxide 27, Anion Gap 11.6, BUN 15, Creatinine 0.70, Estimated Creat Clear 165, Estimated GFR 126, Est GFR ( Amer) 153, Glucose 397 H, Calcium 9.5, Total Bilirubin 2.0 H, AST 36, ALT 50, Alkaline Phosphatase 94, C-Reactive Protein 1.6, Total Protein 7.0, Albumin 4.5, Globulin 2.5, Albumin/Globulin Ratio 1.8 08/23/23 10:01 08/23/23 10:01 Orders (Tests/Meds): ED MEDICATIONS Generic Name Dose Route Start Last Admin Trade Name Ramos PRN Reason Stop Dose Admin Sodium Chloride 10 ml 08/23/23 10:39 08/23/23 10:40 Sodium Chloride 0.9% 10ml Syr (Rad Only) IV 09/22/23 10:38 10 ml NEEDED PRN Administration Maintain IV Site Discontinued Medications Generic Name Dose Route Start Last Admin Trade Name Frekaiser PRN Reason Stop Dose Admin Iopamidol 75 ml 08/23/23 10:39 08/23/23 10:40 Iopamidol-370 (76%);100ml Bottle IV 08/23/23 10:40 75 ml ONCE ONE Administration Ketorolac Tromethamine 15 mg 08/23/23 09:49 08/23/23 10:05 Ketorolac 30mg/Ml Vial IV 08/23/23 09:50 15 mg ONCE ONE Administration ORDERS Category Date Time Status CT head/brain wo con Stat Cat Scan 08/23/23 09:[address] orbit BI w con Stat Cat Scan 08/23/23 09:39 Completed CBC w/Auto Diff [Complete Blood Count Auto Diff] Stat Lab 08/23/23 10:01 Completed CMP [Comprehensive Metabolic Panel] Stat Lab 08/23/23 10:01 Completed CRP [C-Reactive Protein] Stat Lab 08/23/23 10:01 Completed ESR [Erythrocyte Sedimentation Rate] Stat Lab 08/23/23 10:01 Completed Medical Decision Narrative: In summary, patient is a 37-year-old male with history of diabetes, evaluated in the emergency department today due to left eye pain and redness. On arrival, patient is hypertensive but hemodynamically stable. On examination, patient has left eye conjunctival injection, watery discharge, reported pain with extraocular movement. Differential diagnosis includes but is not limited to conjunctivitis, preseptal cellulitis, orbital cellulitis, retro-orbital hematoma, corneal abrasion, retinal detachment. Patient given IV Toradol. Workup initiated including CBC, CMP, ESR, CRP, CT head without contrast, CT orbits with contrast. Visual acuity testing reveals 20/40 left eye, 20/25 right eye, 20/40 bilaterally. Tetracaine and fluorescein applied, no corneal defects seen. Intraocular pressure is unremarkable. Labs independently interpreted by me and significant for glucose 397, bilirubin 2.0. Imaging independently interpreted by me and significant for unremarkable CT imaging. On reevaluation, patient has improvement and states he is now able to open and see through his eyes without issue. He also reveals that symptoms began after he was messing around with his girlfriend and something got into his eye. We will plan to treat as conjunctivitis. Prescription for erythromycin provided. Patient advised to follow-up with equity manager and primary care provider. Patient counseled on home care, given strict return precautions and agreeable to plan. Additional history was provided by patient's father. I considered the utility of treatment with steroids, but decided against this because this will be of low utility. Critical Care Critical Care Time Critical Care Time: No
--- NOTE | 2023-08-23 09:49 | CT_ITS ---
FINAL REPORT TECHNIQUE: Noncontrast exam CLINICAL HISTORY: retroorbital pressure FINDINGS: No abnormal density is seen. Ventricles are normal. There is no hemorrhage. No mass effect is seen. Bone windows show no evidence of fracture. IMPRESSION: No acute findings Reviewed, Interpreted and Dictated by Baldemar Owens MD Transcribed by Eden Emanuel Authenticated and [facility]
[2023-08-23] MEDS: KETOROLAC 30MG/ML VIAL 15 MG IV (10:05)
[2023-08-23 10:11] LABS: Basophils # 0.1 K/mm3 (0-0.2); Basophils % 1.2 % (0.1-2.0); Eosinophils # 0.2 K/mm3 (0.0-0.4); Eosinophils % 1.8 % (0.1-12.0); Hematocrit 48.4 % (42.0-52.0); Hemoglobin 16.4 g/dL (14.1-18.0); Lymphocytes # 1.8 K/mm3 (0.7-4.5); Mean Corpuscular HGB Conc 33.9 g/dL (31.8-35.4); Mean Corpuscular Hemoglobin 31.6 pg (27.0-31.2); Mean Corpuscular Volume 93.2 fl (80-94); Mean Platelet Volume 7.5 fl (7.4-10.4); Monocytes # 0.6 K/mm3 (0.1-1.0); Monocytes % 5.6 % (1.7-9.3); Neutrophils # 7.2 K/mm3 (1.8-7.8); Neutrophils % 73.4 % (37.0-80.0); Platelet Count 212 K/mm3 (142-424); Red Blood Count 5.19 M/mm3 (4.60-6.20); Red Cell Distribution Width 13.3 % (11.5-17.5); White Blood Count 9.8 K/mm3 (4.8-10.8)
[2023-08-23 10:21] LABS: Alanine Aminotransferase 50 U/L (12-78); Albumin Level 4.5 g/dl (3.5-5.0); Albumin/Globulin Ratio 1.8 (1.1-1.8); Alkaline Phosphatase 94 U/L (38-126); Anion Gap 11.6 mEq/L (5-15); Aspartate Amino Transferase 36 U/L (17-59); Blood Urea Nitrogen 15 mg/dl (9-20); Calcium 9.5 mg/dl (8.4-10.2); Carbon Dioxide 27 mmol/L (22.0-30.0); Chloride 102 mmol/L (98-107); Creatinine Clearance Estimated 165 mL/min (50-200); Estimated Glomerular Filt Rate 126 ml/min (>60); GFR (African American) 153 ML/MIN (>60); Globulin 2.5 g/dL (1.3-3.2); Glucose 397 mg/dl (74-100); Potassium 4.6 mmoL/L (3.5-5.1); Sodium 136 mmol/L (136-145)
--- NOTE | 2023-08-23 10:22 | PC.NURSE ---
VISUAL ACUITY L- 20/40 R- 20/25 B- 20/40 MD NOTIFIED
[2023-08-23 10:31] LABS: C-Reactive Protein 1.6 mg/L (0-4)
--- NOTE | 2023-08-23 10:35 | PC.NURSE ---
PT TO CT
--- NOTE | 2023-08-23 10:36 | PC.NURSE ---
rounded on pt no needs at this time,call light in reach
[2023-08-23] MEDS: SODIUM CHLORIDE 0.9% 10ML SYR (RAD ONLY) 10 ML IV (10:40)
[2023-08-23] MEDS: IOPAMIDOL-370 (76%);100ML BOTTLE 75 ML IV (10:40)
--- NOTE | 2023-08-23 10:47 | PC.NURSE ---
PT RETURNED FROM CT
[2023-08-23 11:39] LABS: Erythrocyte Sedimentation Rate 2 mm/hr (0-15)
== END 2023-08-23 12:34 | disposition home or self-care (01) ==
LOC: UTC 08:17 → ER 09:03
PROVIDERS: Emergency Provider Student in an Organized Health Care Education/Training Program; PCP Physician Assistant
DX: H92.02 Otalgia, left ear (principal); H10.32 Unspecified acute conjunctivitis, left eye; F17.210 Nicotine dependence, cigarettes, uncomplicated; E11.9 Type 2 diabetes mellitus without complications; Z79.4 Long term (current) use of insulin
CPT/HCPCS: 70450; 70481; 80053; 85025; 85651; 86140; 96374; 99285; Q9967

== ENCOUNTER 2023-10-09 13:51 | Emergency (ER) | payer MEDICAID, SELFPAY ==
[2023-10-09 14:20] VITALS: BP 113/76; PULSE 88; RESP 20; TEMP 36.8; O2SAT 97; BMI 26.4
--- NOTE | 2023-10-09 14:23 | EXP.UTC ---
Discharge Plan Disposition Patient Disposition: Home, Self-Care Condition: Good Prescriptions Prescriptions: New cephalexin 500 mg capsule 500 mg PO QID Qty: 40 0RF mupirocin 2 % ointment 1 applic topical TID 7 Days Qty: 15 0RF No Action aspirin 81 mg tablet,delayed release (DR/EC) 81 mg PO DAILY Qty: 90 1RF atorvastatin [Lipitor] 10 mg tablet 10 mg PO HS Qty: 90 1RF cholecalciferol (vitamin D3) 50 mcg (2,000 unit) capsule 50 mcg PO DAILY Qty: 90 1RF ergocalciferol (vitamin D2) 1,250 mcg (50,000 unit) capsule 1,250 mcg PO WEEKLY Qty: 14 1RF lisinopril 2.5 mg tablet 2.5 mg PO DAILY Qty: 90 1RF Januvia 100 mg tablet 100 mg PO DAILY Qty: 90 1RF magnesium citrate Solution 150 ml PO DAILY PRN (Reason: constipation) Qty: 296 0RF scopolamine base 1 mg over 3 days patch 3 day See Rx Instructions .ROUTE .COMPLEX Qty: 10 0RF Dose Instruction: APPLY 1 PATCH TOPICALLY EVERY 72 HOURS NEEDED FOR NAUSEA AND VOMITING Rx Instructions: APPLY 1 PATCH TOPICALLY EVERY 72 HOURS NEEDED FOR NAUSEA AND VOMITING (DME) blood-glucose meter [Advanced Glucose Meter] [facility] See Rx Instructions .Route Rx Instructions: Test sugar 3 times daily or As directed (DME) Advanced Gluc Meter Test Strip Strip See Rx Instructions .Route Rx Instructions: Test sugar 3 times daily or As directed (DME) Dexcom G7 Sensor Device See Rx Instructions .Route Rx Instructions: change sensor every 3 months (DME) Dexcom G7 Microfilm Machine Operator Misc See Rx Instructions .Route Rx Instructions: As directed insulin glargine [Lantus Solostar U-100 Insulin] 100 unit/mL (3 mL) insulin pen 25 unit SQ HS Vraylar 1.5 mg capsule 1.5 mg PO DAILY capsaicin 0.1 % cream 1 applic topical DAILY Qty: 60 0RF Rx Instructions: do not wash area for at least 30 min after application ondansetron 8 mg tablet,disintegrating 8 mg PO Q6 PRN (Reason: nausea and vomiting) 4 Days Qty: 16 0RF (DME) pen needle, diabetic [BD Martina 2nd Gen Pen Needle] 32 gauge x 5/32 needle See Rx Instructions .Route Qty: 50 0RF Rx Instructions: As directed erythromycin 5 mg/gram (0.5 %) ointment 1 applic ophthalmic (eye) QID Qty: 3.5 0RF Referrals Follow up/Referrals: Carina Ruiz PA [Primary Care Provider] - See instructions Activity Restrictions/Add. Instructions Additional Instructions/Restrictions: Keep the wound clean and dry. Keep a dressing on it if you are going to be getting it dirty. Watch the wound for signs of infection, such as redness, swelling, drainage, fever. etc. Take tylenol or ibuprofen for pain. Follow up with your regular doctor. GO TO THE ER FOR ANY WORSENING SYMPTOMS OR CONCERNS. Clinical Impressions Clinical Impression: Puncture wound, Need for Tdap vaccination Instructions Patient Instructions: Tetanus, Diphtheria, and Pertussis Vaccine, DI for Puncture Wound, Cephalexin, Mupirocin Discharge ED Provider: Chao Brantley [facility] [place] HPI General Stated complaint: sewing needle thru finger Time Seen by Provider: 10/09/23 14:23 History of Present Illness Provider Complaint: He states that he was working on his grandmother's sewing machine when he accidentally got a sewing needle stick to the tip of his right index finger. His tetanus immunization is not up to date. The puncture wound does involve his nail and nail bed. He denies that the needle broke in his finger. Related Data Home Medications Medication Instructions Recorded Confirmed blood sugar diagnostic (Advanced 07/30/22 05/30/23 Glucose Meter Test Strips) blood-glucose meter (Advanced 07/30/22 05/30/23 Glucose Meter) blood-glucose meter,continuous 07/30/22 05/30/23 (Dexcom G7 Microfilm Machine Operator) blood-glucose sensor (Dexcom G7 07/30/22 05/30/23 Sensor device) cariprazine 1.5 mg capsule 1.5 mg PO DAILY bipolar 01/11/23 05/30/23 (Vraylar) insulin glargine 100 unit/mL (3 25 unit SQ HS Diabetes 01/11/23 05/30/23 mL) subcutaneous pen (Lantus Solostar U-100 Insulin) Previous Rx's Medication Instructions Recorded pen needle, diabetic 32 gauge x #50 ea 08/19/22 (BD Martina 2nd Gen Pen Needle) aspirin 81 mg tablet,delayed 81 mg PO DAILY Heart health #90 12/31/22 release tabs atorvastatin 10 mg tablet (Lipitor) 10 mg PO HS Cholesterol #90 tabs 12/31/22 cholecalciferol (vitamin D3) 50 50 mcg PO DAILY Supplement #90 caps 12/31/22 mcg (2,000 unit) capsule ergocalciferol (vitamin D2) 1,250 1,250 mcg PO WEEKLY Supplement #14 12/31/22 mcg (50,000 unit) capsule caps lisinopril 2.5 mg tablet 2.5 mg PO DAILY Hypertension #90 12/31/22 tabs sitagliptin phosphate 100 mg 100 mg PO DAILY Diabetes #90 tabs 12/31/22 tablet (Januvia) magnesium citrate 150 ml PO DAILY PRN constipation 01/09/23 #296 mL capsaicin 0.1 % topical cream 1 applic topical DAILY #60 grams 04/04/23 scopolamine base 1 mg over 3 days See Rx Instructions .Route 04/26/23 transdermal patch .COMPLEX #10 patches ondansetron 8 mg disintegrating 8 mg PO Q6 PRN nausea and vomiting 04/27/23 tablet 4 days #16 tabs erythromycin 5 mg/gram (0.5 %) eye 1 applic ophthalmic (eye) QID #3.5 08/23/23 ointment grams cephalexin 500 mg capsule 500 mg PO QID #40 caps 10/09/23 mupirocin 2 % topical ointment 1 applic topical TID 7 days #15 10/09/23 grams Allergies Allergy/AdvReac Type Severity Reaction Status Date / Time Penicillins [PENICILLINS] Allergy Unknown Verified 05/30/23 13:49 [facility] Disclaimer: The information contained in this section may have been updated after the patient was seen, as this information can be updated by other users. Medical History (Updated 10/09/23 @ 14:53 by Chao Brantley APRN) Depression Anxiety Nausea Low testosterone level in male History of diabetic ketoacidosis Diabetes Surgical History No significant past surgical history Family History Father Hypertension Hyperlipidemia Diabetes Social History Smoking Status: Current every day smoker tobacco type: cigarettes packs per day: 2 alcohol intake: never substance use type: denies use current occupational status: unemployed Travel in the last 8 weeks: None household members: children housing: house marital status: single number of children: 4 current occupation: [employer] current occupational exposures/hazards: No caffeine: Yes ROS Obtained: Yes All systems reviewed & no additional complaints except as documented Constitutional Constitutional: Denies chills and Denies fever(s) Eyes Eyes: Denies eye discharge ENT Ears, Nose, Mouth, and Throat: Denies dizziness, Denies otalgia and Denies sore throat Cardiovascular Cardiovascular: Denies chest pain Respiratory Respiratory: Denies shortness of breath, Denies chest congestion, Denies cough, Denies stridor and Denies wheezing Gastrointestinal Gastrointestingal: Denies nausea or vomiting Musculoskeletal Musculoskeletal: Reports system reviewed and no additional complaints, except as documented and Denies arthralgias Integumentary/Breasts Skin/Breast: Reports as per HPI Neurologic Neurologic: Denies dizziness and Denies paresthesias Allergic/Immunologic Allergic/Immunologic: Denies wheezing Physical Exam General General appearance: alert and in no apparent distress Head Head exam: atraumatic, normocephalic and normal inspection Eye Eye exam: Present normal appearance, PERRL and EOMI ENT ENT exam: Present normal exam, normal oropharynx, mucous membranes moist, TM's normal bilaterally and normal external ear exam Neck Neck exam: Present normal inspection, full ROM and trachea midline; Absent meningismus or lymphadenopathy Chest Chest inspection: Present normal inspection and symmetric chest wall rise; Absent tenderness Respiratory Respiratory exam: Present normal lung sounds bilaterally; Absent respiratory distress Cardiovascular Cardiovascular exam: Present regular rate and normal rhythm; Absent JVD Abdominal Exam Abdominal exam: Present soft and normal bowel sounds; Absent distention, tenderness or guarding Extremities Exam Extremities exam: Present normal inspection, full ROM and normal capillary refill; Absent calf tenderness Back Exam Back exam: Present normal inspection; Absent tenderness Neurological Exam Neurological exam: Present alert and oriented X3 Psychiatric Psychiatric exam: Present normal affect and normal mood Skin Skin exam: Present other (there is a puncture wound near the tip of his right index finger. the puncture wound involves the tip of the nail. no foreign body noted upon inspection. ) Lymphatic Lymphatic Findings: no adenopathy Medical Decision Making Medical Records Medical records reviewed: No I reviewed the patient's medical records. [place] Inquiry Pt receiving controlled substance: No Medical Decision Narrative: he refuses any x-rays and lab work.
[2023-10-09] MEDS: TET/DIPHTH/PERT-ADULT 0.5ML SYRINGE 0.5 ML IM (14:40)
[2023-10-09 14:48] VITALS: BP 113/76; PULSE 88; RESP 20; TEMP 36.8; O2SAT 97
== END 2023-10-09 14:50 | disposition home or self-care (01) ==
PROVIDERS: Emergency Provider Nurse Practitioner Family; PCP Physician Assistant
DX: S61.330A Puncture wound without foreign body of right index finger with damage to nail, initial encounter (principal); F17.210 Nicotine dependence, cigarettes, uncomplicated; W45.8XXA Other foreign body or object entering through skin, initial encounter; Z23 Encounter for immunization
CPT/HCPCS: 90471; 90715; 99212; 99214; G0463

== ENCOUNTER 2024-01-10 13:53 | Emergency (ER) | payer MEDICAID, SELFPAY ==
[2024-01-10 14:03] VITALS: BP 136/74; PULSE 84; RESP 20; TEMP 36.4; O2SAT 98; BMI 27.9
--- NOTE | 2024-01-10 14:10 | ED_ITS ---
Discharge Plan Disposition Patient Disposition: Home, Self-Care Condition: Good Prescriptions Prescriptions: No Action aspirin 81 mg tablet,delayed release (DR/EC) 81 mg PO DAILY Qty: 90 1RF atorvastatin [Lipitor] 10 mg tablet 10 mg PO HS Qty: 90 1RF cholecalciferol (vitamin D3) 50 mcg (2,000 unit) capsule 50 mcg PO DAILY Qty: 90 1RF ergocalciferol (vitamin D2) 1,250 mcg (50,000 unit) capsule 1,250 mcg PO WEEKLY Qty: 14 1RF lisinopril 2.5 mg tablet 2.5 mg PO DAILY Qty: 90 1RF Januvia 100 mg tablet 100 mg PO DAILY Qty: 90 1RF magnesium citrate Solution 150 ml PO DAILY PRN (Reason: constipation) Qty: 296 0RF scopolamine base 1 mg over 3 days patch 3 day See Rx Instructions .ROUTE .COMPLEX Qty: 10 0RF Dose Instruction: APPLY 1 PATCH TOPICALLY EVERY 72 HOURS NEEDED FOR NAUSEA AND VOMITING Rx Instructions: APPLY 1 PATCH TOPICALLY EVERY 72 HOURS NEEDED FOR NAUSEA AND VOMITING (DME) blood-glucose meter [Advanced Glucose Meter] Misc See Rx Instructions .Route Rx Instructions: Test sugar 3 times daily or As directed (DME) Advanced Gluc Meter Test Strip Strip See Rx Instructions .Route Rx Instructions: Test sugar 3 times daily or As directed (DME) Dexcom G7 Sensor Device See Rx Instructions .Route Rx Instructions: change sensor every 3 months (DME) Dexcom G7 Gravel Hauler Misc See Rx Instructions .Route Rx Instructions: As directed insulin glargine [Lantus Solostar U-100 Insulin] 100 unit/mL (3 mL) insulin pen 25 unit SQ HS Vraylar 1.5 mg capsule 1.5 mg PO DAILY capsaicin 0.1 % cream 1 applic topical DAILY Qty: 60 0RF Rx Instructions: do not wash area for at least 30 min after application ondansetron 8 mg tablet,disintegrating 8 mg PO Q6 PRN (Reason: nausea and vomiting) 4 Days Qty: 16 0RF cephalexin 500 mg capsule 500 mg PO QID Qty: 40 0RF mupirocin 2 % ointment 1 applic topical TID 7 Days Qty: 15 0RF (DME) pen needle, diabetic [BD Martina 2nd Gen Pen Needle] 32 gauge x 5/32 needle See Rx Instructions .Route Qty: 50 0RF Rx Instructions: As directed erythromycin 5 mg/gram (0.5 %) ointment 1 applic ophthalmic (eye) QID Qty: 3.5 0RF Referrals Follow up/Referrals: Carina Ruiz PA [Primary Care Provider] - See instructions Activity Restrictions/Add. Instructions Additional Instructions/Restrictions: Go straight to [facility] for further evaluation and examination Further care per [facility] Clinical Impressions Clinical Impression: Eye problem Instructions Patient Instructions: DI for Eye Pain Print Language Print Language: Macedonian Discharge ED Provider: Charlene Cam [facility] HPI General Stated complaint: pain, pressure behind R eye, sentivity to lght Mode of Arrival: Ambulatory Source of Information: Patient Time Seen by Provider: 01/10/24 14:10 Description of Symptoms (Recalled from Triage Doc. by RN): 2/10 PAIN IN RIGHT EYE, REDDNESS, LIGHT BOTHERS HIM HEENT Symptoms (Recalled from RN notes): Yes Resp Symptoms (Recalled from RN notes): No Skin Symptoms (Recalled from RN notes): No MS Symptoms (Recalled from RN notes): No Functional Status (Recalled from RN notes): WNL History of Present Illness Provider Complaint: Patient states that he has been having pain and pressure in his right eye, states that it is watering and sensative to light States feels like he may have something in it so he came in to get it checked Related Data Home Medications ?Medication ?Instructions ?Recorded ?Confirmed blood sugar diagnostic (Advanced 07/30/22 05/30/23 Glucose Meter Test Strips) blood-glucose meter (Advanced 07/30/22 05/30/23 Glucose Meter) blood-glucose meter,continuous 07/30/22 05/30/23 (Dexcom G7 Gravel Hauler) blood-glucose sensor (Dexcom G7 07/30/22 05/30/23 Sensor device) cariprazine 1.5 mg capsule 1.5 mg PO DAILY bipolar 01/11/23 05/30/23 (Vraylar) insulin glargine 100 unit/mL (3 25 unit SQ HS Diabetes 01/11/23 05/30/23 mL) subcutaneous pen (Lantus Solostar U-100 Insulin) Previous Rx's ?Medication ?Instructions ?Recorded pen needle, diabetic 32 gauge x #50 ea 08/19/22 (BD Martina 2nd Gen Pen Needle) aspirin 81 mg tablet,delayed 81 mg PO DAILY Heart health #90 12/31/22 release tabs atorvastatin 10 mg tablet (Lipitor) 10 mg PO HS Cholesterol #90 tabs 12/31/22 cholecalciferol (vitamin D3) 50 50 mcg PO DAILY Supplement #90 caps 12/31/22 mcg (2,000 unit) capsule ergocalciferol (vitamin D2) 1,250 1,250 mcg PO WEEKLY Supplement #14 12/31/22 mcg (50,000 unit) capsule caps lisinopril 2.5 mg tablet 2.5 mg PO DAILY Hypertension #90 12/31/22 tabs sitagliptin phosphate 100 mg 100 mg PO DAILY Diabetes #90 tabs 12/31/22 tablet (Januvia) magnesium citrate 150 ml PO DAILY PRN constipation 01/09/23 #296 mL capsaicin 0.1 % topical cream 1 applic topical DAILY #60 grams 04/04/23 scopolamine base 1 mg over 3 days See Rx Instructions .Route 04/26/23 transdermal patch .COMPLEX #10 patches ondansetron 8 mg disintegrating 8 mg PO Q6 PRN nausea and vomiting 04/27/23 tablet 4 days #16 tabs erythromycin 5 mg/gram (0.5 %) eye 1 applic ophthalmic (eye) QID #3.5 08/23/23 ointment grams cephalexin 500 mg capsule 500 mg PO QID #40 caps 10/09/23 mupirocin 2 % topical ointment 1 applic topical TID 7 days #15 10/09/23 grams Allergies Allergy/AdvReac Type Severity Reaction Status Date / Time Penicillins [PENICILLINS] Allergy Unknown Verified 05/30/23 13:49 Worker's Comp Is this a Worker's Comp case?: No [facility] Disclaimer: The information contained in this section may have been updated after the ally serna was seen, as this information can be updated by other users. 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 History of diabetic ketoacidosis Diabetes Surgical History No significant past surgical history Family History Father Hypertension Hyperlipidemia Diabetes Social History Smoking Status: Current every day smoker tobacco type: cigarettes packs per day: 2 alcohol intake: never substance use type: denies use current occupational status: unemployed Travel in the last 8 weeks: None household members: children housing: house marital status: single number of children: 4 current occupation: [employer] current occupational exposures/hazards: No caffeine: Yes ROS Obtained: Yes All systems reviewed & no additional complaints except as documented and Yes Systems reviewed as appropriate & no additional complaints except as documented Constitutional Constitutional: Reports system reviewed and no additional complaints, except as documented, Reports as per HPI and Denies headache(s) Eyes Eyes: Reports system reviewed and no additional complaints, except as documented, Reports as per HPI, Reports eye discharge, Reports irritation, Reports sensitivity to light, Reports eye pain (scratchy like feeling) and Reports photophobia ENT Ears, Nose, Mouth, and Throat: Reports system reviewed and no additional complaints, except as documented, Reports as per HPI and Denies headache(s) Cardiovascular Cardiovascular: Reports system reviewed and no additional complaints, except as documented and Reports as per HPI Respiratory Respiratory: Reports system reviewed and no additional complaints, except as documented and Reports as per HPI Gastrointestinal Gastrointestingal: Reports system reviewed and no additional complaints, except as documented and as per HPI Neurologic Neurologic: Denies headache(s) Physical Exam General General appearance: alert and in no apparent distress Eye Eye exam: Present other (redness, watering reports sensative to light and sensation of something in it ) Respiratory Respiratory exam: Present normal lung sounds bilaterally; Absent respiratory distress or wheezes Cardiovascular Cardiovascular exam: Present regular rate, normal rhythm and normal heart sounds Neurological Exam Neurological exam: Present alert, oriented X3 and normal gait Medical Decision Making Medical Records Screening: Per USPSTF and CDC recommendations, given the prevalence of disease in our region, it is our hospital?s policy to screen for HIV and viral Hepatitis for all patients aged 18 and over and those with ongoing risk factors. Burton Inquiry Pt receiving controlled substance: No Burton was queried for this patient: No Vital Signs: 01/10/24 14:03 Temperature 97.5 F L Temperature Source Oral Pulse Rate [Left Brachial] 84 Respiratory Rate 20 Blood Pressure [Left Arm] 136/74 Blood Pressure Mean [Left Arm] 94 02 Sat by Pulse Oximetry 98 Medical Decision Narrative: Patient denies headache or known injury to right eye, reports redness, sensative to like, pain/pressure like feeling and watery drainage States feels like something may be in his eye, discussed with patient and he sees [facility] and called the clinic there and they had an opening discussed with patient that we could do the exam here or he can go there for more through exam and patient advised that he would go there Spoke with the staff and they advised to have patient come on down to the office they was waiting on him
[2024-01-10 14:17] VITALS: BP 136/84; PULSE 84; RESP 20; TEMP 36.4
== END 2024-01-10 14:18 | disposition home or self-care (01) ==
PROVIDERS: Emergency Provider Nurse Practitioner; PCP Physician Assistant
DX: H57.11 Ocular pain, right eye (principal); H53.141 Visual discomfort, right eye; E11.9 Type 2 diabetes mellitus without complications; F17.210 Nicotine dependence, cigarettes, uncomplicated
CPT/HCPCS: 99212; 99213; G0463

== ENCOUNTER 2024-04-15 12:23 | Inpatient (IN) | payer MEDICAID, SELFPAY ==
[2024-04-15] VITALS (15 sets, daily range): BP systolic 108–167; BP diastolic 64–114; PULSE 105–123; RESP 16–20; TEMP 36.5–36.6; O2SAT 94–100; BMI 27.1; BMI 27.5
[2024-04-15] MEDS: LACTATED RINGERS 1000ML 1,000 ML 999 ML IV ×2 (12:48→12:59)
[2024-04-15] MEDS: ONDANSETRON 4MG/2ML VIAL 4 MG IV ×2 (12:48→17:29)
--- NOTE | 2024-04-15 12:50 | CT_ITS ---
PROCEDURE INFORMATION: Exam: CT Abdomen And Pelvis With Contrast Exam date and time: 04/15/2024 1:50 PM Age: 38 years old Clinical indication: Vomiting; Abdominal pain; Generalized; Additional info: Vomiting, b/l lower quad abdominal pain TECHNIQUE: Imaging protocol: Computed tomography of the abdomen and pelvis with contrast. Radiation optimization: All CT scans at this facility use at least one of these dose optimization techniques: automated exposure control; mA and/or kV adjustment per patient size (includes targeted exams where dose is matched to clinical indication); or iterative reconstruction. Contrast material: ISOVUE; Contrast volume: 75 ml; Contrast route: IV; COMPARISON: CT ABDOMEN PELVIS W CON 04/27/2023 12:[address] abdomen and pelvis with contrast April 03, 2023 FINDINGS: Lungs: Stable 10 mm noncalcified nodule in the left lower lobe. Liver: Hepatic steatosis. No focal liver lesion identified. Borderline hepatomegaly is the liver measures about 18 cm in craniocaudal dimension. Gallbladder and biliary ducts: The gallbladder is unremarkable with no calcified stones visualized and no strandy inflammatory changes surrounding the gallbladder. Pancreas: The pancreas is normal in appearance. No evidence of pancreatic ductal dilatation. Spleen: The spleen is normal in appearance. Adrenal glands: The adrenal glands are normal in appearance. Kidneys and ureters: The kidneys are normal in appearance. Simple appearing 9 mm left renal cortical cyst. No evidence of hydronephrosis or hydroureter. No nephroureteral calculi are identified. Stomach and bowel: Mild mural thickening of the mid and distal small bowel. Consider infectious versus inflammatory enteritis. Colonic diverticulosis but no evidence of diverticulitis. Appendix: The appendix is normal in appearance. No evidence of appendicitis. Intraperitoneal space: Unremarkable. No free air. No significant fluid collection. Vasculature: Unremarkable. No abdominal aortic aneurysm. Lymph nodes: Unremarkable. No enlarged lymph nodes. Urinary bladder: Unremarkable as visualized. Reproductive: Unremarkable as visualized. Bones/joints: Unremarkable. No acute fracture. Soft tissues: Unremarkable. IMPRESSION: 1. Mild mural thickening of the mid and distal small bowel. Consider infectious versus inflammatory enteritis. 2. Hepatic steatosis and borderline hepatomegaly. 3. Stable 10 mm noncalcified nodule in the left lower lobe. Given the interval stability, this lesion does not appear to require imaging follow-up as per Fleischner society recommendations. COMMENTS: Consistent with the [employer]'s Incidental Findings Committee white paper (J Am Louise Radiol 2018): Any incidental renal lesion less than 1 cm or classified as too small to characterize, or any incidental cystic renal lesion characterized as simple-appearing, is likely benign. No follow-up imaging is recommended for these lesions per consensus recommendations based on imaging criteria.
[2024-04-15 12:53] LABS: Albumin Level 5.3 g/dl (3.5-5.0); Chloride 98 mmol/L (98-107); Sodium 135 mmol/L (136-145)
[2024-04-15 12:54] LABS: Potassium 4.6 mmoL/L (3.5-5.1)
--- NOTE | 2024-04-15 12:54 | HMH.EDGENADL ---
Discharge Plan Disposition Patient Disposition: Admitted Prescriptions Prescriptions: No Action aspirin 81 mg tablet,delayed release (DR/EC) 81 mg PO DAILY Qty: 90 1RF atorvastatin [Lipitor] 10 mg tablet 10 mg PO HS Qty: 90 1RF cholecalciferol (vitamin D3) 50 mcg (2,000 unit) capsule 50 mcg PO DAILY Qty: 90 1RF ergocalciferol (vitamin D2) 1,250 mcg (50,000 unit) capsule 1,250 mcg PO WEEKLY Qty: 14 1RF lisinopril 2.5 mg tablet 2.5 mg PO DAILY Qty: 90 1RF Januvia 100 mg tablet 100 mg PO DAILY Qty: 90 1RF magnesium citrate Solution 150 ml PO DAILY PRN (Reason: constipation) Qty: 296 0RF scopolamine base 1 mg over 3 days patch 3 day See Rx Instructions .ROUTE .COMPLEX Qty: 10 0RF Dose Instruction: APPLY 1 PATCH TOPICALLY EVERY 72 HOURS NEEDED FOR NAUSEA AND VOMITING Rx Instructions: APPLY 1 PATCH TOPICALLY EVERY 72 HOURS NEEDED FOR NAUSEA AND VOMITING (DME) blood-glucose meter [Advanced Glucose Meter] [facility] See Rx Instructions .Route Rx Instructions: Test sugar 3 times daily or As directed (DME) Advanced Gluc Meter Test Strip Strip See Rx Instructions .Route Rx Instructions: Test sugar 3 times daily or As directed (DME) Dexcom G7 Sensor Device See Rx Instructions .Route Rx Instructions: change sensor every 3 months (DME) Dexcom G7 [employer] [facility] See Rx Instructions .Route Rx Instructions: As directed insulin glargine [Lantus Solostar U-100 Insulin] 100 unit/mL (3 mL) insulin pen 25 unit SQ HS Vraylar 1.5 mg capsule 1.5 mg PO DAILY capsaicin 0.1 % cream 1 applic topical DAILY Qty: 60 0RF Rx Instructions: do not wash area for at least 30 min after application ondansetron 8 mg tablet,disintegrating 8 mg PO Q6 PRN (Reason: nausea and vomiting) 4 Days Qty: 16 0RF cephalexin 500 mg capsule 500 mg PO QID Qty: 40 0RF mupirocin 2 % ointment 1 applic topical TID 7 Days Qty: 15 0RF (DME) pen needle, diabetic [BD Martina 2nd Gen Pen Needle] 32 gauge x 5/32 needle See Rx Instructions .Route Qty: 50 0RF Rx Instructions: As directed erythromycin 5 mg/gram (0.5 %) ointment 1 applic ophthalmic (eye) QID Qty: 3.5 0RF Referrals Follow up/Referrals: Carina Ruiz PA [Primary Care Provider] - See instructions Clinical Impressions Clinical Impression: Poorly controlled diabetes mellitus, Acute hyperglycemia, Ketonemia, Vomiting, Abdominal pain Instructions Patient Instructions: DI for Acute Abdominal Pain Print Language Print Language: Ukrainian Discharge ED Provider: Prateek Cowan General Adult HPI General Chief complaint: Abdominal Pain Stated complaint: severe stomach pain,vomiting Time Seen by Provider: 04/15/24 12:43 Mode of Arrival: Wheelchair Source of Information: Patient Limitations: No Limitations Description of Symptoms (Recalled from ER Triage Doc. by RN): PT REPORTS LOWER ABDOMINAL PAIN AND VOMITING THAT STARTED LAST NIGHT. PT IS DIABETIC AND HAS NOT TAKEN INSULIN FOR MONTHS. BECAUSE I'M A PIECE FO SHIT AND DON'T WANT TO History of Present Illness HPI narrative: Patient is a 38-year-old male past medical history of insulin-dependent diabetes, cannabinoid hyperemesis syndrome who presents emergency department for evaluation of vomiting abdominal pain. Patient has not taken insulin since new year even though he knows he is supposed to take it multiple times a day. He discontinued cannabis for multiple months and had some resolution of his symptoms. He started smoking cannabis again earlier this month and did not have any initial symptoms however over the last 24 to 48 hours he has had lower abdominal pain and intractable vomiting. No chest pain reported. No other acute complaints at this time. Related Data Home Medications ?Medication ?Instructions ?Recorded ?Confirmed blood sugar diagnostic (Advanced 07/30/22 05/30/23 Glucose Meter Test Strips) blood-glucose meter (Advanced 07/30/22 05/30/23 Glucose Meter) blood-glucose meter,continuous 07/30/22 05/30/23 (Dexcom G7 Agricultural Mechanic) blood-glucose sensor (Dexcom G7 07/30/22 05/30/23 Sensor device) cariprazine 1.5 mg capsule 1.5 mg PO DAILY bipolar 01/11/23 05/30/23 (Vraylar) insulin glargine 100 unit/mL (3 25 unit SQ HS Diabetes 01/11/23 05/30/23 mL) subcutaneous pen (Lantus Solostar U-100 Insulin) Previous Rx's ?Medication ?Instructions ?Recorded pen needle, diabetic 32 gauge x #50 ea 08/19/22 (BD Martina 2nd Gen Pen Needle) aspirin 81 mg tablet,delayed 81 mg PO DAILY Heart health #90 12/31/22 release tabs atorvastatin 10 mg tablet (Lipitor) 10 mg PO HS Cholesterol #90 tabs 12/31/22 cholecalciferol (vitamin D3) 50 50 mcg PO DAILY Supplement #90 caps 12/31/22 mcg (2,000 unit) capsule ergocalciferol (vitamin D2) 1,250 1,250 mcg PO WEEKLY Supplement #14 12/31/22 mcg (50,000 unit) capsule caps lisinopril 2.5 mg tablet 2.5 mg PO DAILY Hypertension #90 12/31/22 tabs sitagliptin phosphate 100 mg 100 mg PO DAILY Diabetes #90 tabs 12/31/22 tablet (Januvia) magnesium citrate 150 ml PO DAILY PRN constipation 01/09/23 #296 mL capsaicin 0.1 % topical cream 1 applic topical DAILY #60 grams 04/04/23 scopolamine base 1 mg over 3 days See Rx Instructions .Route 04/26/23 transdermal patch .COMPLEX #10 patches ondansetron 8 mg disintegrating 8 mg PO Q6 PRN nausea and vomiting 04/27/23 tablet 4 days #16 tabs erythromycin 5 mg/gram (0.5 %) eye 1 applic ophthalmic (eye) QID #3.5 08/23/23 ointment grams cephalexin 500 mg capsule 500 mg PO QID #40 caps 10/09/23 mupirocin 2 % topical ointment 1 applic topical TID 7 days #15 10/09/23 grams Allergies Allergy/AdvReac Type Severity Reaction Status Date / Time Penicillins (PENICILLINS) Allergy Unknown Verified 05/30/23 13:49 [facility] Disclaimer: The information contained in this section may have been updated after the patient was seen, as this information can be updated by other users. Medical History (Updated 04/15/24 @ 15:08 by Prateek Cowan MD) Depression Anxiety Nausea Low testosterone level in male History of diabetic ketoacidosis Diabetes Surgical History No significant past surgical history Family History Father Hypertension Hyperlipidemia Diabetes Social History Smoking Status: Current every day smoker tobacco type: cigarettes packs per day: 2 alcohol intake: never substance use type: denies use current occupational status: unemployed Travel in the last 8 weeks: None household members: children housing: house marital status: single number of children: 4 current occupation: [employer] current occupational exposures/hazards: No caffeine: Yes Have you lived/traveled outside [place] in past 30 days?: No Contact w/someone who lives/traveled outside US past 30 days?: No Exposure to someone with infectious disease in past 14 days?: No Do you have a fever (greater than 100.4 F or 38 C)?: No Have you tested positive for COVID-19: No Exposed to someone with COVID-19 in past 14 days?: No Do you have a sore throat?: No Do you have a cough?: No Do you have any weakness?: No Do you have any diarrhea?: No Are you experiencing any unusual bleeding?: No Do you have any muscle aches/pain?: Yes Do you have any abdominal pain?: No Are you experiencing loss of taste or smell?: No Other Medical History Have you received the Flu Vaccine for this season: No Have you received the Pneumonia Vaccine: No ROS Obtained: Yes Systems reviewed as appropriate & no additional complaints except as documented Physical Exam General General appearance: alert and in no apparent distress Head Head exam: atraumatic and normocephalic Eye Eye exam: Present PERRL and EOMI ENT ENT exam: Present mucous membranes moist Neck Neck exam: Present normal inspection Chest Chest inspection: Present normal inspection and symmetric chest wall rise Respiratory Respiratory exam: Present normal lung sounds bilaterally; Absent respiratory distress Cardiovascular Cardiovascular exam: Present normal rhythm and tachycardia Abdominal Exam Abdominal exam: Present soft and tenderness (Mild, bilateral lower quadrant) Extremities Exam Extremities exam: Present normal inspection Neurological Exam Neurological exam: Present alert Psychiatric Psychiatric exam: Present normal affect Skin Skin exam: Present warm and dry Medical Decision Making Medical Records Screening: Per USPSTF and CDC recommendations, given the prevalence of disease in our region, it is our hospital?s policy to screen for HIV and viral Hepatitis for all patients aged 18 and over and those with ongoing risk factors. [place] Inquiry Pt receiving controlled substance: No Vital Signs: 04/15/24 12:25 04/15/24 13:00 04/15/24 13:10 Temperature 97.7 F Temperature Source Oral Pulse Rate 122 H 122 H Pulse Rate [Radial] 122 H Respiratory Rate 18 Blood Pressure 167/114 H 155/98 H Blood Pressure [Left Arm] 150/98 H Blood Pressure Mean 121 Blood Pressure Mean [Left Arm] 115 Blood Pressure Source [Left Arm] Automatic Cuff Blood Pressure Position [Left Arm] Sitting 02 Sat by Pulse Oximetry 98 98 99 Oxygen Delivery Method Room Air Room Air Room Air 04/15/24 14:32 Temperature Temperature Source Pulse Rate 123 H Pulse Rate [Radial] Respiratory Rate Blood Pressure 123/81 Blood Pressure [Left Arm] Blood Pressure Mean Blood Pressure Mean [Left Arm] Blood Pressure Source [Left Arm] Blood Pressure Position [Left Arm] 02 Sat by Pulse Oximetry 99 Oxygen Delivery Method Room Air Lab Data Lab Results 04/15/24 12:34: WBC 23.2 H*, RBC 5.70, Hgb 17.6, Hct 49.4, MCV 86.7, MCH 30.9, MCHC 35.6 H, RDW 12.2, Plt Count 368, MPV 9.2, Neut % (Auto) 86.5 H, Lymph % (Auto) 7.0 L, [place] % (Auto) 5.2, Eos % (Auto) 0.0 L, Baso % (Auto) 0.4, Neut # (Auto) 20.1 H, Lymph # (Auto) 1.6, [place] # (Auto) 1.2 H, Eos # (Auto) 0.0, Baso # (Auto) 0.1, Total Counted 100, Neutrophils % (Manual) 82 H, Band Neutrophils % 3.0, Lymphocytes % (Manual) 10, Monocytes % (Manual) 4, Basophils % (Manual) 1.0, Platelet Estimate Normal, Anisocytosis 1+, Macrocytosis 1+, Sodium 135 L, Potassium 4.6, Chloride 98, Carbon Dioxide 12 L, Anion Gap 29.6 H, BUN 23 H, Creatinine 1.10, Estimated Creat Clear 113, Estimated GFR 75, Est GFR ( Amer) 90, Glucose 553 H*, Calcium 10.0, Total Bilirubin 3.5 H, AST 41, ALT 60, Alkaline Phosphatase 138 H, Total Protein 8.0, Albumin 5.3 H, Globulin 2.7, Albumin/Globulin Ratio 2.0 H, Lipase 49, Acetone Level Small 04/15/24 12:40: Magnesium 1.9 04/15/24 12:47: VBG pH 7.31, VBG pCO2 27.9 L, VBG pO2 55.4 H, VBG HCO3 13.8 L, VBG Total CO2 14.7 L, VBG O2 Saturation 88.3 H, VBG Base Excess -12.4 L, VBG Lactic Acid 5.5 H 04/15/24 13:00: Hemoglobin A1c 13.1 H, Phosphorus 5.5 H 04/15/24 12:34 04/15/24 12:34 Orders (Tests/Meds): ED MEDICATIONS Generic Name Dose Route Start Last Admin Trade Name Freq PRN Reason Stop Dose Admin Acetaminophen 1,000 mg 04/15/24 12:50 04/15/24 12:58 Acetaminophen 1,000mg/100ml Vial IV 04/15/24 12:51 1,000 mg ONCE ONE Administration Belladonna Alkaloids 60 ml 04/15/24 12:50 04/15/24 12:58 Belladonna Alkaloids 60 Ml Ml PO 04/15/24 12:51 60 ml ONCE ONE Administration Lactated Ringer's 1,000 mls @ 999 mls/hr 04/15/24 12:46 04/15/24 12:48 Lactated Ringer's 1000 Ml Bag IV 04/15/24 13:46 999 mls/hr .Q1H1M ONE Administration Lactated Ringer's 1,000 mls @ 999 mls/hr 04/15/24 12:57 04/15/24 12:59 Lactated Ringer's 1000 Ml Bag IV 04/15/24 13:57 999 mls/hr .Q1H1M ONE Administration Insulin Human Regular 100 unit 101 mls @ 8.888 mls/hr 04/15/24 13:15 04/15/24 13:28 / Sodium Chloride IV 05/15/24 13:14 8.8 unit/hr .[id number] ARIANNA 8.89 mls/hr Administration Protocol 8.8 UNIT/HR Iopamidol 75 ml 04/15/24 13:51 04/15/24 13:53 Iopamidol-370 (76%);100ml Bottle IV 04/15/24 13:52 75 ml ONCE ONE Administration Ketorolac Tromethamine 30 mg 04/15/24 12:50 04/15/24 12:58 Ketorolac 30mg/Ml Vial IV 04/15/24 12:51 30 mg ONCE ONE Administration Ondansetron HCl 4 mg 04/15/24 12:46 04/15/24 12:48 Ondansetron 4mg/2ml Vial IV 04/15/24 12:47 4 mg ONCE ONE Administration Sodium Chloride 10 ml 04/15/24 13:51 04/15/24 13:53 Sodium Chloride 0.9% 10ml Syr (Rad Only) IV 05/15/24 13:50 10 ml NEEDED PRN Administration Maintain IV Site ORDERS Category Date Time Status CT abdomen pelvis w con Stat Cat Scan 04/15/24 12:[address] head/brain wo con Stat Cat Scan 04/15/24 13:09 Completed Acetone, Serum (Rapid) Stat Lab 04/15/24 12:34 Completed CBC w/Auto Diff [Complete Blood Count Auto Diff] Stat Lab 04/15/24 12:34 Completed CMP [Comprehensive Metabolic Panel] Stat Lab 04/15/24 12:34 Completed Hemoglobin A1C Stat Lab 04/15/24 13:00 Completed Lipase Stat Lab 04/15/24 12:34 Completed MG [Magnesium] Stat Lab 04/15/24 12:40 Completed Phosphorous Stat Lab 04/15/24 13:00 Completed UA [Urinalysis and Microscopic] Stat Lab 04/15/24 12:44 Ordered Blood Culture Stat Micro 04/15/24 13:37 Received VBG [Venous Blood Gas] Stat RT 04/15/24 12:47 Completed ECG Data Tracing #1: Independently interpreted by me rate is 120, rhythm is regular, axis is leftward deviated, no ST elevation in anatomical contiguous leads, QTc 389. Sinus tachycardia Medical Decision Narrative: In summary patient is a 38-year-old male past medical history described above who presents emergency department for evaluation of vomiting, abdominal pain in the setting of cannabinoid hyperemesis syndrome and insulin-dependent diabetes for which she is noncompliant. Patient is hemodynamically stable nontoxic-appearing upon arrival, afebrile, tachycardic heart rate in the 120s. Patient is mildly tender in the bilateral lower quadrants. Differential diagnosis includes DKA, appendicitis, urinary tract infection, hyperemesis, viral infection, among others. Workup will be conducted with hematologic labs, EKG, urinalysis, CT abdomen pelvis IV contrast. Initial inventions include crystalloid resuscitation 1 L bolus, Tylenol, Toradol, GI cocktail, ondansetron and p.o. challenge. Initial workup reviewed by me, significant leukocytosis 23.2 which may be due to stress from his subacute vomiting versus abdominal pathology versus DKA. Although his pH is 7.31 acetone is detected which could be from vomiting however the benefits outweigh the risk and patient undergo DKA protocol with insulin drip, his gap is 29.6 and sugars 553. Upon repeat evaluation patient was hyperventilating and had contraction of his muscles of his forearms and jaw, he was instructed to slow his breathing and his contractions subsided over a few minutes I suspect it is due to intravascular shifting of calcium with his hyperventilation however noncontrasted CT scan of the head will be obtained. CT imaging abdomen pelvis shows mural thickening of the distal small bowel infectious versus inflammatory colitis hepatic steatosis, stable noncalcified nodule in the left lower lobe. Noncontrasted CT scan of the head no acute brain injury trace ethmoid sinusitis. Upon repeat evaluation patient continued to have a nonfocal neurologic exam. Case was discussed with Dr. Villarreal regarding management and patient will be admitted to his service for continued evaluation at this time. Critical Care Critical Care Time Critical Care Time: Yes Attestation: On 04/15/24, the high probability of a clinically significant, sudden or life threatening deterioration of the following system(s) required my full and direct attention, intervention and personal management. The time I documented below is in addition to time spent performing reported procedures but includes the following listed in this critical care notation. Total Time Total Critical Care Time: 45
[2024-04-15 12:55] LABS: VBG Base Excess -12.4 mmol/L (-2.4-2.3); VBG HCO3 13.8 mmol/L (23-30); VBG Oxygen Saturation 88.3 % (50-70); VBG PCO2 27.9 mmol/L (35-51); VBG PH 7.31 mmol/L (7.31-7.41); VBG PO2 55.4 mmol/L (28-40); VBG Total CO2 14.7 mmol/L (23-27)
--- NOTE | 2024-04-15 12:55 | ECG_ITS ---
APPROVED REPORT Exam: Resting ECG HR:120 bpm ECG Measurements Heart Rate 120 AXES [place] 171 P 76 QRSd 88 QRS -38 QT 318 T 72 QTc 389 Conclusion SINUS TACHYCARDIA LEFT AXIS DEVIATION [QRS AXIS < -30] PATTERN CONSISTENT WITH PULMONARY DISEASE ABNORMAL ECG Electronically signed by : ROYA FLORES, 04/15/2024 15:26:56
[2024-04-15 12:56] LABS: Alanine Aminotransferase 60 U/L (12-78); Alkaline Phosphatase 138 U/L (38-126); Anion Gap 29.6 mEq/L (5-15); Aspartate Amino Transferase 41 U/L (17-59); Bilirubin,Total 3.5 mg/dl (0.2-1.3); Blood Urea Nitrogen 23 mg/dl (9-20); Carbon Dioxide 12 mmol/L (22.0-30.0); Creatinine Clearance Estimated 113 mL/min (50-200); Estimated Glomerular Filt Rate 75 ml/min (>60); GFR (African American) 90 ML/MIN (>60)
[2024-04-15 12:57] LABS: Lactate Venous 5.5 mmol/L (0.4-2.0)
[2024-04-15 12:57] LABS: Globulin 2.7 g/dL (1.3-3.2); Hematocrit 49.4 % (42.0-52.0); Hemoglobin 17.6 g/dL (14.1-18.0); Lipase 49 U/L (23-300); Mean Corpuscular HGB Conc 35.6 g/dL (31.8-35.4); Mean Corpuscular Hemoglobin 30.9 pg (27.0-31.2); Mean Corpuscular Volume 86.7 fl (80-94); Mean Platelet Volume 9.2 fl (7.4-10.4); Monocytes % 5.2 % (1.7-9.3); Neutrophils % 86.5 % (37.0-80.0); Platelet Count 368 K/mm3 (142-424); Red Cell Distribution Width 12.2 % (11.5-17.5); White Blood Count 23.2 K/mm3 (4.8-10.8)
--- NOTE | 2024-04-15 12:57 | PC.NURSE ---
PT WAS GIVEN A WATER AND ADVISED TO TAKE SIP OF WATER
[2024-04-15 12:58] LABS: Basophils # 0.1 K/mm3 (0-0.2); Basophils % 0.4 % (0.1-2.0); Lymphocytes # 1.6 K/mm3 (0.7-4.5); Monocytes # 1.2 K/mm3 (0.1-1.0); Neutrophils # 20.1 K/mm3 (1.8-7.8)
[2024-04-15] MEDS: BELLADONNA ALKALOIDS 60 ML ML PO ×2 (12:58→17:32)
[2024-04-15] MEDS: ACETAMINOPHEN 1,000MG/100ML VIAL 1000 MG IV (12:58)
[2024-04-15] MEDS: KETOROLAC 30MG/ML VIAL 30 MG IV (12:58)
[2024-04-15 12:59] LABS: MANUAL DIFFERENTIAL MANUAL DIFFERENTIAL (MANUAL DIFF)
[2024-04-15 13:04] LABS: Glucose 553 mg/dl (74-100)
[2024-04-15 13:05] LABS: Acetone, Serum (Rapid) Small (None Detect)
[2024-04-15 13:08] LABS: Magnesium 1.9 mg/dl (1.6-2.3)
--- NOTE | 2024-04-15 13:09 | CT_ITS ---
PROCEDURE INFORMATION: Exam: CT Head Without Contrast Exam date and time: 04/15/2024 1:46 PM Age: 38 years old Clinical indication: Other: Intermittent enceohalopathy; Additional info: Hyperglycemia, intermittent encephalopathy TECHNIQUE: Imaging protocol: Computed tomography of the head without contrast. Radiation optimization: All CT scans at this facility use at least one of these dose optimization techniques: automated exposure control; mA and/or kV adjustment per patient size (includes targeted exams where dose is matched to clinical indication); or iterative reconstruction. COMPARISON: CT HEAD/BRAIN WO CON 08/23/2023 10:40 AM FINDINGS: Brain: Normal. No hemorrhage. Unremarkable white matter. No mass effect. Cerebral ventricles: No ventriculomegaly. Paranasal sinuses: Trace ethmoid sinusitis. Mastoid air cells: Visualized mastoid air cells are well aerated. Bones: Unremarkable. No acute fracture. Soft tissues: Unremarkable. IMPRESSION: 1. No CT evidence of acute brain injury. 2. Trace ethmoid sinusitis.
[2024-04-15 13:15] LABS: Lymphocytes % 10 % (10-50); Monocytes % 4 % (2-9); Neutrophils % 82 % (42-76); Total Cells Counted 100
[2024-04-15 13:16] LABS: Anisocytosis 1+; Macrocytosis 1+; Platelet Estimate Normal
[2024-04-15] MEDS: INSULIN REGULAR, HUMAN 100 UNIT in 0.9 % SODIUM CHLORIDE 100 ML 8.89 UNIT IV (13:28)
--- NOTE | 2024-04-15 13:42 | PC.NURSE ---
PT TO CT
[2024-04-15 13:52] LABS: Phosphorous 5.5 mg/dl (2.5-4.5)
[2024-04-15] MEDS: SODIUM CHLORIDE 0.9% 10ML SYR (RAD ONLY) 10 ML IV (13:53)
[2024-04-15] MEDS: IOPAMIDOL-370 (76%);100ML BOTTLE 75 ML IV (13:53)
[2024-04-15 13:55] LABS: Hemoglobin A1C 13.1 % (4.0-6.0)
--- NOTE | 2024-04-15 13:58 | PC.NURSE ---
PT GLUCOSE AT IS 530
--- NOTE | 2024-04-15 14:33 | PC.NURSE ---
PT TOLERATING WATER, NO NEEDS AT THIS TIME. S.O. AT BEDSIDE. CALL LIGHT WITHIN REACH
--- NOTE | 2024-04-15 14:57 | PC.NURSE ---
GLUCOSE IS 507
--- NOTE | 2024-04-15 15:00 | PC.NURSE ---
DR FLORES NOTIFIED OF FSBS 507, NO NEW ORDERS
--- NOTE | 2024-04-15 15:06 | P.HP_ITS ---
History of Present Illness *Admission Date: 04/15/24 *Reason for visit:: Intractable nausea and vomiting *History of present illness: Mr. Rogers is a 38-year-old male with history of insulin-dependent diabetes, has not been compliant with his therapy. Also has a history of cannabis hyperemesis syndrome. He presents today with intractable nausea and vomiting for 2 to 3 days. States that he has been feeling poorly for quite some time. Has not eaten in several days. Vomiting to the point that his chest hurts and foster. Having chills but no adonis fever. Reports last time he took insulin was approximately a year ago. Started smoking cannabis again earlier this month and did not have any nausea symptoms at that time. On arrival to the ER, workup found to have significant metabolic disturbances including high anion gap metabolic acidosis, hyperglycemia, elevated A1c, and signs of dehydration. Findings consistent with DKA and intractable nausea and vomiting. Leukocytosis of 23,000, no focal source of infection, suspect likely stress-induced/reactive. Medicine was consulted for admission and further management. Patient initiated on DKA protocol prior to admission. Tolerating insulin drip. Seeing improvements in glucose level and anion gap by the time of evaluation. Alert and oriented x 4. Stable on room air. States GI cocktail given in the ER helped significantly with his chest pain/burning sensation. Last bowel movement was yesterday. Requesting something to drink at this time. Denies any headache or confusion. [facility] Disclaimer: The information contained in this section may have been updated after the patient was seen, as this information can be updated by other users. Medical History (Updated 04/15/24 @ 17:46 by Chao Villarreal MD) Intractable nausea and vomiting Depression Anxiety Nausea Low testosterone level in male History of diabetic ketoacidosis Diabetes Surgical History No significant past surgical history Family History Father Hypertension Hyperlipidemia Diabetes Social History Smoking Status: Current every day smoker tobacco type: cigarettes packs per day: 2 alcohol intake: never substance use type: denies use current occupational status: unemployed Travel in the last 8 weeks: None household members: children housing: house marital status: single number of children: 4 current occupation: [employer] current occupational exposures/hazards: No caffeine: Yes Have you lived/traveled outside [place] in past 30 days?: No Contact w/someone who lives/traveled outside US past 30 days?: No Exposure to someone with infectious disease in past 14 days?: No Do you have a fever (greater than 100.4 F or 38 C)?: No Have you tested positive for COVID-19: No Exposed to someone with COVID-19 in past 14 days?: No Do you have a sore throat?: No Do you have a cough?: No Do you have any weakness?: No Are you experiencing any nausea/vomitting?: Yes Do you have any diarrhea?: No Are you experiencing any unusual bleeding?: No Do you have any muscle aches/pain?: Yes Do you have any abdominal pain?: No Are you experiencing loss of taste or smell?: No Other Medical History Have you received the Flu Vaccine for this season: No Have you received the Pneumonia Vaccine: No Review of Systems Review of Systems Review of systems (narrative): 14 point review of systems performed, pertinent positives and negatives as per HPI Meds Home Medications and Allergies Home Medications ?Medication ?Instructions ?Recorded ?Confirmed ?Type blood sugar diagnostic ([facility] 07/30/22 04/15/24 History Glucose Meter Test Strips) blood-glucose meter ([facility] 07/30/22 04/15/24 History Glucose Meter) pen needle, diabetic 32 gauge x #50 ea 08/19/22 04/15/24 Rx 5/32 (BD Martina 2nd Gen Pen Needle) aspirin 81 mg tablet,delayed 81 mg PO DAILY Heart health #90 12/31/22 04/15/24 Rx release tabs atorvastatin 10 mg tablet (Lipitor) 10 mg PO HS Cholesterol #90 tabs 12/31/22 04/15/24 Rx cholecalciferol (vitamin D3) 50 50 mcg PO DAILY Supplement #90 caps 12/31/22 04/15/24 Rx mcg (2,000 unit) capsule ergocalciferol (vitamin D2) 1,250 1,250 mcg PO WEEKLY Supplement #14 12/31/22 04/15/24 Rx mcg (50,000 unit) capsule caps lisinopril 2.5 mg tablet 2.5 mg PO DAILY Hypertension #90 12/31/22 04/15/24 Rx tabs sitagliptin phosphate 100 mg 100 mg PO DAILY Diabetes #90 tabs 12/31/22 04/15/24 Rx tablet (Januvia) cariprazine 1.5 mg capsule 1.5 mg PO DAILY bipolar 01/11/23 04/15/24 History (Vraylar) insulin glargine 100 unit/mL (3 25 unit SQ HS Diabetes 01/11/23 04/15/24 History mL) subcutaneous pen (Lantus Solostar U-100 Insulin) ondansetron 8 mg disintegrating 8 mg PO Q6 PRN nausea and vomiting 04/27/23 04/15/24 Rx tablet 4 days #16 tabs scopolamine base 1 mg over 3 days 1 patch transdermal DIRECTED 04/15/24 04/15/24 History transdermal patch PRN Nausea And Vomiting New Prescriptions to Start Prescriptions: Allergies Allergy/AdvReac Type Severity Reaction Status Date / Time Penicillins (PENICILLINS) Allergy Unknown Verified 05/30/23 13:49 Exam Data for Last 24 hours Vital signs and Labs for Last 24 Hours: Temp Pulse Resp BP Pulse Ox O2 Del Method 97.7 F 123 H 18 123/81 99 Room Air 04/15/24 12:25 04/15/24 14:32 04/15/24 12:25 04/15/24 14:32 04/15/24 14:32 04/15/24 14:32 Laboratory Results - last 24 hr 04/15/24 12:34: WBC 23.2 H*, RBC 5.70, Hgb 17.6, Hct 49.4, MCV 86.7, MCH 30.9, MCHC 35.6 H, RDW 12.2, Plt Count 368, MPV 9.2, Neut % (Auto) 86.5 H, Lymph % (Auto) 7.0 L, [place] % (Auto) 5.2, Eos % (Auto) 0.0 L, Baso % (Auto) 0.4, Neut # (Auto) 20.1 H, Lymph # (Auto) 1.6, [place] # (Auto) 1.2 H, Eos # (Auto) 0.0, Baso # (Auto) 0.1, Total Counted 100, Neutrophils % (Manual) 82 H, Band Neutrophils % 3.0, Lymphocytes % (Manual) 10, Monocytes % (Manual) 4, Basophils % (Manual) 1.0, Platelet Estimate Normal, Anisocytosis 1+, Macrocytosis 1+, Sodium 135 L, Potassium 4.6, Chloride 98, Carbon Dioxide 12 L, Anion Gap 29.6 H, BUN 23 H, Creatinine 1.10, Estimated Creat Clear 113, Estimated GFR 75, Est GFR ( Amer) 90, Glucose 553 H*, Calcium 10.0, Total Bilirubin 3.5 H, AST 41, ALT 60, Alkaline Phosphatase 138 H, Total Protein 8.0, Albumin 5.3 H, Globulin 2.7, Albumin/Globulin Ratio 2.0 H, Lipase 49, Acetone Level Small 04/15/24 12:40: Magnesium 1.9 04/15/24 12:47: VBG pH 7.31, VBG pCO2 27.9 L, VBG pO2 55.4 H, VBG HCO3 13.8 L, VBG Total CO2 14.7 L, VBG O2 Saturation 88.3 H, VBG Base Excess -12.4 L, VBG Lactic Acid 5.5 H 04/15/24 13:00: Hemoglobin A1c 13.1 H, Phosphorus 5.5 H I & O for Last 24 hours: Intake & Output 04/12/24 04/13/24 04/14/24 04/15/24 23:59 23:59 23:59 23:59 Weight 88.451 kg Constitutional Constitutional: mild distress, thin, chronically ill appearing and cooperative *Routine HEENT Exam Head: Present normocephalic Eye: Present EOMI and PERRL ENT: Present mucous membranes moist Comments: Poor dentition *Routine Neck Exam Neck: Present supple; Absent lymphadenopathy *Routine Respiratory Exam Respiratory: Present CTA bilaterally; Absent respiratory distress, rhonchi, stridor, wheezes or crackles *Routine Cardiovascular Exam Cardiovascular: Present tachycardia *Routine Abdominal Exam Abdominal: Present soft and normoactive bowel sounds; Absent tenderness *Routine Rectal Exam Rectal:: deferred *Routine Genitalia Exam Genitalia:: deferred *Routine Extremities Exam Extremities: Absent cyanosis, clubbing or edema *Routine Skin Exam Skin: Present intact and warm; Absent rash *Routine Neurological Exam Neurological: Present alert, oriented X3 and moving all extremities; Absent altered mental status Routine Psychiatric Exam Psychiatric: Present anxious Assessment and Plan *Assessment and plan (1) DKA (diabetic ketoacidosis): Status: Acute Category: Medical Code(s): E11.10 - Type 2 diabetes mellitus with ketoacidosis without coma (2) Intractable nausea and vomiting: Status: Acute Category: Medical Code(s): R11.2 - Nausea with vomiting, unspecified (3) Depression: Status: Chronic Category: Medical Code(s): F32.A - Depression, unspecified (4) High anion gap metabolic acidosis: Status: Acute Category: Medical Code(s): E87.29 - Other acidosis (5) Leukocytosis: Status: Acute Category: Medical Code(s): D72.829 - Elevated white blood cell count, unspecified Plan Mr. Antunez is a 38-year-old male with uncontrolled diabetes. Presented with intractable nausea and vomiting. Found to be in DKA. Discussed case with ER physician, request admission for treatment of DKA and insulin drip. I agreed to admit to ICU for further management. Patient showing some clinical improvement but still has significant metabolic disturbances. Necessitating inpatient care. Problems addressed as follows: DKA High anion gap metabolic acidosis -Uncontrolled diabetes, A1c 13.1 on presentation. Significant electrolyte disturbances with phosphorus 5.5, magnesium 1.9, sodium 133, potassium elevated above 5, anion gap of 29 and bicarb of 12. Repeat BMP every 4 hours pending improvement and closure of gap. -Initiated on insulin drip per protocol. -Monitor phosphorus and magnesium for replacement. -Will initiate basal insulin with insulin glargine 15 units tonight. Transition to bolus regimen and discontinue drip when gap closes -Full liquid diet as patient is alert and oriented and seeing improvement clinically Intractable nausea and vomiting Esophageal pain -Nausea responding to Zofran. Pain improved with GI cocktail. Continue Zofran IV and GI cocktail p.o. every 6 hours as needed -Initiate pantoprazole 40 mg IV nightly Leukocytosis: Likely reactive to nausea and vomiting. 23 on admission. Repeat CBC ordered for the morning. Holding on antibiotics, no clear signs of infection. If develops fever or worsening leukocytosis, will consider antibiotics Tobacco use disorder: Interested in quitting. Nicotine patch 21 mg daily History of depression and anxiety. Not on any medications currently. Will hold pending further evaluation. Full Holding anticoagulation Full liquid diet
--- NOTE | 2024-04-15 15:06 | PC.NURSE ---
DR FLORES SPEAKING WITH HOSPITALIST FOR ADMISSION
--- NOTE | 2024-04-15 15:07 | PC.NURSE ---
DECOMMISSIONING WELL SITE MANAGER NOTIFIED OF ADMISSION
--- NOTE | 2024-04-15 15:30 | PC.NURSE ---
REPORT CALLED TO MACEY OVALLES
[2024-04-15 15:38] LABS: Chloride 101 mmol/L (98-107); Sodium 133 mmol/L (136-145)
[2024-04-15 15:39] LABS: Potassium 4.5 mmoL/L (3.5-5.1)
[2024-04-15 15:41] LABS: Blood Urea Nitrogen 24 mg/dl (9-20); Creatinine Clearance Estimated 124 mL/min (50-200); Estimated Glomerular Filt Rate 83 ml/min (>60); GFR (African American) 101 ML/MIN (>60)
[2024-04-15 15:42] LABS: Anion Gap 19.5 mEq/L (5-15); Calcium 9.6 mg/dl (8.4-10.2); Carbon Dioxide 17 mmol/L (22.0-30.0); Magnesium 1.9 mg/dl (1.6-2.3); Phosphorous 2.8 mg/dl (2.5-4.5)
[2024-04-15 15:53] LABS: Glucose 448 mg/dl (74-100)
--- NOTE | 2024-04-15 16:24 | PC.NURSE ---
1550 - PT ARRIVED TO THE FLOOR 1600 - FINGER STICK 390; PREVIOUS GLUCOSE DRAWN AT 1522 WAS 448 PER LAB NOTIFICATION; INSULIN DRIP RATE NOT ADJUSTED PER PROTOCOL
--- NOTE | 2024-04-15 16:52 | PC.NURSE ---
MED REC COMPLETED, PATIENT STATES HE HASN'T TAKEN ANY MEDS IN A VERY LONG TIME
[2024-04-15 16:56] LABS: Reflex Lactic Add Lactic Reflex
[2024-04-15 17:30] LABS: Lactic Acid Follow Up (RFLX 1) 2.3 mmol/L (0.7-2.1)
--- NOTE | 2024-04-15 17:35 | PC.NURSE ---
PT RANG OUT; I WENT IN TO CHECK ON HIM AND HE HAD VOMITED APPROX 400 MLS OF YELLOW LIQUID; GI COCKTAIL REQUESTED AND ADMINISTERED
[2024-04-15 18:08] LABS: POC Glucose,Bedside 348 (70-110)
[2024-04-15 18:08] LABS: POC Glucose,Bedside 340 (70-110)
[2024-04-15 18:08] LABS: POC Glucose,Bedside 390 (70-110)
--- NOTE | 2024-04-15 18:52 | PC.NURSE ---
1700 FSBS 348; NO CHANGE TO INSULIN DRIP 1800 FSBS 340; NO CHANGE TO INSULIN DRIP 1900 FSBS 385; NO CHANGE TO INSULIN DRIP
[2024-04-15 18:58] LABS: POC Glucose,Bedside 385 (70-110)
[2024-04-15 19:08] LABS: Reflex Lactic (2 hrs) Add Lactic Reflex
[2024-04-15 19:17] LABS: Chloride 103 mmol/L (98-107); Potassium 3.8 mmoL/L (3.5-5.1); Sodium 131 mmol/L (136-145)
[2024-04-15 19:20] LABS: Blood Urea Nitrogen 26 mg/dl (9-20); Creatinine Clearance Estimated 126 mL/min (50-200); Estimated Glomerular Filt Rate 83 ml/min (>60); GFR (African American) 101 ML/MIN (>60)
[2024-04-15 19:21] LABS: Anion Gap 10.8 mEq/L (5-15); Calcium 9.1 mg/dl (8.4-10.2); Carbon Dioxide 21 mmol/L (22.0-30.0); Glucose 365 mg/dl (74-100); Magnesium 1.9 mg/dl (1.6-2.3)
[2024-04-15 19:22] LABS: Lactic Acid Follow up (RFLX 2) 3.5 mmol/L (0.7-2.1)
[2024-04-15 19:26] LABS: Phosphorous 1.7 mg/dl (2.5-4.5)
--- NOTE | 2024-04-15 19:28 | PC.NURSE ---
critical lab called to hospitalist, new order received.
--- NOTE | 2024-04-15 19:35 | P.EN_ITS ---
Patient with phosphorus level 1.7. Wrote for a 9 mmol potassium phosphate IV x 1 overnight. I will order repeat phosphorus in AM.
--- NOTE | 2024-04-15 19:35 | EXP.EVENT.NO ---
Patient with phosphorus level 1.7. Wrote for a 9 mmol potassium phosphate IV x 1 overnight. I will order repeat phosphorus in AM.
[2024-04-15] MEDS: PANTOPRAZOLE 40MG VIAL 40 MG IV (20:39)
[2024-04-15] MEDS: INSULIN GLARGINE 100 UNITS/ML 3ML FLEXPEN 15 UNIT SUBCUT (20:39)
[2024-04-15] MEDS: INSULIN REGULAR, HUMAN 100 UNIT in 0.9 % SODIUM CHLORIDE 100 ML IV (23:21)
[2024-04-15 23:31] LABS: Chloride 106 mmol/L (98-107); Potassium 3.6 mmoL/L (3.5-5.1); Sodium 134 mmol/L (136-145)
[2024-04-15 23:34] LABS: Blood Urea Nitrogen 28 mg/dl (9-20); Creatinine Clearance Estimated 140 mL/min (50-200); Estimated Glomerular Filt Rate 94 ml/min (>60); GFR (African American) 114 ML/MIN (>60)
[2024-04-15 23:35] LABS: Anion Gap 9.6 mEq/L (5-15); Calcium 9.1 mg/dl (8.4-10.2); Carbon Dioxide 22 mmol/L (22.0-30.0); Glucose 127 mg/dl (74-100); Magnesium 2.2 mg/dl (1.6-2.3); Phosphorous 2.6 mg/dl (2.5-4.5)
[2024-04-16] VITALS (15 sets, daily range): BP systolic 115–146; BP diastolic 71–92; PULSE 89–110; RESP 14–24; TEMP 36.3–37.2; O2SAT 92–99; BMI 27.6
[2024-04-16] MEDS: 0.9 % SODIUM CHLORIDE 1000ML 1,000 ML 150 ML IV (01:47)
[2024-04-16 03:59] LABS: Anion Gap 13.9 mEq/L (5-15); Blood Urea Nitrogen 25 mg/dl (9-20); Calcium 8.6 mg/dl (8.4-10.2); Carbon Dioxide 23 mmol/L (22.0-30.0); Chloride 102 mmol/L (98-107); Creatinine Clearance Estimated 140 mL/min (50-200); Estimated Glomerular Filt Rate 94 ml/min (>60); GFR (African American) 114 ML/MIN (>60); Glucose 224 mg/dl (74-100); Magnesium 1.9 mg/dl (1.6-2.3); Phosphorous 3.3 mg/dl (2.5-4.5); Potassium 3.9 mmoL/L (3.5-5.1); Sodium 135 mmol/L (136-145)
[2024-04-16] MEDS: humaLOG 100 UNITS/ML 10ML VIAL (SSI) SUBCUT ×4 (05:29→21:51)
[2024-04-16] MEDS: ONDANSETRON 4MG/2ML VIAL 4 MG IV ×2 (05:39→11:13)
[2024-04-16 05:51] LABS: POC Glucose,Bedside 180 (70-110)
[2024-04-16 05:51] LABS: POC Glucose,Bedside 246 (70-110)
[2024-04-16 05:51] LABS: POC Glucose,Bedside 88 (70-110)
[2024-04-16 05:51] LABS: POC Glucose,Bedside 252 (70-110)
[2024-04-16 05:51] LABS: POC Glucose,Bedside 108 (70-110)
[2024-04-16 06:52] LABS: Chloride 104 mmol/L (98-107)
[2024-04-16 06:53] LABS: Albumin Level 3.7 g/dl (3.5-5.0); Potassium 4.2 mmoL/L (3.5-5.1); Sodium 131 mmol/L (136-145)
[2024-04-16 06:55] LABS: Alanine Aminotransferase 28 U/L (12-78); Albumin/Globulin Ratio 1.6 (1.1-1.8); Anion Gap 10.2 mEq/L (5-15); Aspartate Amino Transferase 26 U/L (17-59); Blood Urea Nitrogen 26 mg/dl (9-20); Carbon Dioxide 21 mmol/L (22.0-30.0); Creatinine Clearance Estimated 157 mL/min (50-200); Estimated Glomerular Filt Rate 108 ml/min (>60); GFR (African American) 130 ML/MIN (>60); Globulin 2.3 g/dL (1.3-3.2)
[2024-04-16 06:56] LABS: Alkaline Phosphatase 84 U/L (38-126); Bilirubin,Total 2.3 mg/dl (0.2-1.3); Calcium 8.6 mg/dl (8.4-10.2); Glucose 242 mg/dl (74-100)
[2024-04-16] MEDS: BELLADONNA ALKALOIDS 60 ML ML PO ×2 (06:59→12:51)
[2024-04-16 07:17] LABS: Hematocrit 39.1 % (42.0-52.0); Mean Corpuscular Volume 86.7 fl (80-94); Red Blood Count 4.51 M/mm3 (4.60-6.20); White Blood Count 18.9 K/mm3 (4.8-10.8)
[2024-04-16 07:18] LABS: Basophils % 0.3 % (0.1-2.0); Eosinophils % 0.1 % (0.1-12.0); Lymphocytes # 3.1 K/mm3 (0.7-4.5); Lymphocytes % 16.2 % (10-50); Mean Corpuscular HGB Conc 35.5 g/dL (31.8-35.4); Mean Corpuscular Hemoglobin 30.8 pg (27.0-31.2); Mean Platelet Volume 9.2 fl (7.4-10.4); Monocytes # 1.7 K/mm3 (0.1-1.0); Monocytes % 8.9 % (1.7-9.3); Platelet Count 260 K/mm3 (142-424); Red Cell Distribution Width 12.2 % (11.5-17.5)
[2024-04-16 07:19] LABS: Basophils # 0.1 K/mm3 (0-0.2)
[2024-04-16 07:20] LABS: MANUAL DIFFERENTIAL MANUAL DIFFERENTIAL (MANUAL DIFF)
[2024-04-16 07:35] LABS: Hemoglobin 13.8 g/dL (14.1-18.0)
[2024-04-16] MEDS: POTASSIUM PHOSPHATE 9 MMOL in 0.9 % SODIUM CHLORIDE 250 ML 63.25 MMOL IV (09:08)
[2024-04-16] MEDS: ALUMINUM/MAGNESIUM/SIMETHICONE 30ML UDC 30 ML PO (09:11)
[2024-04-16] MEDS: LIDOCAINE 2% VISCOUS SOL 15ML UDC 15 ML PO (09:11)
[2024-04-16 09:12] LABS: Lymphocytes % 16 % (10-50); Monocytes % 4 % (2-9); Neutrophils % 80 % (42-76); Platelet Estimate Normal; RBC Morphology Normal; Total Cells Counted 100
--- NOTE | 2024-04-16 09:29 | XR_ITS ---
FINAL REPORT CLINICAL HISTORY: Precordial chest pain, shortness of air FINDINGS: A single view of the chest was obtained. The heart is normal in size. The mediastinum is unremarkable. The lungs are clear. There is no pleural effusion. There is no pneumothorax. There is no acute osseous abnormality. IMPRESSION: No acute cardiopulmonary process. Reviewed, Interpreted and Dictated by Kamran Barnett MD Transcribed by Arina Addison Authenticated and [facility][1]
--- NOTE | 2024-04-16 09:30 | PC.NURSE ---
pt aware of need for ua
[2024-04-16] MEDS: CEFTRIAXONE 1 GM 1 GM in 0.9 % SODIUM CHLORIDE 50 ML IV (11:05)
[2024-04-16 11:23] LABS: POC Glucose,Bedside 308 (70-110)
[2024-04-16 13:14] LABS: Coronavirus 19, PCR Not Detected (NotDetected); Human Rhinovirus Not Detected (NotDetected); Influenza A, PCR Not Detected (NotDetected); Influenza B, PCR Not Detected (NotDetected); Respiratory Syncytial Virus Not Detected (NotDetected)
[2024-04-16] MEDS: droPERidol 5MG/2ML VIAL 2.5 MG IV (13:23)
--- NOTE | 2024-04-16 13:25 | ECG_ITS ---
APPROVED REPORT Exam: Resting ECG HR:94 bpm ECG Measurements Heart Rate 94 AXES HI 162 P -6 QRSd 106 QRS -34 QT 347 T 16 QTc 398 Conclusion SINUS RHYTHM LEFT AXIS DEVIATION [QRS AXIS < -30] POSSIBLE ANTERIOR MYOCARDIAL INFARCTION , OF INDETERMINATE AGE [30 ms Q WAVE IN V3/V4, OR R < 0.2 mV IN V4] ABNORMAL ECG UNCONFIRMED REPORT Electronically signed by : John Gay MD 04/16/2024 19:24:36
--- NOTE | 2024-04-16 15:15 | EXP.ACUTE.PN ---
Subjective *Date: 04/16/24 *Time: 23:00 Interval history: Continues to complain of chest discomfort, esophageal pain. Intermittent nausea. Blood pressure stable. Afebrile. Vitals improving. No further vomiting. Stable on room air Medical Exam Vital signs and Labs for Last 24 Hours: Vital Signs Temp Pulse Pulse Resp BP BP Pulse Ox 04/16/24 14:54 04/16/24 13:08 04/16/24 12:00 100 H 04/16/24 12:00 98.4 F 94 H 16 146/92 H 96 04/16/24 11:15 04/16/24 10:00 95 H 20 138/78 96 04/16/24 09:00 104 H 18 134/79 99 04/16/24 09:00 04/16/24 08:00 110 H 04/16/24 08:00 108 H 18 126/85 97 04/16/24 07:45 96 04/16/24 07:00 100 H 16 136/79 95 04/16/24 06:05 04/16/24 06:00 98.8 F 95 H 24 117/71 96 04/16/24 05:00 98.1 F 89 14 117/71 98 04/16/24 05:00 04/16/24 04:00 90 04/16/24 04:00 94 H 17 115/74 96 04/16/24 03:00 04/16/24 03:00 92 H 22 124/71 96 04/16/24 02:00 89 22 129/77 92 L 04/16/24 01:00 04/16/24 01:00 94 H 22 126/71 97 04/16/24 00:00 102 H 04/16/24 00:00 97.3 F L 04/15/24 23:00 04/15/24 21:00 04/15/24 20:00 109 H 20 125/67 94 L 04/15/24 19:51 113 H 04/15/24 19:44 95 04/15/24 18:43 105 H 20 125/75 97 04/15/24 18:33 04/15/24 18:00 112 H 20 142/78 H 99 04/15/24 17:00 04/15/24 17:00 106 H 16 110/80 98 04/15/24 16:00 120 H 04/15/24 16:00 110 H 18 125/84 100 04/15/24 15:57 120 H 04/15/24 15:52 121 H 20 132/77 99 04/15/24 15:30 97.9 F 112 H 18 108/64 L O2 Del Method 04/16/24 14:54 Room Air 04/16/24 13:08 Room Air 04/16/24 12:00 04/16/24 12:00 Room Air 04/16/24 11:15 Room Air 04/16/24 10:00 Room Air 04/16/24 09:00 Room Air 04/16/24 09:00 Room Air 04/16/24 08:00 04/16/24 08:00 Room Air 04/16/24 07:45 Room Air 04/16/24 07:00 Room Air 04/16/24 06:05 Room Air 04/16/24 06:00 Room Air 04/16/24 05:00 04/16/24 05:00 Room Air 04/16/24 04:00 04/16/24 04:00 Room Air 04/16/24 03:00 Room Air 04/16/24 03:00 Room Air 04/16/24 02:00 Room Air 04/16/24 01:00 Room Air 04/16/24 01:00 04/16/24 00:00 04/16/24 00:00 04/15/24 23:00 Nasal Cannula 04/15/24 21:00 Room Air 04/15/24 20:00 Nasal Cannula 04/15/24 19:51 04/15/24 19:44 Room Air 04/15/24 18:43 Room Air 04/15/24 18:33 Room Air 04/15/24 18:00 Room Air 04/15/24 17:00 Room Air 04/15/24 17:00 Room Air 04/15/24 16:00 04/15/24 16:00 Room Air 04/15/24 15:57 04/15/24 15:52 Room Air 04/15/24 15:30 Room Air Intake and Output 04/15/24 04/16/24 04/16/24 23:59 07:59 15:59 Intake Total 548.934 / 548.934 248.888 / 806.888 558 / 806.888 Output Total 600 / 600 0 / 950 950 / 950 Balance -51.066 / -51.066 248.888 / -143.112 -392 / -143.112 Intake: Intake, Oral Amount 75 / 75 240 / 510 270 / 510 Intake, Total IV Amount 473.934 / 473.934 8.888 / 296.888 288 / 296.888 0.9 % Sodium Chloride 1000ML 1, 382 / 382 000 ml @ 150 mls/hr IV .Q6H40M [facility] Rx#:[id number] Ceftriaxone 1 gm 1 gm In 0.9 % 40 / 40 Sodium Chloride 50 ml @ 100 mls /hr IV Q24H [facility] Rx#:[id number] Potassium Phosphate 9 mmol In 0 248 / 248 .9 % Sodium Chloride 250 ml @ 63.25 mls/hr IV ONCE ONE Rx#: [id number] Output: Output, Urine Amount 200 / 200 0 / 950 950 / 950 Output, Emesis Amount 400 / 400 Other: Number of Unmeasured Voids 3 Weight 89.584 kg 89.58 kg 89.56 kg Patient Weight 04/16/24 23:59 Weight 89.56 kg Laboratory Results - last 24 hr 04/15/24 15:22: Sodium 133 L, Potassium 4.5, Chloride 101, Carbon Dioxide 17 L, Anion Gap 19.5 H, BUN 24 H, Creatinine 1.00, Estimated Creat Clear 124, Estimated GFR 83, Est GFR ( Amer) 101, Glucose 448 H*, Calcium 9.6, Phosphorus 2.8 D, Magnesium 1.9 04/15/24 16:10: POC Glucose 390 H* 04/15/24 17:04: POC Glucose 348 H* 04/15/24 17:05: Lactate 2.3 H 04/15/24 18:00: POC Glucose 340 H* 04/15/24 18:50: POC Glucose 385 H* 04/15/24 19:05: Sodium 131 L, Potassium 3.8, Chloride 103, Carbon Dioxide 21 L, Anion Gap 10.8, BUN 26 H, Creatinine 1.00, Estimated Creat Clear 126, Estimated GFR 83, Est GFR ( Amer) 101, Glucose 365 H, Lactate 3.5 H, Calcium 9.1, Phosphorus 1.7 L D, Magnesium 1.9 04/15/24 21:33: POC Glucose 246 H 04/15/24 22:32: POC Glucose 180 H 04/15/24 23:05: Sodium 134 L, Potassium 3.6, Chloride 106, Carbon Dioxide 22, Anion Gap 9.6, BUN 28 H, Creatinine 0.90, Estimated Creat Clear 140, Estimated GFR 94, Est GFR ( Amer) 114, Glucose 127 H D, Calcium 9.1, Phosphorus 2.6 D, Magnesium 2.2 D 04/15/24 23:16: POC Glucose 108 04/16/24 00:40: POC Glucose 88 04/16/24 03:20: Sodium 135 L, Potassium 3.9, Chloride 102, Carbon Dioxide 23, Anion Gap 13.9, BUN 25 H, Creatinine 0.90, Estimated Creat Clear 140, Estimated GFR 94, Est GFR ( Amer) 114, Glucose 224 H D, Calcium 8.6, Phosphorus 3.3 D, Magnesium 1.9 D 04/16/24 05:22: POC Glucose 252 H 04/16/24 05:32: WBC 18.9 H, RBC 4.51 L, Hgb 13.8 L D, Hct 39.1 L, MCV 86.7, MCH 30.8, MCHC 35.5 H, RDW 12.2, Plt Count 260 D, MPV 9.2, Neut % (Auto) 74.0, Lymph % (Auto) 16.2, [place] % (Auto) 8.9, Eos % (Auto) 0.1, Baso % (Auto) 0.3, Neut # (Auto) 14.0 H, Lymph # (Auto) 3.1, [place] # (Auto) 1.7 H, Eos # (Auto) 0.0, Baso # (Auto) 0.1, Total Counted 100, Neutrophils % (Manual) 80 H, Lymphocytes % (Manual) 16, Monocytes % (Manual) 4, Platelet Estimate Normal, RBC Morphology Normal, Sodium 131 L, Potassium 4.2, Chloride 104, Carbon Dioxide 21 L, Anion Gap 10.2, BUN 26 H, Creatinine 0.80, Estimated Creat Clear 157, Estimated GFR 108, Est GFR ( Amer) 130, Glucose 242 H, Calcium 8.6, Magnesium 2.0, Total Bilirubin 2.3 H, AST 26 D, ALT 28 D, Alkaline Phosphatase 84, Total Protein 6.0 L, Albumin 3.7 D, Globulin 2.3, Albumin/Globulin Ratio 1.6 04/16/24 11:08: POC Glucose 308 H* I & O for Labs for Last 24 Hours: Intake & Output 04/13/24 04/14/24 04/15/24 04/16/24 23:59 23:59 23:59 23:59 Intake Total 548.934 / 548.934 806.888 / 806.888 Output Total 600 / 600 950 / 950 Balance -51.066 / -51.066 -143.112 / -143.112 Weight 89.584 kg 89.56 kg Microbiology Reports for the Last 24 Hours: Microbiology 04/15/24 13:37 Blood Blood Culture - Preliminary NO GROWTH AFTER 24 HOURS 04/15/24 13:37 Blood Blood Culture - Preliminary NO GROWTH AFTER 24 HOURS Constitutional: Present no acute distress, average body habitus, chronically ill appearing and cooperative Head: Present atraumatic and normocephalic ENT: Present normal exam Comment:: Poor dentition Neck: Present normal inspection Respiratory: Present normal respiratory effort; Absent rhonchi, wheezes or crackles Cardiac: Present Reg Rate and Rhythm GI: Present soft, tenderness (Epigastric) and normal bowel sounds; Absent distention Extremities: Present normal inspection and full ROM Skin: Present intact; Absent erythema Neuro: Present Grossly Intact, alert, awake, oriented x 3 and moves all extremities Assessment and Plan *Assessment and plan (1) DKA (diabetic ketoacidosis): Status: Acute Category: Medical Code(s): E11.10 - Type 2 diabetes mellitus with ketoacidosis without coma (2) Esophagitis: Status: Acute Category: Medical Code(s): K20.90 - Esophagitis, unspecified without bleeding (3) Intractable nausea and vomiting: Status: Acute Category: Medical Code(s): R11.2 - Nausea with vomiting, unspecified (4) Depression: Status: Chronic Category: Medical Code(s): F32.A - Depression, unspecified (5) High anion gap metabolic acidosis: Status: Acute Category: Medical Code(s): E87.29 - Other acidosis (6) Leukocytosis: Status: Acute Category: Medical Code(s): D72.829 - Elevated white blood cell count, unspecified Plan Mr. Antunez is a 38-year-old male with uncontrolled diabetes. Presented with intractable nausea and vomiting. Found to be in DKA. Discussed case with ER physician, request admission for treatment of DKA and insulin drip. I agreed to admit to ICU for further management. Showed improvement, off insulin drip. On basal bolus regimen. De-escalate from ICU. Continues to require inpatient management. Problems addressed as follows: DKA High anion gap metabolic acidosis -Uncontrolled diabetes, A1c 13.1 on presentation. -Electrolytes improving. Potassium 3.2, magnesium 2.0. Sodium 131. Glucose 242 this morning. -On basal bolus regimen this morning. Increase basal insulin to 25 units nightly -Monitor phosphorus and magnesium for replacement. -Diabetic diet -Chest x-ray obtained today, no focal findings or consolidation per my review. Will obtain echo given chest pain. Troponins negative. No ischemic changes on telemetry. Intractable nausea and vomiting Esophageal pain -Nausea responding to Zofran. Pain improved with GI cocktail. Continue Zofran IV and GI cocktail p.o. every 6 hours as needed -Continue pantoprazole 40 mg IV nightly Leukocytosis: - Likely reactive to nausea and vomiting. 23 on admission, improved to 19. Will initiate ceftriaxone 1 g daily for 48 hours pending workup. De-escalate if no source. - Repeat CBC ordered for the morning. Tobacco use disorder: Interested in quitting. Nicotine patch 21 mg daily History of depression and anxiety. Not on any medications currently. Will hold pending further evaluation. Full Holding anticoagulation Diabetic diet
[2024-04-16 16:29] LABS: POC Glucose,Bedside 262 (70-110)
[2024-04-16 18:09] LABS: Microscopic, Urine URINE MICROSCOPIC (MICROSCOPIC)
[2024-04-16 18:31] LABS: Appearance,Urine CLEAR (Clear); Bilirubin,Urine Negative (Negative); Blood, Urine Negative (Negative); Color,Urine YELLOW (Yellow); Glucose,Urine (UA) 3+ (Negative); Ketones,Urine 2+ (Negative); Leukocyte Esterase,Urine Negative (Negative); Nitrate,Urine Negative (Negative); Protein,Urine Negative (Negative); Urobilinogen,Urine 0.2 EU/dl (0.2)
--- NOTE | 2024-04-16 18:55 | PC.NURSE ---
A&OX4. PT HAS TOLERATED RA WELL THROUGHOUT SHIFT. RESPIRATIONS REGULAR AND UNLABORED, BOWEL SOUNDS HEARD IN ALL 4 QUADRANTS. SOFT AND NONTENDER ABDOMEN. NO REPORTS OF BM THUS FAR. PT VOIDS INDEPENDENTLY IN URINAL. PT AWARE OF NEED FOR UA. 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 +2 PULSES NOTED THROUGHOUT. PT HAS REPORTED HEARTBURN TWICE THIS SHIFT AND RECEIVED MEDS PER JUN. PT HAS REPORTED NAUSEA TWICE THIS SHIFT AND HAS BEEN VOMITING. MEDS GIVEN PER JUN. PT HAS RESTED A LOT BETTER AND STATES HE FEELS MUCH BETTER AFTER RECEIVING DROPERIDOL. EKG OBTAINED PRIOR TO ADMINISTRATION. NO EDEMA NOTED. PT HAS REMAINED ON TELE THROUGHOUT SHIFT. DC PER MD AT END OF SHIFT. FSBS ACHS. INSULIN ADMINISTERED VIA SLIDING SCALE. BED IN LOWEST POSITION. CALL LIGHT WITHIN REACH. VSS. DENIES ANY PAIN AT THIS TIME. FAMILY MEMBER CURRENTLY AT BEDSIDE. NO QUESTIONS OR CONCERNS VOICED.
[2024-04-16 20:21] LABS: Bacteria,Urine Trace /lpf; Squamous Epithelial Cell,Urine Occasional #/hpf (0-5); WBC,Urine Occasional #/hpf (0-3)
[2024-04-16] MEDS: SODIUM CHLORIDE 0.9% 10ML VIAL 10 ML IV (21:39)
[2024-04-16] MEDS: PANTOPRAZOLE 40MG VIAL 40 MG IV (21:39)
[2024-04-16 21:51] LABS: POC Glucose,Bedside 233 (70-110)
[2024-04-16] MEDS: INSULIN GLARGINE 100 UNITS/ML 3ML FLEXPEN 20 UNIT SUBCUT (21:51)
--- NOTE | 2024-04-17 03:54 | PC.NURSE ---
At this time, the patient was complaining of a throbbing headache after an incident of vomiting. Jamar MCMAHON was paged to obtain an order for Tylenol. Zofran will also be administered per JUN.
[2024-04-17 04:00] VITALS: BP 130/75; PULSE 88; RESP 16; TEMP 36.6; O2SAT 98; BMI 28.5
[2024-04-17] MEDS: ONDANSETRON 4MG/2ML VIAL 4 MG IV (04:00)
[2024-04-17] MEDS: ACETAMINOPHEN 500MG TAB 500 MG PO (04:00)
--- NOTE | 2024-04-17 04:42 | PC.NURSE ---
Patient is alert and oriented x4. Patient was observed to have eyes closed, respirations even and unlabored on room air, and no apparent distress for the majority of the night. A family member has remained at the bedside. Patient complained of nausea/vomiting with a throbbing headache once this morning (see prior note). Zofran and Tylenol were administered per MAR. Scheduled medications were administered as appropriately per MAR. Patient has been tolerating a full liquid diet. Auscultation of his heart, lungs, and bowels were within normal findings. Upon assessment, patient was unsure of when his last bowel movement occurred, stating that it's been awhile. Vital signs have been stable this shift, telemetry discontinued. ACHS glucose fingersticks performed. Patient has been ambulating independently and tolerates it well. He is aware of needing a urine sample. At this time, the patient is resting in bed. He does not have any further complaints (denies pain and heartburn). No acute changes noted thus far. Call light within reach.
[2024-04-17] MEDS: humaLOG 100 UNITS/ML 10ML VIAL (SSI) SUBCUT (05:29)
[2024-04-17 05:49] LABS: POC Glucose,Bedside 210 (70-110)
[2024-04-17 07:14] LABS: Basophils # 0.1 K/mm3 (0-0.2); Basophils % 0.8 % (0.1-2.0); Eosinophils % 0.2 % (0.1-12.0); Hematocrit 40.2 % (42.0-52.0); Hemoglobin 14.3 g/dL (14.1-18.0); Lymphocytes # 2.6 K/mm3 (0.7-4.5); Lymphocytes % 23.7 % (10-50); Mean Corpuscular HGB Conc 35.6 g/dL (31.8-35.4); Mean Corpuscular Hemoglobin 30.6 pg (27.0-31.2); Mean Corpuscular Volume 86.1 fl (80-94); Mean Platelet Volume 10.6 fl (7.4-10.4); Monocytes # 0.9 K/mm3 (0.1-1.0); Monocytes % 8.4 % (1.7-9.3); Neutrophils # 7.2 K/mm3 (1.8-7.8); Neutrophils % 66.5 % (37.0-80.0); Platelet Count 80 K/mm3 (142-424); Red Blood Count 4.67 M/mm3 (4.60-6.20); White Blood Count 10.9 K/mm3 (4.8-10.8)
[2024-04-17 07:34] LABS: Albumin Level 3.4 g/dl (3.5-5.0); Chloride 102 mmol/L (98-107); Sodium 131 mmol/L (136-145)
[2024-04-17 07:35] LABS: Potassium 3.8 mmoL/L (3.5-5.1)
[2024-04-17 07:37] LABS: Alanine Aminotransferase 24 U/L (12-78); Albumin/Globulin Ratio 1.3 (1.1-1.8); Alkaline Phosphatase 107 U/L (38-126); Anion Gap 10.8 mEq/L (5-15); Aspartate Amino Transferase 47 U/L (17-59); Bilirubin,Total 2.3 mg/dl (0.2-1.3); Blood Urea Nitrogen 17 mg/dl (9-20); Carbon Dioxide 22 mmol/L (22.0-30.0); Creatinine Clearance Estimated 179 mL/min (50-200); Estimated Glomerular Filt Rate 126 ml/min (>60); GFR (African American) 152 ML/MIN (>60); Globulin 2.6 g/dL (1.3-3.2)
[2024-04-17 07:38] LABS: Calcium 8.3 mg/dl (8.4-10.2); Glucose 212 mg/dl (74-100); Magnesium 2.2 mg/dl (1.6-2.3)
[2024-04-17 07:53] LABS: Red Cell Distribution Width 11.9 % (11.5-17.5)
[2024-04-17 08:00] VITALS: BP 128/80; PULSE 90; RESP 18; TEMP 36.7; O2SAT 97
[2024-04-17] MEDS: BELLADONNA ALKALOIDS 60 ML ML PO (08:10)
--- NOTE | 2024-04-17 08:58 | P.DS_ITS ---
General Admission date:: 04/15/24 Discharge date: 04/17/24 HPI HPI HPI: Mr. Rogers is a 38-year-old male with history of insulin-dependent diabetes, has not been compliant with his therapy. Also has a history of cannabis hyperemesis syndrome. He presents today with intractable nausea and vomiting for 2 to 3 days. States that he has been feeling poorly for quite some time. Has not eaten in several days. Vomiting to the point that his chest hurts and foster. Having chills but no adonis fever. Reports last time he took insulin was approximately a year ago. Started smoking cannabis again earlier this month and did not have any nausea symptoms at that time. On arrival to the ER, workup found to have significant metabolic disturbances including high anion gap metabolic acidosis, hyperglycemia, elevated A1c, and signs of dehydration. Findings consistent with DKA and intractable nausea and vomiting. Leukocytosis of 23,000, no focal source of infection, suspect likely stress-induced/reactive. Medicine was consulted for admission and further management. Patient initiated on DKA protocol prior to admission. Tolerating insulin drip. Seeing improvements in glucose level and anion gap by the time of evaluation. Alert and oriented x 4. Stable on room air. States GI cocktail given in the ER helped significantly with his chest pain/burning sensation. Last bowel movement was yesterday. Requesting something to drink at this time. Denies any headache or confusion. Hospital Course Hospital Course Hospital Course: Mr. Rogers is a 38-year-old male with uncontrolled diabetes. Presented with intractable nausea and vomiting. Found to be in DKA. Discussed case with ER physician, request admission for treatment of DKA and insulin drip. I agreed to admit to ICU for further management. Patient showed improvement on DKA protocol with insulin drip. Able to de-escalate regimen after initiating basal regimen and closure of anion gap. Able to gradually advance diet with resolution of nausea and vomiting. Anion gap remained closed. Patient's symptoms significantly improved. Medically stable discharge home as he is tolerating oral nutrition and has significantly improved glucose control over 24 hours. Follow-up with primary care. Problems addressed as follows: DKA High anion gap metabolic acidosis -Uncontrolled diabetes, A1c 13.1 on presentation. Noted to have high anion gap. Gap closed over the first 24 hours with insulin drip and DKA protocol. Able to transition to basal bolus regimen. He went continue improved ability to clear, will discharge on 30 units nightly of Lantus. Continue mealtime insulin lispro 8 units. Recommend monitoring glucose 3 times a day. Discharged with glucose meter. Recommend discussing with PCP glucose control and making adjustments at follow-up. Tolerating p.o. intake. Intractable nausea and vomiting Esophageal pain -Nausea responding to Zofran. Pain improved with GI cocktail. Initiated on Protonix. Continue at discharge. Esophageal pain likely from esophagitis and irritation from retching. Overall improved. Leukocytosis: - Likely reactive to nausea and vomiting. 23 on admission, improved to 19. Administered ceftriaxone for 48 hours with normalization of white count. No signs of infection. No antibiotics at discharge. Tobacco use disorder: Interested in quitting. Nicotine patch 21 mg daily History of depression and anxiety. Not on any medications currently. Will hold pending further evaluation. Recommend discussing with primary care provider. Total time spent on discharge 35 minutes in counseling, documentation, chart review, and direct care with patient. Exam Data for Last 24 hours Vital signs and Labs for Last 24 Hours: Temp Pulse Resp BP Pulse Ox O2 Del Method 97.9 F 88 16 130/75 98 Room Air 04/17/24 04:00 04/17/24 04:00 04/17/24 04:00 04/17/24 04:00 04/17/24 04:00 04/17/24 08:00 Laboratory Results - last 24 hr 04/15/24 18:02: Urine Color Yellow, Urine Appearance Clear, Urine pH 6.0, Ur Specific [place] 1.020, Urine Protein Negative, Urine Glucose (UA) 3+, Urine Ketones 2+, Urine Blood Negative, Urine Nitrate Negative, Urine Bilirubin Negative, Urine Urobilinogen 0.2, Ur Leukocyte Esterase Negative, Urine RBC None, Urine WBC Occasional, Ur Squamous Epith Cells Occasional, Urine Bacteria Trace 04/16/24 05:32: Total Counted 100, Neutrophils % (Manual) 80 H, Lymphocytes % (Manual) 16, Monocytes % (Manual) 4, Platelet Estimate Normal, RBC Morphology Normal 04/16/24 11:08: POC Glucose 308 H* 04/16/24 12:50: SARS-CoV-2 (PCR) Not detected, Influenza Type A (PCR) Not detected, Influenza Type B (PCR) Not detected, RSV (PCR) Not detected, Rhinovirus (PCR) Not detected 04/16/24 16:21: POC Glucose 262 H 04/16/24 21:43: POC Glucose 233 H 04/17/24 05:24: POC Glucose 210 H 04/17/24 06:11: WBC 10.9 H D, RBC 4.67, Hgb 14.3, Hct 40.2 L, MCV 86.1, MCH 30.6, MCHC 35.6 H, RDW 11.9, Plt Count 80 L D, MPV 10.6 H, Neut % (Auto) 66.5, Lymph % (Auto) 23.7, [place] % (Auto) 8.4, Eos % (Auto) 0.2, Baso % (Auto) 0.8, Neut # (Auto) 7.2, Lymph # (Auto) 2.6, [place] # (Auto) 0.9, Eos # (Auto) 0.0, Baso # (Auto) 0.1, Sodium 131 L, Potassium 3.8, Chloride 102, Carbon Dioxide 22, Anion Gap 10.8, BUN 17 D, Creatinine 0.70, Estimated Creat Clear 179, Estimated GFR 126, Est GFR ( Amer) 152, Glucose 212 H, Calcium 8.3 L, Magnesium 2.2, Total Bilirubin 2.3 H, AST 47 D, ALT 24, Alkaline Phosphatase 107, Total Protein 6.0 L, Albumin 3.4 L, Globulin 2.6, Albumin/Globulin Ratio 1.3 I & O for Last 24 hours: Intake & Output 04/14/24 04/15/24 04/16/24 04/17/24 23:59 23:59 23:59 23:59 Intake Total 548.934 / 907.343 4633.888 / 1796.888 180 / 180 Output Total 600 / 600 1850 / 1850 1000 / 1000 Balance -51.066 / -51.066 -233.112 / -53.112 -820 / -820 Weight 89.584 kg 89.56 kg 92.306 kg Microbiology Reports for the Last 24 Hours: Microbiology 04/15/24 13:37 Blood Blood Culture - Preliminary NO GROWTH AFTER 24 HOURS 04/15/24 13:37 Blood Blood Culture - Preliminary NO GROWTH AFTER 24 HOURS Constitutional Constitutional: no acute distress, chronically ill appearing and cooperative *Routine HEENT Exam Head: Present normocephalic Eye: Present EOMI and PERRL ENT: Present mucous membranes moist Comments: Poor dentition *Routine Neck Exam Neck: Present supple; Absent lymphadenopathy *Routine Respiratory Exam Respiratory: Present CTA bilaterally; Absent rhonchi, wheezes or crackles *Routine Cardiovascular Exam Cardiovascular: Present RRR *Routine Abdominal Exam Abdominal: Present soft, normoactive bowel sounds and tenderness Comments: Mild epigastric tenderness significantly improved from admission *Routine Rectal Exam Patient deferred: visual exam *Routine Exam Patient deferred: penile exam *Routine Extremities Exam Extremities: Absent cyanosis, clubbing or edema *Routine Skin Exam Skin: Present warm; Absent rash *Routine Neurological Exam Neurological: Present alert, oriented X3 and moving all extremities; Absent altered mental status Results Data Completed and Pending Labs on day of discharge: Labs from last 24 hours 04/17/24 04/17/24 04/16/24 06:11 05:24 21:43 WBC 10.9 H D RBC 4.67 Hgb 14.3 Hct 40.2 L MCV 86.1 MCH 30.6 MCHC 35.6 H RDW 11.9 Plt Count 80 L D MPV 10.6 H Neut % (Auto) 66.5 Lymph % (Auto) 23.7 [place] % (Auto) 8.4 Eos % (Auto) 0.2 Baso % (Auto) 0.8 Neut # (Auto) 7.2 Lymph # (Auto) 2.6 [place] # (Auto) 0.9 Eos # (Auto) 0.0 Baso # (Auto) 0.1 Total Counted Neutrophils % (Manual) Lymphocytes % (Manual) Monocytes % (Manual) Platelet Estimate RBC Morphology Sodium 131 L Potassium 3.8 Chloride 102 Carbon Dioxide 22 Anion Gap 10.8 BUN 17 D Creatinine 0.70 Estimated Creat Clear 179 Estimated GFR 126 Est GFR ( Amer) 152 Glucose 212 H POC Glucose 210 H 233 H Calcium 8.3 L Magnesium 2.2 Total Bilirubin 2.3 H AST 47 D ALT 24 Alkaline Phosphatase 107 Total Protein 6.0 L Albumin 3.4 L Globulin 2.6 Albumin/Globulin Ratio 1.3 Urine Color Urine Appearance Urine pH Ur Specific [place] Urine Protein Urine Glucose (UA) Urine Ketones Urine Blood Urine Nitrate Urine Bilirubin Urine Urobilinogen Ur Leukocyte Esterase Urine RBC Urine WBC Ur Squamous Epith Cells Urine Bacteria SARS-CoV-2 (PCR) Influenza Type A (PCR) Influenza Type B (PCR) RSV (PCR) Rhinovirus (PCR) 04/16/24 04/16/24 04/16/24 16:21 12:50 11:08 WBC RBC Hgb Hct MCV MCH MCHC RDW Plt Count MPV Neut % (Auto) Lymph % (Auto) [place] % (Auto) Eos % (Auto) Baso % (Auto) Neut # (Auto) Lymph # (Auto) [place] # (Auto) Eos # (Auto) Baso # (Auto) Total Counted Neutrophils % (Manual) Lymphocytes % (Manual) Monocytes % (Manual) Platelet Estimate RBC Morphology Sodium Potassium Chloride Carbon Dioxide Anion Gap BUN Creatinine Estimated Creat Clear Estimated GFR Est GFR ( Amer) Glucose POC Glucose 262 H 308 H* Calcium Magnesium Total Bilirubin AST ALT Alkaline Phosphatase Total Protein Albumin Globulin Albumin/Globulin Ratio Urine Color Urine Appearance Urine pH Ur Specific [place] Urine Protein Urine Glucose (UA) Urine Ketones Urine Blood Urine Nitrate Urine Bilirubin Urine Urobilinogen Ur Leukocyte Esterase Urine RBC Urine WBC Ur Squamous Epith Cells Urine Bacteria SARS-CoV-2 (PCR) Not detected Influenza Type A (PCR) Not detected Influenza Type B (PCR) Not detected RSV (PCR) Not detected Rhinovirus (PCR) Not detected 04/16/24 04/15/24 05:32 18:02 WBC RBC Hgb Hct MCV MCH MCHC RDW Plt Count MPV Neut % (Auto) Lymph % (Auto) [place] % (Auto) Eos % (Auto) Baso % (Auto) Neut # (Auto) Lymph # (Auto) [place] # (Auto) Eos # (Auto) Baso # (Auto) Total Counted 100 Neutrophils % (Manual) 80 H Lymphocytes % (Manual) 16 Monocytes % (Manual) 4 Platelet Estimate Normal RBC Morphology Normal Sodium Potassium Chloride Carbon Dioxide Anion Gap BUN Creatinine Estimated Creat Clear Estimated GFR Est GFR ( Amer) Glucose POC Glucose Calcium Magnesium Total Bilirubin AST ALT Alkaline Phosphatase Total Protein Albumin Globulin Albumin/Globulin Ratio Urine Color Yellow Urine Appearance Clear Urine pH 6.0 Ur Specific [place] 1.020 Urine Protein Negative Urine Glucose (UA) 3+ Urine Ketones 2+ Urine Blood Negative Urine Nitrate Negative Urine Bilirubin Negative Urine Urobilinogen 0.2 Ur Leukocyte Esterase Negative Urine RBC None Urine WBC Occasional Ur Squamous Epith Cells Occasional Urine Bacteria Trace SARS-CoV-2 (PCR) Influenza Type A (PCR) Influenza Type B (PCR) RSV (PCR) Rhinovirus (PCR) Preliminary micro results at discharge 04/15/24 13:37 Blood Culture - Preliminary Blood NO GROWTH AFTER 24 HOURS 04/15/24 13:37 Blood Culture - Preliminary Blood NO GROWTH AFTER 24 HOURS DS: Diagnosis Discharge Diagnosis (1) DKA (diabetic ketoacidosis): Status: Acute Code(s): E11.10 - Type 2 diabetes mellitus with ketoacidosis without coma (2) Esophagitis: Status: Acute Code(s): K20.90 - Esophagitis, unspecified without bleeding (3) Intractable nausea and vomiting: Status: Acute Code(s): R11.2 - Nausea with vomiting, unspecified (4) Depression: Status: Chronic Code(s): F32.A - Depression, unspecified (5) High anion gap metabolic acidosis: Status: Acute Code(s): E87.29 - Other acidosis (6) Leukocytosis: Status: Acute Code(s): D72.829 - Elevated white blood cell count, unspecified Meds Home Medications and Allergies Home Medications ?Medication ?Instructions ?Recorded ?Confirmed ?Type insulin glargine 100 unit/mL (3 30 unit (0.3 mL) SQ HS #15 mL 04/17/24 Rx mL) subcutaneous pen (Lantus Solostar U-100 Insulin) insulin lispro 100 unit/mL 8 unit (0.08 mL) SQ TID #15 mL 04/17/24 Rx subcutaneous pen nicotine 21 mg/24 hr daily 21 mg transdermal DAILYP PRN 04/17/24 Rx transdermal patch Nicotine Cravings #28 ea pantoprazole 40 mg tablet,delayed 40 mg PO HS 30 days #30 tabs 04/17/24 Rx release pen needle, diabetic 31 gauge x #100 ea 04/17/24 Rx 1/4 New Prescriptions to Start Prescriptions: insulin glargine [Lantus Solostar U-100 Insulin] Chao Villarreal insulin lispro Chao Villarreal nicotine Cherelle,Chao pantoprazole Chao Villarreal pen needle, diabetic Chao Villarreal Allergies Allergy/AdvReac Type Severity Reaction Status Date / Time Penicillins (PENICILLINS) Allergy Unknown Verified 05/30/23 13:49 Discharge Plan Disposition Patient Disposition: Home, Self-Care Condition: Fair Discharge Order Discharge Orders: Discharge Order (Routine); Ordered 04/17/24 Ordered By: Chao Villarreal Follow up Plan Follow up with: Jonathon Fuentes APRN [Nurse Practitioner] - 04/28/24 9:15 am Prescriptions/Medication Reconciliation: New insulin glargine [Lantus Solostar U-100 Insulin] 100 unit/mL (3 mL) Insulin Pen 30 unit SQ HS Qty: 15 0RF pantoprazole 40 mg Tablet,Delayed Release (Dr/Ec) 40 mg PO HS 30 Days Qty: 30 0RF nicotine 21 mg/24 hr Patch 24 Hour 21 mg transdermal DAILYP PRN (Reason: Nicotine Cravings) Qty: 28 0RF (DME) pen needle, diabetic 31 gauge x 1/4 needle See Rx Instructions .ROUTE .MEDSUPPLY Qty: 100 0RF Rx Instructions: As directed insulin lispro 100 unit/mL insulin pen 8 unit SQ TID Qty: 15 0RF Rx Instructions: with meals Problem Reconciliation Problems Reviewed?: Yes Patient Discharge Instructions ACTIVITY: Continue current activity DIET: continue same diet Patient Instructions: Low-Carbohydrate Diet (Alternative Therapy), Carbohydrate-Counting Diet, DI for Diabetic Ketoacidosis Print Language: [place] Providers Primary Care Provider: Carina Ruiz Admit Provider: Chao Villarreal Attending Provider: Chao Villarreal
[2024-04-17] MEDS: CEFTRIAXONE 1 GM 1 GM in 0.9 % SODIUM CHLORIDE 50 ML IV (09:29)
--- NOTE | 2024-04-17 11:22 | DIET.NUTRFU ---
Saw patient prior to discharge today, reviewed handouts attached to discharge paperwork he also stated he still has his handouts at home. 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 Encouraged to follow carb counting diet, review portion sizes. Dad is also diabetic he says he knows. But also still drunk regular soda couple times/week it was encouraged to limit regular to none because it counts as two carb and is empty calories. He appears like he has lost some weight loss and he reports he has been trying to control his intake, but he has not been taking his meds. Hospitalist made follow-up appt with Jose, encouraged patient to attend and seek possibly for a dexcom or specialty meter instead depending on him to take levels regularly d/t hx of non compliance. Also provided information for outpatient consult if needed.
--- NOTE | 2024-04-20 11:15 | SW/DCPLANNER ---
Spoke with patient on the phone. Patient stated that he is doing well. Patient stated that he is aware of his upcoming appointments and that he was able to get his new medication from [facility]. Patient stated that he has no concerns or questions at this time. Forest Cruz
== END 2024-04-17 10:18 | disposition home or self-care (01) | DRG 639 ==
LOC: ER 15:07 → 2ND 15:32
PROVIDERS: Admitting Provider Internal Medicine Adolescent Medicine; Emergency Provider Emergency Medicine; PCP Physician Assistant; Visit Provider Internal Medicine Adolescent Medicine
DX: E11.10 Type 2 diabetes mellitus with ketoacidosis without coma (principal); F17.200 Nicotine dependence, unspecified, uncomplicated; K20.90 Esophagitis, unspecified without bleeding; F32.A Depression, unspecified; F41.9 Anxiety disorder, unspecified
CPT/HCPCS: 36415; 70450; 71045; 74177; 80048; 80053; 81001; 82009; 82803; 82962; 83036; 83605; 83690; 83735; 84100; 85007; 85025; 87040; 87631; 93005; 99291; J0131; J0696; J1790; J1885; J2405; J7030; J7120; Q9967

== ENCOUNTER 2024-07-13 17:43 | Observation (INO) | payer MEDICAID, SELFPAY ==
[2024-07-13] VITALS (11 sets, daily range): BP systolic 140–191; BP diastolic 91–115; PULSE 87–98; RESP 13–25; TEMP 36.7–37; O2SAT 95–100; BMI 26.8; BMI 27.4
[2024-07-13] MEDS: ONDANSETRON 4MG/2ML VIAL 4 MG IV (18:06)
[2024-07-13] MEDS: 0.9 % SODIUM CHLORIDE 1000ML 1,000 ML 999 ML IV (18:07)
--- NOTE | 2024-07-13 18:13 | HMH.EDGENADL ---
Discharge Plan Disposition Patient Disposition: Admitted Condition: Fair Clinical Impressions Clinical Impression: Poorly controlled diabetes mellitus, Intractable nausea and vomiting Discharge ED Provider: Prateek Cowan General Adult HPI <AZAR Sevilla - Last Filed: 07/13/24 22:02> General Chief complaint: Abdominal Pain Stated complaint: vomiting, sweating Time Seen by Provider: 07/13/24 18:09 Mode of Arrival: Ambulatory Description of Symptoms (Recalled from ER Triage Doc. by RN): Pt has been vomiting and has had abd pain since 12pm today. It is mid upper and sharp in nature, and comes in waves . Pt states he is a diabetic and his BGL has been in the 300s History of Present Illness HPI narrative: 38-year-old male presents to the emergency department accompanied by family member, both pain member and patient are poor historians, and patient is actively vomiting and retching at the bedside attempted to my evaluation. Patient states that the nausea and vomiting started around 12 PM today, he has a history of nausea and vomiting comes in waves . Patient history of uncontrolled type 2 diabetes, has been without his insulin for quite some time due to insurance issues . Patient denies any fever chills chest pain shortness of breath, denies any real abdominal pain, denies constipation diarrhea, denies urinary type symptomatology. Of note, per nursing staff patient did say that I do not want to live anymore , admits to passive suicidal ideation, with no thoughts of suicidal plan, homicidal ideation. Other past medical history consistent with medical noncompliance, generalized anxiety disorder, bipolar depression, ADHD, hypothyroidism, type 2 diabetes insulin-dependent, data deficient history of diabetic ketoacidosis. Patient and family member believe patient may be in DKA again . Initial triage vitals unremarkable. Of note, patient is a current everyday smoker (vapes), denies any other alcohol or drug use Onset (ago): hour(s) Related Data Previous Rx's ?Medication ?Instructions ?Recorded insulin glargine 100 unit/mL (3 30 unit (0.3 mL) SQ HS #15 mL 04/17/24 mL) subcutaneous pen (Lantus Solostar U-100 Insulin) insulin lispro 100 unit/mL 8 unit (0.08 mL) SQ TID #15 mL 04/17/24 subcutaneous pen nicotine 21 mg/24 hr daily 21 mg transdermal DAILYP PRN 04/17/24 transdermal patch Nicotine Cravings #28 ea pantoprazole 40 mg tablet,delayed 40 mg PO HS 30 days #30 tabs 04/17/24 release pen needle, diabetic 31 gauge x #100 ea 04/17/2404/25 lamotrigine 25 mg tablet (Lamictal) 25 mg PO DAILY 14 days #14 tabs 05/13/24 Allergies Allergy/AdvReac Type Severity Reaction Status Date / Time Penicillins (PENICILLINS) Allergy Unknown Verified 05/13/24 09:16 [facility] <AZAR Sevilla - Last Filed: 07/13/24 22:02> [facility] Disclaimer: The information contained in this section may have been updated after the patient was seen, as this information can be updated by other users. Medical History Erosive esophagitis [place] tear Intractable nausea and vomiting Depression Anxiety Nausea Low testosterone level in male History of diabetic ketoacidosis Diabetes Surgical History No significant past surgical history Family History Father Hypertension Hyperlipidemia Diabetes Social History Smoking Status: Current every day smoker tobacco type: cigarettes packs per day: 2 alcohol intake: never substance use type: denies use current occupational status: unemployed Travel in the last 8 weeks: None household members: children housing: house marital status: single number of children: 4 current occupation: [employer] current occupational exposures/hazards: No caffeine: Yes Have you lived/traveled outside [place] in past 30 days?: No Contact w/someone who lives/traveled outside US past 30 days?: No Exposure to someone with infectious disease in past 14 days?: No Do you have a fever (greater than 100.4 F or 38 C)?: No Have you tested positive for COVID-19: No Exposed to someone with COVID-19 in past 14 days?: No Do you have a sore throat?: No Do you have a cough?: No Do you have any weakness?: No Do you have any diarrhea?: No Are you experiencing any unusual bleeding?: No Do you have any muscle aches/pain?: No Do you have any abdominal pain?: No Are you experiencing loss of taste or smell?: No Other Medical History Have you received the Flu Vaccine for this season: No Have you received the Pneumonia Vaccine: No <AZAR Sevilla - Last Filed: 07/13/24 22:02> ROS Obtained: Yes All systems reviewed & no additional complaints except as documented Physical Exam <AZAR Sevilla - Last Filed: 07/13/24 22:02> General General appearance: alert, in no apparent distress and anxious Comment: Mildly anxious appearing, actively retching and vomiting at the bedside Head Head exam: atraumatic and normocephalic Eye Eye exam: Present PERRL and EOMI ENT ENT exam: Present mucous membranes moist Neck Neck exam: Present normal inspection Chest Chest inspection: Present normal inspection and symmetric chest wall rise Respiratory Respiratory exam: Present normal lung sounds bilaterally; Absent respiratory distress Cardiovascular Cardiovascular exam: Present regular rate and normal rhythm Abdominal Exam Abdominal exam: Present soft; Absent tenderness, guarding or rebound Extremities Exam Extremities exam: Present normal inspection Neurological Exam Neurological exam: Present alert and oriented X3 Psychiatric Psychiatric exam: Present normal affect Skin Skin exam: Present warm and dry Medical Decision Making <AZAR Sevilla - Last Filed: 07/13/24 22:02> Medical Records Medical records reviewed: Yes I reviewed the patient's medical records. Screening: Per USPSTF and CDC recommendations, given the prevalence of disease in our region, it is our hospital?s policy to screen for HIV and viral Hepatitis for all patients aged 18 and over and those with ongoing risk factors. Burton Inquiry Pt receiving controlled substance: No Burton was queried for this patient: No Vital Signs: 07/13/24 17:51 07/13/24 18:30 07/13/24 19:00 Temperature 98.1 F Temperature Source Oral Pulse Rate 90 98 H Pulse Rate [Right] 94 H Respiratory Rate 20 22 15 Blood Pressure 140/101 H 161/91 H Blood Pressure [Right Arm] 160/97 H Blood Pressure Mean 114 Blood Pressure Mean [Right Arm] 118 Blood Pressure Source [Right Arm] Automatic Cuff Blood Pressure Position [Right Arm] Sitting 02 Sat by Pulse Oximetry 100 98 96 Oxygen Delivery Method Room Air 07/13/24 19:30 07/13/24 20:00 07/13/24 20:30 Temperature Temperature Source Pulse Rate 98 H 96 H 97 H Pulse Rate [Right] Respiratory Rate 15 15 14 Blood Pressure 159/94 H 148/92 H 143/98 H Blood Pressure [Right Arm] Blood Pressure Mean Blood Pressure Mean [Right Arm] Blood Pressure Source [Right Arm] Blood Pressure Position [Right Arm] 02 Sat by Pulse Oximetry 96 95 95 Oxygen Delivery Method 07/13/24 20:45 07/13/24 21:01 07/13/24 21:30 Temperature Temperature Source Pulse Rate Pulse Rate [Right] Respiratory Rate 25 H 21 18 Blood Pressure 191/115 H 162/102 H Blood Pressure [Right Arm] Blood Pressure Mean Blood Pressure Mean [Right Arm] Blood Pressure Source [Right Arm] Blood Pressure Position [Right Arm] 02 Sat by Pulse Oximetry Oxygen Delivery Method Lab Data Lab Results 07/13/24 17:58: SARS-CoV-2 (PCR) Not detected, Influenza A Untype (PCR) Not detected, Influenza Type B (PCR) Not detected 07/13/24 18:14: VBG pH 7.42 H, VBG pCO2 32.0 L, VBG pO2 32.0, VBG HCO3 20.2 L, VBG Total CO2 21.2 L, VBG O2 Saturation 68.4, VBG Base Excess -4.3 L, VBG Lactic Acid 2.4 H 07/13/24 18:18: WBC 13.7 H, RBC 5.83, Hgb 17.9, Hct 49.7, MCV 85.2, MCH 31.0, MCHC 36.4 H, RDW 11.9, Plt Count 287, MPV 9.3, Neut % (Auto) 82.6 H, Lymph % (Auto) 11.6, [place] % (Auto) 3.8, Eos % (Auto) 0.3, Baso % (Auto) 1.0, Neut # (Auto) 11.3 H, Lymph # (Auto) 1.6, [place] # (Auto) 0.5, Eos # (Auto) 0.0, Baso # (Auto) 0.1, Sodium 137, Potassium 4.0, Chloride 100, Carbon Dioxide 24, Anion Gap 17.0 H, BUN 18, Creatinine 0.70, Estimated Creat Clear 170, Estimated GFR 126, Est GFR ( Amer) 152, Glucose 367 H, Lactate 2.1, Calcium 10.3 H, Total Bilirubin 2.0 H, AST 42, ALT 65, Alkaline Phosphatase 130 H, Total Protein 8.1 D, Albumin 5.2 H, Globulin 2.9, Albumin/Globulin Ratio 1.8, Lipase 408 H, Acetone Level None detected 07/13/24 18:18 07/13/24 18:18 Orders (Tests/Meds): ED MEDICATIONS Generic Name Dose Route Start Last Admin Trade Name Freq PRN Reason Stop Dose Admin Metoclopramide HCl 10 mg 07/13/24 21:00 07/13/24 20:44 Metoclopramide Hcl 10mg/2ml Vial IVP 08/12/24 20:59 10 mg ACHS ARIANNA Administration Discontinued Medications Generic Name Dose Route Start Last Admin Trade Name Freq PRN Reason Stop Dose Admin Diphenhydramine HCl 25 mg 07/13/24 20:43 07/13/24 20:44 Diphenhydramine 50mg/Ml Vial IV 07/13/24 20:44 25 mg ONCE ONE Administration Droperidol 2.5 mg 07/13/24 21:59 07/13/24 22:02 Droperidol 5mg/2ml Vial IV 07/13/24 22:00 2.5 mg ONCE ONE Administration Sodium Chloride 1,000 mls @ 999 mls/hr 07/13/24 18:06 07/13/24 18:07 Sod Chlor 0.9% 1000ml Bag IV 07/13/24 19:06 999 mls/hr .Q1H1M ONE Administration Insulin Human Regular 5 unit 07/13/24 20:26 07/13/24 20:35 Insulin Human Regular 100 Units/Ml 10ml Vial IV 07/13/24 20:27 5 unit ONCE ONE Administration Ondansetron HCl 4 mg 07/13/24 18:00 07/13/24 18:06 Ondansetron 4mg/2ml Vial IV 07/13/24 18:01 4 mg ONCE ONE Administration ORDERS Category Date Time Status Acetone, Serum (Rapid) Stat Lab 07/13/24 18:18 Completed Complete Blood Count Auto Diff Stat Lab 07/13/24 18:18 Completed Comprehensive Metabolic Panel Stat Lab 07/13/24 18:18 Completed Lactic Acid Stat Lab 07/13/24 18:18 Completed Lipase Stat Lab 07/13/24 18:18 Completed Rapid PCR Covid and Flu A/B Stat Lab 07/13/24 17:58 Completed Urinalysis and Microscopic Stat Lab 07/13/24 18:00 Ordered VBG [Venous Blood Gas] Stat RT 07/13/24 18:14 Completed Medical Decision Narrative: 38-year-old male presents the emergency department with nausea and vomiting, differential diagnose include but not limited to, acid-base disorder, cardiac arrhythmia, electrolyte disturbance, diabetic ketoacidosis, HHS, cannabinoid hyperemesis, gastroenteritis, psychogenic nausea and vomiting. I discussed patient case with attending physician Dr. Cook Obtain basic oratory studies, lactate lipase rapid PCR for COVID and flu, urinalysis, will give 1 L IV NS, 4 mg IV Zofran for nausea and obtain VBG, will also obtain acetone. CBC is notable for mild leukocytosis at 13.7 otherwise unremarkable CBC COVID-19, influenza A and B are negative pH is slightly alkalotic at 7.42, pCO2 is decreased at 32, bicarb decreased at 20., Venous lactic acid level is elevated at 2.4 Patient has anion gap of 17, electrolytes within normal limits, hyperglycemia 367, lactic on CMP is 2.1. Lipase is elevated at 408. Acetone level negative, will give 5 units IV insulin, hyperglycemia. Reexamination the patient 8:30 PM, patient is conversational, will attempt p.o. intake with fluids. intake, he is no longer actively retching and vomiting, he adamantly denies any SI or HI to me at the bedside. Patient upon attempting p.o. intake had another episode of nausea and vomiting, will give 10 mg IV Reglan and 25 mg IV Benadryl for nausea vomiting possible the setting of hyperemesis syndrome versus gastroparesis, although patient has a negative gastric emptying study. Total bilirubin is mildly elevated at 2 Reexamination the patient at 9:56 PM, patient failed p.o. intake after IV Reglan and IV Benadryl. Actively vomiting and retching at the bedside after p.o. challenge with fluids. I discussed the patient's case with Hermilo Gleason APRN the hospitalist on-call tonight at approximately 9:59 PM, he is agreement with admission plan/treatment plan for hyperemesis and intractable nausea and vomiting. He recommend starting 2.5 mg IV droperidol, will obtain repeat EKG and start IV droperidol. I discussed need for admission with the patient family bedside patient and family agree with current treatment plan/admission plan. <Prateek Cowan MD - Last Filed: 07/13/24 22:14> Vital Signs: 07/13/24 17:51 07/13/24 18:30 07/13/24 19:00 Temperature 98.1 F Temperature Source Oral Pulse Rate 90 98 H Pulse Rate [Right] 94 H Respiratory Rate 20 22 15 Blood Pressure 140/101 H 161/91 H Blood Pressure [Right Arm] 160/97 H Blood Pressure Mean 114 Blood Pressure Mean [Right Arm] 118 Blood Pressure Source [Right Arm] Automatic Cuff Blood Pressure Position [Right Arm] Sitting 02 Sat by Pulse Oximetry 100 98 96 Oxygen Delivery Method Room Air 07/13/24 19:30 07/13/24 20:00 07/13/24 20:30 Temperature Temperature Source Pulse Rate 98 H 96 H 97 H Pulse Rate [Right] Respiratory Rate 15 15 14 Blood Pressure 159/94 H 148/92 H 143/98 H Blood Pressure [Right Arm] Blood Pressure Mean Blood Pressure Mean [Right Arm] Blood Pressure Source [Right Arm] Blood Pressure Position [Right Arm] 02 Sat by Pulse Oximetry 96 95 95 Oxygen Delivery Method 07/13/24 20:45 07/13/24 21:01 07/13/24 21:30 Temperature Temperature Source Pulse Rate Pulse Rate [Right] Respiratory Rate 25 H 21 18 Blood Pressure 191/115 H 162/102 H Blood Pressure [Right Arm] Blood Pressure Mean Blood Pressure Mean [Right Arm] Blood Pressure Source [Right Arm] Blood Pressure Position [Right Arm] 02 Sat by Pulse Oximetry Oxygen Delivery Method Lab Data Lab Results 07/13/24 17:58: SARS-CoV-2 (PCR) Not detected, Influenza A Untype (PCR) Not detected, Influenza Type B (PCR) Not detected 07/13/24 18:14: VBG pH 7.42 H, VBG pCO2 32.0 L, VBG pO2 32.0, VBG HCO3 20.2 L, VBG Total CO2 21.2 L, VBG O2 Saturation 68.4, VBG Base Excess -4.3 L, VBG Lactic Acid 2.4 H 07/13/24 18:18: WBC 13.7 H, RBC 5.83, Hgb 17.9, Hct 49.7, MCV 85.2, MCH 31.0, MCHC 36.4 H, RDW 11.9, Plt Count 287, MPV 9.3, Neut % (Auto) 82.6 H, Lymph % (Auto) 11.6, [place] % (Auto) 3.8, Eos % (Auto) 0.3, Baso % (Auto) 1.0, Neut # (Auto) 11.3 H, Lymph # (Auto) 1.6, [place] # (Auto) 0.5, Eos # (Auto) 0.0, Baso # (Auto) 0.1, Sodium 137, Potassium 4.0, Chloride 100, Carbon Dioxide 24, Anion Gap 17.0 H, BUN 18, Creatinine 0.70, Estimated Creat Clear 170, Estimated GFR 126, Est GFR ( Amer) 152, Glucose 367 H, Lactate 2.1, Calcium 10.3 H, Total Bilirubin 2.0 H, AST 42, ALT 65, Alkaline Phosphatase 130 H, Total Protein 8.1 D, Albumin 5.2 H, Globulin 2.9, Albumin/Globulin Ratio 1.8, Lipase 408 H, Acetone Level None detected Orders (Tests/Meds): ED MEDICATIONS Generic Name Dose Route Start Last Admin Trade Name Freq PRN Reason Stop Dose Admin Metoclopramide HCl 10 mg 07/13/24 21:00 07/13/24 20:44 Metoclopramide Hcl 10mg/2ml Vial IVP 08/12/24 20:59 10 mg ACHS ARIANNA Administration Discontinued Medications Generic Name Dose Route Start Last Admin Trade Name Freq PRN Reason Stop Dose Admin Diphenhydramine HCl 25 mg 07/13/24 20:43 07/13/24 20:44 Diphenhydramine 50mg/Ml Vial IV 07/13/24 20:44 25 mg ONCE ONE Administration Droperidol 2.5 mg 07/13/24 21:59 07/13/24 22:02 Droperidol 5mg/2ml Vial IV 07/13/24 22:00 2.5 mg ONCE ONE Administration Sodium Chloride 1,000 mls @ 999 mls/hr 07/13/24 18:06 07/13/24 18:07 Sod Chlor 0.9% 1000ml Bag IV 07/13/24 19:06 999 mls/hr .Q1H1M ONE Administration Insulin Human Regular 5 unit 07/13/24 20:26 07/13/24 20:35 Insulin Human Regular 100 Units/Ml 10ml Vial IV 07/13/24 20:27 5 unit ONCE ONE Administration Ondansetron HCl 4 mg 07/13/24 18:00 07/13/24 18:06 Ondansetron 4mg/2ml Vial IV 07/13/24 18:01 4 mg ONCE ONE Administration ORDERS Category Date Time Status Acetone, Serum (Rapid) Stat Lab 07/13/24 18:18 Completed Complete Blood Count Auto Diff Stat Lab 07/13/24 18:18 Completed Comprehensive Metabolic Panel Stat Lab 07/13/24 18:18 Completed Lactic Acid Stat Lab 07/13/24 18:18 Completed Lipase Stat Lab 07/13/24 18:18 Completed Rapid PCR Covid and Flu A/B Stat Lab 07/13/24 17:58 Completed Urinalysis and Microscopic Stat Lab 07/13/24 18:00 Ordered VBG [Venous Blood Gas] Stat RT 07/13/24 18:14 Completed ECG Data Tracing #1: Independently interpreted by me rate is 102, rhythm is regular, axis is normal, no ST elevation in anatomical contiguous leads, QTc 405 Medical Decision Narrative: 38-year-old male presents the emergency department with nausea and vomiting, differential diagnose include but not limited to, acid-base disorder, cardiac arrhythmia, electrolyte disturbance, diabetic ketoacidosis, HHS, cannabinoid hyperemesis, gastroenteritis, psychogenic nausea and vomiting. I discussed patient case with attending physician Dr. Cook Obtain basic oratory studies, lactate lipase rapid PCR for COVID and flu, urinalysis, will give 1 L IV NS, 4 mg IV Zofran for nausea and obtain VBG, will also obtain acetone. CBC is notable for mild leukocytosis at 13.7 otherwise unremarkable CBC COVID-19, influenza A and B are negative pH is slightly alkalotic at 7.42, pCO2 is decreased at 32, bicarb decreased at 20., Venous lactic acid level is elevated at 2.4 Patient has anion gap of 17, electrolytes within normal limits, hyperglycemia 367, lactic on CMP is 2.1. Lipase is elevated at 408. Acetone level negative, will give 5 units IV insulin, hyperglycemia. Reexamination the patient 8:30 PM, patient is conversational, will attempt p.o. intake with fluids. intake, he is no longer actively retching and vomiting, he adamantly denies any SI or HI to me at the bedside. Patient upon attempting p.o. intake had another episode of nausea and vomiting, will give 10 mg IV Reglan and 25 mg IV Benadryl for nausea vomiting possible the setting of hyperemesis syndrome versus gastroparesis, although patient has a negative gastric emptying study. Total bilirubin is mildly elevated at 2 Reexamination the patient at 9:56 PM, patient failed p.o. intake after IV Reglan and IV Benadryl. Actively vomiting and retching at the bedside after p.o. challenge with fluids. I discussed the patient's case with Hermilo Gleason APRN the hospitalist on-call tonight at approximately 9:59 PM, he is agreement with admission plan/treatment plan for hyperemesis and intractable nausea and vomiting. He recommend starting 2.5 mg IV droperidol, will obtain repeat EKG and start IV droperidol. I discussed need for admission with the patient family bedside patient and family agree with current treatment plan/admission plan. I was consulted by the ALLISON, and we discussed the complexity of the problems being addressed. I approved the treatment and management plan for this patient's care in the emergency department, thus performing a substantive portion of the medical decision making. Prateek Cowan MD Critical Care <AZAR Sevilla - Last Filed: 07/13/24 22:02> Critical Care Time Critical Care Time: No
[2024-07-13 18:14] LABS: Coronavirus 19, PCR Not Detected (NotDetected); Influenza A, PCR Not Detected (NotDetected); Influenza B, PCR Not Detected (NotDetected)
[2024-07-13 18:37] LABS: VBG Base Excess -4.3 mmol/L (-2.4-2.3); VBG HCO3 20.2 mmol/L (23-30); VBG Oxygen Saturation 68.4 % (50-70); VBG PH 7.42 mmol/L (7.31-7.41); VBG Total CO2 21.2 mmol/L (23-27)
[2024-07-13 18:39] LABS: Lactate Venous 2.4 mmol/L (0.4-2.0)
[2024-07-13 18:56] LABS: Albumin Level 5.2 g/dl (3.5-5.0); Chloride 100 mmol/L (98-107); Sodium 137 mmol/L (136-145)
[2024-07-13 18:59] LABS: Alanine Aminotransferase 65 U/L (12-78); Albumin/Globulin Ratio 1.8 (1.1-1.8); Alkaline Phosphatase 130 U/L (38-126); Aspartate Amino Transferase 42 U/L (17-59); Blood Urea Nitrogen 18 mg/dl (9-20); Calcium 10.3 mg/dl (8.4-10.2); Carbon Dioxide 24 mmol/L (22.0-30.0); Creatinine Clearance Estimated 170 mL/min (50-200); Estimated Glomerular Filt Rate 126 ml/min (>60); GFR (African American) 152 ML/MIN (>60); Globulin 2.9 g/dL (1.3-3.2); Glucose 367 mg/dl (74-100); Lipase 408 U/L (23-300); Total Protein,Serum 8.1 g/dl (6.3-8.2)
[2024-07-13 19:02] LABS: Lactic Acid 2.1 mmol/L (0.7-2.1)
[2024-07-13 19:03] LABS: Basophils # 0.1 K/mm3 (0-0.2); Eosinophils % 0.3 % (0.1-12.0); Hematocrit 49.7 % (42.0-52.0); Lymphocytes # 1.6 K/mm3 (0.7-4.5); Lymphocytes % 11.6 % (10-50); Mean Corpuscular HGB Conc 36.4 g/dL (31.8-35.4); Mean Corpuscular Volume 85.2 fl (80-94); Mean Platelet Volume 9.3 fl (7.4-10.4); Monocytes # 0.5 K/mm3 (0.1-1.0); Monocytes % 3.8 % (1.7-9.3); Neutrophils # 11.3 K/mm3 (1.8-7.8); Neutrophils % 82.6 % (37.0-80.0); Platelet Count 287 K/mm3 (142-424); Red Blood Count 5.83 M/mm3 (4.60-6.20); Red Cell Distribution Width 11.9 % (11.5-17.5); White Blood Count 13.7 K/mm3 (4.8-10.8)
[2024-07-13 19:07] LABS: Hemoglobin 17.9 g/dL (14.1-18.0)
--- NOTE | 2024-07-13 19:35 | PC.NURSE ---
pt resting in bed with eyes closed, nad noted, rr even and non labored, skin pwd, side rails up x2, family at the bedside, voices no needs at this time.
[2024-07-13 20:25] LABS: Acetone, Serum (Rapid) None Detected (None Detect)
[2024-07-13] MEDS: INSULIN HUMAN REGULAR 100 UNITS/ML 10ML VIAL 5 UNIT IV (20:35)
[2024-07-13] MEDS: diphenhydrAMINE 50MG/ML VIAL 25 MG IV (20:44)
[2024-07-13] MEDS: METOCLOPRAMIDE HCL 10MG/2ML VIAL 10 MG IVP (20:44)
--- NOTE | 2024-07-13 21:15 | PC.NURSE ---
Patietns FSBS was [phone].
--- NOTE | 2024-07-13 21:37 | PC.NURSE ---
provider at bedside updating on POC
--- NOTE | 2024-07-13 22:00 | PC.NURSE ---
pt unable to tolerate PO challenge at this time pt to be admitted
[2024-07-13] MEDS: droPERidol 5MG/2ML VIAL 2.5 MG IV (22:02)
--- NOTE | 2024-07-13 22:04 | ECG_ITS ---
APPROVED REPORT Exam: Resting ECG HR:102 bpm ECG Measurements Heart Rate 102 AXES DE 191 P 69 QRSd 92 QRS -20 QT 346 T 40 QTc 405 Conclusion SINUS TACHYCARDIA LOW QRS VOLTAGE IN PRECORDIAL LEADS [QRS DEFLECTION < 1.0 mV IN CHEST LEADS] PATTERN CONSISTENT WITH PULMONARY DISEASE SEPTAL MYOCARDIAL INFARCTION , PROBABLY OLD [40+ ms Q WAVE IN V1/V2] ABNORMAL ECG Electronically signed by : ROYA FLORES, 07/14/2024 00:17:05
--- NOTE | 2024-07-13 22:06 | PC.NURSE ---
Hospitalist at bedside Pt aware of plans for admission
--- NOTE | 2024-07-13 22:14 | PC.NURSE ---
report given to saba CHOUDHURY on the floor.
[2024-07-13] MEDS: FAMOTIDINE 20MG/2ML VIAL 20 MG IV (22:25)
[2024-07-13] MEDS: METOCLOPRAMIDE HCL 10MG/2ML VIAL 5 MG IVP (22:30)
[2024-07-13 22:38] LABS: Reflex Lactic Add Lactic Reflex
--- NOTE | 2024-07-13 22:50 | PC.NURSE ---
Patient arrived to floor via wheelchair from ED at 22:35.
[2024-07-13 23:15] LABS: Lactic Acid Follow Up (RFLX 1) 1.6 mmol/L (0.7-2.1)
--- NOTE | 2024-07-13 23:36 | P.HP_ITS ---
<Statement entered by Arturo Langston MD - 07/22/24 11:02> I personally examined patient and agree with the plan of care outlined by the [facility]. History of Present Illness *Admission Date: 07/13/24 *Reason for visit:: Uncontrolled vomiting uncontrolled diabetes mellitus cannabis use *History of present illness: This 38-year-old male who is well-known to us . He has returned once again for gastroparesis.. Vomiting uncontrollably with some abdominal pain.. Very similar to most of his past ER visits and hospitalizations since 2022. Presently is alert and oriented with medication in the ER was doing fairly well but then drank water and began to throw up again. Due to the laboratory abnormalities including increased ion gap we will go ahead and place the patient into the hospital. Continuing with fluid replacement trying to control the nausea and vomiting. In reviewing the patient's medical history per provider documentation noting a long history of anxiety depression with actually periods of paranoia in the distant past. From the notation actually seems to have improved from 2020. Patient has tried multiple medications for ADHD including Ritalin but caused headaches so has stopped that actually at 1 time was on Risperdal.. For his diabetes noting that the patient tried metformin but this also caused vomiting.. Last hemoglobin A1c in the chart is 13.1. Has been noted many times that the patient has told providers that he is just stopped taking his medications for his diabetes over the last 3 years.. Weight in 2020 was 213 pounds got to a low 176 pounds in August 2021 held into the 180s through 2022 2023 and presently 192 pounds. Patient continues to smoke. Also continues to use cannabis. He denies alcohol or other drugs. Also noting approximately 2 years ago the patient did have an upper endoscopy did find gastritis biopsies were negative for H. pylori. Plan at this time is to place him into the hospital to continue with occasions to try to slow down his nausea and vomiting. Will place him on IV Pepcid twice a day. Will reevaluate lab in the morning to make sure that we are getting the patient back to his baseline so we will be able to discharge him again. Patient has been at Endo instructed many times that the use of any of this cannabis it only worsens this. And actually in 2022 he had been to the ER admitted to the hospital greater than 10 times, this is slowed slightly but approximately every 3 to 4 months he is in the emergency room or being admitted to the hospital for the same type symptoms [facility] Disclaimer: The information contained in this section may have been updated after the patient was seen, as this information can be updated by other users. Medical History Erosive esophagitis [place] tear Intractable nausea and vomiting Depression Anxiety Nausea Low testosterone level in male History of diabetic ketoacidosis Diabetes Surgical History No significant past surgical history Family History Father Hypertension Hyperlipidemia Diabetes Social History Smoking Status: Current every day smoker tobacco type: cigarettes packs per day: 2 alcohol intake: never substance use type: denies use current occupational status: unemployed Travel in the last 8 weeks: None household members: children housing: house marital status: single number of children: 4 current occupation: [employer] current occupational exposures/hazards: No caffeine: Yes Have you lived/traveled outside [place] in past 30 days?: No Contact w/someone who lives/traveled outside [place] past 30 days?: No Exposure to someone with infectious disease in past 14 days?: No Do you have a fever (greater than 100.4 F or 38 C)?: No Have you tested positive for COVID-19: No Exposed to someone with COVID-19 in past 14 days?: No Do you have a sore throat?: No Do you have a cough?: No Do you have any weakness?: No Do you have any diarrhea?: No Are you experiencing any unusual bleeding?: No Do you have any muscle aches/pain?: No Do you have any abdominal pain?: No Are you experiencing loss of taste or smell?: No Other Medical History Have you received the Flu Vaccine for this season: No Have you received the Pneumonia Vaccine: No Review of Systems Review of Systems Review of systems:: pertinent systems reviewed and negative unless documented be low Constitutional Constitutional: Reports as per HPI Eyes Eyes: Reports as per HPI ENT Ears, Nose, Mouth, and Throat: Reports as per HPI Comments: Is missing several teeth *Cardiovascular Cardiovascular: Reports as per HPI *Respiratory Respiratory: Reports as per HPI *Gastrointestinal Gastrointestinal: Reports abdominal pain, Reports nausea and Reports vomiting *Genitourinary Genitourinary: Reports as per HPI *Musculoskeletal Musculoskeletal: Reports as per HPI Integumentary/Breasts Skin/Breast: Reports as per HPI *Neurologic Neurologic: Reports as per HPI Psychiatric Psychiatric: Reports as per HPI Endocrine Endocrine: Reports as per HPI Hematologic/Lymphatic Hematologic/Lymphatic: Reports as per HPI Allergic/Immunologic Allergic/Immunologic: Reports as per HPI Meds Home Medications and Allergies Home Medications ?Medication ?Instructions ?Recorded ?Confirmed ?Type insulin glargine 100 unit/mL (3 30 unit (0.3 mL) SQ HS #15 mL 04/17/24 05/13/24 Rx mL) subcutaneous pen (Lantus Solostar U-100 Insulin) insulin lispro 100 unit/mL 8 unit (0.08 mL) SQ TID #15 mL 04/17/24 05/13/24 Rx subcutaneous pen nicotine 21 mg/24 hr daily 21 mg transdermal DAILYP PRN 04/17/24 05/13/24 Rx transdermal patch Nicotine Cravings #28 ea pantoprazole 40 mg tablet,delayed 40 mg PO HS 30 days #30 tabs 04/17/24 05/13/24 Rx release pen needle, diabetic 31 gauge x #100 ea 04/17/24 05/13/24 Rx 1/4 lamotrigine 25 mg tablet (Lamictal) 25 mg PO DAILY 14 days #14 tabs 05/13/24 05/13/24 Rx New Prescriptions to Start Prescriptions: Allergies Allergy/AdvReac Type Severity Reaction Status Date / Time Penicillins (PENICILLINS) Allergy Unknown Verified 05/13/24 09:16 Exam Data for Last 24 hours Vital signs and Labs for Last 24 Hours: Temp Pulse Resp BP Pulse Ox O2 Del Method 98.6 F 87 18 142/104 H 98 Room Air 07/13/24 22:51 07/13/24 22:51 07/13/24 22:51 07/13/24 22:51 07/13/24 22:51 07/13/24 22:51 Laboratory Results - last 24 hr 07/13/24 17:58: SARS-CoV-2 (PCR) Not detected, Influenza A Untype (PCR) Not detected, Influenza Type B (PCR) Not detected 07/13/24 18:14: VBG pH 7.42 H, VBG pCO2 32.0 L, VBG pO2 32.0, VBG HCO3 20.2 L, VBG Total CO2 21.2 L, VBG O2 Saturation 68.4, VBG Base Excess -4.3 L, VBG Lactic Acid 2.4 H 07/13/24 18:18: WBC 13.7 H, RBC 5.83, Hgb 17.9, Hct 49.7, MCV 85.2, MCH 31.0, MCHC 36.4 H, RDW 11.9, Plt Count 287, MPV 9.3, Neut % (Auto) 82.6 H, Lymph % (Auto) 11.6, Brooks % (Auto) 3.8, Eos % (Auto) 0.3, Baso % (Auto) 1.0, Neut # (Auto) 11.3 H, Lymph # (Auto) 1.6, Brooks # (Auto) 0.5, Eos # (Auto) 0.0, Baso # (Auto) 0.1, Sodium 137, Potassium 4.0, Chloride 100, Carbon Dioxide 24, Anion Gap 17.0 H, BUN 18, Creatinine 0.70, Estimated Creat Clear 170, Estimated GFR 126, Est GFR ( Amer) 152, Glucose 367 H, Lactate 2.1, Calcium 10.3 H, Total Bilirubin 2.0 H, AST 42, ALT 65, Alkaline Phosphatase 130 H, Total Protein 8.1 D, Albumin 5.2 H, Globulin 2.9, Albumin/Globulin Ratio 1.8, Lipase 408 H, Acetone Level None detected 07/13/24 22:49: Lactate 1.6 I & O for Last 24 hours: Intake & Output 07/11/24 07/12/24 07/13/24 07/14/24 05:59 05:59 05:59 05:59 Weight 192 lb Constitutional Constitutional: moderate distress, thin, chronically ill appearing and disheveled *Routine HEENT Exam Head: Present normocephalic and atraumatic Eye: Present EOMI and normal accommodation ENT: Present mucous membranes moist *Routine Neck Exam Neck: Present supple *Routine Respiratory Exam Respiratory: Present CTA bilaterally, normal respiratory effort, able to speak in complete sentences and symmetric chest movement *Routine Cardiovascular Exam Cardiovascular: Present RRR, Normal S1, Normal S2 and tachycardia *Routine Abdominal Exam Abdominal: Present soft Comments: Did not palpate deeply but generalized tenderness when doing., During the exam the patient was not nauseated or vomiting. He did recently drink water and had started vomiting but had quit about 5 minutes before he came into the room *Routine Rectal Exam Rectal:: deferred *Routine Genitalia Exam Genitalia:: deferred *Routine Extremities Exam Extremities: Present full ROM and normal capillary refill Comments: No edema to the lower extremities are arms. The patient is able to move all his limbs without any difficulty *Routine Skin Exam Skin: Present intact, dry and warm *Routine Neurological Exam Neurological: Present oriented X3, CN II-XII intact, moving all extremities, normal tone, vision grossly intact and hearing grossly intact Comments: No significant neurological deficits have been found Routine Psychiatric Exam Psychiatric: Present normal affect, normal thought process, cooperative, good insight and good judgment Comments: Actually very pleasant he talks clearly to me. And has actually been quite polite H&P: Result Impressions Constant nausea vomiting, Uncontrolled diabetes mellitus Electrolyte abnormalities including ion gap Assessment and Plan *Assessment and plan (1) Intractable nausea and vomiting: Status: Acute Category: Medical Code(s): R11.2 - Nausea with vomiting, unspecified (2) Acute hyperglycemia: Status: Acute Category: Medical Code(s): R73.9 - Hyperglycemia, unspecified (3) Diabetes: Status: Chronic Qualifiers: Diabetes mellitus type: type 1 Diabetes mellitus complication status: with other specified complication Qualified Code(s): E10.69 - Type 1 diabetes mellitus with other specified complication Category: Medical Code(s): E11.9 - Type 2 diabetes mellitus without complications (4) High anion gap metabolic acidosis: Status: Resolved Category: Medical Code(s): E87.29 - Other acidosis Plan Patient will be placed on the floor. Continue slow IV hydration. Try to control his blood sugars as best we can we will use different medicines to's try to slow his nausea and vomiting. But is noted most of the medicines only have limited results. Will try to get the patient's lab work basically back to normal and hopefully be able to discharge him home.
[2024-07-13] MEDS: LACTATED RINGERS 1000ML 1,000 ML 125 ML IV (23:45)
--- NOTE | 2024-07-13 23:57 | PC.NURSE ---
Pt stated he does not take any of the listed medications on his med rec at home.
[2024-07-14] VITALS: BP 108/60; PULSE 102; RESP 17; TEMP 36.9; O2SAT 95
[2024-07-14] MEDS: humaLOG 100 UNITS/ML 10ML VIAL (SSI) SUBCUT ×3 (00:15→11:46)
[2024-07-14 03:41] VITALS: BP 129/68; PULSE 107; RESP 18; TEMP 37.1; O2SAT 94
[2024-07-14 04:00] VITALS: BMI 27.4
[2024-07-14] MEDS: METOCLOPRAMIDE HCL 10MG/2ML VIAL 5 MG IVP (04:30)
--- NOTE | 2024-07-14 05:14 | PC.NURSE ---
New Admit. V/s, ox4. Pt denied sob, pain, or nausea. Pt stated he doesn't take any meds at home. Blood glucose monitored. Plan of care ongoing.
[2024-07-14 05:58] LABS: POC Glucose,Bedside 245 (70-110)
[2024-07-14] MEDS: METOCLOPRAMIDE HCL 10MG/2ML VIAL 10 MG IVP ×3 (06:15→14:23)
[2024-07-14] MEDS: LACTATED RINGERS 1000ML 1,000 ML 125 ML IV (06:16)
[2024-07-14 06:33] LABS: Basophils # 0.1 K/mm3 (0-0.2); Basophils % 0.7 % (0.1-2.0); Eosinophils % 0.1 % (0.1-12.0); Hematocrit 42.7 % (42.0-52.0); Lymphocytes % 19.5 % (10-50); Mean Corpuscular HGB Conc 35.8 g/dL (31.8-35.4); Mean Corpuscular Volume 86.6 fl (80-94); Mean Platelet Volume 9.3 fl (7.4-10.4); Monocytes # 1.2 K/mm3 (0.1-1.0); Monocytes % 7.9 % (1.7-9.3); Neutrophils # 10.8 K/mm3 (1.8-7.8); Neutrophils % 71.2 % (37.0-80.0); Platelet Count 258 K/mm3 (142-424); Red Blood Count 4.93 M/mm3 (4.60-6.20); Red Cell Distribution Width 11.9 % (11.5-17.5); White Blood Count 15.1 K/mm3 (4.8-10.8)
[2024-07-14 06:34] LABS: MANUAL DIFFERENTIAL MANUAL DIFFERENTIAL (MANUAL DIFF)
[2024-07-14 06:35] LABS: Lactic Acid 0.7 mmol/L (0.7-2.1)
[2024-07-14 06:36] LABS: Alanine Aminotransferase 45 U/L (12-78); Albumin Level 4.4 g/dl (3.5-5.0); Albumin/Globulin Ratio 1.9 (1.1-1.8); Alkaline Phosphatase 82 U/L (38-126); Anion Gap 14.7 mEq/L (5-15); Aspartate Amino Transferase 23 U/L (17-59); Bilirubin,Total 1.9 mg/dl (0.2-1.3); Blood Urea Nitrogen 18 mg/dl (9-20); Calcium 9.1 mg/dl (8.4-10.2); Carbon Dioxide 21 mmol/L (22.0-30.0); Chloride 104 mmol/L (98-107); Creatinine Clearance Estimated 175 mL/min (50-200); Estimated Glomerular Filt Rate 126 ml/min (>60); GFR (African American) 152 ML/MIN (>60); Globulin 2.3 g/dL (1.3-3.2); Glucose 234 mg/dl (74-100); Lipase 53 U/L (23-300); Magnesium 1.7 mg/dl (1.6-2.3); Potassium 3.7 mmoL/L (3.5-5.1); Sodium 136 mmol/L (136-145); Total Protein,Serum 6.7 g/dl (6.3-8.2)
[2024-07-14 07:06] LABS: Thyroid Stimulating Hormone 3.23 uIU/mL (0.465-4.68)
[2024-07-14 07:22] LABS: POC Glucose,Bedside 326 (70-110)
[2024-07-14 08:00] VITALS: BP 134/84; PULSE 94; RESP 18; TEMP 36.8; O2SAT 98
[2024-07-14 08:03] LABS: Lymphocytes % 17 % (10-50); Monocytes % 12 % (2-9); Neutrophils % 69 % (42-76); Platelet Estimate Normal; RBC Morphology Normal; Total Cells Counted 100
[2024-07-14 08:08] LABS: Hemoglobin 15.3 g/dL (14.1-18.0)
[2024-07-14 09:20] LABS: Hemoglobin A1C 11.5 % (4.0-6.0)
[2024-07-14] MEDS: FAMOTIDINE 20MG/2ML VIAL 20 MG IV (10:03)
[2024-07-14] MEDS: MAGNESIUM SULFATE IN WATER 2 GM/50 ML PIGGYBACK IV ×2 (11:26→12:26)
[2024-07-14 11:42] LABS: Microscopic, Urine URINE MICROSCOPIC (MICROSCOPIC)
[2024-07-14 11:44] LABS: POC Glucose,Bedside 241 (70-110)
[2024-07-14 11:51] LABS: Appearance,Urine CLEAR (Clear); Blood, Urine Negative (Negative); Color,Urine YELLOW (Yellow); Glucose,Urine (UA) 500 (Negative); Ketones,Urine >=80 (Negative); Leukocyte Esterase,Urine Negative (Negative); Nitrate,Urine Negative (Negative); Protein,Urine Negative (Negative); Urobilinogen,Urine 0.2 EU/dl (0.2)
[2024-07-14 12:00] VITALS: BP 130/78; PULSE 80; RESP 18; TEMP 36.8; O2SAT 96
[2024-07-14 12:00] LABS: Bilirubin,Urine Negative (Negative)
[2024-07-14 12:02] LABS: Specific Gravity, Urine 1.035 (1.005-1.030)
[2024-07-14 12:16] LABS: Benzodiazepines Screen,Urine Negative ng/ml (<200)
[2024-07-14 12:17] LABS: Amphetamine/Metha Screen,Urine Negative ng/ml (<1000); Barbiturates Screen,Urine Negative ng/ml (<200)
[2024-07-14 12:18] LABS: Cannabinoid Screen,Urine Positive ng/ml (<50)
[2024-07-14 12:19] LABS: Cocaine Screen,Urine Negative ng/ml (<300); Methadone Screen,Urine Negative ng/ml (<300)
[2024-07-14 12:20] LABS: Opiate Screen,Urine Negative ng/ml (<300)
[2024-07-14 12:21] LABS: Phencyclidine Screen,Urine Negative ng/ml (<25)
[2024-07-14 12:32] LABS: Bacteria,Urine Trace /lpf; Squamous Epithelial Cell,Urine Occasional #/hpf (0-5)
--- NOTE | 2024-07-14 13:27 | P.DS_ITS ---
General Admission date:: 07/13/24 HPI HPI HPI: This 38-year-old male who is well-known to us . He has returned once again for gastroparesis.. Vomiting uncontrollably with some abdominal pain.. Very similar to most of his past ER visits and hospitalizations since 2022. Presently is alert and oriented with medication in the ER was doing fairly well but then drank water and began to throw up again. Due to the laboratory abnormalities including increased ion gap we will go ahead and place the patient into the hospital. Continuing with fluid replacement trying to control the nausea and vomiting. In reviewing the patient's medical history per provider documentation noting a long history of anxiety depression with actually periods of paranoia in the distant past. From the notation actually seems to have improved from 2020. Patient has tried multiple medications for ADHD including Ritalin but caused headaches so has stopped that actually at 1 time was on Risperdal.. For his diabetes noting that the patient tried metformin but this also caused vomiting.. Last hemoglobin A1c in the chart is 13.1. Has been noted many times that the patient has told providers that he is just stopped taking his medications for his diabetes over the last 3 years.. Weight in 2020 was 213 pounds got to a low 176 pounds in August 2021 held into the 180s through 2022 2023 and presently 192 pounds. Patient continues to smoke. Also continues to use cannabis. He denies alcohol or other drugs. Also noting approximately 2 years ago the patient did have an upper endoscopy did find gastritis biopsies were negative for H. pylori. Plan at this time is to place him into the hospital to continue with occasions to try to slow down his nausea and vomiting. Will place him on IV Pepcid twice a day. Will reevaluate lab in the morning to make sure that we are getting the patient back to his baseline so we will be able to discharge him again. Patient has been at [facility] instructed many times that the use of any of this cannabis it only worsens this. And actually in 2022 he had been to the ER admitted to the hospital greater than 10 times, this is slowed slightly but approximately every 3 to 4 months he is in the emergency room or being admitted to the hospital for the same type symptoms Hospital Course Hospital Course Hospital Course: Washington Rogers is a 38-year-old male who presented with intractable nausea/vomiting and admitted for cannabinoid hyperemesis syndrome. #Cannabinoid hyperemesis syndrome ? UDS positive for THC. Improved with antiemetics, tolerating p.o. intake. ? Discharged with Reglan as needed. Extensively counseled on cannabinoid use cessation. #Uncontrolled type 2 diabetes ? Hemoglobin A1c 11.5%. Has not been taking his home insulin. ? Restarted home Lantus 30 units nightly, started Jardiance 10 mg. Has glucometer at home. ? Will follow-up with PCP within 1 week. #Bipolar depression #Generalized anxiety disorder ? Initially endorsed passive suicidal ideation, without plan. No longer endorses. ? Consulted behavioral health, recommended restarting patient's home Lamictal 25 mg that patient has not been taking. ? Will continue follow-up with behavioral health outpatient. Total time spent on discharge: 32 minutes on chart review, counseling, documentation, and direct care with patient. Exam Data for Last 24 hours Vital signs and Labs for Last 24 Hours: Temp Pulse Resp BP Pulse Ox O2 Del Method 98.3 F 80 18 130/78 96 Room Air 07/14/24 12:00 07/14/24 12:00 07/14/24 12:00 07/14/24 12:00 07/14/24 12:00 07/14/24 12:00 Laboratory Results - last 24 hr 07/13/24 11:36: Urine Color Yellow, Urine Appearance Clear, Urine pH 6.0, Ur Specific Harris 1.035 H, Urine Protein Negative, Urine Glucose (UA) 500, Urine Ketones >=80, Urine Blood Negative, Urine Nitrate Negative, Urine Bilirubin Negative, Urine Urobilinogen 0.2, Ur Leukocyte Esterase Negative, Urine RBC None, Urine WBC None, Ur Squamous Epith Cells Occasional, Urine Bacteria Trace 07/13/24 17:57: POC Glucose 326 H* 07/13/24 17:58: SARS-CoV-2 (PCR) Not detected, Influenza A Untype (PCR) Not detected, Influenza Type B (PCR) Not detected 07/13/24 18:14: VBG pH 7.42 H, VBG pCO2 32.0 L, VBG pO2 32.0, VBG HCO3 20.2 L, VBG Total CO2 21.2 L, VBG O2 Saturation 68.4, VBG Base Excess -4.3 L, VBG Lactic Acid 2.4 H 07/13/24 18:18: WBC 13.7 H, RBC 5.83, Hgb 17.9, Hct 49.7, MCV 85.2, MCH 31.0, MCHC 36.4 H, RDW 11.9, Plt Count 287, MPV 9.3, Neut % (Auto) 82.6 H, Lymph % (Auto) 11.6, Robertson % (Auto) 3.8, Eos % (Auto) 0.3, Baso % (Auto) 1.0, Neut # (Auto) 11.3 H, Lymph # (Auto) 1.6, Robertson # (Auto) 0.5, Eos # (Auto) 0.0, Baso # (Auto) 0.1, Sodium 137, Potassium 4.0, Chloride 100, Carbon Dioxide 24, Anion Gap 17.0 H, BUN 18, Creatinine 0.70, Estimated Creat Clear 170, Estimated GFR 126, Est GFR ( Amer) 152, Glucose 367 H, Lactate 2.1, Calcium 10.3 H, Total Bilirubin 2.0 H, AST 42, ALT 65, Alkaline Phosphatase 130 H, Total Protein 8.1 D, Albumin 5.2 H, Globulin 2.9, Albumin/Globulin Ratio 1.8, Lipase 408 H, Acetone Level None detected 07/13/24 22:49: Lactate 1.6 07/14/24 05:51: POC Glucose 245 H 07/14/24 05:55: WBC 15.1 H, RBC 4.93, Hgb 15.3 D, Hct 42.7, MCV 86.6, MCH 31.0, MCHC 35.8 H, RDW 11.9, Plt Count 258, MPV 9.3, Neut % (Auto) 71.2, Lymph % (Auto) 19.5, Robertson % (Auto) 7.9, Eos % (Auto) 0.1, Baso % (Auto) 0.7, Neut # (Auto) 10.8 H, Lymph # (Auto) 3.0, Robertson # (Auto) 1.2 H, Eos # (Auto) 0.0, Baso # (Auto) 0.1, Total Counted 100, Neutrophils % (Manual) 69, Lymphocytes % (Manual) 17, Atypical Lymphs % 2.0, Monocytes % (Manual) 12 H, Platelet Estimate Normal, RBC Morphology Normal, Sodium 136, Potassium 3.7, Chloride 104, Carbon Dioxide 21 L, Anion Gap 14.7, BUN 18, Creatinine 0.70, Estimated Creat Clear 175, Estimated GFR 126, Est GFR ( Amer) 152, Glucose 234 H D, Hemoglobin A1c 11.5 H, Lactate 0.7, Calcium 9.1, Magnesium 1.7, Total Bilirubin 1.9 H, AST 23 D, ALT 45 D, Alkaline Phosphatase 82, Total Protein 6.7, Albumin 4.4 D, Globulin 2.3, Albumin/Globulin Ratio 1.9 H, Lipase 53, TSH 3.23 07/14/24 11:34: POC Glucose 241 H 07/14/24 11:36: Urine Opiates Screen Negative, Urine Methadone Screen Negative, Ur Barbituates Screen Negative, Ur Phencyclidine Scrn Negative, Ur Amphetamines Screen Negative, U Benzodiazepines Scrn Negative, Urine Cocaine Screen Negative, U Marijuana (THC) Screen Positive H I & O for Last 24 hours: Intake & Output 07/11/24 07/12/24 07/13/24 07/14/24 23:59 23:59 23:59 23:59 Intake Total 480 / 480 Output Total 500 / 500 Balance -20 / -20 Weight 87.09 kg 87.09 kg Constitutional Constitutional: no acute distress *Routine HEENT Exam Head: Present normocephalic Eye: Present EOMI and PERRL ENT: Present mucous membranes moist *Routine Neck Exam Neck: Present supple; Absent lymphadenopathy *Routine Respiratory Exam Respiratory: Present CTA bilaterally *Routine Cardiovascular Exam Cardiovascular: Present RRR *Routine Abdominal Exam Abdominal: Present soft and normoactive bowel sounds; Absent tenderness *Routine Extremities Exam Extremities: Absent cyanosis, clubbing or edema *Routine Skin Exam Skin: Present warm; Absent rash *Routine Neurological Exam Neurological: Present alert and oriented X3 Results Data Completed and Pending Labs on day of discharge: Labs from last 24 hours 07/14/24 07/14/24 07/14/24 11:36 11:34 05:55 WBC 15.1 H RBC 4.93 Hgb 15.3 D Hct 42.7 MCV 86.6 MCH 31.0 MCHC 35.8 H RDW 11.9 Plt Count 258 MPV 9.3 Neut % (Auto) 71.2 Lymph % (Auto) 19.5 Robertson % (Auto) 7.9 Eos % (Auto) 0.1 Baso % (Auto) 0.7 Neut # (Auto) 10.8 H Lymph # (Auto) 3.0 Robertson # (Auto) 1.2 H Eos # (Auto) 0.0 Baso # (Auto) 0.1 Total Counted 100 Neutrophils % (Manual) 69 Lymphocytes % (Manual) 17 Atypical Lymphs % 2.0 Monocytes % (Manual) 12 H Platelet Estimate Normal RBC Morphology Normal VBG pH VBG pCO2 VBG pO2 VBG HCO3 VBG Total CO2 VBG O2 Saturation VBG Base Excess VBG Lactic Acid Sodium 136 Potassium 3.7 Chloride 104 Carbon Dioxide 21 L Anion Gap 14.7 BUN 18 Creatinine 0.70 Estimated Creat Clear 175 Estimated GFR 126 Est GFR ( Amer) 152 Glucose 234 H D POC Glucose 241 H Hemoglobin A1c 11.5 H Lactate 0.7 Calcium 9.1 Magnesium 1.7 Total Bilirubin 1.9 H AST 23 D ALT 45 D Alkaline Phosphatase 82 Total Protein 6.7 Albumin 4.4 D Globulin 2.3 Albumin/Globulin Ratio 1.9 H Lipase 53 TSH 3.23 Urine Color Urine Appearance Urine pH Ur Specific Harris Urine Protein Urine Glucose (UA) Urine Ketones Urine Blood Urine Nitrate Urine Bilirubin Urine Urobilinogen Ur Leukocyte Esterase Urine RBC Urine WBC Ur Squamous Epith Cells Urine Bacteria Urine Opiates Screen Negative Urine Methadone Screen Negative Ur Barbituates Screen Negative Ur Phencyclidine Scrn Negative Ur Amphetamines Screen Negative U Benzodiazepines Scrn Negative Urine Cocaine Screen Negative U Marijuana (THC) Screen Positive H Acetone Level SARS-CoV-2 (PCR) Influenza A Untype (PCR) Influenza Type B (PCR) 07/14/24 07/13/24 07/13/24 05:51 22:49 18:18 WBC 13.7 H RBC 5.83 Hgb 17.9 Hct 49.7 MCV 85.2 MCH 31.0 MCHC 36.4 H RDW 11.9 Plt Count 287 MPV 9.3 Neut % (Auto) 82.6 H Lymph % (Auto) 11.6 Robertson % (Auto) 3.8 Eos % (Auto) 0.3 Baso % (Auto) 1.0 Neut # (Auto) 11.3 H Lymph # (Auto) 1.6 Robertson # (Auto) 0.5 Eos # (Auto) 0.0 Baso # (Auto) 0.1 Total Counted Neutrophils % (Manual) Lymphocytes % (Manual) Atypical Lymphs % Monocytes % (Manual) Platelet Estimate RBC Morphology VBG pH VBG pCO2 VBG pO2 VBG HCO3 VBG Total CO2 VBG O2 Saturation VBG Base Excess VBG Lactic Acid Sodium 137 Potassium 4.0 Chloride 100 Carbon Dioxide 24 Anion Gap 17.0 H BUN 18 Creatinine 0.70 Estimated Creat Clear 170 Estimated GFR 126 Est GFR ( Amer) 152 Glucose 367 H POC Glucose 245 H Hemoglobin A1c Lactate 1.6 2.1 Calcium 10.3 H Magnesium Total Bilirubin 2.0 H AST 42 ALT 65 Alkaline Phosphatase 130 H Total Protein 8.1 D Albumin 5.2 H Globulin 2.9 Albumin/Globulin Ratio 1.8 Lipase 408 H TSH Urine Color Urine Appearance Urine pH Ur Specific Harris Urine Protein Urine Glucose (UA) Urine Ketones Urine Blood Urine Nitrate Urine Bilirubin Urine Urobilinogen Ur Leukocyte Esterase Urine RBC Urine WBC Ur Squamous Epith Cells Urine Bacteria Urine Opiates Screen Urine Methadone Screen Ur Barbituates Screen Ur Phencyclidine Scrn Ur Amphetamines Screen U Benzodiazepines Scrn Urine Cocaine Screen U Marijuana (THC) Screen Acetone Level None detected SARS-CoV-2 (PCR) Influenza A Untype (PCR) Influenza Type B (PCR) 07/13/24 07/13/24 07/13/24 18:14 17:58 17:57 WBC RBC Hgb Hct MCV MCH MCHC RDW Plt Count MPV Neut % (Auto) Lymph % (Auto) Robertson % (Auto) Eos % (Auto) Baso % (Auto) Neut # (Auto) Lymph # (Auto) Robertson # (Auto) Eos # (Auto) Baso # (Auto) Total Counted Neutrophils % (Manual) Lymphocytes % (Manual) Atypical Lymphs % Monocytes % (Manual) Platelet Estimate RBC Morphology VBG pH 7.42 H VBG pCO2 32.0 L VBG pO2 32.0 VBG HCO3 20.2 L VBG Total CO2 21.2 L VBG O2 Saturation 68.4 VBG Base Excess -4.3 L VBG Lactic Acid 2.4 H Sodium Potassium Chloride Carbon Dioxide Anion Gap BUN Creatinine Estimated Creat Clear Estimated GFR Est GFR ( Amer) Glucose POC Glucose 326 H* Hemoglobin A1c Lactate Calcium Magnesium Total Bilirubin AST ALT Alkaline Phosphatase Total Protein Albumin Globulin Albumin/Globulin Ratio Lipase TSH Urine Color Urine Appearance Urine pH Ur Specific Harris Urine Protein Urine Glucose (UA) Urine Ketones Urine Blood Urine Nitrate Urine Bilirubin Urine Urobilinogen Ur Leukocyte Esterase Urine RBC Urine WBC Ur Squamous Epith Cells Urine Bacteria Urine Opiates Screen Urine Methadone Screen Ur Barbituates Screen Ur Phencyclidine Scrn Ur Amphetamines Screen U Benzodiazepines Scrn Urine Cocaine Screen U Marijuana (THC) Screen Acetone Level SARS-CoV-2 (PCR) Not detected Influenza A Untype (PCR) Not detected Influenza Type B (PCR) Not detected 07/13/24 11:36 WBC RBC Hgb Hct MCV MCH MCHC RDW Plt Count MPV Neut % (Auto) Lymph % (Auto) Robertson % (Auto) Eos % (Auto) Baso % (Auto) Neut # (Auto) Lymph # (Auto) Robertson # (Auto) Eos # (Auto) Baso # (Auto) Total Counted Neutrophils % (Manual) Lymphocytes % (Manual) Atypical Lymphs % Monocytes % (Manual) Platelet Estimate RBC Morphology VBG pH VBG pCO2 VBG pO2 VBG HCO3 VBG Total CO2 VBG O2 Saturation VBG Base Excess VBG Lactic Acid Sodium Potassium Chloride Carbon Dioxide Anion Gap BUN Creatinine Estimated Creat Clear Estimated GFR Est GFR ( Amer) Glucose POC Glucose Hemoglobin A1c Lactate Calcium Magnesium Total Bilirubin AST ALT Alkaline Phosphatase Total Protein Albumin Globulin Albumin/Globulin Ratio Lipase TSH Urine Color Yellow Urine Appearance Clear Urine pH 6.0 Ur Specific Harris 1.035 H Urine Protein Negative Urine Glucose (UA) 500 Urine Ketones >=80 Urine Blood Negative Urine Nitrate Negative Urine Bilirubin Negative Urine Urobilinogen 0.2 Ur Leukocyte Esterase Negative Urine RBC None Urine WBC None Ur Squamous Epith Cells Occasional Urine Bacteria Trace Urine Opiates Screen Urine Methadone Screen Ur Barbituates Screen Ur Phencyclidine Scrn Ur Amphetamines Screen U Benzodiazepines Scrn Urine Cocaine Screen U Marijuana (THC) Screen Acetone Level SARS-CoV-2 (PCR) Influenza A Untype (PCR) Influenza Type B (PCR) DS: Diagnosis Discharge Diagnosis (1) Intractable nausea and vomiting: Status: Acute Code(s): R11.2 - Nausea with vomiting, unspecified (2) Acute hyperglycemia: Status: Acute Code(s): R73.9 - Hyperglycemia, unspecified (3) Diabetes: Status: Chronic Code(s): E11.9 - Type 2 diabetes mellitus without complications Qualifiers: Diabetes mellitus complication status: with other specified complication Diabetes mellitus type: type 1 Qualified Code(s): E10.69 - Type 1 diabetes mellitus with other specified complication (4) High anion gap metabolic acidosis: Status: Resolved Code(s): E87.29 - Other acidosis Meds Home Medications and Allergies Home Medications ?Medication ?Instructions ?Recorded ?Confirmed ?Type empagliflozin 10 mg tablet 10 mg PO DAILY 30 days #30 tabs 07/14/24 Rx (Jardiance) insulin glargine 100 unit/mL (3 30 unit SQ HS 07/14/24 07/14/24 History mL) subcutaneous pen (Lantus Solostar U-100 Insulin) lamotrigine 25 mg tablet 25 mg PO DAILY 30 days #30 tabs 07/14/24 Rx metoclopramide HCl 10 mg tablet 10 mg PO Q6H PRN nausea and 07/14/24 Rx (Reglan) vomiting #14 tabs New Prescriptions to Start Prescriptions: empagliflozin [Jardiance] Kian,Arturo lamotrigine Sheronla,Arturo metoclopramide HCl [Reglan] Kian,Arturo Allergies Allergy/AdvReac Type Severity Reaction Status Date / Time Penicillins (PENICILLINS) Allergy Unknown Verified 05/13/24 09:16 Discharge Plan Disposition Patient Disposition: Home, Self-Care Condition: Fair Follow up Plan Follow up with: Jonathon Fuentes APRN [Primary Care Provider] - 07/21/24 10:20 am Prescriptions/Medication Reconciliation: New Jardiance 10 mg tablet 10 mg PO DAILY 30 Days Qty: 30 1RF metoclopramide HCl [Reglan] 10 mg tablet 10 mg PO Q6H PRN (Reason: nausea and vomiting) Qty: 14 0RF lamotrigine 25 mg tablet 25 mg PO DAILY 30 Days Qty: 30 0RF Continued insulin glargine [Lantus Solostar U-100 Insulin] 100 unit/mL (3 mL) insulin pen 30 unit SQ HS Patient Comments: INJECT 30 UNITS (0.3ML) SUBCUTANEOUSLY EVERY DAY AT BEDTIME Discontinued insulin lispro [Humalog KwikPen Insulin] 100 unit/mL insulin pen 8 unit SQ TIDWMEAL Patient Comments: INJECT 8 UNITS (0.08ML) SUBCUTANEOUSLY THREE TIMES DAILY WITH MEALS Problem Reconciliation Problems Reviewed?: Yes Patient Discharge Instructions Patient Instructions: DI for Nausea -- Adult, DI for Vomiting -- Adult Print Language: Amharic Providers Primary Care Provider: Jonathon Fuentes Admit Provider: Chao Villarreal Attending Provider: Chao Villarreal
--- NOTE | 2024-07-14 15:52 | P.CONS_ITS ---
History of Present Illness *Admission Date: 07/14/24 *Reason for visit:: Cannabinoid hyperemesis *History of present illness: Patient seen for inpatient behavioral health consult. Patient states that he has had quite a bit of stress lately this includes and recently quitting his job within the last month because he was having panic attacks and throwing up at work. Patient states that while he was working he would get trapped in his head. Patient states that he would feel his heart racing and felt like someone was sitting on his chest during these events. Patient states that he has not had any events since he quit his job. Patient states that he has gotten sick quite a bit lately because he cannot control what he eats. Patient currently smokes THC daily and is not wanting to discontinue use even though this is most likely what is making him ill. Patient has been seen outpatient in the past but has never been compliant with medications were following up for appointments. Most recently patient was seen by [facility] behavioral health and was started on Lamictal, patient states taking a few days but this Lamictal and then stopping. Patient states that he has mood swings quite frequently because sometimes he feels like he would like to take medicines to control this but then a few days later to be no longer wants to take medication this includes his treatment for diabetes. Patient states that he has 6 kids 2 of them still live with him, 2 are grown, and he lost custody of his daughters when he disciplined them with a belt. Patient states that he has issues with irritability and can become angry easily. Patient denies current suicidal ideation or homicidal ideation he states that he was a teenager he used to cut he has not had any thoughts to self-harm since having children. Patient states that he sleeps pretty well after he is smoked THC he states that this calms him down and helps clear his head. Patient does not want to quit smoking THC at this time. Mental Status Comment:: MENTAL STATUS EXAM:? IN THE HOSPITAL TODAY MOOD: Patient is calm, cooperative, and engaged today. ANXIETY: There are no apparent signs of anxiety.? APPEARANCE: Patient is normal in appearance with age appropriate dress and grooming and appears to be stated age.? APPETITE:? No issues with appetite.? No significant weight loss or weight gain. ENERGY: Energy is normal.? CONCENTRATION: WNL? IRRITABILITY: states that he has trouble with this? AFFECT:? Full-range.? THOUGHT CONTENT AND PROCESS:? Hallucinations and delusions are denied and behavior is generally appropriate. Associations are intact, thinking is basically logical and thought content is appropriate. There are no signs of cognitive difficulty, based on vocabulary and fund of knowledge.? SPEECH:? Speech is normal in rate, volume, and articulation and language skills are intact.??? PSYCHOMOTOR:? There is no apparent psychomotor retardation noted at this time. ORIENTATION:? Memory is intact for recent and remote events and the patient is oriented to time, place, and person.?? SUICIDAL IDEATIONS:? Patient convincingly denies suicidal and self-injurious ideas or intentions.? None since the last time that they were here. HOMICIDAL IDEATIONS: Homicidal or assaultive ideas or intentions are also denied.?? INSIGHT:? Insight appears to be intact.? JUDGMENT: Judgment is intact.? [facility] Disclaimer: The information contained in this section may have been updated after the patient was seen, as this information can be updated by other users. Medical History Erosive esophagitis X[place] tear Intractable nausea and vomiting Depression Anxiety Nausea Low testosterone level in male History of diabetic ketoacidosis Diabetes Surgical History No significant past surgical history Family History Father Hypertension Hyperlipidemia Diabetes Social History Smoking Status: Current every day smoker tobacco type: cigarettes packs per d ay: 2 alcohol intake: never substance use type: denies use current occupational status: unemployed Travel in the last 8 weeks: None household members: children housing: house marital status: single number of children: 4 current occupation: [employer] current occupational exposures/hazards: No caffeine: Yes Review of Systems *Neurologic Neurologic: Reports as per [facility] Meds Home Medications and Allergies Home Medications ?Medication ?Instructions ?Recorded ?Confirmed ?Type empagliflozin 10 mg tablet 10 mg PO DAILY 30 days #30 tabs 07/14/24 Rx (Jardiance) insulin glargine 100 unit/mL (3 30 unit SQ HS 07/14/24 07/14/24 History mL) subcutaneous pen (Lantus Solostar U-100 Insulin) lamotrigine 25 mg tablet 25 mg PO DAILY 30 days #30 tabs 07/14/24 Rx metoclopramide HCl 10 mg tablet 10 mg PO Q6H PRN nausea and 07/14/24 Rx (Reglan) vomiting #14 tabs New Prescriptions to Start Prescriptions: empagliflozin [Jardiance] Arturo Langston lamotrigine Arturo Langston metoclopramide HCl [Reglan] Arturo Langston Allergies Allergy/AdvReac Type Severity Reaction Status Date / Time Penicillins (PENICILLINS) Allergy Unknown Verified 05/13/24 09:16 Assessment and Plan *Assessment and plan (1) Mood disorder: Status: Acute Category: Medical Code(s): F39 - Unspecified mood [affective] disorder Plan Spoke with hospitalist about starting patient on Lamictal 25 mg at night and having a follow-up with [facility] behavioral health outpatient.
--- NOTE | 2024-07-15 10:48 | SW/DCPLANNER ---
Spoke with patients son. Patients son stated that he is currently sitting in the shower stating that he is cold again. Patients son stated that they have not picked up his new medicine yet and plans on going to get them today. Patients son stated that he was not aware of his fathers upcoming appointments. Patients son stated that he has no concerns or questions at this time. Forest Cruz
== END 2024-07-14 14:35 | disposition home or self-care (01) ==
LOC: ER 22:02 → 2ND 22:05
PROVIDERS: Nurse Practitioner Family; Physician Assistant; Student in an Organized Health Care Education/Training Program; Admitting Provider Internal Medicine Adolescent Medicine; Emergency Provider Emergency Medicine; PCP Nurse Practitioner Family; Visit Provider Internal Medicine Adolescent Medicine
DX: E11.65 Type 2 diabetes mellitus with hyperglycemia (principal); Z79.4 Long term (current) use of insulin; F17.210 Nicotine dependence, cigarettes, uncomplicated; R11.2 Nausea with vomiting, unspecified; F12.10 Cannabis abuse, uncomplicated; F31.9 Bipolar disorder, unspecified; F41.1 Generalized anxiety disorder; K31.84 Gastroparesis
CPT/HCPCS: 36415; 80053; 80307; 81001; 82009; 82803; 82962; 83036; 83605; 83690; 83735; 84443; 85007; 85025; 85027; 87636; 93005; 99252; 99285; G0378; J1200; J1790; J2405; J2765; J3475; J7030; J7120; S0028

== ENCOUNTER 2024-07-15 12:42 | Emergency (ER) | payer MEDICAID, SELFPAY ==
[2024-07-15 12:47] VITALS: BP 158/98; PULSE 86; RESP 20; TEMP 36.6; O2SAT 99; BMI 26.4
--- NOTE | 2024-07-15 12:58 | ECG_ITS ---
APPROVED REPORT Exam: Resting ECG HR:92 bpm ECG Measurements Heart Rate 92 AXES WY 153 P -22 QRSd 92 QRS -53 QT 346 T 75 QTc 395 Conclusion SINUS RHYTHM LEFT ANTERIOR FASCICULAR BLOCK [QRS AXIS <= -45, QR IN I, RS IN II] POSSIBLE ANTERIOR MYOCARDIAL INFARCTION , OF INDETERMINATE AGE [30 ms Q WAVE IN V3/V4, OR R < 0.2 mV IN V4] ABNORMAL ECG No STEMI Electronically signed by : MATHEUS MORRIS, 07/17/2024 04:47:47
--- NOTE | 2024-07-15 13:14 | PC.NURSE ---
DR HENSON AT BEDSIDE
[2024-07-15 13:15] LABS: VBG Base Excess -1.7 mmol/L (-2.4-2.3); VBG HCO3 21.2 mmol/L (23-30); VBG Oxygen Saturation 92.8 % (50-70); VBG PCO2 26.6 mmol/L (35-51); VBG PH 7.52 mmol/L (7.31-7.41); VBG PO2 64.6 mmol/L (28-40)
[2024-07-15 13:17] LABS: Basophils # 0.1 K/mm3 (0-0.2); Basophils % 0.9 % (0.1-2.0); Eosinophils % 0.3 % (0.1-12.0); Hematocrit 45.3 % (42.0-52.0); Hemoglobin 16.3 g/dL (14.1-18.0); Lymphocytes # 1.9 K/mm3 (0.7-4.5); Lymphocytes % 16.3 % (10-50); Mean Corpuscular Hemoglobin 30.8 pg (27.0-31.2); Mean Corpuscular Volume 85.5 fl (80-94); Mean Platelet Volume 9.2 fl (7.4-10.4); Monocytes # 0.7 K/mm3 (0.1-1.0); Monocytes % 5.8 % (1.7-9.3); Neutrophils % 76.2 % (37.0-80.0); Platelet Count 256 K/mm3 (142-424); Red Cell Distribution Width 11.7 % (11.5-17.5); White Blood Count 11.9 K/mm3 (4.8-10.8)
[2024-07-15] MEDS: 0.9 % SODIUM CHLORIDE 1000ML 1,000 ML 999 ML IV (13:18)
[2024-07-15 13:19] VITALS: BP 161/100; PULSE 93; RESP 24; O2SAT 99
[2024-07-15] MEDS: ONDANSETRON 4MG/2ML VIAL 4 MG IV (13:19)
[2024-07-15] MEDS: BELLADONNA ALKALOIDS 60 ML ML PO (13:20)
[2024-07-15 13:27] LABS: Lactic Acid 2.5 mmol/L (0.7-2.1)
[2024-07-15 13:32] LABS: Alanine Aminotransferase 50 U/L (12-78); Albumin/Globulin Ratio 1.8 (1.1-1.8); Alkaline Phosphatase 84 U/L (38-126); Anion Gap 18.9 mEq/L (5-15); Aspartate Amino Transferase 35 U/L (17-59); Bilirubin,Total 2.4 mg/dl (0.2-1.3); Blood Urea Nitrogen 15 mg/dl (9-20); Calcium 9.8 mg/dl (8.4-10.2); Carbon Dioxide 23 mmol/L (22.0-30.0); Chloride 102 mmol/L (98-107); Creatinine Clearance Estimated 195 mL/min (50-200); Estimated Glomerular Filt Rate 150 ml/min (>60); GFR (African American) 181 ML/MIN (>60); Globulin 2.8 g/dL (1.3-3.2); Glucose 275 mg/dl (74-100); Lipase 299 U/L (23-300); Potassium 3.9 mmoL/L (3.5-5.1); Sodium 140 mmol/L (136-145); Total Protein,Serum 7.8 g/dl (6.3-8.2)
[2024-07-15] MEDS: METOCLOPRAMIDE HCL 10MG/2ML VIAL 10 MG IVP (13:34)
--- NOTE | 2024-07-15 13:39 | PC.NURSE ---
I rounded on the pt. no new complaints at this time. I brought him a warm blanket for comfort. no needs voiced. call mcneil in reach.
[2024-07-15 13:42] VITALS: BP 159/100; PULSE 87; RESP 13; O2SAT 99
[2024-07-15 14:00] VITALS: BP 130/79; PULSE 77; RESP 17; O2SAT 95
[2024-07-15 14:16] LABS: HIV Combo NEGATIVE (Negative)
--- NOTE | 2024-07-15 14:26 | ED_ITS ---
Discharge Plan Disposition Patient Disposition: Home, Self-Care Prescriptions Prescriptions: New metoclopramide HCl [Reglan] 10 mg tablet 10 mg PO Q6H PRN (Reason: nausea and vomiting) Qty: 20 0RF No Action Jardiance 10 mg tablet 10 mg PO DAILY 30 Days Qty: 30 1RF insulin glargine [Lantus Solostar U-100 Insulin] 100 unit/mL (3 mL) insulin pen 30 unit SQ HS Patient Comments: INJECT 30 UNITS (0.3ML) SUBCUTANEOUSLY EVERY DAY AT BEDTIME metoclopramide HCl [Reglan] 10 mg tablet 10 mg PO Q6H PRN (Reason: nausea and vomiting) Qty: 14 0RF lamotrigine 25 mg tablet 25 mg PO DAILY 30 Days Qty: 30 0RF Referrals Follow up/Referrals: Jonathon Fuentes APRN [Primary Care Provider] - See instructions Activity Restrictions/Add. Instructions Additional Instructions/Restrictions: Call your family doctor to establish care for this visit to the emergency department and schedule follow-up within 48 hours to ensure improvement. If you have any worsening of your condition or any other concerning signs or symptoms, return to the emergency department or your primary care doctor for further evaluation. Reglan every 6 hours Clinical Impressions Clinical Impression: Vomiting Instructions Patient Instructions: DI for Acute Abdominal Pain Print Language Print Language: Austrian Discharge ED Provider: Osito Mlils General Adult HPI General Chief complaint: Abdominal Pain Stated complaint: persistant vomiting Time Seen by Provider: 07/15/24 12:48 Mode of Arrival: Wheelchair Source of Information: Relative Description of Symptoms (Recalled from ER Triage Doc. by RN): Patient has had vomiting and upper abdominal pain for 3 days. Patient was admitted to the hospital for similar symptoms and discharged yesterday. History of Present Illness HPI narrative: Please note that above description of symptoms, in this electronic medical record under categorization of recalled from ER triage doctor by RN are reflective of an initial nursing assessment, however, is not reflective of my full history and physical exam that was personally taken and clarified. Consequentially, this preceding description of symptoms, which may include the patient's categorized chief complaint in the EMR, do not reflect my personal clinical impression, and the ultimate description of history of present illness and patient stated complaints should be deferred to this section of the note. Unless stated otherwise or congruent with this section of the note, additional signs, symptoms, or incongruence should be interpreted as inaccurate with my clinical impression. Related Data Home Medications ?Medication ?Instructions ?Recorded ?Confirmed insulin glargine 100 unit/mL (3 30 unit SQ HS 07/14/24 07/14/24 mL) subcutaneous pen (Lantus Solostar U-100 Insulin) Previous Rx's ?Medication ?Instructions ?Recorded empagliflozin 10 mg tablet 10 mg PO DAILY 30 days #30 tabs 07/14/24 (Jardiance) lamotrigine 25 mg tablet 25 mg PO DAILY 30 days #30 tabs 07/14/24 metoclopramide HCl 10 mg tablet 10 mg PO Q6H PRN nausea and 07/14/24 (Reglan) vomiting #14 tabs metoclopramide HCl 10 mg tablet 10 mg PO Q6H PRN nausea and 07/15/24 (Reglan) vomiting #20 tabs Allergies Allergy/AdvReac Type Severity Reaction Status Date / Time Penicillins (PENICILLINS) Allergy Unknown Verified 05/13/24 09:16 [facility] Disclaimer: The information contained in this section may have been updated after the patient was seen, as this information can be updated by other users. Medical History Erosive esophagitis Xena-Johnston tear Intractable nausea and vomiting Depression Anxiety Nausea Low testosterone level in male History of diabetic ketoacidosis Diabetes Surgical History No significant past surgical history Family History Father Hypertension Hyperlipidemia Diabetes Social History Smoking Status: Current every day smoker tobacco type: cigarettes packs per day: 2 alcohol intake: never substance use type: denies use current occupational status: unemployed Travel in the last 8 weeks: None household members: children housing: house marital status: single number of children: 4 current occupation: [employer] current occupational exposures/hazards: No caffeine: Yes Have you lived/traveled outside US in past 30 days?: No Contact w/someone who lives/traveled outside US past 30 days?: No Exposure to someone with infectious disease in past 14 days?: No Do you have a fever (greater than 100.4 F or 38 C)?: No Have you tested positive for COVID-19: No Exposed to someone with COVID-19 in past 14 days?: No Do you have a sore throat?: No Do you have a cough?: No Do you have any weakness?: No Do you have any diarrhea?: No Are you experiencing any unusual bleeding?: No Do you have any muscle aches/pain?: No Do you have any abdominal pain?: No Are you experiencing loss of taste or smell?: No Other Medical History Have you received the Flu Vaccine for this season: No Have you received the Pneumonia Vaccine: No ROS Obtained: Yes All systems reviewed & no additional complaints except as documented Physical Exam General General appearance: alert and in no apparent distress Head Head exam: atraumatic and normocephalic Eye Eye exam: Present normal appearance, PERRL and EOMI Neck Neck exam: Present normal inspection, full ROM and trachea midline Respiratory Respiratory exam: Absent respiratory distress, wheezes, stridor, accessory muscle use or prolonged expiratory phase Cardiovascular Cardiovascular exam: Present other (Pulses equal symmetric in upper and lower extremities) Abdominal Exam Abdominal exam: Present soft; Absent distention, tenderness, guarding, rebound, rigidity or pulsatile mass Extremities Exam Extremities exam: Absent edema Neurological Exam Neurological exam: Present alert, oriented X3 and CN II-XII intact; Absent motor sensory deficit Skin Skin exam: Present warm and dry; Absent diaphoresis or erythema Medical Decision Making Medical Records Medical records reviewed: Yes I reviewed the patient's medical records. Screening: Per USPSTF and CDC recommendations, given the prevalence of disease in our region, it is our hospital?s policy to screen for HIV and viral Hepatitis for all patients aged 18 and over and those with ongoing risk factors. Burton Inquiry Pt receiving controlled substance: No Burton was queried for this patient: No Vital Signs: 07/15/24 12:47 07/15/24 13:19 07/15/24 13:42 Temperature 97.9 F Temperature Source Oral Pulse Rate 93 H 87 Pulse Rate [Left] 86 Respiratory Rate 20 24 13 Blood Pressure 161/100 H 159/100 H Blood Pressure [Left Arm] 158/98 H Blood Pressure Mean [Left Arm] 118 02 Sat by Pulse Oximetry 99 99 99 Oxygen Delivery Method Room Air 07/15/24 14:00 07/15/24 14:30 Temperature Temperature Source Pulse Rate 77 80 Pulse Rate [Left] Respiratory Rate 17 17 Blood Pressure 130/79 108/68 L Blood Pressure [Left Arm] Blood Pressure Mean [Left Arm] 02 Sat by Pulse Oximetry 95 95 Oxygen Delivery Method Lab Data Lab Results 07/15/24 13:04: WBC 11.9 H, RBC 5.30, Hgb 16.3, Hct 45.3, MCV 85.5, MCH 30.8, M CHC 36.0 H, RDW 11.7, Plt Count 256, MPV 9.2, Neut % (Auto) 76.2, Lymph % (Auto) 16.3, Martin % (Auto) 5.8, Eos % (Auto) 0.3, Baso % (Auto) 0.9, Neut # (Auto) 9.0 H, Lymph # (Auto) 1.9, Martin # (Auto) 0.7, Eos # (Auto) 0.0, Baso # (Auto) 0.1, Sodium 140, Potassium 3.9, Chloride 102, Carbon Dioxide 23, Anion Gap 18.9 H, BUN 15, Creatinine 0.60 L, Estimated Creat Clear 195, Estimated GFR 150, Est GFR ( Amer) 181, Glucose 275 H, Lactate 2.5 H, Calcium 9.8, Total Bilirubin 2.4 H, AST 35 D, ALT 50, Alkaline Phosphatase 84, Total Protein 7.8, Albumin 5.0 D, Globulin 2.8, Albumin/Globulin Ratio 1.8, Lipase 299, HIV Ag/Ab Combo Qual Negative 07/15/24 13:09: VBG pH 7.52 H, VBG pCO2 26.6 L, VBG pO2 64.6 H, VBG HCO3 21.2 L, VBG Total CO2 22.0 L, VBG O2 Saturation 92.8 H, VBG Base Excess -1.7, VBG Lactic Acid 3.0 H 07/15/24 13:04 07/15/24 13:04 Orders (Tests/Meds): ED MEDICATIONS Discontinued Medications Generic Name Dose Route Start Last Admin Trade Name Freq PRN Reason Stop Dose Admin Belladonna Alkaloids 60 ml 07/15/24 13:10 07/15/24 13:20 Belladonna Alkaloids 60 Ml Ml PO 07/15/24 13:11 60 ml ONCE ONE Administration Sodium Chloride 1,000 mls @ 999 mls/hr 03/26/25 13:10 07/15/24 13:18 Sod Chlor 0.9% 1000ml Bag IV 07/15/24 14:10 999 mls/hr .Q1H1M ONE Administration Metoclopramide HCl 10 mg 07/15/24 13:26 07/15/24 13:34 Metoclopramide Hcl 10mg/2ml Vial IVP 07/15/24 13:27 10 mg ONCE ONE Administration Metoclopramide HCl 10 mg 07/15/24 15:04 Metoclopramide 10mg Tablet PO 07/15/24 15:05 ONCE ONE Ondansetron HCl 4 mg 07/15/24 13:09 07/15/24 13:19 Ondansetron 4mg/2ml Vial IV 07/15/24 13:10 4 mg ONCE ONE Administration ORDERS Category Date Time Status GI consult [Consult to Gastroenterology] [CONS] Stat Cons 07/15/24 13:28 Active Complete Blood Count Auto Diff Stat Lab 07/15/24 13:04 Completed Comprehensive Metabolic Panel Stat Lab 07/15/24 13:04 Completed HIV Combo Stat Lab 07/15/24 13:04 Completed Hepatitis C Ab Qual. W/ RFX Stat Lab 07/15/24 13:04 Received Lactic Acid Stat Lab 07/15/24 13:04 Completed Lipase Stat Lab 07/15/24 13:04 Completed Urinalysis and Microscopic Stat Lab 07/15/24 13:09 Ordered Venous Blood Gas Stat RT 07/15/24 13:09 Completed Medical Decision Narrative: 38-year-old male history of bipolar disorder, THC use, anxiety, diabetes presenting with vomiting. Patient was just diagnosed with potential gastroparesis due to diabetes recently. Just admitted to the hospital, discharged yesterday, 07/14. Presents today because he has had continued vomiting and decreased p.o. intake. Try to take Reglan, vomited up, unable to tolerate even fluids, so came back for meds, fluids, reevaluation. Vomiting is nonbloody, nonbilious. No systemic signs or symptoms. Minimal abdominal pain. History was obtained via conversation with patient. On arrival, patient hemodynamically stable, alert, oriented x4, appropriate, GCS 15, moving all extremities spontaneously, pupils equal and reactive to light. Full physical exam performed and significant for unwell appearing male who is in no acute distress. Intermittently retching.. Nontachycardic, hypertensive, speaking full sentences. Abdomen soft, nontender, nondistended. Differential includes gastroparesis, pancreatitis, gastroenteritis, gastritis, PUD, perforated viscus, among others. Patient placed on continuous cardiac monitoring and continuous pulse ox with initial blood pressure 158/98, heart rate 86, saturation 99% on room air. Independent interpretation of EKG shows sinus rhythm 92 bpm with no acute ischemic change. RI interval 153, QRS 92, QTc 395. Leftward axis. Patient was given IV fluids and Reglan for symptomatic management and correction of underlying abnormalities. Workup independently interpreted and significant for mild leukocytosis 11.9. Patient's chemistry 9 action other than mild anion gap elevation with lactate of 2.5. Chemistry nonactionable, lipase negative. VBG with what appears to be respiratory alkalosis pH 7.52/CO2 low at 26/bicarb low at 21. On reevaluation, patient states he is feeling much better, looks clinically well as well. Given oral Reglan and p.o. challenge. P.o. challenge successfully. Given patient presentation, workup, history, this most likely represents cannabis hyperemesis versus gastroparesis. Because patient at baseline without signs or symptoms of clinical decompensation, deemed appropriate for discharge. Results were relayed to patient who voiced understanding and were agreeable to outpatient management and follow up. I discussed my clinical impression with patient and answered all questions. At this time, the evidence for any other entities in the differential is insufficient to warrant any further testing or ED observation. This was explained as well. Advisory was given that persistent or worsening symptoms require further evaluation. I confirmed the understanding of this discussion. Scrap Sawyer disclaimer Much of this encounter note is an electronic operating room assistant spoken language to printed text. Electronic operating room assistant of the spoken language may permit errors. Although I have reviewed the note, some errors may still exist. Critical Care Critical Care Time Critical Care Time: No
[2024-07-15 14:30] VITALS: BP 108/68; PULSE 80; RESP 17; O2SAT 95
[2024-07-15] MEDS: METOCLOPRAMIDE 10MG TABLET 10 MG PO (15:08)
[2024-07-15 15:30] VITALS: BP 107/64; PULSE 78; RESP 18; TEMP 36.7; O2SAT 97
[2024-07-15 15:52] LABS: Hepatitis C Ab Qual. W/ RFX NEGATIVE (Negative)
[2024-07-15 17:16] LABS: Reflex Lactic Add Lactic Reflex
== END 2024-07-15 15:35 | disposition home or self-care (01) ==
PROVIDERS: Emergency Provider Emergency Medicine; PCP Nurse Practitioner Family
DX: R11.2 Nausea with vomiting, unspecified (principal)
CPT/HCPCS: 80053; 82803; 83605; 83690; 85025; 86803; 87389; 93005; 96361; 96374; 96375; 99285; J2405; J2765; J7030

== ENCOUNTER 2025-02-04 08:46 | Emergency (ER) | payer MEDICAID, SELFPAY ==
[2025-02-04] VITALS (8 sets, daily range): BP systolic 131–183; BP diastolic 80–126; PULSE 77–92; RESP 11–19; TEMP 36.8–36.9; O2SAT 98–99; BMI 25.8
--- NOTE | 2025-02-04 08:55 | PC.NURSE ---
FSBS 374
--- NOTE | 2025-02-04 08:58 | ED_ITS ---
Discharge Plan Disposition Patient Disposition: Home, Self-Care Prescriptions Prescriptions: No Action erythromycin 5 mg/gram (0.5 %) ointment 1 applic ophthalmic (eye) QID 5 Days Qty: 3.5 0RF Rx Instructions: apply ribbon of medication in left eye as directed insulin glargine [Lantus Solostar U-100 Insulin] 100 unit/mL (3 mL) insulin pen 30 unit SQ HS Patient Comments: INJECT 30 UNITS (0.3ML) SUBCUTANEOUSLY EVERY DAY AT BEDTIME lamotrigine 25 mg tablet 25 mg PO DAILY 30 Days Qty: 30 0RF metoclopramide HCl [Reglan] 10 mg tablet 10 mg PO Q6H PRN (Reason: nausea and vomiting) Qty: 20 0RF Referrals Follow up/Referrals: Provider,Referral, MD [Primary Care Provider, Medical] - See instructions Activity Restrictions/Add. Instructions Additional Instructions/Restrictions: Please continue to stop using marijuana as this is almost certainly the cause of your underlying nausea and vomiting. Keep follow-up appointments with gastroenterology as previously instructed. Clinical Impressions Clinical Impression: Cannabinoid hyperemesis syndrome Instructions Patient Instructions: DI for Acute Abdominal Pain Print Language Print Language: Kosovan Discharge ED Provider: Jonathan Paulson General Adult HPI General Chief complaint: Abdominal Pain Stated complaint: vomiting, stomach pain Time Seen by Provider: 02/04/25 08:52 History of Present Illness HPI narrative: Patient is a 39-year-old very well-known to our emergency department here numerous times for cyclical vomiting and cannabinol hyperemesis here with recurrent symptoms. He is actively vomiting and history is limited at the moment but is primarily obtained through his son who states that this is the same type of episode he had in the past. Son also states he continues to smoke marijuana. Related Data Home Medications ?Medication ?Instructions ?Recorded ?Confirmed insulin glargine 100 unit/mL (3 30 unit SQ HS 07/14/24 08/16/24 mL) subcutaneous pen (Lantus Solostar U-100 Insulin) Previous Rx's ?Medication ?Instructions ?Recorded lamotrigine 25 mg tablet 25 mg PO DAILY 30 days #30 t abs 07/14/24 metoclopramide HCl 10 mg tablet 10 mg PO Q6H PRN nause a and 07/15/24 (Reglan) vomiting #20 tabs erythromycin 5 mg/gram (0.5 %) eye 1 applic ophthalmic (eye) QID 5 08/16/24 ointment days #3.5 grams Allergies Allergy/AdvReac Type Severity Reaction Status Date / Time Penicillins (PENICILLINS) Allergy Unknown Verified 08/16/24 11:02 [facility] Disclaimer: The information contained in this section may have been updated after the patient was seen, as this information can be updated by other users. Medical History Conjunctivitis Intractable nausea and vomiting Esophagitis Erosive esophagitis Xena-Johnston tear Intractable nausea and vomiting Depression Anxiety Nausea Low testosterone level in male History of diabetic ketoacidosis Diabetes Surgical History No significant past surgical history Family History Father Hypertension Hyperlipidemia Diabetes Social History Smoking Status: Current every day smoker tobacco type: cigarettes packs per day: 2 alcohol intake: never substance use type: denies use current occupational status: unemployed Travel in the last 8 weeks?: None household members: children housing: house marital status: single number of children: 4 current occupation: [employer] current occupational exposures/hazards: No caffeine: Yes Have you lived/traveled outside US in past 30 days?: No Contact w/someone who lives/traveled outside US past 30 days?: No Exposure to someone with infectious disease in past 14 days?: No Do you have a fever (greater than 100.4 F or 38 C)?: No Have you tested positive for COVID-19?: No Exposed to someone with COVID-19 in past 14 days?: No Do you have a sore throat?: No Do you have a cough?: No Do you have any weakness?: No Do you have any diarrhea?: No Are you experiencing any unusual bleeding?: No Do you have any muscle aches/pain?: No Do you have any abdominal pain?: Yes Are you experiencing loss of taste or smell?: No Other Medical History Have you received the Flu Vaccine for this season: No Have you received the Pneumonia Vaccine: No ROS Obtained: Yes All systems reviewed & no additional complaints except as documented Physical Exam General General appearance: other (Actively vomiting ) Respiratory Respiratory exam: Present normal lung sounds bilaterally Cardiovascular Cardiovascular exam: Present regular rate Abdominal Exam Abdominal exam: Present soft; Absent distention or tenderness Neurological Exam Neurological exam: Present alert and oriented X3 Medical Decision Making Medical Records Screening: Per USPSTF and CDC recommendations, given the prevalence of disease in our region, it is our hospital?s policy to screen for HIV and viral Hepatitis for all patients aged 18 and over and those with ongoing risk factors. Burton Inquiry Pt receiving controlled substance: No Vital Signs: 02/04/25 08:50 02/04/25 08:50 02/04/25 08:53 Temperature 98.3 F 98.3 F Temperature Source Oral Oral Pulse Rate 77 77 Pulse Rate [Right] 77 Respiratory Rate 17 17 Blood Pressure 183/126 H 183/126 H Blood Pressure [Right Arm] 183/126 H Blood Pressure Mean [Right Arm] 145 Blood Pressure Source Automatic Cuff Blood Pressure Source [Right Arm] Automatic Cuff Blood Pressure Position Supine Blood Pressure Position [Right Arm] Supine 02 Sat by Pulse Oximetry 98 98 98 Oxygen Delivery Method Room Air Room Air Room Air 02/04/25 09:30 02/04/25 10:14 Temperature Temperature Source Pulse Rate 85 90 Pulse Rate [Right] Respiratory Rate 16 14 Blood Pressure Blood Pressure [Right Arm] Blood Pressure Mean [Right Arm] Blood Pressure Source Blood Pressure Source [Right Arm] Blood Pressure Position Blood Pressure Position [Right Arm] 02 Sat by Pulse Oximetry 99 99 Oxygen Delivery Method Room Air Room Air Lab Data Lab Results 02/04/25 08:59: WBC 12.5 H, RBC 5.36, Hgb 16.8, Hct 46.1, MCV 86.0, MCH 31.3 H, MCHC 36.4 H, RDW 11.9, Plt Count 243, MPV 9.1, Neut % (Auto) 70.6, Lymph % (Auto) 19.9, Blount % (Auto) 7.7, Eos % (Auto) 0.6, Baso % (Auto) 0.8, Neut # (Auto) 8.8 H, Lymph # (Auto) 2.5, Blount # (Auto) 1.0, Eos # (Auto) 0.1, Baso # (Auto) 0.1, Sodium 135 L, Potassium 4.3, Chloride 95 L, Carbon Dioxide 24, Anion Gap 20.3 H, BUN 22 H, Creatinine 0.70, Estimated Creat Clear 162, Estimated GFR 125, Est GFR ( Amer) 151, Glucose 362 H, Calcium 9.2, Total Bilirubin 3.8 H, AST 31, ALT 43, Alkaline Phosphatase 113, Total Protein 8.3 H, Albumin 4.8, G lobulin 3.5 H, Albumin/Globulin Ratio 1.4, Lipase 45 02/04/25 08:59 02/04/25 08:59 Orders (Tests/Meds): ED MEDICATIONS Discontinued Medications Generic Name Dose Route Start Last Admin Trade Name Ramos PRN Reason Stop Dose Admin Droperidol 2.5 mg 02/04/25 08:55 02/04/25 09:07 Droperidol 5mg/2ml Vial IV 02/04/25 08:56 2.5 mg ONCE ONE Administration Lactated Ringer's 1,000 mls @ 999 mls/hr 02/04/25 09:00 02/04/25 10:10 Lactated Ringer's 1000 Ml Bag IV 02/04/25 10:00 Infused .Q1H1M ARIANNA Infusion ORDERS Category Date Time Status CBC w/Auto Diff [Complete Blood Count Auto Diff] Stat Lab 02/04/25 08:59 Completed CMP [Comprehensive Metabolic Panel] Stat Lab 02/04/25 08:59 Completed Lipase Stat Lab 02/04/25 08:59 Completed Medical Decision Narrative: 39-year-old with symptoms consistent with cannabinol hyperemesis. He is done well with droperidol in the past which I will give him. Also check basic labs and administer IV fluids. He does have a history of hyperglycemia and diabetes unclear as to whether or not he has had a gastric emptying study or has been diagnosed with gastroparesis which remains a possibility but I do know that he has been followed by GI will discuss with this him later on the back and once his symptoms have improved. Reassessment 11 AM patient feeling much better tolerating p.o. back to baseline ready to go home states he has many antiemetics at home has gone through this many times before. He has been again advised to stop smoking marijuana patient discharged in stable improved condition. Critical Care Critical Care Time Critical Care Time: No
--- NOTE | 2025-02-04 09:01 | ECG_ITS ---
APPROVED REPORT Exam: Resting ECG HR:95 bpm ECG Measurements Heart Rate 95 AXES TX 163 P -17 QRSd 80 QRS 10 QT 343 T 49 QTc 395 Conclusion SINUS RHYTHM ANTEROSEPTAL MYOCARDIAL INFARCTION , PROBABLY OLD [40+ ms Q WAVE IN V1-V4] ABNORMAL ECG UNCONFIRMED REPORT Electronically signed by : Chao Paulson, 02/06/2025 15:07:52
[2025-02-04 09:05] LABS: Hematocrit 46.1 % (42.0-52.0); Hemoglobin 16.8 g/dL (14.1-18.0); Immature Granulocytes % 0.4 %; Mean Corpuscular HGB Conc 36.4 g/dL (31.8-35.4); Mean Corpuscular Hemoglobin 31.3 pg (27.0-31.2); Mean Corpuscular Volume 86.0 fl (80-94); Nucleated Red Blood Cells % 0 %; Platelet Count 243 K/mm3 (142-424); Red Blood Count 5.36 M/mm3 (4.60-6.20); Red Cell Distribution Width-SD 37.1 fL; White Blood Count 12.5 K/mm3 (4.8-10.8)
[2025-02-04] MEDS: droPERidol 5MG/2ML VIAL 2.5 MG IV (09:07)
[2025-02-04] MEDS: LACTATED RINGERS 1000ML 1,000 ML 999 ML IV (09:08)
[2025-02-04 09:16] LABS: Albumin Level 4.8 g/dl (3.5-5.0); Chloride 95 mmol/L (98-107)
[2025-02-04 09:17] LABS: Potassium 4.3 mmoL/L (3.5-5.1); Sodium 135 mmol/L (136-145)
[2025-02-04 09:19] LABS: Alanine Aminotransferase 43 U/L (12-78); Albumin/Globulin Ratio 1.4 (1.1-1.8); Alkaline Phosphatase 113 U/L (38-126); Anion Gap 20.3 mEq/L (5-15); Aspartate Amino Transferase 31 U/L (17-59); Bilirubin,Total 3.8 mg/dl (0.2-1.3); Blood Urea Nitrogen 22 mg/dl (9-20); Carbon Dioxide 24 mmol/L (22.0-30.0); Creatinine Clearance Estimated 162 mL/min (50-200); Creatinine,Serum 0.70 mg/dl (0.66-1.25); Estimated Glomerular Filt Rate 125 ml/min (>60); GFR (African American) 151 ML/MIN (>60); Globulin 3.5 g/dL (1.3-3.2); Total Protein,Serum 8.3 g/dl (6.3-8.2)
[2025-02-04 09:20] LABS: Calcium 9.2 mg/dl (8.4-10.2); Glucose 362 mg/dl (74-100); Lipase 45 U/L (23-300)
--- OUTSIDE RECORDS SUMMARY | 2025-02-04 09:25 | XMS_ITS | Clinical Summary ---
Author Organization [facility] Address [address] [place] [address] Care Team Providers Care Honey Grader And Blender Name Role Phone Carina Ruiz AZAR Primary Care Provider Allergies Active Allergy Reactions Criticality Noted Date Comments Penicillins Rash Low 04/06/2023 Immunizations Immunization Administration Dates Next Due Hep B, adult 12/23/2002 PPD Skin Test (TB Skin Test) 12/23/2002,11/19/19 03 TD (adult), 2 Lf tetanus tox oid, preservative free, adsorbed 07/03/2010 Social History Tobacco Use Types Packs/Day Years Used Date Smoking Tobacco: Every Day Sex and Gender Information Value Date Recorded Sex Assigned at Not on file Legal Sex Male 7:39 PM EDT Gender Identity Not on file Sexual Orientation Not on file Last Filed Vital Signs Vital Sign Reading Time Taken Comments Blood Pressure 173/116 04/06/2023 11:50 AM EST Pulse 93 04/06/2023 11:50 AM EST Temperature 36.3 C (97.4 F) 04/06/2023 11:50 AM EST Respiratory Rate 22 04/06/2023 11:5 0 AM EST Oxygen Saturation 99% 04/06/2023 11: 50 AM EST Inhaled Oxygen Concentration - - Weight 83.3 kg (183 lb 10.3 oz) 020 12:51 PM EDT Height 177.8 cm (5' 10 ) 01/01/2020 12: 51 PM EDT Body Mass Index 26.35 01/01/2020 12:51 PM EDT Plan of Treatment Not on file Insurance [facility] MEDICAID Care Teams Honey Grader And Blender Relationship Specialty Start Date End Date Carina Ruiz PA [address] [place] [address] PCP - General 04/06/23
--- NOTE | 2025-02-04 09:43 | PC.NURSE ---
pt refusing to keep blood pressure cuff on and continues to take it off.
== END 2025-02-04 11:10 | disposition home or self-care (01) ==
PROVIDERS: Emergency Provider Student in an Organized Health Care Education/Training Program
DX: R11.15 Cyclical vomiting syndrome unrelated to migraine (principal); F12.988 Cannabis use, unspecified with other cannabis-induced disorder; F17.210 Nicotine dependence, cigarettes, uncomplicated
CPT/HCPCS: 80053; 83690; 85025; 93005; 96361; 96374; 99284; 99285; J1790; J7120

== ENCOUNTER 2025-02-04 21:40 | Emergency (ER) | payer MEDICAID, SELFPAY ==
[2025-02-04 21:53] VITALS: BP 177/112; PULSE 98; RESP 16; TEMP 36.8; O2SAT 100; BMI 25.8
--- OUTSIDE RECORDS SUMMARY | 2025-02-04 22:02 | XMS_ITS | Clinical Summary ---
Author Organization [facility] Address [address] [place] [address] Care Team Providers Care Director Of Trauma Name Role Phone Carina Ruiz AZAR Primary Care Provider [phone] Allergies Active Allergy Reactions Criticality Noted Date [...] Plan of Treatment Not on file Insurance [facility] MEDICAID Care Teams Director Of Trauma Relationship Specialty Start Date End Date Carina Ruiz PA [address] [place] [address] PCP - General 04/06/23
[2025-02-04 22:06] LABS: POC Glucose,Bedside 267 gm/dL (70-110)
[2025-02-04 22:22] LABS: Microscopic, Urine URINE MICROSCOPIC (MICROSCOPIC)
[2025-02-04 22:23] LABS: Color,Urine YELLOW (Yellow); Glucose,Urine (UA) 2+ (Negative); Ketones,Urine 3+ (Negative); Leukocyte Esterase,Urine Negative (Negative); PH,Urine 6.0 (5.0-8.5); Protein,Urine TRACE (Negative); Specific Gravity, Urine 1.025 (1.005-1.030); Urobilinogen,Urine 0.2 EU/dl (0.2)
[2025-02-04 22:24] VITALS: BP 118/75; PULSE 98; RESP 16; O2SAT 100
[2025-02-04 22:26] LABS: Bilirubin,Urine 1+ (Negative)
[2025-02-04 22:32] LABS: Bacteria,Urine Trace /lpf; WBC,Urine Occasional #/hpf (0-3)
--- NOTE | 2025-02-04 22:35 | HMH.EDGENADL ---
Discharge Plan Disposition Patient Disposition: Home, Self-Care Condition: Good Prescriptions Prescriptions: New ondansetron 4 mg tablet,disintegrating 4 mg PO Q6H PRN (Reason: nausea and vomiting) Qty: 10 0RF No Action erythromycin 5 mg/gram (0.5 %) ointment 1 applic ophthalmic (eye) QID 5 Days Qty: 3.5 0RF Rx Instructions: apply ribbon of medication in left eye as directed insulin glargine [Lantus Solostar U-100 Insulin] 100 unit/mL (3 mL) insulin pen 30 unit SQ HS Patient Comments: INJECT 30 UNITS (0.3ML) SUBCUTANEOUSLY EVERY DAY AT BEDTIME lamotrigine 25 mg tablet 25 mg PO DAILY 30 Days Qty: 30 0RF metoclopramide HCl [Reglan] 10 mg tablet 10 mg PO Q6H PRN (Reason: nausea and vomiting) Qty: 20 0RF Referrals Follow up/Referrals: Provider,Referral, MD [Primary Care Provider, Medical] - See instructions Activity Restrictions/Add. Instructions Additional Instructions/Restrictions: You were evaluated in the ER and are believed to be appropriate for discharge at this time. Take the prescribed Zofran if needed for nausea and vomiting. Drink plenty of water, Gatorade, Pedialyte to stay hydrated. As discussed, avoid marijuana to avoid symptoms like this in the future. Follow-up with your primary care doctor for reevaluation in 2 to 3 days. Return to the ER with any new, worsening, or otherwise concerning symptoms. Clinical Impressions Clinical Impression: Cannabis hyperemesis syndrome Instructions Patient Instructions: DI for Acute Abdominal Pain Print Language Print Language: [place] Discharge ED Provider: Abbie Braga General Adult HPI <Abbie Braga DO - Last Filed: 02/05/25 00:59> General Chief complaint: Abdominal Pain Stated complaint: unable to hold anything down, stomach pain Time Seen by Provider: 02/04/25 22:35 Mode of Arrival: Ambulatory Source of Information: Patient Description of Symptoms (Recalled from ER Triage Doc. by RN): patient presents to the ED vomiting and sugar problems . kita is also in 01/29 severe abdominal pain. History of Present Illness HPI narrative: Patient is a 39-year-old male with a past medical history of hyperemesis cannabis who presented to the emergency department department with vomiting. Patient was here this morning in the emergency department and states that he went home and now has had multiple episodes of nonbloody vomiting. Patient has not had any diarrhea. Patient is not complaining of any abdominal pain. Patient states that he has multiple anti-nausea medications at home and he tried more than one of them without any significant relief. Patient denying any fevers, cough or upper respiratory symptoms. Patient denies any chest pain or shortness of breath. States that his last marijuana use was 3 days ago. Patient denies any other drug use. Patient denies any alcohol use. Patient denies any urinary symptoms Related Data Home Medications ?Medication ?Instructions ?Recorded ?Confirmed insulin glargine 100 unit/mL (3 30 unit SQ HS 07/14/24 08/16/24 mL) subcutaneous pen (Lantus Solostar U-100 Insulin) Previous Rx's ?Medication ?Instructions ?Recorded lamotrigine 25 mg tablet 25 mg PO DAILY 30 days #30 tabs 07/14/24 metoclopramide HCl 10 mg tablet 10 mg PO Q6H PRN nausea and 07/15/24 (Reglan) vomiting #20 tabs erythromycin 5 mg/gram (0.5 %) eye 1 applic ophthalmic (eye) QID 5 08/16/24 ointment days #3.5 grams ondansetron 4 mg disintegrating 4 mg PO Q6H PRN nausea and 02/05/25 tablet vomiting #10 tabs Allergies Allergy/AdvReac Type Severity Reaction Status Date / Time Penicillins (PENICILLINS) Allergy Unknown Verified 08/16/24 11:02 [facility] <Abbie Braga, DO - Last Filed: 02/05/25 00:59> [facility] Disclaimer: The information contained in this section may have been updated after the patient was seen, as this information can be updated by other users. Medical History (Updated 02/05/25 @ 02:25 by Benita Rose RN) Conjunctivitis Intractable nausea and vomiting Esophagitis Erosive esophagitis [place] tear Intractable nausea and vomiting Depression Anxiety Nausea Low testosterone level in male History of diabetic ketoacidosis Diabetes Surgical History No significant past surgical history Family History Father Hypertension Hyperlipidemia Diabetes Social History Smoking Status: Current every day smoker tobacco type: cigarettes packs per day: 2 alcohol intake: never substance use type: denies use current occupational status: unemployed Travel in the last 8 weeks?: None household members: children housing: house marital status: single number of children: 4 current occupation: [employer] current occupational exposures/hazards: No caffeine: Yes Have you lived/traveled outside [place] in past 30 days?: No Contact w/someone who lives/traveled outside US past 30 days?: No Exposure to someone with infectious disease in past 14 days?: No Do you have a fever (greater than 100.4 F or 38 C)?: Yes Have you tested positive for COVID-19?: No Exposed to someone with COVID-19 in past 14 days?: No Do you have a sore throat?: No Do you have a cough?: No Do you have any weakness?: No Do you have any diarrhea?: No Are you experiencing any unusual bleeding?: No Do you have any muscle aches/pain?: Yes Do you have any abdominal pain?: Yes Are you experiencing loss of taste or smell?: No Other Medical History Have you received the Flu Vaccine for this season: No Have you received the Pneumonia Vaccine: No <Abbie Braga, - Last Filed: 02/05/25 00:59> ROS Obtained: Yes All systems reviewed & no additional complaints except as documented and Yes Systems reviewed as appropriate & no additional complaints except as documented Physical Exam <Abbie Braga DO - Last Filed: 02/05/25 00:59> General General appearance: alert and in no apparent distress Head Head exam: atraumatic, normocephalic and normal inspection Eye Eye exam: Present normal appearance, PERRL and EOMI; Absent scleral icterus ENT ENT exam: Present normal exam and normal external ear exam Neck Neck exam: Present normal inspection and full ROM Chest Chest inspection: Present normal inspection and symmetric chest wall rise Respiratory Respiratory exam: Present normal lung sounds bilaterally; Absent respiratory distress or wheezes Cardiovascular Cardiovascular exam: Present regular rate, normal rhythm and normal heart sounds Abdominal Exam Abdominal exam: Present soft and distention; Absent tenderness, guarding or rebound Extremities Exam Extremities exam: Present normal inspection and full ROM Back Exam Back exam: Present normal inspection and full ROM Neurological Exam Neurological exam: Present alert and oriented X3 Psychiatric Psychiatric exam: Present normal affect and normal mood Skin Skin exam: Present warm and dry Medical Decision Making <Abbie Braga, DO - Last Filed: 02/05/25 00:59> Medical Records Medical records reviewed: Yes I reviewed the patient's medical records. Screening: Per USPSTF and CDC recommendations, given the prevalence of disease in our region, it is our hospital?s policy to screen for HIV and viral Hepatitis for all patients aged 18 and over and those with ongoing risk factors. [place] Inquiry Pt receiving controlled substance: No Vital Signs: 02/04/25 21:53 02/04/25 22:24 02/05/25 00:35 Temperature 98.2 F Temperature Source Oral Pulse Rate 98 H 92 H Pulse Rate [Right Radial] 98 H Respiratory Rate 16 16 Blood Pressure 118/75 155/97 H Blood Pressure [Right Arm] 177/112 H Blood Pressure Mean 112 Blood Pressure Mean [Right Arm] 133 Blood Pressure Source [Right Arm] Automatic Cuff Blood Pressure Position [Right Arm] Sitting 02 Sat by Pulse Oximetry 100 100 98 Oxygen Delivery Method Room Air Room Air 02/05/25 00:37 Temperature Temperature Source Pulse Rate 93 H Pulse Rate [Right Radial] Respiratory Rate 16 Blood Pressure 155/97 H Blood Pressure [Right Arm] Blood Pressure Mean Blood Pressure Mean [Right Arm] Blood Pressure Source [Right Arm] Blood Pressure Position [Right Arm] 02 Sat by Pulse Oximetry 99 Oxygen Delivery Method Lab Data Lab results reviewed: Yes I reviewed the patient's lab results. Lab Results 02/04/25 21:56: POC Glucose 267 H 02/04/25 22:13: Urine Color Yellow, Urine Appearance Clear, Urine pH 6.0, Ur Specific [place] 1.025, Urine Protein Trace, Urine Glucose (UA) 2+, Urine Ketones 3+, Urine Blood Negative, Urine Nitrate Negative, Urine Bilirubin 1+ A, Urine Urobilinogen 0.2, Ur Leukocyte Esterase Negative, Urine RBC None, Urine WBC Occasional, Ur Squamous Epith Cells None, Urine Bacteria Trace 02/04/25 22:56: WBC 12.2 H, RBC 5.18, Hgb 16.3, Hct 44.2, MCV 85.3, MCH 31.5 H, MCHC 36.9 H, RDW 11.7, Plt Count 241, MPV 8.8, Neut % (Auto) 77.4, Lymph % (Auto) 13.6, [place] % (Auto) 7.9, Eos % (Auto) 0.2, Baso % (Auto) 0.5, Neut # (Auto) 9.5 H, Lymph # (Auto) 1.7, [place] # (Auto) 1.0, Eos # (Auto) 0.0, Baso # (Auto) 0.1, Sodium 135 L, Potassium 3.9, Chloride 96 L, Carbon Dioxide 22, Anion Gap 20.9 H, BUN 20, Creatinine 0.70, Estimated Creat Clear 162, Estimated GFR 125, Est GFR ( Amer) 151, Glucose 288 H D, Calcium 8.9, Total Bilirubin 4.0 H, AST 24, ALT 34, Alkaline Phosphatase 123, Total Protein 7.2, Albumin 4.6, Globulin 2.6, Albumin/Globulin Ratio 1.8, Lipase 32 02/04/25 22:56 02/04/25 22:56 Orders (Tests/Meds): ED MEDICATIONS Discontinued Medications Generic Name Dose Route Start Last Admin Trade Name Freq PRN Reason Stop Dose Admin Droperidol 2.5 mg 02/04/25 23:37 02/05/25 00:08 Droperidol 5mg/2ml Vial IV 02/04/25 23:38 2.5 mg ONCE ONE Administration Lactated Ringer's 1,000 mls @ 999 mls/hr 02/04/25 22:44 02/05/25 00:12 Lactated Ringer's 1000 Ml Bag IV 02/04/25 23:44 Infused .Q1H1M ONE Infusion Iopamidol 75 ml 02/04/25 23:44 02/04/25 23:45 Iopamidol-370 (76%);100ml Bottle IV 02/04/25 23:45 75 ml ONCE ONE Administration Metoclopramide HCl 10 mg 02/04/25 22:44 02/04/25 23:02 Metoclopramide Hcl 10mg/2ml Vial IVP 02/04/25 22:45 10 mg ONCE ONE Administration Sodium Chloride 10 ml 02/04/25 23:44 02/04/25 23:45 Sodium Chloride 0.9% 10ml Syr (Rad Only) IV 02/04/25 23:45 10 ml ONCE ONE Administration ORDERS Category Date Time Status CT abdomen pelvis w con Stat Cat Scan 02/04/25 23:37 Completed CBC w/Auto Diff [Complete Blood Count Auto Diff] Stat Lab 02/04/25 22:56 Completed CMP [Comprehensive Metabolic Panel] Stat Lab 02/04/25 22:56 Completed Lipase Stat Lab 02/04/25 22:56 Completed POC Glucose,Bedside Routine Lab 02/04/25 21:56 Completed Urinalysis and Microscopic Stat Lab 02/04/25 22:13 Completed Medical Decision Narrative: Patient is a 39-year-old male with a history of hyperemesis cannabis who presented to the emergency department with vomiting. On arrival, patient was hemodynamically stable to unremarkable vital signs. Differential includes but not limited to: Hyperemesis cannabis, pancreatitis, electrolyte abnormalities, dehydration, amongst others. On my initial evaluation, patient had a soft, nontender abdomen. Patient was seen earlier today patient's labs were unremarkable. Patient was given droperidol and patient was discharged home after he was able to tolerate oral intake. Initially labs were ordered as well as IV fluids and Reglan. On further reevaluation, patient continued to have vomiting and the patient was complaining of severe 10 out of 10 upper abdominal pain and therefore CT scan was ordered. Patient was ordered droperidol for further management. Patient CT scan was reviewed and interpreted by myself and showed no acute intra-abdominal process. Labs were reviewed and interpreted by myself: CBC showed no leukocytosis, hemoglobin was stable. CMP was unremarkable. Lipase was normal. Patient was signed out to Dr. Rdz pending re-assement and final dispo. <Duane Rdz MD - Last Filed: 02/05/25 02:27> Vital Signs: 02/04/25 21:53 02/04/25 22:24 02/05/25 00:35 Temperature 98.2 F Temperature Source Oral Pulse Rate 98 H 92 H Pulse Rate [Right Radial] 98 H Respiratory Rate 16 16 Blood Pressure 118/75 155/97 H Blood Pressure [Right Arm] 177/112 H Blood Pressure Mean 112 Blood Pressure Mean [Right Arm] 133 Blood Pressure Source [Right Arm] Automatic Cuff Blood Pressure Position [Right Arm] Sitting 02 Sat by Pulse Oximetry 100 100 98 Oxygen Delivery Method Room Air Room Air 02/05/25 00:37 Temperature Temperature Source Pulse Rate 93 H Pulse Rate [Right Radial] Respiratory Rate 16 Blood Pressure 155/97 H Blood Pressure [Right Arm] Blood Pressure Mean Blood Pressure Mean [Right Arm] Blood Pressure Source [Right Arm] Blood Pressure Position [Right Arm] 02 Sat by Pulse Oximetry 99 Oxygen Delivery Method Lab Data Lab Results 02/04/25 21:56: POC Glucose 267 H 02/04/25 22:13: Urine Color Yellow, Urine Appearance Clear, Urine pH 6.0, Ur Specific [place] 1.025, Urine Protein Trace, Urine Glucose (UA) 2+, Urine Ketones 3+, Urine Blood Negative, Urine Nitrate Negative, Urine Bilirubin 1+ A, Urine Urobilinogen 0.2, Ur Leukocyte Esterase Negative, Urine RBC None, Urine WBC Occasional, Ur Squamous Epith Cells None, Urine Bacteria Trace 02/04/25 22:56: WBC 12.2 H, RBC 5.18, Hgb 16.3, Hct 44.2, MCV 85.3, MCH 31.5 H, MCHC 36.9 H, RDW 11.7, Plt Count 241, MPV 8.8, Neut % (Auto) 77.4, Lymph % (Auto) 13.6, [place] % (Auto) 7.9, Eos % (Auto) 0.2, Baso % (Auto) 0.5, Neut # (Auto) 9.5 H, Lymph # (Auto) 1.7, [place] # (Auto) 1.0, Eos # (Auto) 0.0, Baso # (Auto) 0.1, Sodium 135 L, Potassium 3.9, Chloride 96 L, Carbon Dioxide 22, Anion Gap 20.9 H, BUN 20, Creatinine 0.70, Estimated Creat Clear 162, Estimated GFR 125, Est GFR ( Amer) 151, Glucose 288 H D, Calcium 8.9, Total Bilirubin 4.0 H, AST 24, ALT 34, Alkaline Phosphatase 123, Total Protein 7.2, Albumin 4.6, Globulin 2.6, Albumin/Globulin Ratio 1.8, Lipase 32 Orders (Tests/Meds): ED MEDICATIONS Discontinued Medications Generic Name Dose Route Start Last Admin Trade Name Freq PRN Reason Stop Dose Admin Droperidol 2.5 mg 02/04/25 23:37 02/05/25 00:08 Droperidol 5mg/2ml Vial IV 02/04/25 23:38 2.5 mg ONCE ONE Administration Lactated Ringer's 1,000 mls @ 999 mls/hr 02/04/25 22:44 02/05/25 00:12 Lactated Ringer's 1000 Ml Bag IV 02/04/25 23:44 Infused .Q1H1M ONE Infusion Iopamidol 75 ml 02/04/25 23:44 02/04/25 23:45 Iopamidol-370 (76%);100ml Bottle IV 02/04/25 23:45 75 ml ONCE ONE Administration Metoclopramide HCl 10 mg 02/04/25 22:44 02/04/25 23:02 Metoclopramide Hcl 10mg/2ml Vial IVP 02/04/25 22:45 10 mg ONCE ONE Administration Sodium Chloride 10 ml 02/04/25 23:44 02/04/25 23:45 Sodium Chloride 0.9% 10ml Syr (Rad Only) IV 02/04/25 23:45 10 ml ONCE ONE Administration ORDERS Category Date Time Status CT abdomen pelvis w con Stat Cat Scan 02/04/25 23:37 Completed CBC w/Auto Diff [Complete Blood Count Auto Diff] Stat Lab 02/04/25 22:56 Completed CMP [Comprehensive Metabolic Panel] Stat Lab 02/04/25 22:56 Completed Lipase Stat Lab 02/04/25 22:56 Completed POC Glucose,Bedside Routine Lab 02/04/25 21:56 Completed Urinalysis and Microscopic Stat Lab 02/04/25 22:13 Completed Medical Decision Narrative: Patient is a 39-year-old male with a history of hyperemesis cannabis who presented to the emergency department with vomiting. On arrival, patient was hemodynamically stable to unremarkable vital signs. Differential includes but not limited to: Hyperemesis cannabis, pancreatitis, electrolyte abnormalities, dehydration, amongst others. On my initial evaluation, patient had a soft, nontender abdomen. Patient was seen earlier today patient's labs were unremarkable. Patient was given droperidol and patient was discharged home after he was able to tolerate oral intake. Initially labs were ordered as well as IV fluids and Reglan. On further reevaluation, patient continued to have vomiting and the patient was complaining of severe 10 out of 10 upper abdominal pain and therefore CT scan was ordered. Patient was ordered droperidol for further management. Patient CT scan was reviewed and interpreted by myself and showed no acute intra-abdominal process. Labs were reviewed and interpreted by myself: CBC showed no leukocytosis, hemoglobin was stable. CMP was unremarkable. Lipase was normal. Patient was signed out to Dr. Rdz pending re-assement and final dispo. Rdz: Patient was placed in the ED observation at 0100 for cardiac monitoring and symptomatic monitoring since receiving droperidol. He remains on the security monitor and has been frequently reassessed. This is in hopes to preclude unnecessary admission. Upon my assumption of care patient is stable and resting more comfortably since receiving droperidol but he has not yet tried oral intake. Patient attempted oral intake with Pepsi and had nausea but no vomiting. He started to drink water and was able to keep this down. He is comfortable being discharged at this time. I recommended clear liquid diet for 24 hours and gradual progression to bland foods before progressing back to a normal diet. I counseled and educated him extensively on avoiding marijuana to avoid cannabis hyperemesis in the future. I sent a prescription for Zofran for symptomatic management. Patient was given instructions on symptomatic management, follow up instructions, and return precautions for the emergency department. Patient indicated understanding and was discharged in stable condition. Total time in ED observation: 1 hour 27 minutes Critical Care <Abbie Braga, DO - Last Filed: 02/05/25 00:59> Critical Care Time Critical Care Time: No
[2025-02-04 23:02] LABS: Hematocrit 44.2 % (42.0-52.0); Hemoglobin 16.3 g/dL (14.1-18.0); Immature Granulocytes % 0.4 %; Mean Corpuscular HGB Conc 36.9 g/dL (31.8-35.4); Mean Corpuscular Hemoglobin 31.5 pg (27.0-31.2); Mean Corpuscular Volume 85.3 fl (80-94); Nucleated Red Blood Cells % 0 %; Platelet Count 241 K/mm3 (142-424); Red Blood Count 5.18 M/mm3 (4.60-6.20); Red Cell Distribution Width-SD 36.5 fL; White Blood Count 12.2 K/mm3 (4.8-10.8)
[2025-02-04] MEDS: LACTATED RINGERS 1000ML 1,000 ML 999 ML IV (23:02)
[2025-02-04] MEDS: METOCLOPRAMIDE HCL 10MG/2ML VIAL 10 MG IVP (23:02)
[2025-02-04 23:13] LABS: Alanine Aminotransferase 34 U/L (12-78); Albumin Level 4.6 g/dl (3.5-5.0); Albumin/Globulin Ratio 1.8 (1.1-1.8); Alkaline Phosphatase 123 U/L (38-126); Anion Gap 20.9 mEq/L (5-15); Aspartate Amino Transferase 24 U/L (17-59); Bilirubin,Total 4.0 mg/dl (0.2-1.3); Blood Urea Nitrogen 20 mg/dl (9-20); Calcium 8.9 mg/dl (8.4-10.2); Carbon Dioxide 22 mmol/L (22.0-30.0); Chloride 96 mmol/L (98-107); Creatinine Clearance Estimated 162 mL/min (50-200); Creatinine,Serum 0.70 mg/dl (0.66-1.25); Estimated Glomerular Filt Rate 125 ml/min (>60); GFR (African American) 151 ML/MIN (>60); Globulin 2.6 g/dL (1.3-3.2); Glucose 288 mg/dl (74-100); Lipase 32 U/L (23-300); Potassium 3.9 mmoL/L (3.5-5.1); Sodium 135 mmol/L (136-145); Total Protein,Serum 7.2 g/dl (6.3-8.2)
--- NOTE | 2025-02-04 23:37 | CT_ITS ---
PROCEDURE INFORMATION: Exam: CT Abdomen And Pelvis With Contrast Exam date and time: 02/04/2025 11:46 PM Age: 39 years old Clinical indication: Abdominal pain TECHNIQUE: Imaging protocol: Computed tomography of the abdomen and pelvis with contrast. Radiation optimization: All CT scans at this facility use at least one of these dose optimization techniques: automated exposure control; mA and/or kV adjustment per patient size (includes targeted exams where dose is matched to clinical indication); or iterative reconstruction. Contrast material: ISOVUE; Contrast volume: 75 ml; Contrast route: IV; COMPARISON: 1. CT ABDOMEN PELVIS W CON 04/15/2024 1:[address] ABDOMEN PELVIS W CON 04/27/2023 12:17 PM FINDINGS: Lungs: Lung bases are clear. Liver: Fatty liver changes with associated hepatomegaly measuring 17.0 cm. Liver otherwise unremarkable. Gallbladder and biliary ducts: Normal. No calcified stones. No ductal dilation. Pancreas: Normal. No ductal dilation. Spleen: Normal. No splenomegaly. Adrenal glands: Normal. No mass. Kidneys and ureters: Subcentimeter low-density lesion in the posterior mid to upper left kidney too small to characterize but similar to prior CTs dating back to 04/27/2023 and likely a cyst. No follow-up advised. Kidneys and ureters otherwise unremarkable with no obstructing stones or uropathy. Stomach and bowel: Unremarkable. No obstruction. No mucosal thickening. Appendix: Appendix is normal. No evidence of appendicitis. Intraperitoneal space: Unremarkable. No free air. No significant fluid collection. Vasculature: Unremarkable. No abdominal aortic aneurysm. Lymph nodes: Unremarkable. No enlarged lymph nodes. Urinary bladder: Unremarkable as visualized. Reproductive: Unremarkable as visualized. Bones/joints: Unremarkable. No acute fracture. Soft tissues: Unremarkable. IMPRESSION: No acute abnormalities of the abdomen and pelvis. Nonemergent findings as above. COMMENTS: Consistent with the [employer]'s Incidental Findings Committee white paper (J Am Louise Radiol 2018): Any incidental renal lesion less than 1 cm or classified as too small to characterize, or any incidental cystic renal lesion characterized as simple-appearing, is likely benign. No follow-up imaging is recommended for these lesions per consensus recommendations based on imaging criteria.
[2025-02-04] MEDS: SODIUM CHLORIDE 0.9% 10ML SYR (RAD ONLY) 10 ML IV (23:45)
[2025-02-04] MEDS: IOPAMIDOL-370 (76%);100ML BOTTLE 75 ML IV (23:45)
--- NOTE | 2025-02-05 00:02 | ECG_ITS ---
APPROVED REPORT Exam: Resting ECG HR:94 bpm ECG Measurements Heart Rate 94 AXES WV 157 P -19 QRSd 93 QRS -10 QT 357 T 32 QTc 409 Conclusion SINUS RHYTHM POSSIBLE ANTERIOR MYOCARDIAL INFARCTION , OF INDETERMINATE AGE [30 ms Q WAVE IN V3/V4, OR R < 0.2 mV IN V4] No STEMI Electronically signed by : MATHEUS MORRIS, 02/05/2025 07:10:14
[2025-02-05] MEDS: droPERidol 5MG/2ML VIAL 2.5 MG IV (00:08)
[2025-02-05 00:35] VITALS: BP 155/97; PULSE 92; O2SAT 98
[2025-02-05 00:37] VITALS: BP 155/97; PULSE 93; RESP 16; O2SAT 99
[2025-02-05 02:24] VITALS: BP 134/88; PULSE 85; RESP 18; TEMP 37; O2SAT 96
== END 2025-02-05 02:29 | disposition home or self-care (01) ==
PROVIDERS: Emergency Provider Student in an Organized Health Care Education/Training Program
DX: R11.15 Cyclical vomiting syndrome unrelated to migraine (principal); F12.988 Cannabis use, unspecified with other cannabis-induced disorder; E11.65 Type 2 diabetes mellitus with hyperglycemia; F17.210 Nicotine dependence, cigarettes, uncomplicated; Z79.4 Long term (current) use of insulin
CPT/HCPCS: 74177; 80053; 81001; 82962; 83690; 85025; 93005; 96361; 96374; 96375; 99284; 99285; J1790; J2765; J7120; Q9967

== ENCOUNTER 2025-02-23 21:58 | Emergency (ER) | payer MEDICAID, SELFPAY ==
[2025-02-23] VITALS (10 sets, daily range): BP systolic 114–180; BP diastolic 58–129; PULSE 82–110; RESP 14–18; TEMP 36.8; O2SAT 98–99; BMI 25.7
--- OUTSIDE RECORDS SUMMARY | 2025-02-23 22:23 | XMS_ITS | Clinical Summary ---
Author Organization [facility] Address [address] [place] [address] Care Team Providers Care Newspaper Correspondent Name Role Phone Carina Ruiz AZAR Primary Care Provider [phone] Allergies Active Allergy Reactions Criticality Noted Date [...] Plan of Treatment Not on file Insurance [facility] MEDICAID Care Teams Newspaper Correspondent Relationship Specialty Start Date End Date Carina Ruiz PA [address] [place] [address] PCP - General 04/06/23
--- NOTE | 2025-02-23 22:25 | ED_ITS ---
Discharge Plan Disposition Patient Disposition: Home, Self-Care Prescriptions Prescriptions: New ondansetron HCl 4 mg tablet 4 mg PO Q8H PRN (Reason: nausea and vomiting) 5 Days Qty: 30 0RF No Action erythromycin 5 mg/gram (0.5 %) ointment 1 applic ophthalmic (eye) QID 5 Days Qty: 3.5 0RF Rx Instructions: apply ribbon of medication in left eye as directed ondansetron 4 mg tablet,disintegrating 4 mg PO Q6H PRN (Reason: nausea and vomiting) Qty: 10 0RF insulin glargine [Lantus Solostar U-100 Insulin] 100 unit/mL (3 mL) insulin pen 30 unit SQ HS Patient Comments: INJECT 30 UNITS (0.3ML) SUBCUTANEOUSLY EVERY DAY AT BEDTIME lamotrigine 25 mg tablet 25 mg PO DAILY 30 Days Qty: 30 0RF metoclopramide HCl [Reglan] 10 mg tablet 10 mg PO Q6H PRN (Reason: nausea and vomiting) Qty: 20 0RF Referrals Follow up/Referrals: Provider,Referral, MD [Primary Care Provider, Medical] - See instructions Activity Restrictions/Add. Instructions Additional Instructions/Restrictions: Please follow-up with your primary care provider. Please return to the emergency department if you develop any new or worsening symptoms or become concerned for your health. I sent in a prescription for Zofran. Clinical Impressions Clinical Impression: Cannabinoid hyperemesis syndrome Stand Alone Forms Stand Alone Forms: Work/School Release Instructions Patient Instructions: DI for Diarrhea and Traveler's Diarrhea in Adults, DI for Diarrhea and Traveler's Diarrhea in Children, DI for Nausea in Adults, DI for Nausea in Children Print Language Print Language: Japanese Discharge ED Provider: Dmitry Jovel General Adult HPI <Abbie Braga, - Last Filed: 02/24/25 00:50> General Chief complaint: Nausea/Vomiting/Diarrhea Stated complaint: vomiting,SOA, Time Seen by Provider: 02/23/25 22:21 History of Present Illness HPI narrative: Patient is a 39-year-old male with a past medical history of hyperemesis cannabis, diabetes who presented to the emergency department with vomiting and abdominal pain. Patient states that his symptoms started today. Patient has had about 10 episodes of vomiting with some blood streaks. Patient that he denies any adonis hematemesis. Patient reports upper abdominal pain. Patient denies any fevers. Patient denies any chest pain or shortness of breath. Patient denies any diarrhea. Patient states that he has had similar symptoms in the past but this has been more severe than usual. Patient denies any other recent infectious symptoms. Patient denies any recent surgeries. Patient states that he is still smoking marijuana. Denies any other drug use no alcohol use. Related Data Home Medications ?Medication ?Instructions ?Recorded ?Confirmed insulin glargine 100 unit/mL (3 30 unit SQ HS 07/14/24 08/16/24 mL) subcutaneous pen (Lantus Solostar U-100 Insulin) Previous Rx's ?Medication ?Instructions ?Recorded lamotrigine 25 mg tablet 25 mg PO DAILY 30 days #30 t abs 07/14/24 metoclopramide HCl 10 mg tablet 10 mg PO Q6H PRN nause a and 07/15/24 (Reglan) vomiting #20 tabs erythromycin 5 mg/gram (0.5 %) eye 1 applic ophthalmic (eye) QID 5 08/16/24 ointment days #3.5 grams ondansetron 4 mg disintegrating 4 mg PO Q6H PRN nausea and 02/05/25 tablet vomiting #10 tabs ondansetron HCl 4 mg tablet 4 mg PO Q8H PRN nausea and 02/24/25 vomiting 5 days #30 tabs Allergies Allergy/AdvReac Type Severity Reaction Status Date / Time Penicillins (PENICILLINS) Allergy Unknown Verified 08/16/24 11:02 [facility] <Abbie Braga, DO - Last Filed: 02/24/25 00:50> [facility] Disclaimer: The information contained in this section may have been updated after the patient was seen, as this information can be updated by other users. Medical History (Updated 02/24/25 @ 01:24 by Dmitry Jovel MD) Conjunctivitis Intractable nausea and vomiting Esophagitis Erosive esophagitis X[place] tear Intractable nausea and vomiting Depression Anxiety Nausea Low testosterone level in male History of diabetic ketoacidosis Diabetes Surgical History No significant past surgical history Family History Father Hypertension Hyperlipidemia Diabetes Social History Smoking Status: Current every day smoker tobacco type: cigarettes packs per day: 2 alcohol intake: never substance use type: denies use current occupational status: unemployed Travel in the last 8 weeks?: None household members: children housing: house marital status: single number of children: 4 current occupation: [employer] current occupational exposures/hazards: No caffeine: Yes Have you lived/traveled outside [place] in past 30 days?: No Contact w/someone who lives/traveled outside US past 30 days?: No Exposure to someone with infectious disease in past 14 days?: No Do you have a fever (greater than 100.4 F or 38 C)?: No Have you tested positive for COVID-19?: No Exposed to someone with COVID-19 in past 14 days?: No Do you have a sore throat?: No Do you have a cough?: No Do you have any weakness?: No Do you have any diarrhea?: No Are you experiencing any unusual bleeding?: No Do you have any muscle aches/pain?: No Do you have any abdominal pain?: No Are you experiencing loss of taste or smell?: No Other Medical History Have you received the Flu Vaccine for this season: No Have you received the Pneumonia Vaccine: No <Abbie Braga, - Last Filed: 02/24/25 00:50> ROS Obtained: Yes All systems reviewed & no additional complaints except as documented and Yes Systems reviewed as appropriate & no additional complaints except as documented Physical Exam <Abbie Braga DO - Last Filed: 02/24/25 00:50> General General appearance: alert and in no apparent distress Head Head exam: atraumatic, normocephalic and normal inspection Eye Eye exam: Present normal appearance, PERRL and EOMI; Absent scleral icterus ENT ENT exam: Present normal exam and normal external ear exam Neck Neck exam: Present normal inspection and full ROM Chest Chest inspection: Present normal inspection and symmetric chest wall rise Respiratory Respiratory exam: Present normal lung sounds bilaterally; Absent respiratory distress or wheezes Cardiovascular Cardiovascular exam: Present regular rate, normal rhythm and normal heart sounds Abdominal Exam Abdominal exam: Present soft, distention and tenderness (diffuse, worse in the upper abdomen); Absent guarding or rebound Extremities Exam Extremities exam: Present normal inspection and full ROM Back Exam Back exam: Present normal inspection and full ROM Neurological Exam Neurological exam: Present alert and oriented X3 Psychiatric Psychiatric exam: Present normal affect and normal mood Skin Skin exam: Present warm and dry Medical Decision Making <Abbie Braga, DO - Last Filed: 02/24/25 00:50> Medical Records Medical records reviewed: Yes I reviewed the patient's medical records. Screening: Per USPSTF and CDC recommendations, given the prevalence of disease in our region, it is our hospital?s policy to screen for HIV and viral Hepatitis for all patients aged 18 and over and those with ongoing risk factors. [place] Inquiry Pt receiving controlled substance: No Vital Signs: 02/23/25 21:59 02/23/25 22:43 02/23/25 22:45 Temperature 98.3 F Temperature Source Oral Pulse Rate 101 H Pulse Rate [Left Radial] 82 Respiratory Rate 18 17 16 Blood Pressure Blood Pressure [Right Arm] 180/129 H Blood Pressure Mean Blood Pressure Mean [Right Arm] 146 Blood Pressure Source Blood Pressure Source [Right Arm] Automatic Cuff Blood Pressure Position Blood Pressure Position [Right Arm] Sitting 02 Sat by Pulse Oximetry 98 99 Oxygen Delivery Method Room Air 02/23/25 22:46 02/23/25 22:46 02/23/25 23:07 Temperature Temperature Source Pulse Rate 105 H 110 H Pulse Rate [Left Radial] Respiratory Rate 14 Blood Pressure 135/103 H Blood Pressure [Right Arm] Blood Pressure Mean 109 Blood Pressure Mean [Right Arm] Blood Pressure Source Blood Pressure Source [Right Arm] Blood Pressure Position Blood Pressure Position [Right Arm] 02 Sat by Pulse Oximetry 99 98 Oxygen Delivery Method 02/23/25 23:09 02/23/25 23:15 02/23/25 23:30 Temperature Temperature Source Pulse Rate 100 H Pulse Rate [Left Radial] Respiratory Rate Blood Pressure 114/58 L 117/64 Blood Pressure [Right Arm] Blood Pressure Mean 76 74 Blood Pressure Mean [Right Arm] Blood Pressure Source Blood Pressure Source [Right Arm] Blood Pressure Position Blood Pressure Position [Right Arm] 02 Sat by Pulse Oximetry 99 Oxygen Delivery Method 02/23/25 23:35 02/23/25 23:45 02/23/25 23:45 Temperature Temperature Source Pulse Rate 98 H 91 H Pulse Rate [Left Radial] Respiratory Rate 16 Blood Pressure 116/64 Blood Pressure [Right Arm] Blood Pressure Mean 74 Blood Pressure Mean [Right Arm] Blood Pressure Source Blood Pressure Source [Right Arm] Blood Pressure Position Blood Pressure Position [Right Arm] 02 Sat by Pulse Oximetry 99 98 Oxygen Delivery Method 02/24/25 00:00 02/24/25 00:00 02/24/25 00:15 Temperature Temperature Source Pulse Rate 90 Pulse Rate [Left Radial] Respiratory Rate 15 Blood Pressure 110/62 107/52 L Blood Pressure [Right Arm] Blood Pressure Mean 73 69 Blood Pressure Mean [Right Arm] Blood Pressure Source Blood Pressure Source [Right Arm] Blood Pressure Position Blood Pressure Position [Right Arm] 02 Sat by Pulse Oximetry 98 Oxygen Delivery Method 02/24/25 00:15 02/24/25 00:19 02/24/25 00:31 Temperature Temperature Source Pulse Rate 96 H Pulse Rate [Left Radial] Respiratory Rate 17 Blood Pressure 171/92 H Blood Pressure [Right Arm] Blood Pressure Mean 115 Blood Pressure Mean [Right Arm] Blood Pressure Source Blood Pressure Source [Right Arm] Blood Pressure Position Blood Pressure Position [Right Arm] 02 Sat by Pulse Oximetry 99 99 Oxygen Delivery Method 02/24/25 00:45 02/24/25 01:00 02/24/25 01:15 Temperature Temperature Source Pulse Rate Pulse Rate [Left Radial] Respiratory Rate Blood Pressure 137/71 170/98 H 159/94 H Blood Pressure [Right Arm] Blood Pressure Mean 93 111 110 Blood Pressure Mean [Right Arm] Blood Pressure Source Blood Pressure Source [Right Arm] Blood Pressure Position Blood Pressure Position [Right Arm] 02 Sat by Pulse Oximetry Oxygen Delivery Method 02/24/25 01:26 02/24/25 01:31 Temperature 98.3 F Temperature Source Oral Pulse Rate 94 H Pulse Rate [Left Radial] Respiratory Rate 18 Blood Pressure 159/94 H 195/97 H Blood Pressure [Right Arm] Blood Pressure Mean 126 Blood Pressure Mean [Right Arm] Blood Pressure Source Automatic Cuff Blood Pressure Source [Right Arm] Blood Pressure Position Supine Blood Pressure Position [Right Arm] 02 Sat by Pulse Oximetry Oxygen Delivery Method Room Air Lab Data Lab results reviewed: Yes I reviewed the patient's lab results. Lab Results 02/23/25 22:03: POC Glucose 303 H* 02/23/25 22:17: WBC 9.6, RBC 5.37, Hgb 16.8, Hct 46.2, MCV 86.0, MCH 31.3 H, M CHC 36.4 H, RDW 11.9, Plt Count 305, MPV 9.0, Neut % (Auto) 69.5, Lymph % (Auto) 21.9, [place] % (Auto) 6.5, Eos % (Auto) 0.8, Baso % (Auto) 0.9, Neut # (Auto) 6.6, Lymph # (Auto) 2.1, [place] # (Auto) 0.6, Eos # (Auto) 0.1, Baso # (Auto) 0.1, PT 10.7, INR 0.96, Sodium 137, Potassium 4.0, Chloride 100, Carbon Dioxide 24, A nion Gap 17.0 H, BUN 16, Creatinine 0.70, Estimated Creat Clear 166, Estimated GFR 125, Est GFR ( Amer) 151, Glucose 324 H, Calcium 9.4, Magnesium 1.7, Total Bilirubin 2.6 H, AST 29, ALT 48, Alkaline Phosphatase 145 H, Total Protein 8.3 H, Albumin 5.5 H, Globulin 2.8, Albumin/Globulin Ratio 2.0 H, Lipase 129 02/23/25 23:06: VBG pH 7.36, VBG pCO2 39.3, VBG pO2 73.4 H, VBG HCO3 21.8 L, VBG Total CO2 23.0, VBG O2 Saturation 94.7 H, VBG Base Excess -3.6 L, VBG Lactic Acid 1.7 02/23/25 22:17 02/23/25 22:17 Orders (Tests/Meds): ED MEDICATIONS Discontinued Medications Generic Name Dose Route Start Last Admin Trade Name Freq PRN Reason Stop Dose Admin Diphenhydramine HCl 50 mg 02/23/25 22:25 02/23/25 22:34 Diphenhydramine 50mg/Ml Vial IV 02/23/25 22:26 50 mg ONCE ONE Administration Droperidol 2.5 mg 02/23/25 22:25 02/23/25 22:32 Droperidol 5mg/2ml Vial IV 02/23/25 22:26 2.5 mg ONCE ONE Administration Sodium Chloride 1,000 mls @ 999 mls/hr 02/23/25 22:25 02/24/25 00:10 Sod Chlor 0.9% 1000ml Bag IV 02/23/25 23:25 Infused .Q1H1M ONE Infusion Iopamidol 80 ml 02/23/25 23:10 02/23/25 23:11 Iopamidol-370 (76%);100ml Bottle IV 02/23/25 23:11 80 ml ONCE ONE Administration Sodium Chloride 50 ml 02/23/25 23:10 02/23/25 23:11 0.9 % Sodium Chloride 50 Ml Vial IV 02/23/25 23:11 50 ml ONCE ONE Administration Sodium Chloride 10 ml 02/23/25 23:10 02/23/25 23:11 Sodium Chloride 0.9% 10ml Syr (Rad Only) IV 02/23/25 23:11 10 ml ONCE ONE Administration ORDERS Category Date Time Status CT angio abdomen pelvis Stat Cat Scan 02/23/25 22:[address] angio chest - dissection Stat Cat Scan 02/23/25 22:30 Completed CBC w/Auto Diff [Complete Blood Count Auto Diff] Stat Lab 02/23/25 22:17 Completed CMP [Comprehensive Metabolic Panel] Stat Lab 02/23/25 22:17 Completed INR [Prothrombin Time INR] Stat Lab 02/23/25 22:17 Completed Lipase Stat Lab 02/23/25 22:17 Completed Magnesium Stat Lab 02/23/25 22:17 Completed POC Glucose,Bedside Routine Lab 02/23/25 22:03 Completed VBG [Venous Blood Gas] Stat RT 02/23/25 23:06 Completed Medical Decision Narrative: Patient is a 39-year-old male with no significant past medical history except for diabetes and hyperemesis who presents to the emergency department with abdominal pain and vomiting. On arrival, patient was hemodynamically stable with unremarkable vital signs. Differential includes but not limited to: Electrolyte abnormalities, hyperemesis secondary to marijuana use, dehydration, intra-abdominal process, amongst others. Patient's labs were reviewed and interpreted by myself: CBC showed no leukocytosis, hemoglobin was stable. CMP was unremarkable. INR normal. VBG was unremarkable. Lactate normal. Glucose mildly elevated at 303. No significant anion gap acidosis. Patient was given Benadryl, droperidol and IV fluids for symptomatic management. CT chest and abdomen were obtained which showed no acute pathology. Was a pulmonary nodule that patient was notified about and recommended follow-up with his primary care provider. Patient was signed out to the oncoming provider pending re-assessment and ability to tolerate PO intake. <Dmitry Jovel MD - Last Filed: 02/24/25 01:59> Vital Signs: 02/23/25 21:59 02/23/25 22:43 02/23/25 22:45 Temperature 98.3 F Temperature Source Oral Pulse Rate 101 H Pulse Rate [Left Radial] 82 Respiratory Rate 18 17 16 Blood Pressure Blood Pressure [Right Arm] 180/129 H Blood Pressure Mean Blood Pressure Mean [Right Arm] 146 Blood Pressure Source Blood Pressure Source [Right Arm] Automatic Cuff Blood Pressure Position Blood Pressure Position [Right Arm] Sitting 02 Sat by Pulse Oximetry 98 99 Oxygen Delivery Method Room Air 02/23/25 22:46 02/23/25 22:46 02/23/25 23:07 Temperature Temperature Source Pulse Rate 105 H 110 H Pulse Rate [Left Radial] Respiratory Rate 14 Blood Pressure 135/103 H Blood Pressure [Right Arm] Blood Pressure Mean 109 Blood Pressure Mean [Right Arm] Blood Pressure Source Blood Pressure Source [Right Arm] Blood Pressure Position Blood Pressure Position [Right Arm] 02 Sat by Pulse Oximetry 99 98 Oxygen Delivery Method 02/23/25 23:09 02/23/25 23:15 02/23/25 23:30 Temperature Temperature Source Pulse Rate 100 H Pulse Rate [Left Radial] Respiratory Rate Blood Pressure 114/58 L 117/64 Blood Pressure [Right Arm] Blood Pressure Mean 76 74 Blood Pressure Mean [Right Arm] Blood Pressure Source Blood Pressure Source [Right Arm] Blood Pressure Position Blood Pressure Position [Right Arm] 02 Sat by Pulse Oximetry 99 Oxygen Delivery Method 02/23/25 23:35 02/23/25 23:45 02/23/25 23:45 Temperature Temperature Source Pulse Rate 98 H 91 H Pulse Rate [Left Radial] Respiratory Rate 16 Blood Pressure 116/64 Blood Pressure [Right Arm] Blood Pressure Mean 74 Blood Pressure Mean [Right Arm] Blood Pressure Source Blood Pressure Source [Right Arm] Blood Pressure Position Blood Pressure Position [Right Arm] 02 Sat by Pulse Oximetry 99 98 Oxygen Delivery Method 02/24/25 00:00 02/24/25 00:00 02/24/25 00:15 Temperature Temperature Source Pulse Rate 90 Pulse Rate [Left Radial] Respiratory Rate 15 Blood Pressure 110/62 107/52 L Blood Pressure [Right Arm] Blood Pressure Mean 73 69 Blood Pressure Mean [Right Arm] Blood Pressure Source Blood Pressure Source [Right Arm] Blood Pressure Position Blood Pressure Position [Right Arm] 02 Sat by Pulse Oximetry 98 Oxygen Delivery Method 02/24/25 00:15 02/24/25 00:19 02/24/25 00:31 Temperature Temperature Source Pulse Rate 96 H Pulse Rate [Left Radial] Respiratory Rate 17 Blood Pressure 171/92 H Blood Pressure [Right Arm] Blood Pressure Mean 115 Blood Pressure Mean [Right Arm] Blood Pressure Source Blood Pressure Source [Right Arm] Blood Pressure Position Blood Pressure Position [Right Arm] 02 Sat by Pulse Oximetry 99 99 Oxygen Delivery Method 02/24/25 00:45 02/24/25 01:00 02/24/25 01:15 Temperature Temperature Source Pulse Rate Pulse Rate [Left Radial] Respiratory Rate Blood Pressure 137/71 170/98 H 159/94 H Blood Pressure [Right Arm] Blood Pressure Mean 93 111 110 Blood Pressure Mean [Right Arm] Blood Pressure Source Blood Pressure Source [Right Arm] Blood Pressure Position Blood Pressure Position [Right Arm] 02 Sat by Pulse Oximetry Oxygen Delivery Method 02/24/25 01:26 02/24/25 01:31 Temperature 98.3 F Temperature Source Oral Pulse Rate 94 H Pulse Rate [Left Radial] Respiratory Rate 18 Blood Pressure 159/94 H 195/97 H Blood Pressure [Right Arm] Blood Pressure Mean 126 Blood Pressure Mean [Right Arm] Blood Pressure Source Automatic Cuff Blood Pressure Source [Right Arm] Blood Pressure Position Supine Blood Pressure Position [Right Arm] 02 Sat by Pulse Oximetry Oxygen Delivery Method Room Air Lab Data Lab Results 02/23/25 22:03: POC Glucose 303 H* 02/23/25 22:17: WBC 9.6, RBC 5.37, Hgb 16.8, Hct 46.2, MCV 86.0, MCH 31.3 H, M CHC 36.4 H, RDW 11.9, Plt Count 305, MPV 9.0, Neut % (Auto) 69.5, Lymph % (Auto) 21.9, [place] % (Auto) 6.5, Eos % (Auto) 0.8, Baso % (Auto) 0.9, Neut # (Auto) 6.6, Lymph # (Auto) 2.1, [place] # (Auto) 0.6, Eos # (Auto) 0.1, Baso # (Auto) 0.1, PT 10.7, INR 0.96, Sodium 137, Potassium 4.0, Chloride 100, Carbon Dioxide 24, A nion Gap 17.0 H, BUN 16, Creatinine 0.70, Estimated Creat Clear 166, Estimated GFR 125, Est GFR ( Amer) 151, Glucose 324 H, Calcium 9.4, Magnesium 1.7, Total Bilirubin 2.6 H, AST 29, ALT 48, Alkaline Phosphatase 145 H, Total Protein 8.3 H, Albumin 5.5 H, Globulin 2.8, Albumin/Globulin Ratio 2.0 H, Lipase 129 02/23/25 23:06: VBG pH 7.36, VBG pCO2 39.3, VBG pO2 73.4 H, VBG HCO3 21.8 L, VBG Total CO2 23.0, VBG O2 Saturation 94.7 H, VBG Base Excess -3.6 L, VBG Lactic Acid 1.7 Orders (Tests/Meds): ED MEDICATIONS Discontinued Medications Generic Name Dose Route Start Last Admin Trade Name Freq PRN Reason Stop Dose Admin Diphenhydramine HCl 50 mg 02/23/25 22:25 02/23/25 22:34 Diphenhydramine 50mg/Ml Vial IV 02/23/25 22:26 50 mg ONCE ONE Administration Droperidol 2.5 mg 02/23/25 22:25 02/23/25 22:32 Droperidol 5mg/2ml Vial IV 02/23/25 22:26 2.5 mg ONCE ONE Administration Sodium Chloride 1,000 mls @ 999 mls/hr 02/23/25 22:25 02/24/25 00:10 Sod Chlor 0.9% 1000ml Bag IV 02/23/25 23:25 Infused .Q1H1M ONE Infusion Iopamidol 80 ml 02/23/25 23:10 02/23/25 23:11 Iopamidol-370 (76%);100ml Bottle IV 02/23/25 23:11 80 ml ONCE ONE Administration Sodium Chloride 50 ml 02/23/25 23:10 02/23/25 23:11 0.9 % Sodium Chloride 50 Ml Vial IV 02/23/25 23:11 50 ml ONCE ONE Administration Sodium Chloride 10 ml 02/23/25 23:10 02/23/25 23:11 Sodium Chloride 0.9% 10ml Syr (Rad Only) IV 02/23/25 23:11 10 ml ONCE ONE Administration ORDERS Category Date Time Status CT angio abdomen pelvis Stat Cat Scan 02/23/25 22:[address] angio chest - dissection Stat Cat Scan 02/23/25 22:30 Completed CBC w/Auto Diff [Complete Blood Count Auto Diff] Stat Lab 02/23/25 22:17 Completed CMP [Comprehensive Metabolic Panel] Stat Lab 02/23/25 22:17 Completed INR [Prothrombin Time INR] Stat Lab 02/23/25 22:17 Completed Lipase Stat Lab 02/23/25 22:17 Completed Magnesium Stat Lab 02/23/25 22:17 Completed POC Glucose,Bedside Routine Lab 02/23/25 22:03 Completed VBG [Venous Blood Gas] Stat RT 02/23/25 23:06 Completed Medical Decision Narrative: Patient is a 39-year-old male with no significant past medical history except for diabetes and hyperemesis who presents to the emergency department with abdominal pain and vomiting. On arrival, patient was hemodynamically stable with unremarkable vital signs. Differential includes but not limited to: Electrolyte abnormalities, hyperemesis secondary to marijuana use, dehydration, intra-abdominal process, amongst others. Patient's labs were reviewed and interpreted by myself: CBC showed no leukocytosis, hemoglobin was stable. CMP was unremarkable. INR normal. VBG was unremarkable. Lactate normal. Glucose mildly elevated at 303. No significant anion gap acidosis. Patient was given Benadryl, droperidol and IV fluids for symptomatic management. CT chest and abdomen were obtained which showed no acute pathology. Was a pulmonary nodule that patient was notified about and recommended follow-up with his primary care provider. Patient was signed out to the oncoming provider pending re-assessment and ability to tolerate PO intake. Med MCMAHON: I assumed care of the patient at the time of handoff from the prior provider. On reassessment patient remained stable. Was sleeping comfortably on reassessment. Patient was discharged with prescription for Zofran. Critical Care <Abbie Braga, DO - Last Filed: 02/24/25 00:50> Critical Care Time Critical Care Time: No
--- NOTE | 2025-02-23 22:29 | CT_ITS ---
PROCEDURE INFORMATION: Exam: CTA Abdomen and Pelvis With Contrast Exam date and time: 02/23/2025 11:02 PM Age: 39 years old Clinical indication: Abdominal pain; Acute TECHNIQUE: Imaging protocol: Computed tomographic angiography of the abdomen and pelvis with contrast. Exam focused on the arteries. 3D rendering (Not supervised by radiologist): MIP and/or 3D reconstructed images were created by the technologist. Radiation optimization: All CT scans at this facility use at least one of these dose optimization techniques: automated exposure control; mA and/or kV adjustment per patient size (includes targeted exams where dose is matched to clinical indication); or iterative reconstruction. Contrast material: ISOVUE; Contrast volume: 80 ml; Contrast route: INTRAVENOUS (IV); COMPARISON: CT ABDOMEN PELVIS W CON 02/04/2025 11:46 PM FINDINGS: Aorta: Moderate scattered mural thrombus and atherosclerotic calcification throughout the distal aorta. No evidence of aneurysm or dissection. Celiac and mesenteric arteries: No occlusion or significant stenosis. Renal arteries: No occlusion or significant stenosis. Right iliac arteries: No occlusion or significant stenosis. Left iliac arteries: No occlusion or significant stenosis. Liver: No mass. Gallbladder and biliary ducts: Unremarkable. No calcified stones. No ductal dilation. Pancreas: Unremarkable. No mass. No ductal dilation. Spleen: Unremarkable. No splenomegaly. Adrenal glands: Unremarkable. No mass. Kidneys and ureters: Unremarkable. No solid mass. No hydronephrosis. Stomach and bowel: Unremarkable. No obstruction. No mucosal thickening. Appendix: The appendix is visualized and appears normal. Intraperitoneal space: Unremarkable. No free air. No significant fluid collection. Lymph nodes: Unremarkable. No enlarged lymph nodes. Urinary bladder: Unremarkable. No mass. Reproductive: Unremarkable as visualized. Bones/joints: Bilateral L5 spondylolysis. Unhealed age-indeterminate left transverse process fractures at L3 and L4. No vertebral body compression. Soft tissues: Unremarkable. IMPRESSION: Age-indeterminate unhealed left transverse process fractures of L3 and L4. Other incidental findings as noted
--- NOTE | 2025-02-23 22:30 | CT_ITS ---
PROCEDURE INFORMATION: Exam: CTA Chest With Contrast Exam date and time: 02/23/2025 11:02 PM Age: 39 years old Clinical indication: Other: Hematemesis TECHNIQUE: Imaging protocol: Computed tomographic angiography of the chest with contrast. Exam focused on the arteries. 3D rendering (Not supervised by radiologist): MIP and/or 3D reconstructed images were created by the technologist. Radiation optimization: All CT scans at this facility use at least one of these dose optimization techniques: automated exposure control; mA and/or kV adjustment per patient size (includes targeted exams where dose is matched to clinical indication); or iterative reconstruction. Contrast material: ISOVUE; Contrast volume: 80 ml; Contrast route: INTRAVENOUS (IV); COMPARISON: CT CHEST W CON 01/11/2023 8:13 PM FINDINGS: Pulmonary arteries: Normal. No pulmonary emboli. Aorta: Unremarkable. No aortic aneurysm. No aortic dissection. Lungs: 14 mm irregular soft tissue nodule in the medial portion of the left lower lobe. Lungs are otherwise clear. Pleural spaces: Unremarkable. No pneumothorax. No pleural effusion. Heart: Unremarkable. No cardiomegaly. No pericardial effusion. Lymph nodes: Unremarkable. No enlarged lymph nodes. Bones/joints: Unremarkable. No acute fracture. Soft tissues: Unremarkable. IMPRESSION: 1. No evidence of pulmonary embolus or acute aortic pathology 2. Incidental 14 mm left lower lobe pulmonary nodule. For both low risk and high risk patients, consider CT Chest at 3 months, PET/CT, or biopsy. (Reference: Estela) References: Estela Bond et al. Guidelines for Management of Incidental Pulmonary Nodules Detected on CT Images: From the Fleischner Society 2017. Radiology. 2017;284(1):228-243.
[2025-02-23] MEDS: droPERidol 5MG/2ML VIAL 2.5 MG IV (22:32)
[2025-02-23] MEDS: 0.9 % SODIUM CHLORIDE 1000ML 1,000 ML 999 ML IV (22:34)
[2025-02-23 22:35] LABS: Hematocrit 46.2 % (42.0-52.0); Hemoglobin 16.8 g/dL (14.1-18.0); Immature Granulocytes % 0.4 %; Mean Corpuscular HGB Conc 36.4 g/dL (31.8-35.4); Mean Corpuscular Hemoglobin 31.3 pg (27.0-31.2); Mean Corpuscular Volume 86.0 fl (80-94); Nucleated Red Blood Cells % 0 %; Platelet Count 305 K/mm3 (142-424); Red Blood Count 5.37 M/mm3 (4.60-6.20); Red Cell Distribution Width-SD 37.2 fL; White Blood Count 9.6 K/mm3 (4.8-10.8)
[2025-02-23 22:38] LABS: Albumin Level 5.5 g/dl (3.5-5.0); Chloride 100 mmol/L (98-107); Potassium 4.0 mmoL/L (3.5-5.1); Sodium 137 mmol/L (136-145)
[2025-02-23 22:40] LABS: Blood Urea Nitrogen 16 mg/dl (9-20); Creatinine Clearance Estimated 166 mL/min (50-200); Creatinine,Serum 0.70 mg/dl (0.66-1.25); Estimated Glomerular Filt Rate 125 ml/min (>60); GFR (African American) 151 ML/MIN (>60)
[2025-02-23 22:41] LABS: Alanine Aminotransferase 48 U/L (12-78); Albumin/Globulin Ratio 2.0 (1.1-1.8); Alkaline Phosphatase 145 U/L (38-126); Anion Gap 17.0 mEq/L (5-15); Aspartate Amino Transferase 29 U/L (17-59); Bilirubin,Total 2.6 mg/dl (0.2-1.3); Calcium 9.4 mg/dl (8.4-10.2); Carbon Dioxide 24 mmol/L (22.0-30.0); Globulin 2.8 g/dL (1.3-3.2); Glucose 324 mg/dl (74-100); INR 0.96 (0.9-1.1); Lipase 129 U/L (23-300); Prothrombin Time 10.7 seconds (10.1-12.5); Total Protein,Serum 8.3 g/dl (6.3-8.2)
[2025-02-23 22:51] LABS: Magnesium 1.7 mg/dl (1.6-2.3)
[2025-02-23 23:00] LABS: POC Glucose,Bedside 303 gm/dL (70-110)
[2025-02-23] MEDS: SODIUM CHLORIDE 0.9% 10ML SYR (RAD ONLY) 10 ML IV (23:11)
[2025-02-23] MEDS: 0.9 % SODIUM CHLORIDE 50 ML VIAL IV (23:11)
[2025-02-23] MEDS: IOPAMIDOL-370 (76%);100ML BOTTLE 80 ML IV (23:11)
[2025-02-23 23:45] LABS: Lactate Venous 1.7 mmol/L (0.4-2.0); VBG HCO3 21.8 mmol/L (23-30); VBG PCO2 39.3 mmol/L (35-51); VBG PH 7.36 mmol/L (7.31-7.41); VBG PO2 73.4 mmol/L (28-40)
[2025-02-24] VITALS (9 sets, daily range): BP systolic 107–195; BP diastolic 52–98; PULSE 90–96; RESP 15–18; TEMP 36.8; O2SAT 98–99
== END 2025-02-24 01:37 | disposition home or self-care (01) ==
PROVIDERS: Student in an Organized Health Care Education/Training Program; Emergency Provider Emergency Medicine
DX: R10.10 Upper abdominal pain, unspecified (principal); R11.16 Cannabis hyperemesis syndrome; E11.65 Type 2 diabetes mellitus with hyperglycemia; F12.188 Cannabis abuse with other cannabis-induced disorder; Z79.4 Long term (current) use of insulin
CPT/HCPCS: 71275; 74174; 80053; 82803; 82962; 83690; 83735; 85025; 85610; 93005; 96361; 96374; 96375; 99285; J1200; J1790; J7030; Q9967

== ENCOUNTER 2025-03-19 09:24 | Emergency (ER) | payer MEDICAID, SELFPAY ==
[2025-03-19] VITALS (9 sets, daily range): BP systolic 117–165; BP diastolic 75–110; PULSE 75–97; RESP 16–22; TEMP 36.4–36.7; O2SAT 97–100; BMI 27.1
--- NOTE | 2025-03-19 09:34 | ECG_ITS ---
APPROVED REPORT Exam: Resting ECG HR:92 bpm ECG Measurements Heart Rate 92 AXES WY 143 P 34 QRSd 82 QRS -42 QT 348 T 52 QTc 398 Conclusion SINUS RHYTHM LEFT AXIS DEVIATION [QRS AXIS < -30] ANTEROSEPTAL MYOCARDIAL INFARCTION , OF INDETERMINATE AGE [40+ ms Q WAVE IN V1-V4] ABNORMAL ECG UNCONFIRMED REPORT Normal sinus rhythm. No ST elevation or depression. Electronically signed by : PAPI PETIT, 03/19/2025 15:24:25
--- OUTSIDE RECORDS SUMMARY | 2025-03-19 09:34 | XMS_ITS | Clinical Summary ---
Author Organization [facility] Address [address] [place] [address] Care Team Providers Care Periodontal Assistant Name Role Phone Carina Ruiz AZAR Primary Care Provider [phone] Allergies Active Allergy Reactions Criticality Noted Date [...] Plan of Treatment Not on file Insurance [facility] MEDICAID Care Teams Periodontal Assistant Relationship Specialty Start Date End Date Carina Ruiz PA [address] [place] [address] PCP - General 04/06/23
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
[2025-03-19 09:45] LABS: Hematocrit 44.6 % (42.0-52.0); Hemoglobin 16.5 g/dL (14.1-18.0); Immature Granulocytes % 0.5 %; Mean Corpuscular HGB Conc 37.0 g/dL (31.8-35.4); Mean Corpuscular Hemoglobin 31.3 pg (27.0-31.2); Mean Corpuscular Volume 84.6 fl (80-94); Nucleated Red Blood Cells % 0 %; Platelet Count 218 K/mm3 (142-424); Red Blood Count 5.27 M/mm3 (4.60-6.20); Red Cell Distribution Width-SD 36.7 fL; White Blood Count 7.7 K/mm3 (4.8-10.8)
[2025-03-19 09:47] LABS: Lactate Venous 2.0 mmol/L (0.4-2.0); VBG HCO3 21.3 mmol/L (23-30); VBG PCO2 25.2 mmol/L (35-51); VBG PO2 61.8 mmol/L (28-40)
--- NOTE | 2025-03-19 09:48 | PC.NURSE ---
rt called with vbg results ph 7.55, co2 25.2, po2 61.8, lactate 2.0. dr oro aware
[2025-03-19 09:49] LABS: VBG PH 7.55 mmol/L (7.31-7.41)
[2025-03-19] MEDS: 0.9 % SODIUM CHLORIDE 1000ML 1,000 ML 999 ML IV (09:52)
[2025-03-19] MEDS: droPERidol 5MG/2ML VIAL 2.5 MG IV (09:52)
[2025-03-19 10:04] LABS: Alanine Aminotransferase 45 U/L (12-78); Albumin Level 4.8 g/dl (3.5-5.0); Albumin/Globulin Ratio 1.7 (1.1-1.8); Alkaline Phosphatase 132 U/L (38-126); Anion Gap 14.9 mEq/L (5-15); Aspartate Amino Transferase 28 U/L (17-59); Bilirubin,Total 3.3 mg/dl (0.2-1.3); Blood Urea Nitrogen 17 mg/dl (9-20); Calcium 9.5 mg/dl (8.4-10.2); Carbon Dioxide 21 mmol/L (22.0-30.0); Chloride 98 mmol/L (98-107); Creatinine Clearance Estimated 180 mL/min (50-200); Creatinine,Serum 0.70 mg/dl (0.66-1.25); Estimated Glomerular Filt Rate 125 ml/min (>60); GFR (African American) 151 ML/MIN (>60); Globulin 2.9 g/dL (1.3-3.2); Glucose 380 mg/dl (74-100); Lipase 520 U/L (23-300); Potassium 3.9 mmoL/L (3.5-5.1); Sodium 130 mmol/L (136-145); Total Protein,Serum 7.7 g/dl (6.3-8.2)
--- NOTE | 2025-03-19 10:11 | PC.NURSE ---
provided pt with warm blanket
[2025-03-19 10:23] LABS: Acetone, Serum (Rapid) None Detected (None Detect)
== END 2025-03-19 13:17 | disposition home or self-care (01) ==
PROVIDERS: Emergency Provider Student in an Organized Health Care Education/Training Program
DX: R11.16 Cannabis hyperemesis syndrome (principal); E87.1 Hypo-osmolality and hyponatremia; E11.65 Type 2 diabetes mellitus with hyperglycemia; F12.188 Cannabis abuse with other cannabis-induced disorder; F17.210 Nicotine dependence, cigarettes, uncomplicated
CPT/HCPCS: 80053; 82009; 82803; 83690; 85025; 93005; 96361; 96374; 99285; J1790; J7030

== ENCOUNTER 2025-03-19 23:31 | Observation (INO) | payer MEDICAID, SELFPAY ==
[2025-03-19 23:32] VITALS: BP 141/103; PULSE 112; RESP 35; TEMP 36.8; O2SAT 100; BMI 26.4
--- NOTE | 2025-03-19 23:33 | ED_ITS ---
Discharge Plan Disposition Patient Disposition: Admitted Condition: Good Clinical Impressions Clinical Impression: Poorly controlled diabetes mellitus, Acute hyperglycemia, Suicidal ideation, Abdominal pain, Acute dehydration Discharge ED Provider: Dmitry Jovel General Adult HPI General Chief complaint: Psychiatric Symptoms Stated complaint: vomiting, sob Time Seen by Provider: 03/19/25 23:33 History of Present Illness HPI narrative: 39-year-old male with history of cannabis emesis syndrome, type 2 diabetes (supposed to be on insulin but is not), presents for severe abdominal pain, chest pain, headache and psychiatric symptoms. He reports that he has wanted to kill himself for about a year. Nothing is different today except that his pain is worse and lasting longer than normal. He does not have a plan. He reports he did try to commit suicide once as a 18-year-old by cutting self. He denies any access to a gun. He reports if he were to do it it would be after [place]. He reports has not been able to eat or drink anything recently. He has been constantly vomiting. Patient was seen yesterday for abdominal pain and vomiting Related Data Previous Rx's ?Medication ?Instructions ?Recorded insulin glargine 100 unit/mL (3 20 unit (0.2 mL) SQ HS #15 mL 03/20/25 mL) subcutaneous pen (Lantus Solostar U-100 Insulin) ondansetron HCl (PF) 4 mg/2 mL 4 mg (2 mL) IV Q6HP PRN Nausea #0 03/20/25 injection solution mL pantoprazole 40 mg tablet,delayed 40 mg PO HS #0 tabs 03/20/25 release Allergies Allergy/AdvReac Type Severity Reaction Status Date / Time Penicillins (PENICILLINS) Allergy Unknown unkn Verified 03/19/25 09:48 [facility] Disclaimer: The information contained in this section may have been updated after the patient was seen, as this information can be updated by other users. Medical History Conjunctivitis Intractable nausea and vomiting Esophagitis Erosive esophagitis X[place] tear Intractable nausea and vomiting Depression Anxiety Nausea Low testosterone level in male History of diabetic ketoacidosis Diabetes Surgical History No significant past surgical history Family History Father Hypertension Hyperlipidemia Diabetes Social History Smoking Status: Current every day smoker tobacco type: cigarettes packs per day: 2 alcohol intake: never substance use type: denies use current occupational status: unemployed Travel in the last 8 weeks?: None household members: children housing: house marital status: single number of children: 4 current occupation: [employer] current occupational exposures/hazards: No caffeine: Yes Other Medical History Have you received the Flu Vaccine for this season: No Have you received the Pneumonia Vaccine: No ROS Obtained: Yes All systems reviewed & no additional complaints except as documented Physical Exam General General appearance: alert and anxious Comment: Intermittently screaming Head Head exam: atraumatic and normocephalic Eye Eye exam: Present normal appearance, PERRL and EOMI ENT ENT exam: Present normal oropharynx and normal external ear exam Neck Neck exam: Present normal inspection and full ROM Chest Chest inspection: Present normal inspection and symmetric chest wall rise; Absent tenderness Respiratory Respiratory exam: Present normal lung sounds bilaterally; Absent respiratory distress Cardiovascular Cardiovascular exam: Present normal rhythm and tachycardia Abdominal Exam Abdominal exam: Present soft and tenderness (Generalized); Absent distention or guarding Extremities Exam Extremities exam: Present normal inspection; Absent edema or joint swelling Back Exam Back exam: Present normal inspection; Absent tenderness Neurological Exam Neurological exam: Present alert and oriented X3; Absent motor sensory deficit Psychiatric Psychiatric exam: Present agitated and suicidal ideation Skin Skin exam: Present warm, dry and normal color Lymphatic Lymphatic Findings: no adenopathy Medical Decision Making Medical Records Medical records reviewed: Yes I reviewed the patient's medical records. Screening: Per USPSTF and CDC recommendations, given the prevalence of disease in our region, it is our hospital?s policy to screen for HIV and viral Hepatitis for all patients aged 18 and over and those with ongoing risk factors. Burton Inquiry Pt receiving controlled substance: No Burton was queried for this patient: No Vital Signs: 03/19/25 23:32 03/19/25 23:48 03/20/25 00:19 Temperature 98.3 F Temperature Source Oral Pulse Rate 116 H 100 H Pulse Rate [Right] 112 H Respiratory Rate 35 H 29 H 19 Blood Pressure 151/113 H 118/65 Blood Pressure [Right Arm] 141/103 H Blood Pressure Mean 82 Blood Pressure Mean [Right Arm] 115 Blood Pressure Source Blood Pressure Source [Right Arm] Automatic Cuff Blood Pressure Position 02 Sat by Pulse Oximetry 100 100 97 Oxygen Delivery Method Room Air 03/20/25 01:00 03/20/25 02:00 03/20/25 04:44 Temperature 98.2 F Temperature Source Oral Pulse Rate 94 H 118 H 96 H Pulse Rate [Right] Respiratory Rate 18 22 18 Blood Pressure 118/65 118/65 Blood Pressure [Right Arm] Blood Pressure Mean Blood Pressure Mean [Right Arm] Blood Pressure Source Automatic Cuff Blood Pressure Source [Right Arm] Blood Pressure Position Supine 02 Sat by Pulse Oximetry 97 99 Oxygen Delivery Method Room Air Lab Data Lab results reviewed: Yes I reviewed the patient's lab results. Lab Results 03/19/25 23:47: WBC 13.5 H D, RBC 5.29, Hgb 16.1, Hct 45.7, MCV 86.4, MCH 30.4, MCHC 35.2, RDW 12.1, Plt Count 264, MPV 9.2, Neut % (Auto) 85.1 H, Lymph % (Auto) 10.0, [place] % (Auto) 4.1, Eos % (Auto) 0.0 L, Baso % (Auto) 0.4, Neut # (Auto) 11.5 H, Lymph # (Auto) 1.4, [place] # (Auto) 0.6, Eos # (Auto) 0.0, Baso # (Auto) 0.1, Sodium 142, Potassium 3.9, Chloride 98, Carbon Dioxide 14 L, Anion Gap 33.9 H, BUN 16, Creatinine 0.80, Estimated GFR 107, Est GFR ( Amer) 130, Glucose 347 H, Calcium 9.2, Magnesium 1.7, Total Bilirubin 4.2 H, AST 34, ALT 56, Alkaline Phosphatase 131 H, Troponin I < 0.01, Total Protein 8.0, Albumin 4.9, Globulin 3.1, Albumin/Globulin Ratio 1.6, Lipase 57, Salicylates 1.6 L, Acetaminophen < 10 L, Acetone Level Small 03/20/25 00:40: Urine Color Yellow, Urine Appearance Clear, Urine pH 6.0, Ur Specific Lorman >= 1.030, Urine Protein 2+ A, Urine Glucose (UA) Negative, Urine Ketones Negative, Urine Blood 1+ A, Urine Nitrate Negative, Urine Bilirubin Negative, Urine Urobilinogen 1.0, Ur Leukocyte Esterase Negative, Urine RBC 3-5, Urine WBC Occasional, Ur Squamous Epith Cells 5-10, Urine Bacteria None, Waxy Casts Occasional, Urine Opiates Screen Negative, Urine Methadone Screen Negative, Ur Barbituates Screen Negative, Ur Phencyclidine Scrn Negative, Ur Amphetamines Screen Negative, U Benzodiazepines Scrn Negative, Urine Cocaine Screen Negative, U Marijuana (THC) Screen Negative 03/20/25 01:10: VBG pH 7.40, VBG pCO2 29.6 L, VBG pO2 82.5 H, VBG HCO3 17.9 L, V BG Total CO2 18.8 L, VBG O2 Saturation 96.3 H, VBG Base Excess -6.9 L, VBG Lactic Acid 1.7 03/20/25 03:02: Sodium 137, Potassium 4.0, Chloride 99, Carbon Dioxide 19 L, A nion Gap 23.0 H, BUN 15, Creatinine 0.70, Estimated Creat Clear 171, Estimated GFR 125, Est GFR ( Amer) 151, Glucose 310 H, Calcium 8.2 L, Total Bilirubin 3.0 H, AST 27, ALT 29 D, Alkaline Phosphatase 94, Troponin I < 0.01, Total Protein 6.3, Albumin 3.8 D, Globulin 2.5, Albumin/Globulin Ratio 1.5 03/19/25 23:47 03/20/25 03:02 Orders (Tests/Meds): ED MEDICATIONS Discontinued Medications Generic Name Dose Route Start Last Admin Trade Name Freq PRN Reason Stop Dose Admin Acetaminophen 1,000 mg 03/19/25 23:34 03/20/25 00:09 Acetaminophen 1,000mg/100ml Vial IV 03/19/25 23:35 1,000 mg ONCE ONE Administration Acetaminophen 650 mg 03/20/25 06:19 Acetaminophen 325mg Tab PO 04/19/25 06:18 Q4HP PRN Fever or Mild Pain (1-3) Belladonna Alkaloids 60 ml 03/19/25 23:53 03/20/25 01:12 Belladonna Alkaloids 60 Ml Ml PO 03/19/25 23:54 Not Given ONCE ONE Belladonna Alkaloids 60 ml 03/20/25 01:55 03/20/25 01:56 Belladonna Alkaloids 60 Ml Ml PO 03/20/25 01:56 60 ml ONCE ONE Administration Droperidol 5 mg 03/19/25 23:34 03/20/25 00:00 Droperidol 5mg/2ml Vial IV 03/19/25 23:35 5 mg ONCE ONE Administration Enoxaparin Sodium 40 mg 03/20/25 09:00 03/20/25 08:18 Enoxaparin 40mg/0.4ml Syringe SUBCUT 04/19/25 08:59 40 mg DAILY ARIANNA Administration Magnesium Sulfate 2 gm in 50 mls @ 150 mls/hr 03/19/25 23:34 03/20/25 01:12 Magnesium Sulfate 2gm/50ml Premix IV 03/19/25 23:53 Infused ONCE ONE Infusion Lactated Ringer's 1,000 mls @ 999 mls/hr 03/19/25 23:45 03/20/25 01:12 Lactated Ringer's 1000 Ml Bag IV 03/20/25 00:45 Infused .Q1H1M ARIANNA Infusion Lactated Ringer's 1,000 mls @ 999 mls/hr 03/20/25 01:15 03/20/25 02:32 Lactated Ringer's 1000 Ml Bag IV 03/20/25 02:15 Infused .Q1H1M ARIANNA Infusion Sodium Chloride 1,000 mls @ 150 mls/hr 03/20/25 06:30 03/20/25 13:11 Sod Chlor 0.9% 1000ml Bag IV 04/19/25 06:29 Infused .Q6H40M ARIANNA Infusion Insulin Human Lispro 10 unit 03/20/25 03:46 03/20/25 04:07 Humalog 100 Units/Ml 10ml Vial (Ssi) SUBCUT 03/20/25 03:47 10 unit ONCE ONE Administration Insulin Human Lispro 0 unit 03/20/25 06:30 03/20/25 06:40 Humalog 100 Units/Ml 10ml Vial (Ssi) SUBCUT 04/19/25 06:29 5 unit Q6H ARIANNA Administration Protocol Insulin Human Lispro 0 unit 03/20/25 08:29 03/20/25 11:06 Humalog 100 Units/Ml 10ml Vial (Ssi) SUBCUT 04/19/25 06:29 5 unit ACHS ARIANNA Administration Protocol Iopamidol 75 ml 03/20/25 02:38 03/20/25 02:39 Iopamidol-370 (76%);100ml Bottle IV 03/20/25 02:39 75 ml ONCE ONE Administration Ketorolac Tromethamine 30 mg 03/19/25 23:34 03/20/25 00:09 Ketorolac 30mg/Ml Vial IV 03/19/25 23:35 30 mg ONCE ONE Administration Ketorolac Tromethamine 15 mg 03/20/25 06:24 03/20/25 06:29 Ketorolac 15mg/Ml Vial IV 03/25/25 06:23 15 mg Q6HP PRN Administration Moderate Pain (4-6) Ondansetron HCl 4 mg 03/20/25 02:03 03/20/25 02:05 Ondansetron 4mg/2ml Vial IV 03/20/25 02:04 4 mg ONCE ONE Administration Ondansetron HCl 4 mg 03/20/25 06:13 03/20/25 06:16 Ondansetron 4mg/2ml Vial IV 04/19/25 06:12 4 mg Q6HP PRN Administration Nausea Pantoprazole Sodium 40 mg 03/20/25 21:00 Pantoprazole 40mg Tablet PO 04/19/25 20:59 HS ARIANNA Sodium Chloride 10 ml 03/20/25 02:38 03/20/25 02:39 Sodium Chloride 0.9% 10ml Syr (Rad Only) IV 04/19/25 02:37 10 ml NEEDED PRN Administration Maintain IV Site Sodium Chloride 10 ml 03/20/25 06:15 Sodium Chloride 0.9% 10ml Flush Syringe IV 04/19/25 06:14 NEEDED PRN Maintain IV Site Sodium Chloride 10 ml 03/20/25 06:29 Sodium Chloride 0.9% 10ml Flush Syringe IV 04/19/25 06:28 NEEDED PRN Maintain IV Site ORDERS Category Date Time Status CT abdomen pelvis w con Stat Cat Scan 03/20/25 02:14 Completed Consult to Behavioral Health [CONS] Stat Cons 03/20/25 00:39 Active CXR --portable [XR chest portable] Stat Exams 03/19/25 23:34 Completed Acetaminophen Stat Lab 03/19/25 23:47 Completed Acetone, Serum (Rapid) Stat Lab 03/20/25 01:09 Completed CBC w/Auto Diff [Complete Blood Count Auto Diff] Stat Lab 03/19/25 23:47 Completed CMP [Comprehensive Metabolic Panel] Stat Lab 03/19/25 23:47 Completed CMP [Comprehensive Metabolic Panel] Stat Lab 03/20/25 03:02 Completed Lipase Stat Lab 03/19/25 23:47 Completed Magnesium Stat Lab 03/19/25 23:47 Completed Salicylate Stat Lab 03/19/25 23:47 Completed Troponin I Q3H Lab 03/19/25 23:47 Completed Troponin I Q3H Lab 03/20/25 03:02 Completed UA [Urinalysis and Microscopic] Stat Lab 03/20/25 00:40 Completed UDS [Drug Screen,Urine] Stat Lab 03/20/25 00:40 Completed VBG [Venous Blood Gas] Stat RT 03/20/25 01:10 Completed ECG Data Tracing #1: I reviewed this ECG and interpreted as documented below: Sinus tachycardia, rate of 113, no significant ST elevation, QTc 400 ECG initial impression date: 03/19/25 ECG initial impression time: 23:51 HEART Score History (anamnesis): Slightly suspicious ECG: Non-specific disturbance Age: <45 years Risk factors: No known risk factors Troponin: </= normal limit HEART Score: 1 Medical Decision Narrative: 39-year-old male with history of type 2 diabetes, hyperemesis, depression presents for acute on chronic abdominal pain and p.o. intolerance with new chest pain, headache. Patient is also reporting acute on chronic suicidality in the setting of his acute on chronic pain. History was obtained via interactive discussion with patient. On arrival, patient is afebrile, tachycardic, alert and oriented but crying and screaming, writhing in pain. Full physical exam performed and significant for generalized abdominal pain. With regards to his suicidal thoughts, he reports this has been ongoing for a year and he reports that he no longer wants to be alive when he is in such significant pain. Differential includes but is not limited to cannabinoid hyperemesis, pancreatitis, dehydration, bowel obstruction, cholecystitis, gastroenteritis, suicidal ideation, homicidal ideation.. Patient was given 2.5 droperidol x 2, Zofran, Tylenol, Toradol, 2 L fluid bolus for symptomatic management and correction of underlying abnormalities. Workup initiated including basic labs, CT abdomen pelvis IV contrast. On re-evaluation, patient reports some improvement in pain. He attempted to drink but immediately vomited. Laboratory workup independently interpreted by me and significant for leukocytosis with white count of 13. Markedly elevated anion gap at 34, bilirubin elevated at 4 normal pH, low bicarb. Blood sugar 350. Lipase 57, down from 500 yesterday. Imaging independently interpreted by me and significant for no evidence of cholecystitis or bowel obstruction. See radiology read for full review of final results. Patient was given 2 L of IV fluids and we rechecked his labs. His blood sugar remains over 300, his anion gap remains elevated at 23. Given patient history, exam and workup, patient's presentation most likely represents dehydration secondary to p.o. intolerance and abdominal pain. Patient also has acute on chronic suicidal ideation. I spoke with him again about his suicidal ideation now that his pain is improved. He reports that he is no longer suicidal and was saying that while he was in pain. He still does not want to continue to live like this, but he does not feel like he actively wants to kill himself anymore. Given his persistent p.o. intolerance and continued abdominal pain as well as his abnormal labs, I think he would benefit from admission. Interact discussion was had with hospitalist regarding admission. Procedures Risk/Benefits of Procedure(s) Were Explained: Yes Critical Care Critical Care Time Critical Care Time: No
--- NOTE | 2025-03-19 23:34 | XR_ITS ---
PROCEDURE INFORMATION: Exam: XR Chest Exam date and time: 03/19/2025 11:54 PM Age: 39 years old Clinical indication: Other: Chest pain TECHNIQUE: Imaging protocol: Radiologic exam of the chest. Views: 1 view. COMPARISON: CT ANGIO CHEST 02/23/2025 11:02 PM FINDINGS: Lungs: Unremarkable. No consolidation. Pleural spaces: Unremarkable. No pleural effusion. No pneumothorax. Heart/Mediastinum: Unremarkable. No cardiomegaly. Bones/joints: Unremarkable. IMPRESSION: Stable chest x-ray with no acute disease.
[2025-03-19 23:48] VITALS: BP 151/113; PULSE 116; RESP 29; O2SAT 100
--- NOTE | 2025-03-19 23:51 | ECG_ITS ---
APPROVED REPORT Exam: Resting ECG HR:113 bpm ECG Measurements Heart Rate 113 AXES WV 173 P 79 QRSd 98 QRS -18 QT 333 T 56 QTc 400 Conclusion SINUS TACHYCARDIA POSSIBLE RIGHT ATRIAL ENLARGEMENT [0.25mV P-WAVE] SEPTAL MYOCARDIAL INFARCTION , OF INDETERMINATE AGE [40+ ms Q WAVE IN V1/V2] ABNORMAL ECG UNCONFIRMED REPORT Electronically signed by : ESTELLA AMADO, 03/21/2025 23:01:05
[2025-03-19 23:58] LABS: Hematocrit 45.7 % (42.0-52.0); Hemoglobin 16.1 g/dL (14.1-18.0); Immature Granulocytes % 0.4 %; Mean Corpuscular HGB Conc 35.2 g/dL (31.8-35.4); Mean Corpuscular Hemoglobin 30.4 pg (27.0-31.2); Mean Corpuscular Volume 86.4 fl (80-94); Nucleated Red Blood Cells % 0 %; Platelet Count 264 K/mm3 (142-424); Red Blood Count 5.29 M/mm3 (4.60-6.20); Red Cell Distribution Width-SD 38.5 fL; White Blood Count 13.5 K/mm3 (4.8-10.8)
[2025-03-20] VITALS (7 sets, daily range): BP systolic 118–127; BP diastolic 65–73; PULSE 94–118; RESP 16–22; TEMP 36.7–36.8; O2SAT 95–99; BMI 25.2
[2025-03-20] MEDS: droPERidol 5MG/2ML VIAL 5 MG IV
[2025-03-20 00:01] LABS: Albumin Level 4.9 g/dl (3.5-5.0); Chloride 98 mmol/L (98-107); Potassium 3.9 mmoL/L (3.5-5.1); Sodium 142 mmol/L (136-145)
--- OUTSIDE RECORDS SUMMARY | 2025-03-20 00:03 | XMS_ITS | Clinical Summary ---
Author Organization [facility] Address [address] [place] [address] Care Team Providers Care Hearing Health Technician Name Role Phone Carina Ruiz AZAR Primary Care Provider [phone] Allergies Active Allergy Reactions Criticality Noted Date [...] Plan of Treatment Not on file Insurance [facility] MEDICAID Care Teams Hearing Health Technician Relationship Specialty Start Date End Date Carina Ruiz PA [address] [place] [address] PCP - General 04/06/23
[2025-03-20 00:04] LABS: Alanine Aminotransferase 56 U/L (12-78); Albumin/Globulin Ratio 1.6 (1.1-1.8); Alkaline Phosphatase 131 U/L (38-126); Anion Gap 33.9 mEq/L (5-15); Aspartate Amino Transferase 34 U/L (17-59); Bilirubin,Total 4.2 mg/dl (0.2-1.3); Blood Urea Nitrogen 16 mg/dl (9-20); Calcium 9.2 mg/dl (8.4-10.2); Carbon Dioxide 14 mmol/L (22.0-30.0); Creatinine,Serum 0.80 mg/dl (0.66-1.25); Estimated Glomerular Filt Rate 107 ml/min (>60); GFR (African American) 130 ML/MIN (>60); Globulin 3.1 g/dL (1.3-3.2); Glucose 347 mg/dl (74-100); Salicylate 1.6 mg/dL (2.0-20.0); Total Protein,Serum 8.0 g/dl (6.3-8.2)
[2025-03-20] MEDS: MAGNESIUM SULFATE IN WATER 2 GM/50 ML PIGGYBACK IV (00:05)
[2025-03-20 00:09] LABS: Acetaminophen < 10 ug/ml (10-30)
[2025-03-20] MEDS: KETOROLAC 30MG/ML VIAL 30 MG IV (00:09)
[2025-03-20] MEDS: ACETAMINOPHEN 1,000MG/100ML VIAL 1000 MG IV (00:09)
[2025-03-20] MEDS: LACTATED RINGERS 1000ML 1,000 ML 999 ML IV ×2 (00:17→01:19)
[2025-03-20 00:31] LABS: Lipase 57 U/L (23-300); Magnesium 1.7 mg/dl (1.6-2.3); Troponin I < 0.01 ng/ml (0.00-0.034)
[2025-03-20 00:48] LABS: Microscopic, Urine URINE MICROSCOPIC (MICROSCOPIC)
[2025-03-20 01:09] LABS: Bilirubin,Urine Negative (Negative); Color,Urine YELLOW (Yellow); Glucose,Urine (UA) Negative (Negative); Ketones,Urine Negative (Negative); Leukocyte Esterase,Urine Negative (Negative); PH,Urine 6.0 (5.0-8.5); Protein,Urine 2+ (Negative); Specific Gravity, Urine >= 1.030 (1.005-1.030); Urobilinogen,Urine 1.0 EU/dl (0.2)
[2025-03-20 01:13] LABS: Lactate Venous 1.7 mmol/L (0.4-2.0); VBG HCO3 17.9 mmol/L (23-30); VBG PCO2 29.6 mmol/L (35-51); VBG PH 7.40 mmol/L (7.31-7.41); VBG PO2 82.5 mmol/L (28-40)
[2025-03-20 01:20] LABS: Barbiturates Screen,Urine Negative ng/ml (<200)
[2025-03-20 01:21] LABS: Benzodiazepines Screen,Urine Negative ng/ml (<200)
[2025-03-20 01:22] LABS: Amphetamine/Metha Screen,Urine Negative ng/ml (<1000)
[2025-03-20 01:23] LABS: Methadone Screen,Urine Negative ng/ml (<300)
[2025-03-20 01:24] LABS: Opiate Screen,Urine Negative ng/ml (<300)
[2025-03-20 01:25] LABS: Phencyclidine Screen,Urine Negative ng/ml (<25)
[2025-03-20 01:26] LABS: Acetone, Serum (Rapid) Small (None Detect)
[2025-03-20] MEDS: BELLADONNA ALKALOIDS 60 ML ML PO (01:56)
[2025-03-20] MEDS: ONDANSETRON 4MG/2ML VIAL 4 MG IV ×2 (02:05→06:16)
[2025-03-20 02:09] LABS: WBC,Urine Occasional #/hpf (0-3)
[2025-03-20 02:10] LABS: Waxy Casts,Urine Occasional #/lpf (0)
--- NOTE | 2025-03-20 02:14 | CT_ITS ---
PROCEDURE INFORMATION: Exam: CT Abdomen And Pelvis With Contrast Exam date and time: 03/20/2025 2:25 AM Age: 39 years old Clinical indication: Nausea and vomiting; Abdominal pain; Acute; Additional info: Acute on chronic abd pain, n/v TECHNIQUE: Imaging protocol: Computed tomography of the abdomen and pelvis with contrast. Radiation optimization: All CT scans at this facility use at least one of these dose optimization techniques: automated exposure control; mA and/or kV adjustment per patient size (includes targeted exams where dose is matched to clinical indication); or iterative reconstruction. Contrast material: ISOVUE; Contrast volume: 75 ml; Contrast route: IV; COMPARISON: CT ANGIO ABDOMEN PELVIS 02/23/2025 11:02 PM FINDINGS: Liver: Normal. Gallbladder and biliary ducts: Normal. Pancreas: Normal. Spleen: Normal. Adrenal glands: Normal. No mass. Kidneys and ureters: Simple left renal cyst, for which no further evaluation necessary. Stomach and bowel: Normal. Appendix: Appendix normal. Intraperitoneal space: Unremarkable. No free air. No significant fluid collection. Vasculature: Unremarkable. No abdominal aortic aneurysm. Lymph nodes: Unremarkable. No enlarged lymph nodes. Urinary bladder: Unremarkable as visualized. Reproductive: Prostate gland is mildly enlarged, measuring 4.8 cm in AP diameter. Bones/joints: Bilateral L5 pars defects. Minimally displaced fractures of the left L3 and L4 transverse processes, unchanged. Soft tissues: Normal. IMPRESSION: No acute abdominal or pelvic abnormality.
[2025-03-20] MEDS: SODIUM CHLORIDE 0.9% 10ML SYR (RAD ONLY) 10 ML IV (02:39)
[2025-03-20] MEDS: IOPAMIDOL-370 (76%);100ML BOTTLE 75 ML IV (02:39)
[2025-03-20 03:17] LABS: Albumin Level 3.8 g/dl (3.5-5.0); Chloride 99 mmol/L (98-107); Potassium 4.0 mmoL/L (3.5-5.1); Sodium 137 mmol/L (136-145)
[2025-03-20 03:20] LABS: Alanine Aminotransferase 29 U/L (12-78); Albumin/Globulin Ratio 1.5 (1.1-1.8); Alkaline Phosphatase 94 U/L (38-126); Anion Gap 23.0 mEq/L (5-15); Aspartate Amino Transferase 27 U/L (17-59); Bilirubin,Total 3.0 mg/dl (0.2-1.3); Blood Urea Nitrogen 15 mg/dl (9-20); Calcium 8.2 mg/dl (8.4-10.2); Carbon Dioxide 19 mmol/L (22.0-30.0); Creatinine Clearance Estimated 171 mL/min (50-200); Creatinine,Serum 0.70 mg/dl (0.66-1.25); Estimated Glomerular Filt Rate 125 ml/min (>60); GFR (African American) 151 ML/MIN (>60); Globulin 2.5 g/dL (1.3-3.2); Glucose 310 mg/dl (74-100); Total Protein,Serum 6.3 g/dl (6.3-8.2)
[2025-03-20 03:39] LABS: Troponin I < 0.01 ng/ml (0.00-0.034)
[2025-03-20] MEDS: humaLOG 100 UNITS/ML 10ML VIAL (SSI) 10 UNIT SUBCUT (04:07)
--- NOTE | 2025-03-20 04:40 | PC.NURSE ---
Report called to MACEY Gray
[2025-03-20] MEDS: KETOROLAC 15MG/ML VIAL 15 MG IV (06:29)
[2025-03-20] MEDS: 0.9 % SODIUM CHLORIDE 1000ML 1,000 ML 150 ML IV (06:30)
[2025-03-20] MEDS: humaLOG 100 UNITS/ML 10ML VIAL (SSI) SUBCUT ×2 (06:40→11:06)
[2025-03-20 06:44] LABS: POC Glucose,Bedside 169 gm/dL (70-110)
--- NOTE | 2025-03-20 08:43 | P.HP_ITS ---
History of Present Illness *Admission Date: 03/20/25 *Reason for visit:: Suicidal ideation *History of present illness: Patient is a 39-year-old male with past medical history significant for cannabinoid hyperemesis syndrome, mood disorder, anxiety, bipolar depression, type 2 diabetes, hypothyroid, history of noncompliance. Patient presents to [facility] stating that he is wanting to kill himself for the past year. Reporting if he were to kill himself he would do it around [place]. Patient denies plan. He also had complaint of nausea vomiting, abdominal discomfort and headache. He was seen within the emergency department yesterday for abdominal pain and vomiting and ultimately unremarkable workup. While in the emergency department he retracted his statement of wanting to hurt himself. Patient currently is with a sitter and will continue observation. Ho spitalist team consulted for admission due to nausea vomiting, concern for dehydration. Patient denies fever, chills, chest pain, contact with ill individuals recently, illicit drug use. Initial ED workup included laboratory studies and imaging. WBC 13.5, CO2 14, anion gap 33.9, glucose 347, total bilirubin 4.2, alkaline phos 131, urine tox screen positive for acetaminophen and salicylate. Imaging study obtained, I personally reviewed abdomen pelvis CT without acute finding. Upon assessment of patient at bedside he is without acute distress resting in bed comfortably. Sitter at bedside. [facility] Disclaimer: The information contained in this section may have been updated after the arthur ent was seen, as this information can be updated by other users. Medical History Conjunctivitis Intractable nausea and vomiting Esophagitis Erosive esophagitis [place] tear Intractable nausea and vomiting Depression Anxiety Nausea Low testosterone level in male History of diabetic ketoacidosis Diabetes Surgical History No significant past surgical history Family History Father Hypertension Hyperlipidemia Diabetes Social History Smoking Status: Current every day smoker tobacco type: cigarettes packs per day: 2 alcohol intake: never substance use type: denies use current occupational status: unemployed Travel in the last 8 weeks?: None household members: children housing: house marital status: single number of children: 4 current occupation: [employer] current occupational exposures/hazards: No caffeine: Yes Other Medical History Have you received the Flu Vaccine for this season: No Have you received the Pneumonia Vaccine: No Review of Systems Review of Systems Review of systems:: pertinent systems reviewed and negative unless documented below Constitutional Constitutional: Reports system reviewed and no additional complaints, except as documented and Reports as per HPI Eyes Eyes: Reports system reviewed and no additional complaints, except as documented and Reports as per HPI ENT Ears, Nose, Mouth, and Throat: Reports system reviewed and no additional complaints, except as documented and Reports as per HPI *Cardiovascular Cardiovascular: Reports system reviewed and no additional complaints, except as documented and Reports as per HPI *Respiratory Respiratory: Reports system reviewed and no additional complaints, except as documented and Reports as per HPI *Gastrointestinal Gastrointestinal: Reports as per HPI, Reports abdominal pain and Reports vomiting *Genitourinary Genitourinary: Reports system reviewed and no additional complaints, except as documented and Reports as per HPI *Musculoskeletal Musculoskeletal: Reports system reviewed and no additional complaints, except as documented and Reports as per HPI Integumentary/Breasts Skin/Breast: Reports system reviewed and no additional complaints, except as documented and Reports as per HPI *Neurologic Neurologic: Reports system reviewed and no additional complaints, except as documented and Reports as per HPI Psychiatric Psychiatric: Reports as per HPI and Reports suicidal ideation Endocrine Endocrine: Reports system reviewed and no additional complaints, except as documented and Reports as per HPI Hematologic/Lymphatic Hematologic/Lymphatic: Reports system reviewed and no additional complaints, except as documented and Reports as per HPI Allergic/Immunologic Allergic/Immunologic: Reports system reviewed and no additional complaints, except as documented and Reports as per HPI Meds Home Medications and Allergies Home Medications ?Medication ?Instructions ?Recorded ?Confirmed ?Type No Known Home Medications 03/20/2502/21 History New Prescriptions to Start Prescriptions: Allergies Allergy/AdvReac Type Severity Reaction Status Date / Time Penicillins (PENICILLINS) Allergy Unknown unkn Verified 03/19/25 09:48 Exam Data for Last 24 hours Vital signs and Labs for Last 24 Hours: Temp Pulse Resp BP Pulse Ox O2 Del Method 98.0 F 99 H 16 126/67 95 Room Air 03/20/25 07:49 03/20/25 07:49 03/20/25 07:49 03/20/25 07:49 03/20/25 08:00 03/20/25 08:00 Laboratory Results - last 24 hr 03/19/25 23:47: WBC 13.5 H D, RBC 5.29, Hgb 16.1, Hct 45.7, MCV 86.4, MCH 30.4, MCHC 35.2, RDW 12.1, Plt Count 264, MPV 9.2, Neut % (Auto) 85.1 H, Lymph % (Auto) 10.0, [place] % (Auto) 4.1, Eos % (Auto) 0.0 L, Baso % (Auto) 0.4, Neut # (Auto) 11.5 H, Lymph # (Auto) 1.4, [place] # (Auto) 0.6, Eos # (Auto) 0.0, Baso # (Auto) 0.1, Sodium 142, Potassium 3.9, Chloride 98, Carbon Dioxide 14 L, Anion Gap 33.9 H, BUN 16, Creatinine 0.80, Estimated GFR 107, Est GFR ( Amer) 130, Glucose 347 H, Calcium 9.2, Magnesium 1.7, Total Bilirubin 4.2 H, AST 34, ALT 56, Alkaline Phosphatase 131 H, Troponin I < 0.01, Total Protein 8.0, Albumin 4.9, Globulin 3.1, Albumin/Globulin Ratio 1.6, Lipase 57, Salicylates 1.6 L, Acetaminophen < 10 L, Acetone Level Small 03/20/25 00:40: Urine Color Yellow, Urine Appearance Clear, Urine pH 6.0, Ur Specific [place] >= 1.030, Urine Protein 2+ A, Urine Glucose (UA) Negative, Urine Ketones Negative, Urine Blood 1+ A, Urine Nitrate Negative, Urine Bilirubin Negative, Urine Urobilinogen 1.0, Ur Leukocyte Esterase Negative, Urine RBC 3-5, Urine WBC Occasional, Ur Squamous Epith Cells 5-10, Urine Bacteria None, Waxy Casts Occasional, Urine Opiates Screen Negative, Urine Methadone Screen Negative, Ur Barbituates Screen Negative, Ur Phencyclidine Scrn Negative, Ur Amphetamines Screen Negative, U Benzodiazepines Scrn Negative, Urine Cocaine Screen Negative, U Marijuana (THC) Screen Negative 03/20/25 01:10: VBG pH 7.40, VBG pCO2 29.6 L, VBG pO2 82.5 H, VBG HCO3 17.9 L, VBG Total CO2 18.8 L, VBG O2 Saturation 96.3 H, VBG Base Excess -6.9 L, VBG Lactic Acid 1.7 03/20/25 03:02: Sodium 137, Potassium 4.0, Chloride 99, Carbon Dioxide 19 L, Anion Gap 23.0 H, BUN 15, Creatinine 0.70, Estimated Creat Clear 171, Estimated GFR 125, Est GFR ( Amer) 151, Glucose 310 H, Calcium 8.2 L, Total Bilirub in 3.0 H, AST 27, ALT 29 D, Alkaline Phosphatase 94, Troponin I < 0.01, Total Protein 6.3, Albumin 3.8 D, Globulin 2.5, Albumin/Globulin Ratio 1.5 03/20/25 06:36: POC Glucose 169 H I & O for Last 24 hours: Intake & Output 03/17/25 03/18/25 03/19/25 03/20/25 23:59 23:59 23:59 23:59 Intake Total 2049 Output Total 0 / 0 Balance 2049 Weight 86.183 kg 81.647 kg Constitutional Constitutional: no acute distress *Routine HEENT Exam Head: Present normocephalic and atraumatic Eye: Present EOMI and PERRL ENT: Present mucous membranes moist *Routine Neck Exam Neck: Present supple and full ROM *Routine Respiratory Exam Respiratory: Present normal respiratory effort *Routine Cardiovascular Exam Cardiovascular: Present RRR, Normal S1 and Normal S2 *Routine Abdominal Exam Abdominal: Present soft and normoactive bowel sounds *Routine Rectal Exam Rectal:: deferred *Routine Genitalia Exam Genitalia:: deferred *Routine Extremities Exam Extremities: Present full ROM, pulses intact and normal capillary refill Routine Back/Spine/Pelvis Exam Back/Spine: Present full ROM *Routine Skin Exam Skin: Present intact *Routine Neurological Exam Neurological: Present alert, oriented X3 and CN II-XII intact Assessment and Plan *Assessment and plan (1) Acute dehydration: Status: Acute Category: Medical Code(s): E86.0 - Dehydration (2) Acute hyperglycemia: Status: Acute Category: Medical Code(s): R73.9 - Hyperglycemia, unspecified (3) Poorly controlled diabetes mellitus: Status: Chronic Category: Medical Code(s): E11.65 - Type 2 diabetes mellitus with hyperglycemia (4) Abdominal pain: Status: Acute Category: Medical Code(s): R10.9 - Unspecified abdominal pain (5) Nausea & vomiting: Status: Acute Category: Medical Code(s): R11.2 - Nausea with vomiting, unspecified (6) Suicidal ideation: Status: Acute Category: Medical Code(s): R45.851 - Suicidal ideations (7) Mood disorder: Status: Acute Category: Medical Code(s): F39 - Unspecified mood [affective] disorder (8) Generalized anxiety disorder: Status: Acute Category: Medical Code(s): F41.1 - Generalized anxiety disorder (9) Noncompliance: Status: Acute Category: Medical Code(s): Z91.199 - Patient's noncompliance with other medical treatment and regimen due to unspecified reason Plan Assessment/plan: I personally discussed the management of this patient with the emergency department and agree for admission for further evaluation and treatment. Patient is a 39-year-old male presents to [facility] with complaint of nausea vomiting, abdominal pain. Patient also made note of wanting to kill himself for the past year. Patient ultimately retracted this statement later in the evening but due to history and current statement, continued sitter at bedside. Consult placed to psych will likely need placement. Resume IV fluids for hydration, IV sliding scale insulin with elevated glucose. IV Zofran as needed for nausea management. IV Toradol for moderate to severe abdominal pain. Tylenol 650 every 4 as needed for mild to moderate pain. Continue to monitor trend labs for improvement. 1. Acute dehydration/nausea vomiting and abdominal pain: Patient presents with nausea vomiting abdominal pain, imaging study CT abdomen is noted above without acute finding. Resume IV fluids for hydration along with IV Zofran for nausea management. Urine drug screen negative for marijuana that has recently been diagnosed with cannabinoid hyperemesis syndrome. Continue to monitor, trend labs for improvement. Clear liquid diet, advance as tolerated. 2. Acute hyperglycemia/poorly controlled diabetes mellitus: Patient reported noncompliance as he has not been utilizing insulin. Likely complicated in the setting of nausea vomiting, as noted above resume aggressive IV fluids, insulin sliding scale with Accu-Cheks Q6. 3. Suicidal ideation/mood disorder/generalized anxiety disorder: Presented with a statements of wanting to kill himself for the past year. Sitter at bedside, psych consult placed will likely need placement at discharge. 4. DVT prophylaxis: Lovenox Full code
--- NOTE | 2025-03-20 10:53 | P.DS_ITS ---
General Admission date:: 03/20/25 Discharge date: 03/20/25 HPI HPI HPI: Patient is a 39-year-old male with past medical history significant for cannabinoid hyperemesis syndrome, mood disorder, anxiety, bipolar depression, type 2 diabetes, hypothyroid, history of noncompliance. Patient presents to [facility] stating that he is wanting to kill himself for the past year. Reporting if he were to kill himself he would do it around [place]. Patient denies plan. He also had complaint of nausea vomiting, abdominal discomfort and headache. He was seen within the emergency department yesterday for abdominal pain and vomiting and ultimately unremarkable workup. While in the emergency department he retracted his statement of wanting to hurt himself. Patient currently is with a sitter and will continue observation. Hospitalist team consulted for admission due to nausea vomiting, concern for dehydration. Patient denies fever, chills, chest pain, contact with ill individuals recently, illicit drug use. Initial ED workup included laboratory studies and imaging. WBC 13.5, CO2 14, anion gap 33.9, glucose 347, total bilirubin 4.2, alkaline phos 131, urine tox screen positive for acetaminophen and salicylate. Imaging study obtained, I personally reviewed abdomen pelvis CT without acute finding. Upon assessment of patient at bedside he is without acute distress resting in bed comfortably. Sitter at bedside. Hospital Course Hospital Course Hospital Course: Patient is a 39-year-old male presents to [facility] with complaint of nausea vomiting, abdominal pain. Patient also made note of wanting to kill himself for the past year. Patient ultimately retracted this statement later in the evening but due to history and current statement, continued sitter at bedside. Consult placed to psych will likely need placement. Resume IV fluids for hydration, IV sliding scale insulin with elevated glucose. IV Zofran as needed for nausea management. IV Toradol for moderate to severe abdominal pain. Tylenol 650 every 4 as needed for mild to moderate pain. Continue to monitor trend labs for improvement. Did well overnight. Nausea resolved. Advancing diet. Patient evaluated by psychiatry at [facility], recommend inpatient therapy. Patient agreeable. Will transfer to inpatient psych for further management. Problems addressed as follows: Acute dehydration/nausea vomiting and abdominal pain: Patient presents with nausea vomiting abdominal pain, imaging study CT abdomen is noted above without acute finding. Resume IV fluids for hydration along with IV Zofran for nausea management. Urine drug screen negative for marijuana that has recently been diagnosed with cannabinoid hyperemesis syndrome. Responded well to IV fluids. Able to advance diet without further nausea or vomiting by morning. Labs stable with no acute electrolyte abnormalities. Acute hyperglycemia/poorly controlled diabetes mellitus: Not in DKA. A1c 11.5 in June of this year. Patient reported noncompliance as he has not been utilizing insulin. Likely complicated in the setting of nausea vomiting, as noted above resume aggressive IV fluids, insulin sliding scale with Accu-Cheks Q6. Will continue basal insulin of 25 units nightly., Recommend further adjustment after arrival to [facility] Suicidal ideation/mood disorder/generalized anxiety disorder: Presented with a statements of wanting to kill himself for the past year. Sitter at bedside, feeling better by morning but still significantly depressed. Evaluated by intake for [facility]. Plan to transfer to [facility] for further inpatient management of his depression and SI. Patient agreeable to transfer Exam Data for Last 24 hours Vital signs and Labs for Last 24 Hours: Temp Pulse Resp BP Pulse Ox O2 Del Method 98.0 F 99 H 16 126/67 95 Room Air 03/20/25 07:49 03/20/25 07:49 03/20/25 07:49 03/20/25 07:49 03/20/25 08:00 03/20/25 09:20 Laboratory Results - last 24 hr 03/19/25 23:47: WBC 13.5 H D, RBC 5.29, Hgb 16.1, Hct 45.7, MCV 86.4, MCH 30.4, MCHC 35.2, RDW 12.1, Plt Count 264, MPV 9.2, Neut % (Auto) 85.1 H, Lymph % (Auto) 10.0, Bay % (Auto) 4.1, Eos % (Auto) 0.0 L, Baso % (Auto) 0.4, Neut # (Auto) 11.5 H, Lymph # (Auto) 1.4, [place] # (Auto) 0.6, Eos # (Auto) 0.0, Baso # (Auto) 0.1, Sodium 142, Potassium 3.9, Chloride 98, Carbon Dioxide 14 L, Anion Gap 33.9 H, BUN 16, Creatinine 0.80, Estimated GFR 107, Est GFR ( Amer) 130, Glucose 347 H, Calcium 9.2, Magnesium 1.7, Total Bilirubin 4.2 H, AST 34, ALT 56, Alkaline Phosphatase 131 H, Troponin I < 0.01, Total Protein 8.0, Albumin 4.9, Globulin 3.1, Albumin/Globulin Ratio 1.6, Lipase 57, Salicylates 1.6 L, Acetaminophen < 10 L, Acetone Level Small 03/20/25 00:40: Urine Color Yellow, Urine Appearance Clear, Urine pH 6.0, Ur Specific [place] >= 1.030, Urine Protein 2+ A, Urine Glucose (UA) Negative, Urine Ketones Negative, Urine Blood 1+ A, Urine Nitrate Negative, Urine Bilirubin Negative, Urine Urobilinogen 1.0, Ur Leukocyte Esterase Negative, Urine RBC 3-5, Urine WBC Occasional, Ur Squamous Epith Cells 5-10, Urine Bacteria None, Waxy Casts Occasional, Urine Opiates Screen Negative, Urine Methadone Screen Negative, Ur Barbituates Screen Negative, Ur Phencyclidine Scrn Negative, Ur Amphetamines Screen Negative, U Benzodiazepines Scrn Negative, Urine Cocaine Screen Negative, U Marijuana (THC) Screen Negative 03/20/25 01:10: VBG pH 7.40, VBG pCO2 29.6 L, VBG pO2 82.5 H, VBG HCO3 17.9 L, VBG Total CO2 18.8 L, VBG O2 Saturation 96.3 H, VBG Base Excess -6.9 L, VBG Lactic Acid 1.7 03/20/25 03:02: Sodium 137, Potassium 4.0, Chloride 99, Carbon Dioxide 19 L, Anion Gap 23.0 H, BUN 15, Creatinine 0.70, Estimated Creat Clear 171, Estimated GFR 125, Est GFR ( Amer) 151, Glucose 310 H, Calcium 8.2 L, Total Bilirubin 3.0 H, AST 27, ALT 29 D, Alkaline Phosphatase 94, Troponin I < 0.01, Total Protein 6.3, Albumin 3.8 D, Globulin 2.5, Albumin/Globulin Ratio 1.5 03/20/25 06:36: POC Glucose 169 H I & O for Last 24 hours: Intake & Output 03/17/25 03/18/25 03/19/25 03/20/25 23:59 23:59 23:59 23:59 Intake Total 2530 / 2530 Output Total 0 / 0 Balance 2530 / 2530 Weight 86.183 kg 81.647 kg Constitutional Constitutional: no acute distress *Routine HEENT Exam Head: Present normocephalic Eye: Present EOMI and PERRL ENT: Present mucous membranes moist Comments: poor dentition *Routine Neck Exam Neck: Present supple; Absent lymphadenopathy *Routine Respiratory Exam Respiratory: Present CTA bilaterally *Routine Cardiovascular Exam Cardiovascular: Present RRR *Routine Abdominal Exam Abdominal: Present soft and normoactive bowel sounds; Absent tenderness *Routine Rectal Exam Patient deferred: visual exam *Routine Exam Patient deferred: penile exam *Routine Extremities Exam Extremities: Absent cyanosis, clubbing or edema *Routine Skin Exam Skin: Present warm; Absent rash *Routine Neurological Exam Neurological: Present alert and oriented X3 Routine Psychiatric Exam Psychiatric: Present depressed Results Data Completed and Pending Labs on day of discharge: Labs from last 24 hours 03/20/25 03/20/25 03/20/25 06:36 03:02 01:10 WBC RBC Hgb Hct MCV MCH MCHC RDW Plt Count MPV Neut % (Auto) Lymph % (Auto) Bay % (Auto) Eos % (Auto) Baso % (Auto) Neut # (Auto) Lymph # (Auto) [place] # (Auto) Eos # (Auto) Baso # (Auto) VBG pH 7.40 VBG pCO2 29.6 L VBG pO2 82.5 H VBG HCO3 17.9 L VBG Total CO2 18.8 L VBG O2 Saturation 96.3 H VBG Base Excess -6.9 L VBG Lactic Acid 1.7 Sodium 137 Potassium 4.0 Chloride 99 Carbon Dioxide 19 L Anion Gap 23.0 H BUN 15 Creatinine 0.70 Estimated Creat Clear 171 Estimated GFR 125 Est GFR ( Amer) 151 Glucose 310 H POC Glucose 169 H Calcium 8.2 L Magnesium Total Bilirubin 3.0 H AST 27 ALT 29 D Alkaline Phosphatase 94 Troponin I < 0.01 Total Protein 6.3 Albumin 3.8 D Globulin 2.5 Albumin/Globulin Ratio 1.5 Lipase Urine Color Urine Appearance Urine pH Ur Specific [place] Urine Protein Urine Glucose (UA) Urine Ketones Urine Blood Urine Nitrate Urine Bilirubin Urine Urobilinogen Ur Leukocyte Esterase Urine RBC Urine WBC Ur Squamous Epith Cells Urine Bacteria Waxy Casts Salicylates Urine Opiates Screen Urine Methadone Screen Acetaminophen Ur Barbituates Screen Ur Phencyclidine Scrn Ur Amphetamines Screen U Benzodiazepines Scrn Urine Cocaine Screen U Marijuana (THC) Screen Acetone Level 03/20/25 03/19/25 00:40 23:47 WBC 13.5 H D RBC 5.29 Hgb 16.1 Hct 45.7 MCV 86.4 MCH 30.4 MCHC 35.2 RDW 12.1 Plt Count 264 MPV 9.2 Neut % (Auto) 85.1 H Lymph % (Auto) 10.0 Bay % (Auto) 4.1 Eos % (Auto) 0.0 L Baso % (Auto) 0.4 Neut # (Auto) 11.5 H Lymph # (Auto) 1.4 [place] # (Auto) 0.6 Eos # (Auto) 0.0 Baso # (Auto) 0.1 VBG pH VBG pCO2 VBG pO2 VBG HCO3 VBG Total CO2 VBG O2 Saturation VBG Base Excess VBG Lactic Acid Sodium 142 Potassium 3.9 Chloride 98 Carbon Dioxide 14 L Anion Gap 33.9 H BUN 16 Creatinine 0.80 Estimated Creat Clear Estimated GFR 107 Est GFR ( Amer) 130 Glucose 347 H POC Glucose Calcium 9.2 Magnesium 1.7 Total Bilirubin 4.2 H AST 34 ALT 56 Alkaline Phosphatase 131 H Troponin I < 0.01 Total Protein 8.0 Albumin 4.9 Globulin 3.1 Albumin/Globulin Ratio 1.6 Lipase 57 Urine Color Yellow Urine Appearance Clear Urine pH 6.0 Ur Specific [place] >= 1.030 Urine Protein 2+ A Urine Glucose (UA) Negative Urine Ketones Negative Urine Blood 1+ A Urine Nitrate Negative Urine Bilirubin Negative Urine Urobilinogen 1.0 Ur Leukocyte Esterase Negative Urine RBC 3-5 Urine WBC Occasional Ur Squamous Epith Cells 5-10 Urine Bacteria None Waxy Casts Occasional Salicylates 1.6 L Urine Opiates Screen Negative Urine Methadone Screen Negative Acetaminophen < 10 L Ur Barbituates Screen Negative Ur Phencyclidine Scrn Negative Ur Amphetamines Screen Negative U Benzodiazepines Scrn Negative Urine Cocaine Screen Negative U Marijuana (THC) Screen Negative Acetone Level Small DS: Diagnosis Discharge Diagnosis (1) Acute dehydration: Status: Acute Code(s): E86.0 - Dehydration (2) Acute hyperglycemia: Status: Acute Code(s): R73.9 - Hyperglycemia, unspecified (3) Poorly controlled diabetes mellitus: Status: Chronic Code(s): E11.65 - Type 2 diabetes mellitus with hyperglycemia (4) Abdominal pain: Status: Acute Code(s): R10.9 - Unspecified abdominal pain (5) Nausea & vomiting: Status: Acute Code(s): R11.2 - Nausea with vomiting, unspecified (6) Suicidal ideation: Status: Acute Code(s): R45.851 - Suicidal ideations (7) Mood disorder: Status: Acute Code(s): F39 - Unspecified mood [affective] disorder (8) Generalized anxiety disorder: Status: Acute Code(s): F41.1 - Generalized anxiety disorder (9) Noncompliance: Status: Acute Code(s): Z91.199 - Patient's noncompliance with other medical treatment and regimen due to unspecified reason Meds Home Medications and Allergies Home Medications ?Medication ?Instructions ?Recorded ?Confirmed ?Type insulin glargine 100 unit/mL (3 20 unit (0.2 mL) SQ HS #15 mL 03/20/25 Rx mL) subcutaneous pen (Lantus Solostar U-100 Insulin) ondansetron HCl (PF) 4 mg/2 mL 4 mg (2 mL) IV Q6HP PRN Nausea #0 03/20/25 Rx injection solution mL pantoprazole 40 mg tablet,delayed 40 mg PO HS #0 tabs 03/20/25 Rx release New Prescriptions to Start Prescriptions: insulin glargine [Lantus Solostar U-100 Insulin] Chao Villarreal Allergies Allergy/AdvReac Type Severity Reaction Status Date / Time Penicillins (PENICILLINS) Allergy Unknown unkn Verified 03/19/25 09:48 Discharge Plan Disposition Patient Disposition: Xfer Psychiatric Hosp Condition: Good Discharge Order Discharge Orders: Discharge Order (Routine); Ordered 03/20/25 Ordered By: Chao Villarreal Follow up Plan Prescriptions/Medication Reconciliation: New pantoprazole 40 mg Tablet,Delayed Release (Dr/Ec) 40 mg PO HS Qty: 0 0RF ondansetron HCl (PF) 4 mg/2 mL Solution 4 mg IV Q6HP PRN (Reason: Nausea) Qty: 0 0RF insulin glargine [Lantus Solostar U-100 Insulin] 100 unit/mL (3 mL) insulin pen 20 unit SQ HS Qty: 15 0RF Problem Reconciliation Problems Reviewed?: Yes Patient Discharge Instructions ACTIVITY: Continue current activity DIET: continue same diet and advance to your usual diet Patient Instructions: DI for Dehydration in Adults, DI for Suicidal Ideation in Adults Print Language: Albanian Providers Primary Care Provider: Provider,Referral Admit Provider: Chao Villarreal Attending Provider: Chao Villarreal
--- NOTE | 2025-03-20 10:54 | PC.NURSE ---
MD wanted patient to be evaluated by [facility] for psychological services. Spoke to [facility] when then spoke to the patient. [facility] states patient should be inpatient and patient is agreeable to transfer. [facility] stated md did not have to do anything else after patient is discharged. [facility] stated to call back with patient update if patient is able to tolerate regular diet to start process for transfer. MD aware.
[2025-03-20 11:10] LABS: POC Glucose,Bedside 187 gm/dL (70-110)
== END 2025-03-20 14:46 ==
LOC: ER 03-20 00:01 → 2ND 03-20 04:32
PROVIDERS: Admitting Provider Internal Medicine Adolescent Medicine; Emergency Provider Emergency Medicine; Visit Provider Internal Medicine Adolescent Medicine
DX: E86.0 Dehydration (principal); E11.65 Type 2 diabetes mellitus with hyperglycemia; R45.851 Suicidal ideations; F39 Unspecified mood [affective] disorder; F41.1 Generalized anxiety disorder; Z91.199 Patient's noncompliance with other medical treatment and regimen due to unspecified reason; Z79.4 Long term (current) use of insulin; Z79.899 Other long term (current) drug therapy; Z88.0 Allergy status to penicillin; F31.9 Bipolar disorder, unspecified; E03.9 Hypothyroidism, unspecified; Z83.3 Family history of diabetes mellitus; F17.210 Nicotine dependence, cigarettes, uncomplicated; Z56.0 Unemployment, unspecified; R00.0 Tachycardia, unspecified; I25.2 Old myocardial infarction; R07.9 Chest pain, unspecified
CPT/HCPCS: 71045; 74177; 80053; 80307; 80329; 81001; 82009; 82803; 82962; 83690; 83735; 84484; 85025; 93005; 96361; 96365; 96372; 96375; 96376; 99285; G0378; J0131; J1650; J1790; J1885; J2405; J3475; J7030; J7120; Q9967